=== PATIENT | female | born 1975 | race Hispanic/Latino ===

== ENCOUNTER 2017-11-04 12:57 | Emergency (ER) | payer MEDICARE, MEDICAID ==
[2017-11-04 14:40] LABS: Bilirubin Negative (Negative); Blood, Urine Negative (Negative); Glucose, Urine (Dipstick) Negative (Negative); Ketone, Urine Negative (Negative); Nitrite Negative (Negative); Protein, Urine (Dipstick) Negative (Neg-Trace)
[2017-11-04 14:51] LABS: Amphetamine Not Detected (NotDetected); Methadone Not Detected (NotDetected); Methamphetamine Not Detected (NotDetected)
== END 2017-11-04 17:41 | disposition home or self-care (01) ==
LOC: ERS 12:57
DX: G40.909 Epilepsy, unspecified, not intractable, without status epilepticus (principal); F41.9 Anxiety disorder, unspecified; Z79.899 Other long term (current) drug therapy
CPT/HCPCS: 51701; 80306; 81003; 93005; A4353

== ENCOUNTER 2017-11-27 06:55 | Emergency (ER) | payer MEDICARE, MEDICAID ==
[2017-11-27] MEDS ORDERED: Lorazepam 2 MG/ML VIAL ONE (07:13)
[2017-11-27] MEDS ORDERED: Ondansetron HCl/PF 4 MG/2 ML Vial ONE (07:17)
[2017-11-27] MEDS ORDERED: Midazolam HCl 2 mg/2 ml Vial ONE (07:51)
[2017-11-27 08:05] LABS: #Eosinphils 0.1 thou/uL (0.0-0.7); #Lymphocytes 1.1 thou/uL (1.20-3.40); #Monocytes 0.4 thou/uL (0.11-0.59); #Neutrophils 3.5 thou/uL (1.40-6.50); %Basophils 0.6 % (0.0-1.0); %Lymphocytes 21.4 % (21.0-51.0); %Monocytes 7.7 % (0.0-10.0); %Neutrophils 68.3 % (42.0-75.0); Hemoglobin 12.6 g/dL (12.0-16.0); Mean Corpuscular HGB CONC 33.7 g/dL (32.0-36.0); Mean Corpuscular Hemoglobin 33.6 pg (27.0-31.0); Mean Corpuscular Volume 99.4 fl (81.0-99.0); Mean Platelet Volume 7.5 fL (7.4-10.4); Platelet Count 248 thou/uL (130-400); RBC Distribution Width 11.3 % (11.5-14.5); Red Blood Cell (RBC) Count 3.75 mill/uL (4.20-5.40); White Blood Cell (WBC) Count 5.2 thou/uL (4.8-10.8)
[2017-11-27 08:32] LABS: ALT (SGPT) 23 U/L (8-55); AST (SGOT) 18 U/L (5-34); Albumin 3.2 g/dL (3.5-5.0); Alkaline Phosphatase 63 U/L (40-150); Anion Gap 9 mmol/L (10-20); BUN (Urea Nitrogen) 7 mg/dL (7.0-18.7); Bilirubin, Total 0.5 mg/dL (0.2-1.2); Calc. Creatinine Clearance 0 mL/min (70-130); Calcium 8.2 mg/dL (7.8-10.44); Carbon Dioxide 23 mmol/L (22-29); Chloride 112 mmol/L (98-107); Estimated GFR-MDRD 84; Globulin 2.2 g/dL (2.4-3.5); Glucose 88 mg/dL (70-105); Potassium 3.4 mmol/L (3.5-5.1); Protein, Total 5.4 g/dL (6.0-8.3); Sodium 141 mmol/L (136-145)
[2017-11-27] MEDS ORDERED: Valproic Acid 250 MG CAP PO SCH (09:00)
[2017-11-27 09:25] LABS: Bilirubin Negative (Negative); Blood, Urine Negative (Negative); Clarity CLEAR (Clear); Glucose, Urine (Dipstick) Negative (Negative); Leukocyte Negative (Negative); Nitrite Negative (Negative); Protein, Urine (Dipstick) Negative (Neg-Trace); Specific Gravity, Urine 1.012 (1.002-1.036)
== END 2017-11-27 11:35 | disposition home or self-care (01) ==
LOC: ERS 06:55
DX: G40.909 Epilepsy, unspecified, not intractable, without status epilepticus (principal); G43.909 Migraine, unspecified, not intractable, without status migrainosus; F41.9 Anxiety disorder, unspecified; Z79.899 Other long term (current) drug therapy
CPT/HCPCS: 36415; 80053; 80164; 81003; 85025; 96361; 96374; J2060; J2250; J2405

== ENCOUNTER 2018-02-15 11:14 | Emergency (ER) | payer MEDICARE, MEDICAID ==
[2018-02-15] MEDS ORDERED: Lorazepam 2 MG/ML VIAL ONE ×2 (11:21→11:45)
[2018-02-15] MEDS ORDERED: Diazepam 2.5 MG GEL ONE ×2 (11:31)
[2018-02-15 12:08] LABS: #Basophils 0.1 thou/uL (0.0-0.2); #Eosinphils 0.2 thou/uL (0.0-0.7); #Lymphocytes 1.9 thou/uL (1.20-3.40); #Monocytes 0.5 thou/uL (0.11-0.59); #Neutrophils 3.2 thou/uL (1.40-6.50); %Basophils 2.4 % (0.0-1.0); %Eosinophils 3.1 % (0.0-10.0); %Lymphocytes 31.7 % (21.0-51.0); %Monocytes 8.5 % (0.0-10.0); %Neutrophils 54.4 % (42.0-75.0); Mean Corpuscular HGB CONC 34.5 g/dL (32.0-36.0); Mean Corpuscular Hemoglobin 32.3 pg (27.0-31.0); Mean Corpuscular Volume 93.8 fl (81.0-99.0); Platelet Count 226 thou/uL (130-400); Red Blood Cell (RBC) Count 4.33 mill/uL (4.20-5.40); White Blood Cell (WBC) Count 5.9 thou/uL (4.8-10.8)
[2018-02-15 12:21] LABS: ALT (SGPT) 25 U/L (8-55); AST (SGOT) 18 U/L (5-34); Albumin 3.9 g/dL (3.5-5.0); Alkaline Phosphatase 98 U/L (40-150); Anion Gap 17 mmol/L (10-20); BUN (Urea Nitrogen) 8 mg/dL (7.0-18.7); Bilirubin, Total 0.4 mg/dL (0.2-1.2); Calc. Creatinine Clearance 0 mL/min (70-130); Calcium 8.7 mg/dL (7.8-10.44); Carbon Dioxide 16 mmol/L (22-29); Chloride 112 mmol/L (98-107); Estimated GFR-MDRD 74; Globulin 2.9 g/dL (2.4-3.5); Glucose 83 mg/dL (70-105); Potassium 3.9 mmol/L (3.5-5.1); Protein, Total 6.8 g/dL (6.0-8.3); Sodium 141 mmol/L (136-145)
[2018-02-15 13:09] LABS: Pregnancy Test - Urine (BHCG) Negative (Negative); Pregu Control Background? CLEAR/WHITE (CLR/WHITE); Pregu Control Bar Appear? YES (CONTROL BAR); Specific Gravity 1.015 (1.002-1.036)
[2018-02-15 13:12] LABS: Amphetamine Not Detected (NotDetected); Benzodiazepine Screen Detected (NotDetected); Cocaine Metabolite Screen Not Detected (NotDetected); Methamphetamine Not Detected (NotDetected); Opiate Screen Not Detected (NotDetected); Phencyclidine (PCP) Not Detected (NotDetected); THC/Cannabinoid Screen Not Detected (NotDetected)
[2018-02-15 13:13] LABS: Barbiturates Screen Not Detected (NotDetected); Medtox Control Line Valid? VALID (VALID); Methadone Not Detected (NotDetected); Oxycodone Screen Not Detected (NotDetected); Tricyclic Screen Not Detected (NotDetected)
[2018-02-15] MEDS ORDERED: Acetaminophen 325 MG TAB ONE (13:27)
[2018-02-15 13:30] LABS: Valproic Acid (Depakene) 59.9 ug/mL (50.0-100.0)
== END 2018-02-15 14:27 | disposition home or self-care (01) ==
LOC: SCSER 11:14
DX: G40.909 Epilepsy, unspecified, not intractable, without status epilepticus (principal); I72.9 Aneurysm of unspecified site; F41.9 Anxiety disorder, unspecified; Z79.891 Long term (current) use of opiate analgesic; Z79.899 Other long term (current) drug therapy; G43.909 Migraine, unspecified, not intractable, without status migrainosus
CPT/HCPCS: 36415; 80053; 80164; 80306; 81025; 85025; 96361; 96372; 96374; J2060

== ENCOUNTER 2018-02-16 11:58 | Inpatient (IN) | payer MEDICARE, MEDICAID ==
[2018-02-16] MEDS ORDERED: Diazepam 5 MG TAB ONE (12:06)
[2018-02-16] MEDS ORDERED: Lorazepam 2 MG/ML VIAL ONE ×2 (12:07→14:37)
[2018-02-16] MEDS ORDERED: Lorazepam 1 MG TAB ONE (12:07)
[2018-02-16] MEDS ORDERED: Fosphenytoin Sodium 1,500 MG in Sodium Chloride 0.9% 50 ML IVPB SCH (12:30)
[2018-02-16 12:36] LABS: Bilirubin Negative (Negative); Blood, Urine Negative (Negative); Clarity CLEAR (Clear); Glucose, Urine (Dipstick) Negative (Negative); Leukocyte Negative (Negative); Nitrite Negative (Negative); Protein, Urine (Dipstick) Negative (Neg-Trace); Specific Gravity, Urine 1.023 (1.002-1.036)
[2018-02-16 12:38] LABS: Pregnancy Test - Urine (BHCG) Negative (Negative); Pregu Control Background? CLEAR/WHITE (CLR/WHITE); Pregu Control Bar Appear? YES (CONTROL BAR); Specific Gravity 1.023 (1.002-1.036)
--- NOTE | 2018-02-16 12:50 | CT ---
CT BRAIN WITHOUT CONTRAST: INDICATIONS: History of seizures. COMPARISON: 08/11/2017 FINDINGS: No acute infarct, hemorrhage, or hydrocephalus is present. The septum pellucidum and third ventricle are midline. The skull and intracranial soft tissues are unremarkable appearing. The examination h as not appreciably changed from the comparison study. IMPRESSION: No acute intracranial abnormality. POS: ISIDRO
[2018-02-16 12:54] LABS: ALT (SGPT) 36 U/L (8-55); AST (SGOT) 33 U/L (5-34); Albumin 3.8 g/dL (3.5-5.0); Alkaline Phosphatase 125 U/L (40-150); Anion Gap 15 mmol/L (10-20); BUN (Urea Nitrogen) 9 mg/dL (7.0-18.7); Bilirubin, Total 0.6 mg/dL (0.2-1.2); Calc. Creatinine Clearance 0 mL/min (70-130); Carbon Dioxide 13 mmol/L (22-29); Chloride 116 mmol/L (98-107); Estimated GFR-MDRD 67; Globulin 3.5 g/dL (2.4-3.5); Glucose 105 mg/dL (70-105); Potassium 5.1 mmol/L (3.5-5.1); Protein, Total 7.3 g/dL (6.0-8.3); Sodium 139 mmol/L (136-145)
[2018-02-16 12:58] LABS: Amphetamine Not Detected (NotDetected); Barbiturates Screen Not Detected (NotDetected); Benzodiazepine Screen Detected (NotDetected); Cocaine Metabolite Screen Not Detected (NotDetected); Medtox Control Line Valid? VALID (VALID); Medtox Reader # READER 1; Methadone Not Detected (NotDetected); Methamphetamine Not Detected (NotDetected); Opiate Screen Detected (NotDetected); Oxycodone Screen Not Detected (NotDetected); Phencyclidine (PCP) Not Detected (NotDetected); THC/Cannabinoid Screen Not Detected (NotDetected); Tricyclic Screen Not Detected (NotDetected)
[2018-02-16 13:06] LABS: Band 2 % (5-11); Eosinophils 3 % (0-10); Hemoglobin 14.8 g/dL (12.0-16.0); Lymphocytes 37 % (21-51); MDiff Complete? YES; Mean Corpuscular Hemoglobin 33.6 pg (27.0-31.0); Mean Corpuscular Volume 98.8 fl (81.0-99.0); Mean Platelet Volume 8.4 fL (7.4-10.4); Monocytes 3 % (0-10); Myelocyte 2 % (0-0); Neutrophil 53 % (42-75); Platelet Count 121 thou/uL (130-400); RBC Distribution Width 12.1 % (11.5-14.5); RBC Morphology Normal; Red Blood Cell (RBC) Count 4.41 mill/uL (4.20-5.40); White Blood Cell (WBC) Count 8.1 thou/uL (4.8-10.8)
--- NOTE | 2018-02-16 18:13 | PDOC.EVN ---
Event Note - Event Note Event Note: Attending note. I discussed case with Dr. Chung. I agree with his H&P except as below. 42 y/o with h/o seizure disorder presented s/p "six seizures" with right humeral IO placed in the field. She is currently complaining of posterior head pain and right hip pain, both from reported falls/seizures. Otherwise she is conversing appropriately. I verified PMH/PSH/meds/all/sh/fh - please see resident note. A 12 point ROS is otherwise negative. AOx3, NAD RRR s M or edema CTAB s w/r/r or increased work of breathing BS+, NTTP, no palp organomegaly deferred MSK with palpable contusion posterior skull, bruise right hip, mild TTP Skin warm dry multiple IV start attempts visible, including on left breast Neuro: CN II-xII intact and symmetric, motor 5/5 U/L extremity, no clonus, DTRs 2+ Labs reviewed A/P: Seizure disorder -neuro consulted -add phosphenytoin -continue home meds -send NH4 in AM -carbamazepime level -hold pain medications for now DVT/GI ppx.
[2018-02-16] MEDS ORDERED: levETIRAcetam In NaCl (Iso-Os) 1,000 MG in Premix Bag 1 BAG IVPB SCH (18:30)
[2018-02-16] MEDS ORDERED: Acetaminophen 500 MG TAB ONE (18:41)
[2018-02-16] MEDS ORDERED: Fosphenytoin Sodium 100 MG in Sodium Chloride 0.9% 50 ML IVPB SCH (22:00)
[2018-02-16] MEDS ORDERED: HYDROcodone/Acetaminophen 5/325 mg Tablet PO PRN (22:58)
[2018-02-16] MEDS ORDERED: Ondansetron ODT 4 MG TAB PO PRN (22:58)
[2018-02-16] MEDS: Lorazepam 2 MG/ML VIAL SLOW IVP PRN (23:17)
[2018-02-16] MEDS ORDERED: Topiramate 100 MG TAB PO SCH (23:45)
[2018-02-16] MEDS ORDERED: ALPRAZolam 0.25 MG TAB PO SCH (23:45)
[2018-02-17] MEDS: Lorazepam 2 MG/ML VIAL SLOW IVP PRN ×3 (00:12→01:21)
[2018-02-17 00:59] VITALS: BMI 25.3
[2018-02-17] MEDS ORDERED: FOSPHENYTOIN SODIUM IVPB SCH (01:45)
[2018-02-17] MEDS ORDERED: SODIUM CHLORIDE 0.9% IVPB SCH (01:45)
[2018-02-17 02:08] LABS: #Eosinphils 0.1 thou/uL (0.0-0.7); #Lymphocytes 1.4 thou/uL (1.20-3.40); #Monocytes 0.4 thou/uL (0.11-0.59); #Neutrophils 6.5 thou/uL (1.40-6.50); %Basophils 0.2 % (0.0-1.0); %Eosinophils 0.9 % (0.0-10.0); %Lymphocytes 16.2 % (21.0-51.0); %Neutrophils 77.7 % (42.0-75.0); Hemoglobin 14.5 g/dL (12.0-16.0); Mean Corpuscular HGB CONC 33.2 g/dL (32.0-36.0); Mean Corpuscular Hemoglobin 32.8 pg (27.0-31.0); Mean Corpuscular Volume 98.6 fl (81.0-99.0); Mean Platelet Volume 8.9 fL (7.4-10.4); Platelet Count 224 thou/uL (130-400); Red Blood Cell (RBC) Count 4.42 mill/uL (4.20-5.40); White Blood Cell (WBC) Count 8.4 thou/uL (4.8-10.8)
[2018-02-17 02:11] LABS: Anion Gap 14 mmol/L (10-20); BUN (Urea Nitrogen) 8 mg/dL (7.0-18.7); Calc. Creatinine Clearance 105 mL/min (70-130); Calcium 8.8 mg/dL (7.8-10.44); Carbon Dioxide 15 mmol/L (22-29); Chloride 115 mmol/L (98-107); Estimated GFR-MDRD 79; Glucose 95 mg/dL (70-105); Phosphorus 3.1 mg/dL (2.3-4.7); Potassium 3.5 mmol/L (3.5-5.1); Sodium 140 mmol/L (136-145)
[2018-02-17] MEDS: ALPRAZolam 0.25 MG TAB PO SCH ×3 (03:43→22:04)
[2018-02-17] MEDS: Topiramate 100 MG TAB PO SCH ×3 (03:44→22:04)
--- NOTE | 2018-02-17 03:53 | PDOC.EVN ---
Event Note - Event Note Event Note: Residents called to patient's bedside around 0130 on 02/17/18 secondary to patient have multiple seizure episodes. Patient had been given 8 mg Ativan over the prior 3 hours. Patient was not actively seizing while we were in the room. VSS and patient in no acute distress. Review of medication administration showed that patient had only been loaded with 1500 mg of fosphenytoin. Status epilepticus algorithm followed and patient given an additional 5 mg/kg of fosphenytoin.
[2018-02-17 04:10] LABS: Carbamazepine-Tegretol Less than 1.9 ug/mL (4.0-12.0)
--- NOTE | 2018-02-17 08:34 | HP-2 ---
RESIDENT: Dr. Camilo Chung. ATTENDING: Dr. Nolan. CODE STATUS: FULL CODE. PRIMARY CARE PHYSICIAN: Zeina river. CHIEF COMPLAINTS: Seizures. HISTORY OF PRESENT ILLNESS: The patient is a 42-year-old female with past medical history of epilepsy, migraines and per the patient, aneurysm in her brain, who sees Dr. Wilkinson as an outpatient, who presents for evaluation of recurrent seizures. The patient was seen at [facility] yesterday for the same thing. Reportedly, the patient feeling nauseated prior to getting her typical aura of a nasty metallic type taste in her mouth with seizures occurring approximately 10 minutes after this. The patient reportedly had multiple seizures. Upon chart review of [facility] records, the patient had 2 seizures lasting 1-2 minutes with brief postictal period. The patient did regain consciousness and was back to baseline neurologically in between episodes. The patient was discharged home at this time. The patient states that the same thing happened earlier today while she was out to eat approximately 10 minutes prior to arrival to the ER. The patient began to feel nauseated, had a nasty metallic taste in her mouth, which she states is her usual aura then proceeded to have a generalized convulsive seizure, which is normal for her usual type of seizures. The patient has not had a seizure in the past 6 months prior to the onset of the seizure yesterday. The patient endorses taking her medication as prescribed and is not missing doses. The patient has not started any other new medication during this time. The patient denies any other possible changes or causes that could be causing her to have seizures. Denies any drug use as well. The patient reports that she had an accident as a child this is why she has seizures. Denies any family history of seizures. The patient states that she did have an episode of status epilepticus approximately 6 years ago, where she was intubated and sed[facility] for [facility] [place]. In the ER, the patient received 4 mg of Ativan total and was loaded with 1500 mg of fosphenytoin. The patient received 500 normal saline bolus as well. PAST MEDICAL HISTORY: 1. Migraines. 2. Possible history of brain aneurysm. PAST SURGICAL HISTORY: Hysterectomy. ALLERGIES: 1. ASPIRIN. 2. PHENOBARBITAL. MEDICATIONS: 1. Topamax 100 mg p.o. b.i.d. 2. Tegretol 200 mg p.o. b.i.d. 3. Depakote extended release 500 mg p.o. daily. 4. Xanax 0.25 mg p.o. b.i.d. 5. [place] 10/325 mg p.o. b.i.d. 6. Fioricet as needed for migraines. FAMILY HISTORY: No family history of seizure disorders. SOCIAL HISTORY: Denies any tobacco, alcohol or IV drug use. REVIEW OF SYSTEMS: GENERAL: Denies any fevers or chills. EYES: Denies any vision change or eye pain. ENT: Denies any rhinorrhea, sore throat. RESPIRATORY: Denies any cough or congestion. CARDIOVASCULAR: Denies any chest pain. GI: Endorses nausea. Denies any vomiting. See HPI. GENITOURINARY: Denies any dysuria or polyuria. MUSCULOSKELETAL: Denies any rash. Endorses some right hip pain from a fall earlier this week. NEUROLOGIC: Endorses seizure. See HPI. PSYCHIATRIC: Denies anxiety or depression. PHYSICAL EXAMINATION: VITAL SIGNS: Blood pressure 123/76, pulse 76, respiratory rate 18, T-max 98.1 degrees Fahrenheit, pulse ox 97% on room air, weight 78 kilograms. GENERAL: Alert and oriented x3. NAD. Well developed. EYES: PERRLA, EOMI. Conjunctivae within normal limits. ENT: Nasal mucosa and oropharynx within normal limits. NECK: Supple, no cervical lymphadenopathy, no thyromegaly, no bruits. CARDIOVASCULAR: Regular rate and rhythm, no murmurs, no gallops, 2+ radial and pedal pulses bilaterally. RESPIRATORY: Normal respiratory effort, no retractions. Clear to auscultation bilaterally. SKIN: Warm, dry and intact. No cyanosis or lesions. IO placed in the right shoulder and peripheral IV on the anterior surface of the left foot. ABDOMEN: Soft, mildly tender to palpation in the lower abdomen. However, bowel sounds x4. No masses, distention or rebound tenderness. EXTREMITIES: No clubbing, no cyanosis, no edema. MUSCULOSKELETAL: Structure within normal limits. Tone within normal limits. Muscle strength 4/5 throughout, possibly slightly weaker on the left as compared to the right, full range of motion. NEUROLOGICAL: No focal deficits. Sensation within normal limits. Cranial nerves II through XII intact bilaterally. GCS 10. PSYCHIATRIC: Appropriate mood and her chest. PSYCHIATRIC: Appropriate active. LABORATORY DATA: White blood cells 8.1, hemoglobin 14, hematocrit 43.6, platelets 121, Sodium 139, potassium 5.1, chloride 116, bicarbonate 13, BUN 9, creatinine 0.91, glucose 105, albumin 3.8, total protein 7.3, total bilirubin 0.6, calcium 9.0, AST 33, ALT 36, alkaline phosphatase 125. Prolactin 12.75, valproic acid 50.3, base hCG negative. UA specific gravity of 1.023, negative blood, negative protein, negative glucose, negative nitrites, trace ketones negative, glucose negative, red blood cells negative, white blood cells negative bacteria. UDS positive for opiates and benzodiazepines. IMAGING: CT brain without contrast showing no acute process. ASSESSMENT AND PLAN: A 42-year-old female with: 1. Epilepsy with recurrent unprovoked generalized seizures. -- Dr. Bo of Neurology already consulted from the ER. The patient loaded with fosphenytoin. Depakote level was low and therapeutic range of 50.3. The patient also taking Tegretol and Topamax. We will check carbamazepine level to evaluate, if this level was therapeutic. We will continue her current anti- seizure regimen. We will continue on with usual maintenance of keppra per neurology 500 mg Q12 hrs s/p 1 gram initial dose in ER written by Neuro. -- The patient regained her baseline mentation in between episodes and episodes not lasting greater than 5-10 minutes, giving low suspicion for possible status. This was confirmed by talking to the ER nurse, who took care of the patient at [facility] with similar today's seizures. -- Currently no obvious source of infection or nidus provoking seizures. -- We will also check a magnesium level. Obtained EKG and TSH to further evaluate possible cause for these. -- We will have p.r.n. Ativan on board, if the patient does have continued seizures on fosphenytoin to use. -- We will defer ordering MRI brain to Neurology status post full evaluation of her. 2. History of aneurysms. -- The last CT brain obtained in February of last year without any evidence of aneurysm on angiogram. Per reports, unsure where this history came from as there is no other mention of it in the record. We will consider obtaining a CT with and without contrast to further evaluate this, if this is felt to be a viable source of her seizures. 3. Migraines. -- The patient taking Topamax and Fioricet for her migraines at home. Currently , asymptomatic. In the setting of recurrent seizures and starting new antiepileptics. We will hold these medications and treat symptomatically, if symptoms do arise. DISPOSITION OF THE STAY: Greater than 2 midnights. Symptomatic medications will be provided. History and physical exam as well as management were discussed with Dr. Nolan. Attending addendum: Followed by Dr. Gibbs. On exam, GCS 15, no focal deficits. IO right humerus. MTDD
[2018-02-17] MEDS: carBAMazepine 200 MG TAB PO SCH ×2 (09:12→18:11)
[2018-02-17] MEDS ORDERED: Midazolam HCl 2 mg/2 ml Vial ONE (14:49)
[2018-02-17] MEDS ORDERED: Fentanyl 100 MCG/2 ML VIAL ONE (14:49)
[2018-02-17] MEDS ORDERED: Sodium Chloride 0.9% 30 ML ONE (14:50)
[2018-02-17] MEDS ORDERED: Bupivacaine/Epinephrine 0.25% 30 ML VIAL ONE ×2 (14:50→15:57)
[2018-02-17] MEDS ORDERED: Lidocaine 2% 10 ML INJ ONE (14:51)
--- NOTE | 2018-02-17 15:09 | PDOC.FM ---
- Subjective Subjective: See event note from 02/17 for overnight events in detail. Pt w/ seizures x5-6 early this AM. Found that IO clotted. Was given 500 mg of fosphenytoin w/ improvment in sxs. No seizure activity since this time. Pt w/ 20 gauge in dorsal left foot as only IV access. Pt sleepy during interview. Endorsing headache but no other complaints. VSS, afebrile. to visit this AM. - Objective MAR Reviewed: Yes Vital Signs & Weight: Vital Signs (12 hours) Temp Pulse Resp BP Pulse Ox 02/17/18 11:25 98.9 F 75 14 96/62 97 02/17/18 09:05 97.8 F 78 16 111/71 97 Result Diagrams: 02/17/18 00:21 02/17/18 00:21 <Camilo Chung - Last Filed: 02/17/18 15:07> - Objective Vital Signs & Weight: Vital Signs (12 hours) Temp Pulse Resp BP Pulse Ox 02/18/18 04:00 98.5 F 87 20 111/72 99 02/18/18 00:00 98.4 F 87 20 91/58 L 99 02/17/18 20:59 98.8 F 78 15 94/55 L 99 Weight Weight 74.933 kg I&O: 02/17/18 02/18/18 02/19/18 06:59 06:59 06:59 Intake Total 360 Balance 360 Result Diagrams: 02/18/18 04:45 02/18/18 04:45 <Elliott Hernandez - Last Filed: 02/18/18 07:55> Phys Exam - Physical Examination Constitutional: NAD HEENT: PERRLA, moist MMs Respiratory: clear to auscultation bilateral Cardiovascular: RRR, no significant murmur Gastrointestinal: soft, non-tender Musculoskeletal: no edema Neurological: moves all 4 limbs Psychiatric: normal affect, A&O x 3 Deviation from normal: tired appearing <Camilo Chung - Last Filed: 02/17/18 15:07> Dx/Plan (1) Seizure disorder Code(s): G40.909 - EPILEPSY, UNSP, NOT INTRACTABLE, WITHOUT STATUS EPILEPTICUS Status: Acute Plan: Cont. pt's home seizure meds w/ Depakote and tegretol Cont. w/ keppra per neuro recs 2/2 contaminant usage of depakote Carbamazepine level <1.9, possibly cause of pt's seizures Head CT negative and no signs of infection as nidus Will defer decision for further neuro imaging to neurology Awaiting further neuro reccomendations (2) Poor venous access Code(s): I87.8 - OTHER SPECIFIED DISORDERS OF VEINS Status: Chronic Plan: Pt w/ poor peripheral access and hx of multiple IO placements in the past when coming to the ED for her seizure d/o Consult Gen Surg for venous access port placement (3) Migraines Code(s): G43.909 - MIGRAINE, UNSP, NOT INTRACTABLE, WITHOUT STATUS MIGRAINOSUS Status: Acute Plan: Cont. w/ outpatient topamax (4) Anxiety Code(s): F41.9 - ANXIETY DISORDER, UNSPECIFIED Status: Acute Plan: Cont. w/ outpatient xanax to prevent possible withdrawal seizures (5) Hypothyroidism Code(s): E03.9 - HYPOTHYROIDISM, UNSPECIFIED Status: Acute Plan: TSH ULN Cont. w/ home dose synthroid Titration as outpatient <Camilo Chung - Last Filed: 02/17/18 15:07> Attending Addendum - Attending Addendum Date/Time: 02/18/18 0755 I personally evaluated the patient and discussed the management with Dr. Chung on 02/17/18. I agree with the History, Examination, Assessment and Plan documented above with any addition or exceptions noted below. <Elliott Hernandez - Last Filed: 02/18/18 07:55>
[2018-02-17] MEDS ORDERED: Lorazepam 2 MG/ML VIAL ONE (15:23)
[2018-02-17] MEDS ORDERED: Meperidine HCl/PF 25 MG/ML VIAL SLOW IVP PRN (16:30)
[2018-02-17] MEDS ORDERED: Promethazine HCl 25 MG/ML VIAL IM PRN (16:30)
[2018-02-17] MEDS ORDERED: Ondansetron HCl/PF 4 MG/2 ML Vial IVP PRN (16:30)
[2018-02-17] MEDS ORDERED: Promethazine HCl 25 MG/ML VIAL SLOW IVP PRN (16:30)
--- NOTE | 2018-02-17 16:54 | PDOC.GSCN ---
Surgery Consult: HPI - Consult details Date: 02/17/18 Time: 14:00 Reason for consult: other (Consult for mediport placement) Requesting physician: Camilo Chung History of present illness: 02/17/18 14:36 This is a 42 y/o female pmh epilepsy with depleted venous access. Per report by the family medicine team pt has had multiple IO placements when she has uncontrolled seizures. Unfortunately the patient had multiple episodes overnight and received 8mg of ativan. She is currently drowsy, but awakens to voice and stimulation, however she is unable to proved further history. No family is at bedside. History obtained by records review. 02/17/18 14:38 Surgery Consult: [facility] Source: other Past Medical History: Epilepsy, Migraines Past Surgical History: Hysterectomy - Past Family History Pertinent family history: Unable to obtain Surgery Consult: Exam - Vital signs Vital signs: Vital Signs - Most Recent Temp Pulse Resp BP Pulse Ox 98.9 F 75 14 96/62 97 02/17/18 11:25 02/17/18 11:25 02/17/18 11:25 02/17/18 11:25 02/17/18 11:25 - Physical Exam General: no distress, chronically ill, other (resting in bed) Respiratory: normal expansion, normal respiratory effort, other (Upper chest wall free from scars/devices) Abdomen: non tender, soft Neurologic: other (Lethargic, wakes to voice briefly. Will briefly answer questions appropriately. No focal deficit noted) Surgery Consult: Meds - Medications MAR Reviewed: Yes Medications: Current Medications Hydrocodone Bitart/Acetaminophen ([place] 5/325) 1 tab PO Q6H PRN PRN Reason: Pain 7-10 Alprazolam (Xanax) 0.25 mg PO BID [facility] Last Admin: 02/17/18 09:03 Dose: Not Given Carbamazepine (Tegretol) 200 mg PO BID-[facility] Last Admin: 02/17/18 09:12 Dose: 200 mg Divalproex Sodium (Depakote Er) 1,000 mg PO BID [facility] Last Admin: 02/17/18 09:11 Dose: 1,000 mg Levetiracetam 500 mg/ Device 100 mls @ 200 mls/hr IVPB BID [facility] Last Admin: 02/17/18 09:09 Dose: 100 mls Lorazepam (Ativan) 2 mg SLOW IVP Q15MIN PRN PRN Reason: Seizures Last Admin: 02/17/18 01:21 Dose: 2 mg Ondansetron HCl (Zofran Odt) 4 mg PO Q6H PRN PRN Reason: Nausea/Vomiting Last Admin: 02/17/18 09:24 Dose: 4 mg Sodium Chloride (Flush - Normal Saline) 10 ml IVF Q12HR [facility] Last Admin: 02/17/18 09:12 Dose: 10 ml Sodium Chloride (Flush - Normal Saline) 10 ml IVF PRN PRN PRN Reason: Saline Flush Topiramate (Topamax) 100 mg PO BID [facility] Last Admin: 02/17/18 09:11 Dose: 100 mg - Allergies Allergies/Adverse Reactions: Allergies Allergy/AdvReac Type Severity Reaction Status Date / Time aspirin Allergy Hives Verified 02/16/18 23:07 phenobarbital Allergy Verified 02/16/18 23:07 Surgery Consult: Results - Labs Result Diagrams: 02/20/18 04:46 02/20/18 04:46 Surgery Consult: A/P - Problem (1) Poor venous access Code(s): I87.8 - OTHER SPECIFIED DISORDERS OF VEINS Status: Chronic (2) Seizure disorder Code(s): G40.909 - EPILEPSY, UNSP, NOT INTRACTABLE, WITHOUT STATUS EPILEPTICUS Status: Acute - Plan Plan: Pt to OR with Dr Fajardo for mediport placement under fluoroscopy. RN to obtain consent from pts spouse. Pt has been NPO since this am. Dr Fajardo has seen and evaluated this patient and agrees with the assessment and plan
--- NOTE | 2018-02-17 18:47 | RAD ---
PORTABLE SUPINE RADIOGRAPH CHEST: 02/17/18 COMPARISON: 05/15/07. HISTORY: Evaluate Port-A-Cath tip. FINDINGS: There is a right sided CT injectable Port-A-Cath present. The tip overlies the cardiac silhouette to the left of midline inferiorly, suggesting that this is at least within the right atrium if not into the right ventricle. Supine imaging limits assessment for pneumothorax and pleural fluid. There is baptiste zy patchy opacity in the medial left lung base suggesting volume loss or less likely infiltrate. IMPRESSION: Distal tip of Port-A-Cath overlies the cardiac silhouette to the left of midline. This is at least to the level of the right atrium if not to the level of the right ventricle. Dr. Fajardo made aware at 5 p.m., 02/17/18. Code CR POS: ADWOA
--- NOTE | 2018-02-17 19:12 | CT ---
CT OF THE CHEST WITHOUT CONTRAST: 02/17/18 COMPARISON: None. HISTORY: Mediport placement with low lying Mediport. Evaluate for the tip of the Mediport. TECHNIQUE: Multiple contiguous axial images were obtained in a CT of the chest without contrast. Coronal reforma ts were performed. FINDINGS: There is a right subclavian Mediport. The tip of the Mediport extends through the right atrium and is immediately at the tricuspid valve. This does not extend deeply into the right ventricle. The heart is normal in size without focal cardiac abnormality. No hilar or mediastinal lymphadenopathy are seen . No pneumothorax is seen. No pleural effusion is present. No focal infiltrates are seen in the lungs . The visualized subdiaphragmatic structures are unremarkable. Mild degenerative changes are seen in th e spine. IMPRESSION: Recently placed Mediport has its tip immediately adjacent to the tricuspid valve. POS: ADWOA
--- NOTE | 2018-02-17 21:58 | OP ---
DATE OF OPERATION: 02/17/2018 PREOPERATIVE DIAGNOSES: 1. Recurrent epileptic seizures. 2. Difficulty with peripheral intravenous access. POSTOPERATIVE DIAGNOSES: 1. Recurrent epileptic seizures. 2. Difficulty with peripheral intravenous access OPERATION PERFORMED: Placement of right subclavian Port-A-Cath under fluoroscopy. ANESTHESIA: Monitored anesthesia care. ESTIMATED BLOOD LOSS: Less than 5 mL. INDICATIONS FOR PROCEDURE: A 42-year-old woman presented with recurrent epileptic seizures. Multipl e attempts to secure dependable peripheral IV access was unsuccessful. In prior hospitalizations int erosseous has been use as IV access. I was asked to place a Port-A-Cath for therapeutic purposes. DESCRIPTION OF PROCEDURE: Informed consent obtained from the patient's spouse. The patient was brou ght to the operating room and placed in supine position. Following conscious sedation, the left bila teral chest wall was sterilely prepped and draped in usual fashion. I anesthetized the skin below th e left clavicle with 0.25% Marcaine with epinephrine. I cannulated the left subclavian vein on 4 att empts, each time returning dark venous blood, but was unable to thread a guidewire. We then decided to proceed with placement of the catheter in the right chest wall. Skin below the right clavicle was anesthetized again with 0.25% Marcaine with epinephrine. The right subclavian vein was cannulated w ith an 18 gauge introducer needle returning dark venous blood. A guidewire was passed through the ne edle and placed in the right subclavian vein without resistance. The needle was withdrawn over the g uidewire. A stab incision was made adjacent to the guidewire using an 11 scalpel. The dilator was p assed over the guidewire dilating subcutaneous tissues. Dilator was then connected to introducer she ath, which was then introduced as a unit over the guidewire and placed in the right subclavian vein w ithout resistance. The dilator and guidewire were removed as a unit leaving the introducer sheath in place through which the Port-A-Cath catheter was inserted into the right subclavian vein without res istance. The introducer sheath was peeled away under fluoroscopy. The catheter was fashioned to [facility] under fluoroscopy and connected to it well. I then made an oblique incision adjacent to the inse rtion site. Incision was carried through subcutaneous tissues maintaining hemostasis using cautery. A subcutaneous pocket was then raised. The wall of the Port-A-Cath was then placed in the subcutane ous pocket and secured to the anterior chest wall using 3-0 Prolene. Using a Villalobos needle, dark veno us blood was aspirated from the port, which was flushed with saline and then straight heparin. Subcu taneous tissues were approximated over the port using 3-0 Vicryl suture in an interrupted fashion. S kin was closed using a running stitch of 4-0 Monocryl suture in subcuticular fashion. Dermabond was applied over the incision. The patient tolerated the operation without any apparent complication and was returned to recovery room in a satisfactory condition. She did receive 2 grams of Ancef once the port was in place as no previous IV access was obtainable.
[2018-02-18 05:13] LABS: #Eosinphils 0.1 thou/uL (0.0-0.7); #Lymphocytes 1.3 thou/uL (1.20-3.40); #Monocytes 0.8 thou/uL (0.11-0.59); %Basophils 0.4 % (0.0-1.0); %Eosinophils 0.6 % (0.0-10.0); %Lymphocytes 14.6 % (21.0-51.0); %Monocytes 8.3 % (0.0-10.0); %Neutrophils 76.1 % (42.0-75.0); Hemoglobin 14.4 g/dL (12.0-16.0); Mean Corpuscular HGB CONC 33.6 g/dL (32.0-36.0); Mean Corpuscular Volume 98.2 fl (81.0-99.0); Mean Platelet Volume 8.7 fL (7.4-10.4); Platelet Count 192 thou/uL (130-400); RBC Distribution Width 11.8 % (11.5-14.5); Red Blood Cell (RBC) Count 4.36 mill/uL (4.20-5.40); White Blood Cell (WBC) Count 9.1 thou/uL (4.8-10.8)
[2018-02-18 05:22] LABS: Anion Gap 15 mmol/L (10-20); BUN (Urea Nitrogen) 10 mg/dL (7.0-18.7); Calc. Creatinine Clearance 107 mL/min (70-130); Calcium 8.5 mg/dL (7.8-10.44); Carbon Dioxide 15 mmol/L (22-29); Chloride 110 mmol/L (98-107); Estimated GFR-MDRD 79; Glucose 79 mg/dL (70-105); Potassium 3.9 mmol/L (3.5-5.1); Sodium 136 mmol/L (136-145)
[2018-02-18] MEDS: Levothyroxine Sodium 50 MCG TAB PO SCH (05:22)
[2018-02-18] MEDS: carBAMazepine 200 MG TAB PO SCH ×2 (09:42→16:47)
[2018-02-18] MEDS: Topiramate 100 MG TAB PO SCH ×2 (09:42→20:33)
[2018-02-18] MEDS: ALPRAZolam 0.25 MG TAB PO SCH ×2 (09:50→20:54)
--- NOTE | 2018-02-18 11:13 | PDOC.FM ---
- Subjective Subjective: S/p venous access port placed yesterday. Tip noted to be in right atrium. S/p echo this AM. Pt groggy but w/ no new complaints. States she has not been seen by Dr. Gibbs yet? - Objective MAR Reviewed: Yes Vital Signs & Weight: Vital Signs (12 hours) Temp Pulse Resp BP Pulse Ox 02/18/18 09:40 98.3 F 97 18 109/64 100 02/18/18 04:00 98.5 F 87 20 111/72 99 02/18/18 00:00 98.4 F 87 20 91/58 L 99 Weight Weight 74.933 kg I&O: 02/17/18 02/18/18 02/19/18 06:59 06:59 06:59 Intake Total 360 Balance 360 Result Diagrams: 02/18/18 04:45 02/18/18 04:45 <Camilo Chung K - Last Filed: 02/18/18 11:11> - Objective Vital Signs & Weight: Vital Signs (12 hours) Temp Pulse Resp BP BP Pulse Ox 02/20/18 15:23 93/64 02/20/18 11:10 98.3 F 74 14 96/67 100 02/20/18 08:00 97.7 F 70 13 100 02/20/18 07:43 97.7 F 70 13 88/62 L 100 Weight Weight 72.711 kg I&O: 02/19/18 02/20/18 02/21/18 06:59 06:59 06:59 Intake Total 520 1150 Output Total 500 1150 Balance 20 0 Result Diagrams: 02/20/18 04:46 02/20/18 04:46 <Elliott Hernandez - Last Filed: 02/20/18 19:18> Phys Exam - Physical Examination Constitutional: NAD HEENT: PERRLA, moist MMs Neck: no nodes, no JVD Respiratory: no wheezing, clear to auscultation bilateral Cardiovascular: RRR, no significant murmur Gastrointestinal: soft, non-tender Musculoskeletal: no edema, pulses present Neurological: moves all 4 limbs Psychiatric: normal affect, A&O x 3 Skin: cap refill <2 seconds <Camilo Chung K - Last Filed: 02/18/18 11:11> Dx/Plan (1) Seizure disorder Code(s): G40.909 - EPILEPSY, UNSP, NOT INTRACTABLE, WITHOUT STATUS EPILEPTICUS Status: Acute Plan: Cont. pt's home seizure meds w/ Depakote and tegretol Cont. w/ keppra per neuro recs 2/2 contaminant usage of depakote Carbamazepine level <1.9, possibly cause of pt's seizures Head CT negative and no signs of infection as nidus Will defer decision for further neuro imaging to neurology Awaiting further neuro reccomendations Nurse to call clinic to confirm consult w/ Dr. Gibbs (2) Poor venous access Code(s): I87.8 - OTHER SPECIFIED DISORDERS OF VEINS Status: Chronic Plan: s/p portal venous port placement Will keep pt NPO this AM if needed to be taken back for revision 2/2 tip in atrium Pending surgery recs (3) Migraines Code(s): G43.909 - MIGRAINE, UNSP, NOT INTRACTABLE, WITHOUT STATUS MIGRAINOSUS Status: Acute Plan: Cont. w/ outpatient topamax (4) Anxiety Code(s): F41.9 - ANXIETY DISORDER, UNSPECIFIED Status: Acute Plan: Cont. w/ outpatient xanax to prevent possible withdrawal seizures (5) Hypothyroidism Code(s): E03.9 - HYPOTHYROIDISM, UNSPECIFIED Status: Acute Plan: TSH ULN Cont. w/ home dose synthroid Titration as outpatient <Camilo Chung - Last Filed: 02/18/18 11:11> Attending Addendum - Attending Addendum Date/Time: 02/20/18 1917 I personally evaluated the patient and discussed the management with Dr. Chung on 02/18/18. I agree with the History, Examination, Assessment and Plan documented above with any addition or exceptions noted below. <Elliott Hernandez - Last Filed: 02/20/18 19:18>
--- NOTE | 2018-02-18 12:12 | PRG ---
DATE OF SERVICE: 02/18/2018 ATTENDING PHYSICIAN: Dr. Man Fajardo. SUBJECTIVE: This is a 42-year-old female with a history of epilepsy with uncontrolled seizures. General Surgery was consulted for placement of a MediPort yesterday. The patient went to the OR with Dr. Fajardo for MediPort placement under fluoroscopy. A postoperative chest x-ray showed that the tip of the Port-A-Cath was into the right atrium and possible past the tricuspid valve. A transthoracic echocardiogram was ordered to confirm placement of the catheter. Catheter is otherwise working well. The surgical site was inspected this morning in the room and appears to be fine. The patient was somnolent but was arousable and conversational and voiced no complaints. OBJECTIVE: VITAL SIGNS: BP 111/72, pulse 87, temperature 98.5, respirations 20, O2 sat 99 % on room air. GENERAL: The patient asleep, but arousable, in no acute distress. RESPIRATORY: Breath sounds clear to auscultation bilaterally. She has a Port-A -Cath in place in her right chest. CARDIOVASCULAR: Regular rate and rhythm. ABDOMEN: Soft, nontender, nondistended. NEUROLOGIC: Somnolent but answers questions appropriately. No focal deficit noted. LABORATORY DATA: Hematology: WBC is 9.1, hemoglobin 14.4, hematocrit 42.8, platelets 192. Chemistry: Sodium 136, potassium 3.9, chloride 110, bicarb 15, BUN 10, creatinine 0.79, glucose 79, calcium 8.5. IMAGING: A chest CT without contrast. Recently placed MediPort has tip immediately adjacent to the tricuspid valve and transthoracic echocardiogram is pending. ASSESSMENT: 1. Epilepsy with uncontrolled seizures. 2. Poor venous access. 3. Status post MediPort placement. PLAN: 1. Dr. Fajardo spoke with Dr. Razo about the catheter tip placement. Catheter is okay to use. Echocardiogram to evaluate tricuspid valve function and tip placement is pending. 2. Surgery will sign off this patient at this time. Please do not hesitate to contact us for further consultation or questions. Thank you for allowing us to be involved in the care of this patient. This was seen and examined with Dr. Man Fajardo on rounds, who agrees with this assessment and plan. [facility]
[2018-02-18] MEDS: Lorazepam 2 MG/ML VIAL SLOW IVP PRN (13:04)
--- NOTE | 2018-02-18 14:51 | CON ---
DATE OF CONSULTATION: 02/16/2018 REFERRING PROVIDER: Dr. Camilo Chung. REASON FOR CONSULTATION: Recurrent seizures. HISTORY OF PRESENT ILLNESS: Ms. Guerrero is a pleasant 42-year-old female who has been consulted for evaluation of recurrent seizures. The patient reported that she has history of seizures for several years. She is seeing Dr. Quincy Gibbs as an outpatient for her seizure disorder. She states that she is currently taking Topamax 100 mg twice a day and Depakote extended release 1500 mg once a day for seizures. She also has intractable migraine, so she is receiving Botox therapy for her migraine. She had gone to see Dr. Quincy Gibbs on yesterday and was receiving Botox and at that time, she had mentioned to Dr. Gibbs that she had passed out and fell down in her bathroom. She has received bruising on her back of her thigh and on her back, which she does not remember how she got them. She states that her daughter found her on the floor and she was confused at that time. She states that she has seizures once every couple of weeks. Dr. Gibbs did ask her to go to the emergency room for which she had gone to the [facility] in [facility] where she was seen and discharged after a few hours. She came back today as she had another episode of seizure at home for which family had called EMS. On arrival to the ER, she was slowly recovering, but had another 2 more episodes of seizures. According to the nurse, both seizures were witnessed during that time she was having jerking of her arm on both sides. She was unresponsive. She became tachycardic and was hypoxic during the event. This lasted for approximately 2-3 minutes followed by postictal confusion. She is still somewhat drowsy and confused from the episode. PAST MEDICAL HISTORY: Significant for, 1. Seizure disorder. 2. Migraines. PAST SURGICAL HISTORY: Significant for hysterectomy. CURRENT MEDICATIONS: Include Topamax 100 mg twice daily, Depakote extended release 1500 mg once a day, Xanax 0.25 mg b.i.d. p.r.n., Cataumet 10/325 mg p.o. b.i.d., Ambien 1 tablet at bedtime p.r.n., Fioricet 1 capsule as needed q.4 hours. FAMILY HISTORY: Noncontributory. SOCIAL HISTORY: She denies smoking, alcohol use, or illicit drug use. ALLERGIES: Include ASPIRIN and PHENOBARBITAL. REVIEW OF SYSTEMS: As mentioned above in HPI, otherwise negative. PHYSICAL EXAMINATION: VITAL SIGNS: Blood pressure 104/67, pulse of 105, temperature of 98.1, respirations of 20, O2 sats 99% on room air. GENERAL: Well-developed, well-nourished female resting in bed, in no apparent distress. RESPIRATORY: Clear to auscultation bilaterally. CARDIOVASCULAR: Regular rate and rhythm. NEUROLOGIC: Mental status: The patient is awake, alert, and oriented x2. Speech and language: Fluent speech. Cranial nerves: Pupils are 3 mm and reactive. Visual block are intact. External muscles are intact. No nystagmus noted. Face is symmetric. Tongue and uvula are midline. Motor exam showed normal tone and bulk with a 5/5 strength in both upper and lower extremities. Sensory: Sensation is intact and symmetric. Deep tendon reflexes 2+ reflex in both upper and lower extremities. Babinski: Plantar responses flexion bilaterally. Coordination intact to [id number] tapping bilaterally. LABORATORY DATA: Reviewed, which included CBC, CMP, urinalysis, and urine drug screen, which is significant for platelet count of 121. Urine drug screen was positive for opioids and benzodiazepines. Depakote level was 50.3. IMAGING STUDIES: CT head without contrast was reviewed, which showed no acute intracranial abnormality. IMPRESSION: 1. Recurrent seizures. 2. Migraine. ASSESSMENT AND PLAN: Ms. Guerrero is a pleasant 42-year-old female who presented with recurrent episodes of seizures. At this time, I would recommend continuing her on Topamax 100 mg twice daily and Depakote extended release 1500 mg once a day. I will load her with Keppra IV 1 gram now dose followed by 500 mg b.i.d. I will recommend observing her overnight for any recurrence of seizures. If she remains stable and if remains seizure free, then she is okay to be discharged to home with outpatient followup to Dr. Gibbs in 2-3 weeks, post-discharge. HERRERA
--- NOTE | 2018-02-18 15:33 | PRG ---
DATE OF SERVICE: 02/18/2018 SUBJECTIVE: Ms. Guerrero is a pleasant 42-year-old female who presented with the recurrent seizures. She had a seizure yesterday while she was getting a port placement done. On my examination today, she had another episode of seizure for which I was actually called by the nurse to witness the episode. During that time, she had her eyes closed tight shut. Her right upper extremity was having a non-rhythmic jerking. Her left upper extremity was mobile and somewhat with increased tone. She had foaming in her mouth and she was turned on her left side and nonresponsive during that time. She did not follow any commands during this episode. This event lasted for approximately 2-1/2 to 3 minutes. She was given Ativan 2 mg after which the seizure ceased and she was very drowsy following the episode. I have reviewed her previous medical records including the Dr. Gibbs's notes from her most recent visit 2 days ago, I have also reviewed the medical records from 2014 during which time it was noted by Dr. France that she may have pseudoseizures. However, no further workup at that time was revealed that make up conclusion of pseudoseizure. Apparently, the patient is only supposed to be taking Topamax and Depakote for her seizures from the note from Dr. Gibbs's clinic visit 2 days ago. PHYSICAL EXAMINATION: VITAL SIGNS: Blood pressure of 104/67, pulse of 105, temperature of 98.1, respirations of 20, O2 sats of 99% on room air. GENERAL: Well-developed, well-nourished female. RESPIRATORY: Clear to auscultation bilaterally. CARDIOVASCULAR: Regular rate and rhythm. NEUROLOGIC: She was noted to be in seizure during my examination, please see the subjective component for description of her spell. I was not able to perform full neurological exam due to her being in seizure. LABORATORY DATA: I reviewed which included BMP and CBC which is unremarkable except a bicarbonate level of 15 and chloride of 110. IMPRESSION: Recurrent seizures. ASSESSMENT AND PLAN: Ms. Guerrero is a pleasant 42-year-old female who presented with the recurrent episodes of seizures. She was noted to have seizure episode in front of me, which I was able to witness. One of my concerns is that this may be a pseudoseizure. However, it cannot be completely ruled out. I will give her another dose of Keppra 500 mg IV now and will increase her Keppra to 1000 mg b.i.d. I would recommend continuing her on Depakote extended release 1500 mg once a day. I will recheck Depakote level in the morning. I will obtain EEG and place her on continuous EEG. We will continue to closely monitor her neurological exam. MTDD
[2018-02-18] MEDS: levETIRAcetam In NaCl (Iso-Os) 1,000 MG in Premix Bag 1 BAG IVPB SCH (20:34)
[2018-02-19 05:21] LABS: #Eosinphils 0.1 thou/uL (0.0-0.7); #Lymphocytes 1.4 thou/uL (1.20-3.40); #Monocytes 0.5 thou/uL (0.11-0.59); #Neutrophils 4.8 thou/uL (1.40-6.50); %Basophils 0.4 % (0.0-1.0); %Eosinophils 0.8 % (0.0-10.0); %Lymphocytes 20.4 % (21.0-51.0); %Monocytes 7.1 % (0.0-10.0); %Neutrophils 71.3 % (42.0-75.0); Hemoglobin 14.2 g/dL (12.0-16.0); Mean Corpuscular Volume 96.8 fl (81.0-99.0); Mean Platelet Volume 9.4 fL (7.4-10.4); Platelet Count 131 thou/uL (130-400); RBC Distribution Width 11.6 % (11.5-14.5); Red Blood Cell (RBC) Count 4.45 mill/uL (4.20-5.40); White Blood Cell (WBC) Count 6.8 thou/uL (4.8-10.8)
[2018-02-19 05:46] LABS: Anion Gap 15 mmol/L (10-20); BUN (Urea Nitrogen) 12 mg/dL (7.0-18.7); Calc. Creatinine Clearance 107 mL/min (70-130); Calcium 8.4 mg/dL (7.8-10.44); Carbon Dioxide 14 mmol/L (22-29); Chloride 109 mmol/L (98-107); Estimated GFR-MDRD 79; Glucose 109 mg/dL (70-105); Potassium 3.6 mmol/L (3.5-5.1); Sodium 134 mmol/L (136-145)
[2018-02-19] MEDS: Levothyroxine Sodium 50 MCG TAB PO SCH (05:47)
--- NOTE | 2018-02-19 07:36 | PDOC.FM ---
- Subjective Subjective: JONES overnight, VSS. On cont. EEG monitoring. Per nursing staff, will be seen playing on phone then change affect when nursing staff enter room. - Objective MAR Reviewed: Yes Vital Signs & Weight: Vital Signs (12 hours) Temp Pulse Resp BP Pulse Ox 02/19/18 04:00 97.7 F 91 16 94/62 100 02/19/18 00:00 97.9 F 86 17 102/66 100 02/18/18 20:00 96.7 F L 90 16 100 02/18/18 19:50 96.7 F L 90 16 98/54 L 100 Weight Weight 72.711 kg I&O: 02/18/18 02/19/18 02/20/18 06:59 06:59 06:59 Intake Total 360 520 Output Total 500 Balance 360 20 Result Diagrams: 02/19/18 03:54 02/19/18 03:54 <Camilo Chung K - Last Filed: 02/19/18 07:34> - Objective Vital Signs & Weight: Vital Signs (12 hours) Temp Pulse Resp BP BP Pulse Ox 02/19/18 07:42 98.5 F 81 15 81/51 L 100 02/19/18 07:39 97.7 F 91 16 02/19/18 04:00 97.7 F 91 16 94/62 100 02/19/18 00:00 97.9 F 86 17 102/66 100 Weight Weight 72.711 kg I&O: 02/18/18 02/19/18 02/20/18 06:59 06:59 06:59 Intake Total 360 520 Output Total 500 Balance 360 20 Result Diagrams: 02/19/18 03:54 02/19/18 03:54 <Renato King - Last Filed: 02/19/18 10:55> Phys Exam - Physical Examination Constitutional: NAD HEENT: PERRLA, moist MMs Neck: no nodes Respiratory: no wheezing, clear to auscultation bilateral Cardiovascular: RRR, no significant murmur Gastrointestinal: soft, non-tender, no distention, positive bowel sounds Musculoskeletal: no edema, pulses present Neurological: moves all 4 limbs Psychiatric: A&O x 3 Skin: cap refill <2 seconds <Camilo Chung K - Last Filed: 02/19/18 07:34> Dx/Plan (1) Seizure disorder Code(s): G40.909 - EPILEPSY, UNSP, NOT INTRACTABLE, WITHOUT STATUS EPILEPTICUS Status: Acute Plan: Cont. pt's home seizure meds w/ Depakote Cont. w/ keppra per neuro recs 2/2 contaminant usage of depakote and topamax Head CT negative and no signs of infection as nidus Cont. w/ cont. EEG monitoring 2/2 concern for pseudoseizure Awaiting further neuro reccomendations (2) Poor venous access Code(s): I87.8 - OTHER SPECIFIED DISORDERS OF VEINS Status: Chronic Plan: s/p portal venous port placement OK to use per surgery recs for infusions (3) Migraines Code(s): G43.909 - MIGRAINE, UNSP, NOT INTRACTABLE, WITHOUT STATUS MIGRAINOSUS Status: Acute Plan: Cont. w/ outpatient meds (4) Anxiety Code(s): F41.9 - ANXIETY DISORDER, UNSPECIFIED Status: Acute Plan: Cont. w/ outpatient xanax to prevent possible withdrawal seizures (5) Hypothyroidism Code(s): E03.9 - HYPOTHYROIDISM, UNSPECIFIED Status: Acute Plan: TSH ULN Cont. w/ home dose synthroid Titration as outpatient <Camilo Chung K - Last Filed: 02/19/18 07:34> Attending Addendum - Attending Addendum Date/Time: 02/19/18 1054 I personally evaluated the patient and discussed the management with Dr. Chung. I agree with the History, Examination, Assessment and Plan documented above with any addition or exceptions noted below. Patient denies complaints. Continues on continuous EEG monitoring for monitor of seizures versus pseduoseizures. Labs and vitals stable. Metabolic acidosis is chronic and likely related to topamax therapy. Await further neuro recs. <Renato King - Last Filed: 02/19/18 10:55>
[2018-02-19] MEDS: ALPRAZolam 0.25 MG TAB PO SCH ×2 (10:20→21:30)
[2018-02-19] MEDS: levETIRAcetam In NaCl (Iso-Os) 1,000 MG in Premix Bag 1 BAG IVPB SCH ×2 (10:21→21:30)
[2018-02-19] MEDS: Topiramate 100 MG TAB PO SCH ×2 (10:21→21:30)
[2018-02-19] MEDS: carBAMazepine 200 MG TAB PO SCH (10:36)
--- NOTE | 2018-02-19 16:14 | PRG ---
DATE OF SERVICE: 02/19/2018 SUBJECTIVE: Ms. Guerrero did not have any seizure over the past 24 hours. Her continuous EEG remains normal during this past 24 hours. According to the nurse, the patient seems to be sleeping most of the time. She seems to be more fatigued and tired, but able to appropriately wake up and answer all the questions. There has not been any seizure type activity noted over the past 24 hours. PHYSICAL EXAMINATION: VITAL SIGNS: Blood pressure of 100/59, pulse of 88, temperature 98.4, respirations of 18 and O2 sats of 100% on room air. GENERAL: A well-developed, well-nourished female in no apparent distress. RESPIRATORY: Clear to auscultation bilaterally. CARDIOVASCULAR: Regular rate and rhythm. NEUROLOGIC: Mental status: The patient is drowsy appearing. She does wake up to verbal stimuli. She is able to respond to the questions and answers appropriately. She is able to follow commands appropriately. Speech and language appears fluent. Cranial nerves: Pupils are 3 mm and reactive. Visual block are full to threat. External muscles are intact. Face is symmetric. Motor exam showed normal tone and bulk with a 5/5 strength in both upper and lower extremities. LABORATORY DATA: Reviewed, which included CBC and BMP, which is significant for a sodium of 134, otherwise unremarkable. IMAGING DATA: Continuous EEG monitoring was reviewed for approximately 20 hours that was recorded from yesterday to today. All of that showed no sign of epileptiform discharges, subtransient asymmetry. It was essentially normal awake and drowsy EEG. IMPRESSION: Seizure disorder, complex partial seizure versus questionable pseudoseizure. PLAN: Ms. Guerrero is a pleasant 42-year-old female with history of seizure disorder, who presented with recurrent seizures. She has had multiple seizure spells during this admission. She is now on continuous EEG. While she has been on continuous EEG, she has not had any seizure. I will continue continuous EEG for 1 more day and if she remains seizure free, I will discontinue the EEG tomorrow and may plan for discharge for her to go home tomorrow. We will continue Keppra, Depakote and Tegretol as current dose. I will check the Depakote level in the morning as well the Tegretol level in the morning. Continue supportive care. Thank you for the consultation. HERRERA
[2018-02-19 17:16] LABS: Carbamazepine-Tegretol 2.5 ug/mL (4.0-12.0)
[2018-02-20] MEDS: Levothyroxine Sodium 50 MCG TAB PO SCH (05:03)
[2018-02-20 05:30] LABS: #Basophils 0.1 thou/uL (0.0-0.2); #Eosinphils 0.1 thou/uL (0.0-0.7); #Lymphocytes 1.5 thou/uL (1.20-3.40); #Monocytes 0.5 thou/uL (0.11-0.59); #Neutrophils 3.8 thou/uL (1.40-6.50); %Basophils 0.9 % (0.0-1.0); %Eosinophils 0.9 % (0.0-10.0); %Lymphocytes 25.8 % (21.0-51.0); %Monocytes 7.8 % (0.0-10.0); %Neutrophils 64.6 % (42.0-75.0); Hemoglobin 14.2 g/dL (12.0-16.0); Mean Corpuscular Hemoglobin 33.5 pg (27.0-31.0); Mean Corpuscular Volume 98.4 fl (81.0-99.0); Mean Platelet Volume 8.2 fL (7.4-10.4); Platelet Count 204 thou/uL (130-400); RBC Distribution Width 11.9 % (11.5-14.5); Red Blood Cell (RBC) Count 4.24 mill/uL (4.20-5.40); White Blood Cell (WBC) Count 5.8 thou/uL (4.8-10.8)
[2018-02-20 05:50] LABS: Anion Gap 11 mmol/L (10-20); BUN (Urea Nitrogen) 8 mg/dL (7.0-18.7); Calc. Creatinine Clearance 110 mL/min (70-130); Calcium 8.7 mg/dL (7.8-10.44); Carbon Dioxide 19 mmol/L (22-29); Chloride 110 mmol/L (98-107); Estimated GFR-MDRD 84; Glucose 108 mg/dL (70-105); Potassium 3.2 mmol/L (3.5-5.1); Sodium 137 mmol/L (136-145)
--- NOTE | 2018-02-20 07:29 | PDOC.FM ---
- Subjective Subjective: Pt w/ reported episode of possible seizure overnight caught on EEG. JONES otherwise. VSS. No new complaints. Playing on phone in bed this AM. - Objective MAR Reviewed: Yes Vital Signs & Weight: Vital Signs (12 hours) Temp Pulse Resp BP Pulse Ox 02/20/18 04:11 97.5 F L 81 16 103/70 100 02/20/18 00:00 97.2 F L 82 17 107/65 100 02/19/18 20:00 98.4 F 86 16 94/58 L 99 Weight Weight 72.711 kg I&O: 02/19/18 02/20/18 02/21/18 06:59 06:59 06:59 Intake Total 520 1150 Output Total 500 1150 Balance 20 0 Result Diagrams: 02/20/18 04:46 02/20/18 04:46 <Camilo Chung - Last Filed: 02/20/18 07:27> - Objective Vital Signs & Weight: Vital Signs (12 hours) Temp Pulse Resp BP BP Pulse Ox 02/20/18 08:00 97.7 F 70 13 100 02/20/18 07:43 97.7 F 70 13 88/62 L 100 02/20/18 04:11 97.5 F L 81 16 103/70 100 02/20/18 00:00 97.2 F L 82 17 107/65 100 Weight Weight 72.711 kg I&O: 02/19/18 02/20/18 02/21/18 06:59 06:59 06:59 Intake Total 520 1150 Output Total 500 1150 Balance 20 0 Result Diagrams: 02/20/18 04:46 02/20/18 04:46 <Renato King - Last Filed: 02/20/18 10:41> Phys Exam - Physical Examination Constitutional: NAD HEENT: PERRLA, moist MMs Neck: no nodes, no JVD Respiratory: no wheezing, clear to auscultation bilateral Cardiovascular: RRR, no significant murmur Neurological: moves all 4 limbs Psychiatric: A&O x 3 <Camilo Chung - Last Filed: 02/20/18 07:27> Dx/Plan (1) Seizure disorder Code(s): G40.909 - EPILEPSY, UNSP, NOT INTRACTABLE, WITHOUT STATUS EPILEPTICUS Status: Acute Plan: Cont. pt's home seizure meds w/ Depakote Cont. w/ keppra per neuro recs 2/2 contaminant usage of depakote and topamax and tegretol Head CT negative and no signs of infection as nidus Cont. w/ cont. EEG monitoring 2/2 concern for pseudoseizure. Episode caught last night. Pending neuro review Awaiting further neuro reccomendations (2) Poor venous access Code(s): I87.8 - OTHER SPECIFIED DISORDERS OF VEINS Status: Chronic Plan: s/p portal venous port placement OK to use per surgery recs for infusions (3) Migraines Code(s): G43.909 - MIGRAINE, UNSP, NOT INTRACTABLE, WITHOUT STATUS MIGRAINOSUS Status: Acute Plan: Cont. w/ outpatient meds (4) Anxiety Code(s): F41.9 - ANXIETY DISORDER, UNSPECIFIED Status: Acute Plan: Cont. w/ outpatient xanax to prevent possible withdrawal seizures (5) Hypothyroidism Code(s): E03.9 - HYPOTHYROIDISM, UNSPECIFIED Status: Acute Plan: TSH ULN Cont. w/ home dose synthroid Titration as outpatient <Camilo Chung K - Last Filed: 02/20/18 07:27> Attending Addendum - Attending Addendum Date/Time: 02/20/18 1040 I personally evaluated the patient and discussed the management with Dr. Chung. I agree with the History, Examination, Assessment and Plan documented above with any addition or exceptions noted below. Patient stable. Had some seizure activity overnight but remembered events that occurred during it. Awaiting final EEG review by Neuro. Will make clarifications on her AED therapy and suspect discharge later today after neuro eval. <Renato King - Last Filed: 02/20/18 10:41>
[2018-02-20] MEDS: levETIRAcetam In NaCl (Iso-Os) 1,000 MG in Premix Bag 1 BAG IVPB SCH (10:08)
[2018-02-20] MEDS: carBAMazepine 200 MG TAB PO SCH ×2 (10:09→17:55)
[2018-02-20] MEDS: Topiramate 100 MG TAB PO SCH (10:09)
[2018-02-20] MEDS: ALPRAZolam 0.25 MG TAB PO SCH (10:09)
[2018-02-20 11:10] VITALS: TEMP 98.3
[2018-02-20 15:23] VITALS: BP 93/64
--- NOTE | 2018-02-20 17:09 | PRG ---
DATE OF SERVICE: 02/20/2018 SUBJECTIVE: Ms. Guerrero did not have any seizure over the past 24 hours. According to the nurse, patient has been more awake and alert today. She has been able to tolerate oral intake. She is abl e to transfer in and out of bed. Patient denies any headache, chest pain, palpitation, nausea, vomit ing, abdominal pain. She reports that she wants to go home today. PHYSICAL EXAMINATION: VITAL SIGNS: Blood pressure of 93/64, pulse of 74, temperature of 98.3, respirations of 14, O2 sats of 100% on room air. GENERAL: Well-developed, well-nourished female in no apparent distress. RESPIRATORY: Clear to auscultation bilaterally. CARDIOVASCULAR: Regular rate and rhythm. NEUROLOGIC: Unchanged except she is more alert and oriented today and able to participate in the exa mination. LABORATORY DATA: Depakote level was 87.3, carbamazepine was 2.5 and Keppra level was 17.4. IMPRESSION: 1. Complex partial seizure. 2. Questionable pseudoseizure. ASSESSMENT AND PLAN: Ms. Guerrero is a pleasant 42-year-old female with history of seizu re disorder who presented with recurrent seizures. She has been on continuous EEG over the past 48 h ours. She did not have any episode of seizure over the past 48 hours. Her EEG remains normal during this time. She has returned back to her baseline. At this time, I would recommend patient to be co ntinued on current antiepileptic medications. She will be okay to be discharged to home with follow up with Dr. Gibbs as outpatient in 2-3 weeks. I have advised her on seizure precautions including no driving, no climbing ladders, no operating heavy machinery, etc. The patient may benefit from [facility] epilepsy monitoring unit as outpatient to further evaluate for these spells. Thank you for consultation.
--- NOTE | 2018-02-21 13:51 | DIS-2 ---
DATE OF ADMISSION: 02/16/2018 DATE OF DISCHARGE: 02/20/2018 ADMITTING ATTENDING: Dr. Ewing. DISCHARGE ATTENDING: Dr. King. RESIDENT: Camilo Chung M.D. CONSULTATIONS: 1. Neurology, Dr. Bo. 2. General surgery, Dr. Fajardo. PROCEDURES: 1. Continuous video electronic EEG monitoring. 2. CT head negative for any acute intracranial processes. 3. Venous access port placement. PRIMARY DIAGNOSIS: Psychogenic nonepileptic seizures. SECONDARY DIAGNOSIS: Migraines. DISCHARGE MEDICATIONS: 1. Tegretol 200 mg p.o. b.i.d. with meals. 2. Keppra 1000 mg p.o. b.i.d. 3. Depakote 1000 mg p.o. b.i.d. 4. Synthroid 50 mcg p.o. daily. 5. [place] 5/325 one to two tabs p.o. q.6 hours as needed for pain. 6. Xanax 0.25 mg p.o. b.i.d. 7. Fioricet 1 tab p.o. t.i.d. 8. Topiramate 100 mg p.o. b.i.d. DISCONTINUE MEDICATIONS: None. HISTORY OF PRESENT ILLNESS: Patient is a 42-year-old female with self-endorse history of epilepsy on Depakote, Tegretol, and topiramate, who presented to the ER for recurrent seizures. Patient reporte dly the day prior to the admission was seen at [facility] ER for multiple episodes of seiz ures. CT scan obtained was negative, and then she was ultimately discharged home. Patient endorsed or prior to her seizures earlier that day and proceed directly to the ER, where she had 2 witnessed s eizures in the ER. She was loaded with fosphenytoin. Dr. Bo of Neurology was consulted, since she was on Depakote, this fosphenytoin was transitioned over to Keppra. She was admitted to the floor f or further monitoring. Of note, patient had IO placed in the ER, apparently she has had numerous IO' s placed in the past after presenting for her seizures due to poor peripheral venous access. Patient remained somewhat stable from a seizure standpoint after transition, however, she did have episodes of seizure over the subsequent few days. Dr. Bo of Neurology ended up increasing her Keppra doses 1000 mg p.o. b.i.d. and after witnessed episode by Neurology, she was transitioned over to [place] for co ntinuous EEG and video monitoring. On 02/19/2018, patient had witnessed seizure episode that was ___ __ EEG and video monitoring. Upon review of EEG, Dr. Bo does not note any episodes of seizure with normal EEG reading. Patient has done well, returned back to her baseline mentation with recommendat ions to continue her current antiepileptic regimen and followup with her already made appointment melyssa Gibbs her usual neurologist in [address] Bo advised her of any seizure precautions including no driving, no climbing ladders, no operating heavy machinery prior to discharge home. DISCHARGE DISPOSITION: Stable. DISCHARGE INSTRUCTIONS: 1. Location: Home. 2. Followup: Followup up with primary care provider in 7-10 days. 3. Activity: As tolerated.
--- NOTE | 2018-02-22 14:43 | EEG ---
Referring Physician: DR. ITALIA RANKIN EEG # [id number] STUDY TYPE: Video Electroencephalogram Report, 24 Hour Video EEG recording, , 17:41 - 02/20/2018, 15:23, Day 2 PATIENT NAME: Sagrario Guerrero Study is reviewed and interpreted by me. STUDY QUALITY: On Day 2 patient had abundant electrode artifact which makes it a technically difficult study for interpretation. REPORT: This is a 22 channel digital EEG recording utilizing ten-twenty international electrode placement system. AWAKE STATE: During wakefulness the background activity continues to show normal alpha rhythm of 8-9 hertz which is symmetric and reactive. There is abundant electrode artifact noted throughout the recording on Day 2. DROWSINESS AND SLEEP: Subject is able to attain periods of drowsiness and sleep with normal sleep potentials. Again, abundant electrode artifact noted during these stages. Because of the abundant electrode artifact it becomes technically difficult study for interpretation. The artifact free period did not show any convincing epileptiform activity or electrographic seizures. No ictal events were recorded on Day 2 of the recording. EK per minute. IMPRESSION: THIS IS A NORMAL AWAKE AND ASLEEP EEG, DAY 2 OF 24 HOUR VIDEO EEG RECORDING. HOWEVER, STUDY IS TECHNICALLY DIFFICULT FOR INTERPRETATION BECAUSE OF THE PRESENCE OF ABUNDANT ELECTRODE ARTIFACT. THE ARTIFACT FREE PERIOD DOES NOT SHOW ANY CONVINCING EPILEPTIFORM ACTIVITY OR ELECTROGRAPHIC SEIZURES. THE PATIENT DID NOT HAVE ANY ICTAL EVENTS ON DAY 2. Machine Puller: SHIMON Production Line: EEG.ALANA SILVERMAN
--- NOTE | 2018-02-23 10:26 | EEG ---
Referring Physician: DR. ITALIA RANKIN EEG # [id number] TEST TYPE: CONTINUOUS HUMAN RESOURCES EXECUTIVE ASSISTANT EEG PATIENT NAME: Sagrario Guerrero PROCEDURE: Video EEG report. . DAY 1 24 HOUR VIDEO EEG RECORDING DATE OF STUDY: 02/18/2018 17:41 - 02/19/2018 1741. STUDY REVIEWED AND INTERPRETED BY ME STUDY QUALITY: Study is of good quality for interpretation on Day 1 REPORT: This is a 22-channel digital EEG recording utilizing 10-20 international electrode placement system. BACKGROUND: AWAKE STATE: The patient's background activity during awake state consists predominantly of moderate amplitude dominant alpha rhythm of 8-9 Hz which is symmetric and reactive. This activity is mixed with low amplitude beta activity and also with myogenic activity representing frontalis and temporalis muscles bilaterally. There is electrode artifact noted at C4 and PZ after midnight. DROWSY STAGE: Subject is able to attain periods of drowsiness with diffuse theta activity. SLEEP: Subject is able to attain abundant non-REM sleep with normal sleep potentials. INTERICTAL EEG. The patient did not have any clear convincing epileptiform activity on day 1. No electrographic seizures noted. No focal asymmetry noted. ICTAL EVENTS: The patient did not have any ictal events on Day 1 EK per minute. IMPRESSION: Normal awake and asleep EEG on day 1 of 24-hour video EEG recording. Sales Professional: Car Washer: EEG.ALANA SILVERMAN
== END 2018-02-20 19:10 | disposition home or self-care (01) | DRG 101 ==
LOC: ERS 11:58 → ERHOLD 15:30 → 2NO 22:39 → IMCU/EMU 02-18 17:33
PROVIDERS: ADMIT Student in an Organized Health Care Education/Training Program; ATTEND Student in an Organized Health Care Education/Training Program
PROC: 0JH60WZ Insertion of Totally Implantable Vascular Access Device into Chest Subcutaneous Tissue and Fascia, Open Approach (ICD-10-PCS; principal; 2018-02-17)
PROC: 02H633Z Insertion of Infusion Device into Right Atrium, Percutaneous Approach (ICD-10-PCS; 2018-02-17)
PROC: 05JY3ZZ Inspection of Upper Vein, Percutaneous Approach (ICD-10-PCS; 2018-02-17)
DX: R56.9 Unspecified convulsions (principal); E87.2 Acidosis; E03.9 Hypothyroidism, unspecified; F41.9 Anxiety disorder, unspecified; F45.8 Other somatoform disorders; I87.8 Other specified disorders of veins; G43.909 Migraine, unspecified, not intractable, without status migrainosus; T42.6X5A Adverse effect of other antiepileptic and sedative-hypnotic drugs, initial encounter; S00.03XA Contusion of scalp, initial encounter; S70.01XA Contusion of right hip, initial encounter; W18.2XXA Fall in (into) shower or empty bathtub, initial encounter
CPT/HCPCS: 36415; 36416; 36680; 51701; 64615; 70450; 71045; 71250; 80048; 80053; 80156; 80164; 80177; 80306; 81003; 81025; 83735; 84100; 84146; 84443; 85025; 93306; 95816; 95819; 95953; 96361; 96365; 96367; 96372; 96374; 96375; A4216; A4353; C1788; J0585; J1642; J1885; J1953; J2060; J2250; J3010; J7050; Q0162; Q2009

== ENCOUNTER 2018-04-10 14:36 | Emergency (ER) | payer MEDICARE, MEDICAID ==
[2018-04-10 16:01] LABS: #Lymphocytes 1.1 thou/uL (1.20-3.40); #Monocytes 0.4 thou/uL (0.11-0.59); #Neutrophils 4.6 thou/uL (1.40-6.50); %Basophils 0.3 % (0.0-1.0); %Eosinophils 0.6 % (0.0-10.0); %Lymphocytes 18.1 % (21.0-51.0); %Monocytes 6.5 % (0.0-10.0); %Neutrophils 74.5 % (42.0-75.0); Hemoglobin 13.8 g/dL (12.0-16.0); Mean Corpuscular HGB CONC 34.7 g/dL (32.0-36.0); Mean Corpuscular Hemoglobin 33.8 pg (27.0-31.0); Mean Corpuscular Volume 97.4 fl (81.0-99.0); Mean Platelet Volume 8.3 fL (7.4-10.4); Platelet Count 191 thou/uL (130-400); RBC Distribution Width 11.9 % (11.5-14.5); Red Blood Cell (RBC) Count 4.08 mill/uL (4.20-5.40); White Blood Cell (WBC) Count 6.1 thou/uL (4.8-10.8)
[2018-04-10 16:28] LABS: ALT (SGPT) 8 U/L (8-55); AST (SGOT) 15 U/L (5-34); Albumin 3.8 g/dL (3.5-5.0); Alkaline Phosphatase 79 U/L (40-150); Anion Gap 7 mmol/L (10-20); BUN (Urea Nitrogen) 8 mg/dL (7.0-18.7); Bilirubin, Total 0.3 mg/dL (0.2-1.2); Calc. Creatinine Clearance 0 mL/min (70-130); Calcium 8.5 mg/dL (7.8-10.44); Carbon Dioxide 23 mmol/L (22-29); Chloride 111 mmol/L (98-107); Estimated GFR-MDRD 89; Globulin 2.6 g/dL (2.4-3.5); Glucose 100 mg/dL (70-105); Potassium 3.4 mmol/L (3.5-5.1); Protein, Total 6.4 g/dL (6.0-8.3); Sodium 138 mmol/L (136-145)
[2018-04-10 16:38] LABS: Carbamazepine-Tegretol Less than 1.9 ug/mL (4.0-12.0)
[2018-04-10] MEDS ORDERED: Ondansetron ODT 4 MG TAB ONE (18:33)
[2018-04-10 19:03] LABS: Bilirubin Negative (Negative); Blood, Urine Negative (Negative); Clarity CLOUDY (Clear); Glucose, Urine (Dipstick) Negative (Negative); Leukocyte Negative (Negative); Nitrite Negative (Negative); Protein, Urine (Dipstick) Negative (Neg-Trace); Specific Gravity, Urine 1.028 (1.002-1.036)
[2018-04-10 19:13] LABS: Amphetamine Not Detected (NotDetected); Barbiturates Screen Detected (NotDetected); Benzodiazepine Screen Detected (NotDetected); Cocaine Metabolite Screen Not Detected (NotDetected); Medtox Control Line Valid? VALID (VALID); Medtox Reader # READER 4; Methadone Not Detected (NotDetected); Methamphetamine Not Detected (NotDetected); Opiate Screen Not Detected (NotDetected); Oxycodone Screen Not Detected (NotDetected); Phencyclidine (PCP) Not Detected (NotDetected); THC/Cannabinoid Screen Not Detected (NotDetected); Tricyclic Screen Not Detected (NotDetected)
[2018-04-10] MEDS ORDERED: Promethazine HCl 25 MG/ML VIAL ONE (19:21)
== END 2018-04-10 20:51 | disposition home or self-care (01) ==
LOC: ERS 14:36
DX: G40.909 Epilepsy, unspecified, not intractable, without status epilepticus (principal); F41.9 Anxiety disorder, unspecified; G43.909 Migraine, unspecified, not intractable, without status migrainosus; Z79.899 Other long term (current) drug therapy; Z86.79 Personal history of other diseases of the circulatory system
CPT/HCPCS: 36415; 51701; 80053; 80156; 80164; 80306; 81003; 85025; 93005; 94760; 96361; 96374; A4353; J1642; J2550; Q0162

== ENCOUNTER 2018-05-22 05:28 | Emergency (ER) | payer MEDICARE, OTHER ==
[2018-05-22] MEDS ORDERED: Ondansetron ODT 8 MG TAB ONE (06:02)
--- NOTE | 2018-05-22 08:30 | RAD ---
2 VIEW CHEST: Date: 05/22/18 HISTORY: Cough. FINDINGS: Lungs are clear. No infiltrate. Heart and mediastinum unremarkable. MediPort catheter appears in adeq uate position. IMPRESSION: No acute abnormality. POS: [facility]
== END 2018-05-22 06:53 | disposition home or self-care (01) ==
LOC: ERS 05:28
DX: B34.9 Viral infection, unspecified (principal); R11.0 Nausea; G43.909 Migraine, unspecified, not intractable, without status migrainosus; G40.909 Epilepsy, unspecified, not intractable, without status epilepticus; F41.9 Anxiety disorder, unspecified; Z79.899 Other long term (current) drug therapy
CPT/HCPCS: 71046; 93005

== ENCOUNTER 2018-07-22 14:55 | Emergency (ER) | payer MEDICARE, MEDICAID ==
--- NOTE | 2018-07-22 15:42 | RAD ---
PORTABLE AP CHEST X-RAY: 07/22/18 HISTORY: Seizure at work. COMPARISON: 06/21/17. FINDINGS: A right subclavian Mediport catheter is noted in place with tip overlying the right atrium. The cardi ac silhouette and pulmonary vasculature are within normal limits. The lungs are clear. Osseous struct ures are intact. IMPRESSION: No acute cardiopulmonary process. POS: [facility]
== END 2018-07-22 17:07 | disposition left against medical advice (07) ==
LOC: ERS 14:55
DX: G40.909 Epilepsy, unspecified, not intractable, without status epilepticus (principal); F41.9 Anxiety disorder, unspecified
CPT/HCPCS: 71045; 93005

== ENCOUNTER 2018-10-11 18:41 | Emergency (ER) | payer MEDICARE, MEDICAID ==
[2018-10-11] MEDS ORDERED: Lorazepam 2 MG/ML VIAL ONE (18:57)
[2018-10-11 19:45] LABS: #Eosinphils 0.1 thou/uL (0.0-0.7); #Lymphocytes 1.1 thou/uL (1.20-3.40); #Monocytes 0.6 thou/uL (0.11-0.59); #Neutrophils 5.2 thou/uL (1.40-6.50); %Basophils 0.4 % (0.0-1.0); %Eosinophils 1.3 % (0.0-10.0); %Lymphocytes 15.9 % (21.0-51.0); %Monocytes 8.9 % (0.0-10.0); %Neutrophils 73.4 % (42.0-75.0); Hemoglobin 13.5 g/dL (12.0-16.0); MDiff Complete? YES; Mean Corpuscular HGB CONC 32.9 g/dL (32.0-36.0); Mean Corpuscular Hemoglobin 32.4 pg (27.0-31.0); Mean Corpuscular Volume 98.3 fL (78.0-98.0); PLT Morphology Comment PLT clumps seen-ADEQ; Platelet Clumps SLIGHT; RBC Distribution Width 12.8 % (11.5-14.5); RBC Morphology Normal; Red Blood Cell (RBC) Count 4.18 mill/uL (4.20-5.40); White Blood Cell (WBC) Count 7.1 thou/uL (4.8-10.8)
[2018-10-11 19:48] LABS: ALT (SGPT) 8 U/L (8-55); AST (SGOT) 14 U/L (5-34); Albumin 3.5 g/dL (3.5-5.0); Alkaline Phosphatase 62 U/L (40-150); Anion Gap 11 mmol/L (10-20); BUN (Urea Nitrogen) 7 mg/dL (7.0-18.7); Bilirubin, Total 0.4 mg/dL (0.2-1.2); Calc. Creatinine Clearance 0 mL/min (70-130); Calcium 8.1 mg/dL (7.8-10.44); Carbon Dioxide 21 mmol/L (22-29); Chloride 111 mmol/L (98-107); Estimated GFR-MDRD 79; Globulin 2.2 g/dL (2.4-3.5); Glucose 88 mg/dL (70-105); Potassium 3.1 mmol/L (3.5-5.1); Protein, Total 5.7 g/dL (6.0-8.3); Sodium 140 mmol/L (136-145); Valproic Acid (Depakene) Less than 12.5 ug/mL (50.0-100.0)
== END 2018-10-11 23:15 | disposition home or self-care (01) ==
LOC: ERS 18:41
DX: G40.909 Epilepsy, unspecified, not intractable, without status epilepticus (principal); E86.0 Dehydration; F41.9 Anxiety disorder, unspecified; G43.909 Migraine, unspecified, not intractable, without status migrainosus; Z79.899 Other long term (current) drug therapy
CPT/HCPCS: 36415; 80053; 80164; 80201; 85025; 96361; 96374; J2060

== ENCOUNTER 2018-10-13 13:20 | Emergency (ER) | payer MEDICARE, MEDICAID ==
[2018-10-13 15:03] LABS: Bilirubin Negative (Negative); Blood, Urine Negative (Negative); Clarity CLOUDY (Clear); Glucose, Urine (Dipstick) Negative (Negative); Leukocyte Negative (Negative); Nitrite Negative (Negative); Protein, Urine (Dipstick) Trace mg/dL (Neg-Trace); Specific Gravity, Urine 1.024 (1.002-1.036); pH, Urine 7.5 (5.0-9.0)
[2018-10-13] MEDS ORDERED: Ondansetron PF 4 MG/2 ML Vial ONE (15:47)
[2018-10-13] MEDS ORDERED: Valproate Sodium 1,000 MG in Sodium Chloride 0.9% 100 ML IVPB SCH (17:30)
== END 2018-10-13 20:18 | disposition home or self-care (01) ==
LOC: ERS 13:20
DX: G40.909 Epilepsy, unspecified, not intractable, without status epilepticus (principal); E86.0 Dehydration; J06.9 Acute upper respiratory infection, unspecified; G43.909 Migraine, unspecified, not intractable, without status migrainosus; F41.9 Anxiety disorder, unspecified; Z79.899 Other long term (current) drug therapy
CPT/HCPCS: 80164; 81003; 94760; 96365; 96375; J2405; J7050

== ENCOUNTER 2019-04-24 08:21 | Emergency (ER) | payer MEDICARE, MEDICAID ==
[2019-04-24 08:56] LABS: #Eosinphils 0.1 thou/uL (0.0-0.7); #Lymphocytes 1.2 thou/uL (1.20-3.40); #Monocytes 0.5 thou/uL (0.11-0.59); #Neutrophils 3.5 thou/uL (1.40-6.50); %Basophils 0.9 % (0.0-1.0); %Eosinophils 1.9 % (0.0-10.0); %Lymphocytes 23.2 % (21.0-51.0); %Monocytes 8.7 % (0.0-10.0); %Neutrophils 65.3 % (42.0-75.0); Hemoglobin 13.8 g/dL (12.0-16.0); Mean Corpuscular HGB CONC 34.4 g/dL (32.0-36.0); Mean Corpuscular Hemoglobin 34.5 pg (27.0-31.0); Mean Platelet Volume 8.7 fL (7.4-10.4); Platelet Count 175 thou/uL (130-400); RBC Distribution Width 11.3 % (11.5-14.5); White Blood Cell (WBC) Count 5.4 thou/uL (4.8-10.8)
--- NOTE | 2019-04-24 09:28 | CT ---
CT OF THE HEAD WITHOUT CONTRAST: DATE: 04/24/2019. COMPARISON: 02/16/2018. HISTORY: Multiple seizures. TECHNIQUE: Axial CT imaging at 5 mm intervals from vertex through the skull base without contrast. FINDINGS: The imaged paranasal sinuses/mastoid air cells are well aerated. There is no displaced calvarial fra cture. There is no intracranial hemorrhage, midline shift, mass effect, or ventricular enlargement. IMPRESSION: No acute findings - stable head CT. POS: OFF
[2019-04-24 09:30] LABS: ALT (SGPT) 9 U/L (8-55); AST (SGOT) 14 U/L (5-34); Albumin 4.2 g/dL (3.5-5.0); Alkaline Phosphatase 64 U/L (40-150); Anion Gap 8 mmol/L (10-20); BUN (Urea Nitrogen) 6 mg/dL (7.0-18.7); Bilirubin, Total 0.5 mg/dL (0.2-1.2); CK (CPK) 178 U/L (29-168); Calc. Creatinine Clearance 0 mL/min (70-130); Carbon Dioxide 26 mmol/L (22-29); Chloride 109 mmol/L (98-107); Estimated GFR-MDRD 64; Globulin 2.3 g/dL (2.4-3.5); Glucose 75 mg/dL (70-105); Potassium 3.4 mmol/L (3.5-5.1); Protein, Total 6.5 g/dL (6.0-8.3); Sodium 140 mmol/L (136-145)
[2019-04-24 09:59] LABS: Acetaminophen Less than 6.0 mcg/mL (10.0-30.0); Alcohol Less than 10 mg/dL (Less than 10); Salicylate Less than 8.0 mg/dL (15.0-30.0)
[2019-04-24 10:03] LABS: BHCG - Serum Negative (NEGATIVE); Pregs Control Background? CLEAR/WHITE (CLR/WHITE); Pregs Control Bar Appear? YES (CONTROL BAR)
[2019-04-24] MEDS ORDERED: Valproate Sodium 1,000 MG in Sodium Chloride 0.9% 100 ML IVPB SCH (10:15)
[2019-04-24 11:01] LABS: Bilirubin Negative (Negative); Blood, Urine Trace (Negative); Clarity CLEAR (Clear); Glucose, Urine (Dipstick) Negative (Negative); Leukocyte Negative (Negative); Nitrite Negative (Negative); Protein, Urine (Dipstick) Negative (Neg-Trace); Specific Gravity, Urine 1.007 (1.002-1.036); Urobilinogen 0.2 mg/dL (0.2-1.0); pH, Urine 6.5 (5.0-9.0)
[2019-04-24 11:03] LABS: Pregnancy Test - Urine (BHCG) Negative (Negative); Pregu Control Background? CLEAR/WHITE (CLR/WHITE); Pregu Control Bar Appear? YES (CONTROL BAR); Specific Gravity 1.007 (1.002-1.036)
[2019-04-24 11:10] LABS: Amphetamine Not Detected (NotDetected); Benzodiazepine Screen Detected (NotDetected); Cocaine Metabolite Screen Not Detected (NotDetected); Medtox Reader # READER 4; Methamphetamine Not Detected (NotDetected); Opiate Screen Not Detected (NotDetected); Phencyclidine (PCP) Not Detected (NotDetected); THC/Cannabinoid Screen Detected (NotDetected); Tricyclic Screen Not Detected (NotDetected)
[2019-04-24 11:11] LABS: Barbiturates Screen Not Detected (NotDetected); Medtox Control Line Valid? VALID (VALID); Methadone Not Detected (NotDetected); Oxycodone Screen Not Detected (NotDetected)
[2019-04-24 11:13] LABS: Bacteria/HPF None Seen HPF (None Seen); Hyaline Casts/LPF NONE SEEN LPF (0-3 Hyaline); RBC/HPF 0-3 HPF (0-3); Squamous Epithelial 0-3 HPF (0-3); Transitional Epithelial 0-3 HPF (0-3); WBC/HPF 0-3 HPF (0-3)
[2019-04-24] MEDS ORDERED: Acetaminophen 500 MG TAB ONE (12:33)
== END 2019-04-24 14:41 | disposition home or self-care (01) ==
LOC: ERS 08:21
DX: G40.909 Epilepsy, unspecified, not intractable, without status epilepticus (principal); G43.909 Migraine, unspecified, not intractable, without status migrainosus; F41.9 Anxiety disorder, unspecified; Z79.899 Other long term (current) drug therapy
CPT/HCPCS: 36415; 51701; 70450; 80053; 80164; 80306; 80307; 81003; 81015; 81025; 82550; 84146; 84484; 84703; 85025; 93005; 96361; 96365; 96366; A4353; J3490

== ENCOUNTER 2019-04-25 23:14 | Emergency (ER) | payer MEDICARE, MEDICAID ==
[2019-04-25 23:58] LABS: #Basophils 0.1 thou/uL (0.0-0.2); #Eosinphils 0.1 thou/uL (0.0-0.7); #Lymphocytes 1.4 thou/uL (1.20-3.40); #Monocytes 0.7 thou/uL (0.11-0.59); #Neutrophils 4.3 thou/uL (1.40-6.50); %Basophils 1.2 % (0.0-1.0); %Eosinophils 1.5 % (0.0-10.0); %Lymphocytes 21.8 % (21.0-51.0); %Neutrophils 65.5 % (42.0-75.0); Hemoglobin 12.8 g/dL (12.0-16.0); Mean Corpuscular Hemoglobin 34.1 pg (27.0-31.0); Mean Platelet Volume 8.7 fL (7.4-10.4); Platelet Count 165 thou/uL (130-400); RBC Distribution Width 11.2 % (11.5-14.5); Red Blood Cell (RBC) Count 3.75 mill/uL (4.20-5.40); White Blood Cell (WBC) Count 6.6 thou/uL (4.8-10.8)
[2019-04-26 00:24] LABS: Bilirubin Negative (Negative); Blood, Urine Negative (Negative); Clarity CLOUDY (Clear); Glucose, Urine (Dipstick) Negative (Negative); Leukocyte Negative (Negative); Nitrite Negative (Negative); Protein, Urine (Dipstick) Negative (Neg-Trace); Specific Gravity, Urine 1.011 (1.002-1.036); Urobilinogen 0.2 mg/dL (0.2-1.0); pH, Urine 7.5 (5.0-9.0)
[2019-04-26 00:25] LABS: ALT (SGPT) 9 U/L (8-55); AST (SGOT) 17 U/L (5-34); Albumin 3.7 g/dL (3.5-5.0); Alkaline Phosphatase 59 U/L (40-150); Anion Gap 12 mmol/L (10-20); BUN (Urea Nitrogen) 12 mg/dL (7.0-18.7); Bilirubin, Total 0.4 mg/dL (0.2-1.2); Calc. Creatinine Clearance 0 mL/min (70-130); Calcium 8.6 mg/dL (7.8-10.44); Carbon Dioxide 20 mmol/L (22-29); Chloride 109 mmol/L (98-107); Estimated GFR-MDRD 72; Globulin 2.1 g/dL (2.4-3.5); Glucose 95 mg/dL (70-105); Potassium 3.1 mmol/L (3.5-5.1); Protein, Total 5.8 g/dL (6.0-8.3); Sodium 138 mmol/L (136-145)
[2019-04-26] MEDS ORDERED: Valproic Acid 250 MG CAP PO SCH (01:00)
--- NOTE | 2019-04-26 07:38 | CT ---
PRELIMINARY REPORT/[facility]/EMERGENCY AFTER HOURS PROCEDURE: EXAM: CT Angiography Head Without And With Contrast EXAM DATE/TIME: 04/26/2019 12:57 AM CLINICAL HISTORY: 43 years old, female; Signs and symptoms; Patient HX: Er12; 43/f PT presents with complaint of multiple seizures since this morning. EMS reports they gave her 4mg ativan enroute, PT reports she feels better but weak and tired. 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 " she sees Dr. Gibbs. No numbness, tingling, focal or lateralizing weakness, or vision changes TECHNIQUE: Imaging protocol: Axial computed tomographic angiography images of the head without and with intravenous contrast using CT angiography protocol. Coronal and sagittal reformatted images were created and reviewed. 3D rendering: MIP reconstructed images were created and reviewed. COMPARISON: No relevant prior studies available. FINDINGS: Right internal carotid artery: Unremarkable. Intracranial segment is patent with no significant stenosis. No aneurysm. Right anterior cerebral artery: Unremarkable. No occlusion or significant stenosis. No aneurysm. Right middle cerebral artery: Unremarkable. No occlusion or significant stenosis. No aneurysm. Right posterior cerebral artery: Unremarkable. No occlusion or significant stenosis. No aneurysm. Right vertebral artery: Unremarkable. No occlusion or significant stenosis. No aneurysm. Left internal carotid artery: Unremarkable. Intracranial segment is patent with no significant stenosis. No aneurysm. Left anterior cerebral artery: Unremarkable. No occlusion or significant stenosis. No aneurysm. Left middle cerebral artery: Unremarkable. No occlusion or significant stenosis. No aneurysm. Left posterior cerebral artery: Unremarkable. No occlusion or significant stenosis. No aneurysm. Left vertebral artery: Unremarkable. No occlusion or significant stenosis. No aneurysm. Basilar artery: Unremarkable. No occlusion or significant stenosis. No aneurysm. HEAD: Brain: Unremarkable. No hemorrhage. No significant white matter disease. No edema. Ventricles: Normal. No ventriculomegaly. Bones/joints: Unremarkable. No acute fracture. Sinuses: Visualized sinuses are normal. No fluid levels. Mastoid air cells: Visualized mastoids are normal. No mastoid effusion. Soft tissues: Unremarkable. IMPRESSION: No acute findings. Thank you for allowing us to participate in the care of your patient. Dictated and Authenticated by: Tmaar Batista MD 04/26/2019 2:08 AM Central Time ([place] & [place]) FINAL REPORT Exam: Head CTA with 3-D rendering: Emergency after exam 1:01 AM 04/26/2019 IMPRESSION: No major branch occlusion. No evidence for an aneurysm. This report is in agreement with a preliminary report. Transcribed Date/Time: 04/26/2019 9:28 AM
== END 2019-04-26 03:08 | disposition home or self-care (01) ==
LOC: ERS 23:14
DX: G40.909 Epilepsy, unspecified, not intractable, without status epilepticus (principal); G43.909 Migraine, unspecified, not intractable, without status migrainosus; I72.9 Aneurysm of unspecified site; F41.9 Anxiety disorder, unspecified; Z79.899 Other long term (current) drug therapy
CPT/HCPCS: 70496; 80053; 80164; 81003; 84146; 85025; 93005; 96360

== ENCOUNTER 2019-05-01 12:11 | Inpatient (IN) | payer MEDICARE, MEDICAID ==
[2019-05-01] MEDS ORDERED: Lorazepam 2 MG/ML VIAL ONE ×2 (12:32→16:52)
--- NOTE | 2019-05-01 14:23 | CT ---
NONCONTRAST HEAD CT: Date: 05/01/19 HISTORY: Altered mental status. Seizure. COMPARISON: 04/24/19. FINDINGS: No parenchymal hemorrhage. No extra-axial hematoma. No midline shift. Basilar cisterns are patent. Br ain volume, age-appropriate. Cortical jackson-white matter differentiation preserved. No evidence of hyd rocephalus. Calvarium is intact. Adequate aeration of the sinuses and mastoid air cells. IMPRESSION: No acute intracranial process. POS: [facility]
[2019-05-01 14:43] LABS: #Basophils 0.1 thou/uL (0.0-0.2); #Eosinphils 0.1 thou/uL (0.0-0.7); #Lymphocytes 1.2 thou/uL (1.20-3.40); #Monocytes 0.4 thou/uL (0.11-0.59); #Neutrophils 3.8 thou/uL (1.40-6.50); %Basophils 0.9 % (0.0-1.0); %Lymphocytes 21.9 % (21.0-51.0); %Neutrophils 69.2 % (42.0-75.0); Hemoglobin 13.5 g/dL (12.0-16.0); Mean Corpuscular HGB CONC 34.1 g/dL (32.0-36.0); Mean Corpuscular Hemoglobin 34.7 pg (27.0-31.0); Mean Platelet Volume 9.2 fL (7.4-10.4); Platelet Count 150 thou/uL (130-400); RBC Distribution Width 11.3 % (11.5-14.5); Red Blood Cell (RBC) Count 3.88 mill/uL (4.20-5.40); White Blood Cell (WBC) Count 5.5 thou/uL (4.8-10.8)
[2019-05-01 15:01] LABS: ALT (SGPT) 9 U/L (8-55); AST (SGOT) 13 U/L (5-34); Albumin 3.9 g/dL (3.5-5.0); Alkaline Phosphatase 59 U/L (40-150); Anion Gap 12 mmol/L (10-20); BUN (Urea Nitrogen) 5 mg/dL (7.0-18.7); Bilirubin, Total 0.4 mg/dL (0.2-1.2); Calc. Creatinine Clearance 0 mL/min (70-130); Calcium 8.5 mg/dL (7.8-10.44); Carbon Dioxide 20 mmol/L (22-29); Chloride 112 mmol/L (98-107); Estimated GFR-MDRD 76; Globulin 2.3 g/dL (2.4-3.5); Glucose 91 mg/dL (70-105); Potassium 3.7 mmol/L (3.5-5.1); Protein, Total 6.2 g/dL (6.0-8.3); Sodium 140 mmol/L (136-145)
--- NOTE | 2019-05-01 20:36 | PDOC.EVN ---
Event Note - Event Note Event Note: Called into the room for hte patient actively having a seizure - she was lowered to the ground by nursing staff, full body jerking that was persistent for a few minutes. Her head was supported by nursing staff and me - no head trauma. Pt intermittently would grab hand and squeeze, coughing and what appeared to be aspirating. Code green was called - FSG was 85, VS normal, sinus rhythm on monitor. Pt was raised up to the bed by the nursing team. Pt then became arousable within a few minutes, could answer questions, able to move arms/legs. Spoke with RN from ER who reports current event c/w witnessed events in ER - per Dr. Holder pt is not to receive IV benzos for these events dx as pseudoseizures. JEVON Soto will f/u with Dr. Gibbs to see what is available to help support the patient overnight when these events occur. FOOD SERVICE estimates pt has had about 9 of these episodes today. Exam - VS normal, Lungs CTAB with good air movement, Heart - nl s1/s2 without audible murmurs, abd soft - mild ttp along the mid-left abdomen without rebound/ guarding and present bowel sounds. Ext - no focal deficits/c/c/e. Impression - c/w Pseudoseizures Plan - consult Neuro for recommendations
--- NOTE | 2019-05-01 23:20 | HP ---
CHIEF COMPLAINT: Seizure. HISTORY OF PRESENT ILLNESS: This patient is a 43-year-old female with a history of apparent seizure disorder, although it appears that she also was here one year ago at which time she had monitoring in the epilepsy monitoring unit for 3 days, at which time she reportedly had seizure activity recorded, but had no epileptiform activity on her EEG. At that time, she was discharged with a diagnosis of pseudoseizures. The patient has been following with Dr. Gibbs. The patient presented to the emergency department on 04/24/2019 with seizures. At that time , she was evaluated. ER physician spoke with Dr. Gibbs, who recommended discharge. The patient subsequently presented again on the again with seizures and again was discharged. At that time, the patient told the ER physician that she had aneurysm in her brain that swelled and would cause her seizures. Today, the patient returned again via ambulance with seizures. It was reported from the emergency room physician that the patient had a glucose in the 40s. When EMS initially assessed the patient, however, her blood sugars had remained normal. In the emergency department, the patient was apparently foaming from her mouth. She was given 4 mg of Ativan and 2 mg of Versed. She was given D10. In the emergency department, the patient had further seizure-like activity. At the time of my exam, the patient was a bit sleepy, but was able to answer questions appropriately when she would wake up and have fairly normal cognitive functioning and then speak to the patient's . He indicated that the patient had been having a significant amount of stress at work and had been arguing with her coworkers. He stated that every time she gets stressed out, either arguing with coworkers or arguing with him that she would typically start having seizure type activity like this. PAST MEDICAL HISTORY: The above-mentioned seizure type activity with presumptive pseudoseizure activity and migraine. PAST SURGICAL HISTORY: Hysterectomy. SOCIAL HISTORY: Based on the records, she no history of alcohol, drugs, or smoking. She is . ALLERGIES: ASPIRIN, PHENOBARBITAL. CURRENT MEDICATIONS: 1. Topiramate 100 mg one p.o. b.i.d. 2. Divalproex 500 mg three tabs daily at bedtime. 3. Zonisamide 100 mg one p.o. nightly. PHYSICAL EXAMINATION: VITAL SIGNS: Pulse 69, BP 127/88, respirations 18. GENERAL APPEARANCE: She is a bit somnolent, but she is arousable. She has an IO in the right shoulder anteriorly. She will awaken and converse and follow commands. She appears to be relatively cognitively intact, but she is very sleepy. HEENT: PERRL. No OP lesions. Poor dentition. NECK: Supple and symmetric. No lymphadenopathy, JVD, or carotid bruits. HEART: Regular rate and rhythm without murmurs, gallops, or rubs. LUNGS: Clear to auscultation bilaterally with good chest wall expansion and air exchange. ABDOMEN: Soft, nontender, and nondistended. Positive bowel sounds. No masses. No organomegaly. EXTREMITIES: No cyanosis, clubbing, or edema. NEUROLOGIC: The patient is moving all extremities spontaneously. She has normal strength throughout. She has normal sensation throughout and her cognition is as above. LABORATORY DATA: White count 5.5, hemoglobin 13.5, MCV is 102, platelets 150. Sodium 140, potassium 3.7, chloride 112, CO2 20, anion gap 12, BUN 5, creatinine 0.81, glucose 91. LFTs normal. Depakote level is 44, prolactin level is 9.6. Brain CT is unremarkable. IMPRESSION AND PLAN: 1. Tonoclonic activity in a patient with history of seizures, but the most recent diagnosis made in this facility was that of pseudoseizures. I again spoke to the patient's . He says that the patient has 3 types of seizures. One he has been told is the pseudoseizures. The other he referred to "gilmar mal" seizures, presumably meaning petit mal seizures and also grand mal seizures. He reports the patient has been to numerous facilities including [place] and [place] and has been in epilepsy monitoring units a number of times. In spite of all that and the medications, she continued to have these type of episodes when she gets stressed. The patient will be monitored in observation in the neurology unit. The patient 's neurologist, Dr. Gibbs, will be consulted primarily because the patient has had 3 visits to the ER in the past week. Her valproic acid level was subtherapeutic and it is reported from Dr. Gibbs to the ER physician as documented in the ER visit on the 3rd that the patient has noncompliance with her medications. Her prolactin level was not elevated and this would appear to be more consistent with pseudoseizures based on the description for activity in the emergency department and was noted before this document could be dictated that the patient had some more activities on the floor when she got to her room. Dr. Ornelas responded and noted that the patient was having voluntary volitional activity in the midst of what appeared to be otherwise a seizure, which was felt to be consistent with pseudoseizures as well. Given the fact that these seem to get worse when she has times of significant stress, certainly lends itself to the idea that these are more likely pseudoseizures. The patient has received significant amount of benzodiazepine and thus far has not had significant improvement with that. JEVON Mccoy tried to reach Dr. Gibbs by phone, thus far he has not heard back. Interestingly, the patient's said that he had just talked to his on the phone and she told him that Dr. Gibbs had talked to her and planned an MRI in the morning. He had no confirmation on that, there are no orders in the computer at this time from Dr. Gibbs. 2. Hyperglycemia. We will continue to monitor the patient's blood sugars q.4 hours. Thus far, readings have been normal since arrival to the hospital. Job ID: [id number] MTDD
[2019-05-02 05:31] LABS: Anion Gap 12 mmol/L (10-20); BUN (Urea Nitrogen) 6 mg/dL (7.0-18.7); Calc. Creatinine Clearance 78 mL/min (70-130); Calcium 8.7 mg/dL (7.8-10.44); Carbon Dioxide 18 mmol/L (22-29); Chloride 112 mmol/L (98-107); Estimated GFR-MDRD 75; Glucose 94 mg/dL (70-105); Potassium 3.4 mmol/L (3.5-5.1); Sodium 139 mmol/L (136-145)
[2019-05-02 05:48] LABS: #Eosinphils 0.1 thou/uL (0.0-0.7); #Lymphocytes 1.7 thou/uL (1.20-3.40); #Monocytes 0.6 thou/uL (0.11-0.59); %Basophils 0.6 % (0.0-1.0); %Eosinophils 1.9 % (0.0-10.0); %Monocytes 8.6 % (0.0-10.0); %Neutrophils 62.8 % (42.0-75.0); Hemoglobin 14.1 g/dL (12.0-16.0); Mean Corpuscular HGB CONC 34.1 g/dL (32.0-36.0); Mean Corpuscular Hemoglobin 33.7 pg (27.0-31.0); Mean Platelet Volume 9.6 fL (7.4-10.4); Platelet Count 136 thou/uL (130-400); Platelet Morphology Comment Appears Adequate; RBC Distribution Width 11.3 % (11.5-14.5); RBC Morphology Normal; Red Blood Cell (RBC) Count 4.18 mill/uL (4.20-5.40); White Blood Cell (WBC) Count 6.3 thou/uL (4.8-10.8)
[2019-05-02] MEDS: Topiramate 100 MG TAB PO SCH ×2 (09:27→22:21)
[2019-05-02] MEDS: Ondansetron PF 4 MG/2 ML Vial IVP PRN ×2 (13:22→22:12)
[2019-05-02] MEDS ORDERED: Valproate Sodium 1,500 MG in Sodium Chloride 0.9% 100 ML IVPB SCH (17:15)
[2019-05-02] MEDS: Acetaminophen 325 MG TAB PO PRN ×2 (17:22→22:21)
--- NOTE | 2019-05-02 21:25 | CON ---
DATE OF CONSULTATION: 05/02/2019 CONSULTING PHYSICIAN: Hospitalist Service. IMPRESSION: 1. Recurrent seizures. 2. Subtherapeutic valproic acid level. 3. Migraine headaches. PLAN: 1. Valproic acid 1500 mg IV. 2. Discharged on 2000 mg per night. 3. Continue Zonegran 100 mg per day. 4. Continue Topamax 100 mg twice a day. HISTORY OF PRESENT ILLNESS: Ms. Guerrero is a longstanding patient of [facility] for management of seizures and migraines. She was at home and witnessed to have three generalized seizures in close proximity. She had a loss of bowel and bladder control. She was brought in via ambulance. Valproic acid level is 44. Her pCO2 was 18. She has returned to her baseline. She reportedly had two brief tonic seizures while sleeping earlier this morning. She otherwise has no new complaints. PHYSICAL EXAMINATION: She is alert, appropriate. She carries on an appropriate conversation. Her speech is fluent and clear. Her exam is nonfocal. SUMMARY: Proceed with the above changes in her treatment planning and I will continue to follow her as an outpatient. Job ID: [id number]
[2019-05-02] MEDS: Zonisamide 100 MG CAP PO SCH (22:21)
--- NOTE | 2019-05-02 22:25 | PDOC.PN ---
- Subjective Encounter Start Date: 05/02/19 Encounter Start Time: 11:30 No new complaints. Wants to eat. Sleepy. - Objective Resuscitation Status - Order Detail: 05/01/19 17:43 Resuscitation Status Routine Resuscitation Status: FULL: Full Resuscitation Vital Signs & Weight: Vital Signs (12 hours) Temp Pulse Resp BP BP Pulse Ox 05/02/19 20:00 98.2 F 76 16 90/59 L 96 05/02/19 15:45 98.4 F 73 16 105/67 99 05/02/19 11:36 98.3 F 83 16 105/70 100 Weight Weight 125 lb 6.4 oz I&O: 05/01/19 05/02/19 05/03/19 06:59 06:59 06:59 Intake Total 860 Balance 860 Result Diagrams: 05/02/19 04:56 05/02/19 04:56 Additional Labs: Accuchecks 05/02/19 05/02/19 05/02/19 11:28 07:43 04:24 POC Glucose 87 101 95 05/01/19 23:59 POC Glucose 123 H Phys Exam - Physical Examination Constitutional: NAD Sleepy, will awaken and talk. Respiratory: no wheezing, no rales, no rhonchi, clear to auscultation bilateral Cardiovascular: RRR, no significant murmur, no rub Gastrointestinal: soft, non-tender, no distention, positive bowel sounds Musculoskeletal: no edema Neurological: non-focal, moves all 4 limbs Psychiatric: normal affect Skin: no rash, normal turgor Dx/Plan (1) Pseudoseizures Code(s): F44.5 - CONVERSION DISORDER WITH SEIZURES OR CONVULSIONS Status: Acute (2) Migraines Code(s): G43.909 - MIGRAINE, UNSP, NOT INTRACTABLE, WITHOUT STATUS MIGRAINOSUS Status: Acute (3) Seizure disorder Code(s): G40.909 - EPILEPSY, UNSP, NOT INTRACTABLE, WITHOUT STATUS EPILEPTICUS Status: Acute - Plan * Awaited neuro consult. * Discussed with neuro. He believes she has had some epileptic seizures. He indicated that she has had the pseudoseizures and occasional epileptic seizures. * Discussed his planned changes in meds.
[2019-05-03] MEDS ORDERED: Sodium Chloride 0.9% 500 ML IV SCH (08:30)
[2019-05-03] MEDS: Topiramate 100 MG TAB PO SCH ×2 (08:44→20:28)
[2019-05-03] MEDS: Acetaminophen 325 MG TAB PO PRN ×3 (08:51→21:09)
[2019-05-03] MEDS: Ondansetron PF 4 MG/2 ML Vial IVP PRN ×2 (08:51→16:29)
--- NOTE | 2019-05-03 10:01 | PRG ---
DATE OF SERVICE: 05/03/2019 SUBJECTIVE: The patient initially was asleep. She was awaken in, but was not significantly interactive. I asked her to wake up, so that she could talk to me and she told me she did not want to talk to anybody. Told her I would be happy to get her ready for discharge in the case, then she decided to talk to me and told me that she did not feel like she could go home because she had not eaten anything and she had been vomiting. OBJECTIVE: VITAL SIGNS: Temperature is 97.7, pulse 66, respirations 16, O2 saturation 97% on room air, BP is 97/61. GENERAL APPEARANCE: Age-appropriate female. She is in no distress. She is awake, alert, oriented, but appears to be drowsy, but it appears to be more that she just simply does not want to talk. HEART: Regular rate and rhythm without murmurs, gallops, or rubs. LUNGS: Clear bilaterally although not taking full breaths. ABDOMEN: Flat, soft, slightly tender in the left lower quadrant area with no guarding or rebound. EXTREMITIES: No cyanosis, clubbing, or edema. IMPRESSION AND PLAN: 1. Seizures. This patient appears to possibly have some mix of pseudoseizures and epileptic seizures. Dr. Gibbs saw the patient yesterday, loaded her with IV valproic acid, and recommended increase her nighttime dose to 2000 mg. Continue the Zonegran 100 mg daily, Topamax b.i.d. He felt the patient was prepared for discharge after the IV load. However, the patient had indicated to him that she would prefer to stay. Therefore, saw the patient this morning in anticipation of discharge, but she has developed some nausea, vomiting. 2. Nausea and vomiting, unclear etiology. We will give the patient a bolus of normal saline 500 mL. Check a CBC and BMP. We will get the patient out of bed and moving around a little bit, which she does not appear like. 3. History of migraines. Continue with her medications per Dr. Gibbs. Job ID: [id number]
[2019-05-03 10:15] LABS: #Eosinphils 0.1 thou/uL (0.0-0.7); #Lymphocytes 1.2 thou/uL (1.20-3.40); #Monocytes 0.4 thou/uL (0.11-0.59); %Basophils 0.8 % (0.0-1.0); %Eosinophils 1.2 % (0.0-10.0); %Lymphocytes 21.5 % (21.0-51.0); %Monocytes 6.7 % (0.0-10.0); %Neutrophils 69.9 % (42.0-75.0); Hemoglobin 13.7 g/dL (12.0-16.0); Mean Corpuscular Hemoglobin 34.5 pg (27.0-31.0); Mean Corpuscular Volume 98.5 fL (78.0-98.0); Mean Platelet Volume 8.7 fL (7.4-10.4); Platelet Count 162 thou/uL (130-400); RBC Distribution Width 11.2 % (11.5-14.5); Red Blood Cell (RBC) Count 3.99 mill/uL (4.20-5.40); White Blood Cell (WBC) Count 5.7 thou/uL (4.8-10.8)
[2019-05-03 10:51] LABS: Anion Gap 11 mmol/L (10-20); BUN (Urea Nitrogen) 7 mg/dL (7.0-18.7); Calc. Creatinine Clearance 77 mL/min (70-130); Calcium 8.5 mg/dL (7.8-10.44); Carbon Dioxide 19 mmol/L (22-29); Chloride 111 mmol/L (98-107); Estimated GFR-MDRD 74; Glucose 85 mg/dL (70-105); Potassium 3.7 mmol/L (3.5-5.1); Sodium 137 mmol/L (136-145)
[2019-05-03] MEDS ORDERED: Lorazepam 2 MG/ML VIAL ONE ×2 (12:32→16:37)
[2019-05-03 18:01] LABS: Anion Gap 14 mmol/L (10-20); BUN (Urea Nitrogen) 6 mg/dL (7.0-18.7); Calc. Creatinine Clearance 70 mL/min (70-130); Calcium 8.6 mg/dL (7.8-10.44); Carbon Dioxide 17 mmol/L (22-29); Chloride 110 mmol/L (98-107); Estimated GFR-MDRD 67; Glucose 86 mg/dL (70-105); Potassium 3.5 mmol/L (3.5-5.1); Sodium 137 mmol/L (136-145); Valproic Acid (Depakene) 34.9 ug/mL (50.0-100.0)
[2019-05-03] MEDS: Zonisamide 100 MG CAP PO SCH (20:28)
[2019-05-03] MEDS: Lorazepam 2 MG/ML VIAL SLOW IVP PRN (21:20)
[2019-05-04] MEDS: Topiramate 100 MG TAB PO SCH ×2 (08:59→21:49)
[2019-05-04] MEDS: Ondansetron PF 4 MG/2 ML Vial IVP PRN ×2 (12:33→21:49)
[2019-05-04] MEDS: Lorazepam 2 MG/ML VIAL SLOW IVP PRN ×2 (12:53→23:35)
--- NOTE | 2019-05-04 15:29 | PDOC.PN ---
- Subjective Encounter Start Date: 05/04/19 Encounter Start Time: 12:45 Subjective: pt up in bed feels nauseated - Objective Resuscitation Status - Order Detail: 05/01/19 17:43 Resuscitation Status Routine Resuscitation Status: FULL: Full Resuscitation Vital Signs & Weight: Vital Signs (12 hours) Temp Pulse Resp BP BP Pulse Ox 05/04/19 07:36 98.2 F 69 16 100/57 L 96 05/04/19 03:54 98 F 66 16 100/59 L 95 Weight Weight 125 lb 6.4 oz I&O: 05/03/19 05/04/19 05/05/19 06:59 06:59 06:59 Intake Total 1210 1070 100 Balance 1210 1070 100 Result Diagrams: 05/03/19 10:06 05/03/19 17:32 Phys Exam - Physical Examination Neck: no nodes, no JVD, supple, full ROM Respiratory: no wheezing, no rales, no rhonchi, wheezing present, clear to auscultation bilateral Cardiovascular: RRR, no significant murmur, no rub, gallop, irregular Gastrointestinal: soft, non-tender, no distention, positive bowel sounds Dx/Plan (1) Pseudoseizures Code(s): F44.5 - CONVERSION DISORDER WITH SEIZURES OR CONVULSIONS Status: Acute (2) Anxiety Code(s): F41.9 - ANXIETY DISORDER, UNSPECIFIED Status: Acute (3) Hypothyroidism Code(s): E03.9 - HYPOTHYROIDISM, UNSPECIFIED Status: Acute - Plan pt on depakote/zonisamide/topamax -: she is still having "seizure". pt's postitcal was brief today. -: recommend 24 EEG to rule out pseudoseizure. * . Review of Systems - Review of Systems Cardiovascular: negative: chest pain, palpitations, orthopnea, paroxysmal nocturnal dyspnea, edema, light headedness, other Gastrointestinal: Nausea Genitourinary: negative: Dysuria, Frequency, Incontinence, Hematuria, Retention , Other - Medications/Allergies Allergies/Adverse Reactions: Allergies Allergy/AdvReac Type Severity Reaction Status Date / Time aspirin Allergy Hives Verified 05/01/19 23:21 phenobarbital Allergy Verified 05/01/19 23:21 Medications: Current Medications Acetaminophen (Tylenol) 650 mg PO Q4H PRN PRN Reason: Headache/Fever/Mild Pain (1-3) Last Admin: 05/03/19 21:09 Dose: 650 mg Divalproex Sodium (Depakote Er) 2,000 mg PO HS [facility] Last Admin: 05/03/19 20:28 Dose: 2,000 mg Lorazepam (Ativan) 1 mg SLOW IVP Q6H PRN PRN Reason: Seizures Last Admin: 05/04/19 12:53 Dose: 1 mg Ondansetron HCl (Zofran) 4 mg IVP Q6H PRN PRN Reason: Nausea/Vomiting Last Admin: 05/04/19 12:33 Dose: 4 mg Sodium Chloride (Flush - Normal Saline) 10 ml IVF Q12HR [facility] Last Admin: 05/04/19 09:10 Dose: Not Given Sodium Chloride (Flush - Normal Saline) 10 ml IVF PRN PRN PRN Reason: Saline Flush Last Admin: 05/03/19 21:25 Dose: 10 ml Topiramate (Topamax) 100 mg PO BID [facility] Last Admin: 05/04/19 08:59 Dose: 100 mg Zonisamide (Zonisamide) 100 mg PO HS [facility] Last Admin: 05/03/19 20:28 Dose: 100 mg
[2019-05-04] MEDS: Acetaminophen 325 MG TAB PO PRN (21:49)
[2019-05-04] MEDS: Zonisamide 100 MG CAP PO SCH (21:49)
--- NOTE | 2019-05-05 08:42 | PRG ---
DATE OF SERVICE: 05/04/2019 Subjectively, she reports she has had 3 more seizures today. On exam, she appears a bit lethargic, but is alert and appropriate. No abnormal movements were seen. Her Depakote level was 34 today. My plan is to give her a loading dose of 2000 mg IV. Her lab work from yesterday seizure showed the persistent drop in bicarb, but the prolactin level did not rise. It is uncertain as to whether we are having true seizures or pseudoseizures. At this point, I will consider putting her on prolonged EEG monitoring tomorrow, if she is not better. Job ID: [id number]
[2019-05-05] MEDS: Enoxaparin Sodium 40 MG/0.4 ML SYRINGE SC SCH (08:55)
[2019-05-05] MEDS: Topiramate 100 MG TAB PO SCH ×2 (08:55→20:53)
[2019-05-05 13:23] LABS: Potassium, Urine 46.7 mmol/L
--- NOTE | 2019-05-05 15:43 | PDOC.PN ---
- Subjective Encounter Start Date: 05/05/19 Encounter Start Time: 10:30 Subjective: pt up in bed on her phone, not answering my question - Objective Resuscitation Status - Order Detail: 05/01/19 17:43 Resuscitation Status Routine Resuscitation Status: FULL: Full Resuscitation Vital Signs & Weight: Vital Signs (12 hours) Temp Pulse Resp BP BP BP BP 05/05/19 15:40 100/64 05/05/19 12:00 97.3 F L 94 24 H 87/62 L 05/05/19 08:50 05/05/19 08:00 97.5 F L 62 14 90/61 05/05/19 04:00 98.4 F 64 16 92/63 Pulse Ox 05/05/19 15:40 05/05/19 12:00 99 05/05/19 08:50 94 L 05/05/19 08:00 94 L 05/05/19 04:00 98 Weight Weight 125 lb 6.4 oz I&O: 05/04/19 05/05/19 05/06/19 06:59 06:59 06:59 Intake Total 1070 820 Balance 1070 820 Result Diagrams: 05/03/19 10:06 05/03/19 17:32 Phys Exam - Physical Examination Neck: no nodes, no JVD, supple, full ROM Respiratory: no wheezing, no rales, no rhonchi, wheezing present, clear to auscultation bilateral Cardiovascular: RRR, no significant murmur, no rub, gallop, irregular Gastrointestinal: soft, non-tender, no distention, positive bowel sounds Dx/Plan (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 pt was on continuos monitoring eeg. she had a seizure and pt was given saline. She stopped seizing no activity on EEG. will notify neurology. Review of Systems - Review of Systems Other: pt did not answer any of my questions - Medications/Allergies Allergies/Adverse Reactions: Allergies Allergy/AdvReac Type Severity Reaction Status Date / Time aspirin Allergy Hives Verified 05/01/19 23:21 phenobarbital Allergy Verified 05/01/19 23:21 Medications: Current Medications Acetaminophen (Tylenol) 650 mg PO Q4H PRN PRN Reason: Headache/Fever/Mild Pain (1-3) Last Admin: 05/04/19 21:49 Dose: 650 mg Divalproex Sodium (Depakote Er) 1,000 mg PO BID [facility] Last Admin: 05/05/19 08:55 Dose: 1,000 mg Enoxaparin Sodium (Lovenox) 40 mg SC 0900 [facility] Last Admin: 05/05/19 08:55 Dose: 40 mg Lorazepam (Ativan) 1 mg SLOW IVP Q6H PRN PRN Reason: Seizures Last Admin: 05/04/19 23:35 Dose: 1 mg Ondansetron HCl (Zofran) 4 mg IVP Q6H PRN PRN Reason: Nausea/Vomiting Last Admin: 05/04/19 21:49 Dose: 4 mg Sodium Chloride (Flush - Normal Saline) 10 ml IVF Q12HR [facility] Last Admin: 05/05/19 08:56 Dose: 10 ml Sodium Chloride (Flush - Normal Saline) 10 ml IVF PRN PRN PRN Reason: Saline Flush Last Admin: 05/03/19 21:25 Dose: 10 ml Topiramate (Topamax) 100 mg PO BID [facility] Last Admin: 05/05/19 08:55 Dose: 100 mg Zonisamide (Zonisamide) 100 mg PO HS [facility] Last Admin: 05/04/19 21:49 Dose: 100 mg
[2019-05-05] MEDS: Ondansetron PF 4 MG/2 ML Vial IVP PRN (20:53)
[2019-05-05] MEDS: Zonisamide 100 MG CAP PO SCH (20:53)
[2019-05-06 08:51] VITALS: BP 103/72; TEMP 97.4
[2019-05-06] MEDS: Topiramate 100 MG TAB PO SCH (09:39)
[2019-05-06] MEDS: Enoxaparin Sodium 40 MG/0.4 ML SYRINGE SC SCH (09:39)
--- NOTE | 2019-05-06 10:20 | PRG ---
DATE OF SERVICE: 05/06/2019 She continued to have episodes yesterday on EEG monitoring. There was no evidence of epileptiform activity. Her episodes would stop with the administration of placebo saline injections. I confronted her this morning with the situation. She is uncertain as to what stressors have brought this on as it is a prior problem that we dealt within the past. I have advised her that she needs to call her and be discharged home today. She is in agreement with this plan. I will follow up with her in the office. Job ID: [id number]
--- NOTE | 2019-05-08 11:02 | DIS ---
DATE OF ADMISSION: 05/04/2019 DATE OF DISCHARGE: 05/06/2019 DISCHARGE DIAGNOSES: As of the followin. Pseudoseizures. 2. Anxiety. 3. Hypothyroidism. 4. Possible renal tubular acidosis, non anion gap metabolic acidosis. HOSPITAL COURSE: The patient is a 43-year-old female with history of seizure disorder, who was evaluated about a year ago with epilepsy monitor for about 3 days. At that time, it was reported she reportedly had a seizure activity recorded, but no epileptic activity on the EEG. At this time, she is diagnosed with pseudoseizures. She has been following Neurology as an outpatient. She came into the hospital with onset of seizures. The patient at this time was admitted to the hospital and underwent a workup. The patient stated that when she is stressed out or arguing with the coworkers or , she typically starts having seizures. The patient's medications were topiramate, divalproex, and zonisamide, which according to her she has been taking. Also at this time, she was seen by Neurology and she was loaded with because of her subtherapeutic levels. She continued to have seizures throughout the hospital stay. At this time, instead of the Ativan we did give her some saline solution, and at this time, her seizures stopped. This happened a couple of times, one of the times she was on a 24-hour EEG monitoring. The EEG monitor was evaluated by Neurology and there were no seizure activities, and at this time, Neurology recommended stopping the 24-hour monitoring and the patient was discharged home. level continued to be low at 9.26. Her vitals have been stable. Also, she was noted to have a non-anion gap metabolic acidosis, which I believe is possibly secondary to RTA. I have asked her to follow up with her primary care doctor for further evaluation. This is chronic, this has been going on since she has been admitted to the hospital here. MEDICATIONS: Her home medications will be as of the followin. Depakote 1000 mg b.i.d. 2. Topiramate 100 mg b.i.d. 3. Zonisamide one cap p.o. at bedtime. PHYSICAL EXAMINATION: VITAL SIGNS: Temperature 98.6, heart rate 76, respiratory rate 12, oxygen saturation 97% on room air, and blood pressure 103/72. GENERAL: She is awake, alert, and oriented x3. Does not appear in distress. CV: S1 and S2 present. No murmurs, rubs, or gallops. ABDOMEN: Soft and nontender. Bowel sounds are present x2. DISCHARGE INSTRUCTIONS: Again, the patient will be discharged. She will follow up with her primary and neurology as needed. I did recommend following up with mental health since I believe the patient does have some underlying psychiatric illness that needs to be addressed. Job ID: [id number]
== END 2019-05-06 12:11 | disposition home or self-care (01) | DRG 880 ==
LOC: ERS 12:11 → ERHOLD 15:59 → 2SE 20:16 → OBSVTOIN 05-04 13:22
PROVIDERS: ADMIT Internal Medicine; ATTEND Internal Medicine
DX: F44.5 Conversion disorder with seizures or convulsions (principal); G43.909 Migraine, unspecified, not intractable, without status migrainosus; R73.9 Hyperglycemia, unspecified; F41.9 Anxiety disorder, unspecified; E03.9 Hypothyroidism, unspecified; Z90.710 Acquired absence of both cervix and uterus; Z79.899 Other long term (current) drug therapy; Z88.8 Allergy status to other drugs, medicaments and biological substances; Z91.14 Patient's other noncompliance with medication regimen
CPT/HCPCS: 36415; 36416; 70450; 80048; 80053; 80164; 81002; 82436; 84133; 84146; 84300; 85025; 95816; 95819; 95953; 96374; 96376; J1650; J2060; J2405; J3490

== ENCOUNTER 2019-08-02 19:04 | Emergency (ER) | payer MEDICARE ==
[2019-08-02 19:46] LABS: #Basophils 0.1 thou/uL (0.0-0.2); #Eosinphils 0.1 thou/uL (0.0-0.7); #Lymphocytes 1.6 thou/uL (1.20-3.40); #Monocytes 0.3 thou/uL (0.11-0.59); %Basophils 1.1 % (0.0-1.0); %Lymphocytes 30.8 % (21.0-51.0); %Monocytes 6.7 % (0.0-10.0); %Neutrophils 59.4 % (42.0-75.0); Hemoglobin 13.1 g/dL (12.0-16.0); Mean Corpuscular HGB CONC 33.8 g/dL (32.0-36.0); Mean Corpuscular Hemoglobin 34.5 pg (27.0-31.0); Mean Platelet Volume 9.1 fL (7.4-10.4); Platelet Count 163 thou/uL (130-400); Red Blood Cell (RBC) Count 3.81 mill/uL (4.20-5.40); White Blood Cell (WBC) Count 5.1 thou/uL (4.8-10.8)
[2019-08-02 19:57] LABS: BHCG - Serum Negative (NEGATIVE); Pregs Control Background? CLEAR/WHITE (CLR/WHITE); Pregs Control Bar Appear? YES (CONTROL BAR)
[2019-08-02 20:08] LABS: ALT (SGPT) Less than 7 U/L (8-55); AST (SGOT) 11 U/L (5-34); Albumin 3.9 g/dL (3.5-5.0); Alkaline Phosphatase 55 U/L (40-150); Anion Gap 10 mmol/L (10-20); BUN (Urea Nitrogen) 5 mg/dL (7.0-18.7); Bilirubin, Total 0.4 mg/dL (0.2-1.2); Calc. Creatinine Clearance 0 mL/min (70-130); Calcium 8.6 mg/dL (7.8-10.44); Carbon Dioxide 22 mmol/L (22-29); Chloride 111 mmol/L (98-107); Estimated GFR-MDRD 63; Globulin 2.3 g/dL (2.4-3.5); Glucose 83 mg/dL (70-105); Potassium 3.2 mmol/L (3.5-5.1); Protein, Total 6.2 g/dL (6.0-8.3); Sodium 140 mmol/L (136-145)
== END 2019-08-03 01:07 | disposition home or self-care (01) ==
LOC: ERS 19:04
DX: G40.909 Epilepsy, unspecified, not intractable, without status epilepticus (principal); G43.909 Migraine, unspecified, not intractable, without status migrainosus; Z79.899 Other long term (current) drug therapy
CPT/HCPCS: 36415; 80053; 84146; 84703; 85025; 99284

== ENCOUNTER 2019-10-13 14:26 | Emergency (ER) | payer MEDICARE ==
[2019-10-13 15:04] LABS: #Basophils 0.1 thou/uL (0.0-0.2); #Eosinphils 0.1 thou/uL (0.0-0.7); #Lymphocytes 1.7 thou/uL (1.20-3.40); #Monocytes 0.5 thou/uL (0.11-0.59); #Neutrophils 3.8 thou/uL (1.40-6.50); %Basophils 1.3 % (0.0-1.0); %Eosinophils 1.7 % (0.0-10.0); %Lymphocytes 27.1 % (21.0-51.0); %Monocytes 8.1 % (0.0-10.0); %Neutrophils 61.9 % (42.0-75.0); Hemoglobin 14.6 g/dL (12.0-16.0); Mean Corpuscular HGB CONC 33.9 g/dL (32.0-36.0); Mean Corpuscular Hemoglobin 35.4 pg (27.0-31.0); Mean Platelet Volume 8.7 fL (7.4-10.4); Platelet Count 161 thou/uL (130-400); RBC Distribution Width 12.5 % (11.5-14.5); Red Blood Cell (RBC) Count 4.11 mill/uL (4.20-5.40); White Blood Cell (WBC) Count 6.2 thou/uL (4.8-10.8)
[2019-10-13 15:29] LABS: ALT (SGPT) 12 U/L (8-55); AST (SGOT) 16 U/L (5-34); Albumin 3.9 g/dL (3.5-5.0); Alkaline Phosphatase 57 U/L (40-110); Anion Gap 13 mmol/L (10-20); BUN (Urea Nitrogen) 10 mg/dL (7.0-18.7); Bilirubin, Total 0.3 mg/dL (0.2-1.2); Calc. Creatinine Clearance 0 mL/min (70-130); Calcium 8.6 mg/dL (7.8-10.44); Carbon Dioxide 18 mmol/L (22-29); Chloride 111 mmol/L (98-107); Estimated GFR-MDRD 67; Globulin 2.6 g/dL (2.4-3.5); Glucose 86 mg/dL (70-105); Potassium 4.1 mmol/L (3.5-5.1); Protein, Total 6.5 g/dL (6.0-8.3); Sodium 138 mmol/L (136-145); Valproic Acid (Depakene) 105.6 ug/mL (50.0-100.0)
== END 2019-10-13 17:53 | disposition home or self-care (01) ==
LOC: ERS 14:26
DX: G40.409 Other generalized epilepsy and epileptic syndromes, not intractable, without status epilepticus (principal); G43.909 Migraine, unspecified, not intractable, without status migrainosus; Z79.899 Other long term (current) drug therapy
CPT/HCPCS: 36415; 80053; 80164; 85025; 94760

== ENCOUNTER 2019-12-09 10:44 | Emergency (ER) | payer MEDICARE ==
[2019-12-09 12:10] LABS: #Basophils 0.1 thou/uL (0.0-0.2); #Eosinphils 0.1 thou/uL (0.0-0.7); #Lymphocytes 1.5 thou/uL (1.20-3.40); #Monocytes 0.5 thou/uL (0.11-0.59); #Neutrophils 5.1 thou/uL (1.40-6.50); %Basophils 1.4 % (0.0-1.0); %Eosinophils 0.9 % (0.0-10.0); %Lymphocytes 20.4 % (21.0-51.0); %Monocytes 7.1 % (0.0-10.0); %Neutrophils 70.2 % (42.0-75.0); Hemoglobin 14.1 g/dL (12.0-16.0); Mean Corpuscular Hemoglobin 34.6 pg (27.0-31.0); Mean Platelet Volume 8.9 fL (7.4-10.4); Platelet Count 204 thou/uL (130-400); RBC Distribution Width 11.6 % (11.5-14.5); Red Blood Cell (RBC) Count 4.06 mill/uL (4.20-5.40); White Blood Cell (WBC) Count 7.3 thou/uL (4.8-10.8)
[2019-12-09 12:25] LABS: ALT (SGPT) 7 U/L (8-55); AST (SGOT) 15 U/L (5-34); Alkaline Phosphatase 60 U/L (40-110); Anion Gap 14 mmol/L (10-20); BUN (Urea Nitrogen) 9 mg/dL (7.0-18.7); Bilirubin, Total 0.6 mg/dL (0.2-1.2); Calc. Creatinine Clearance 0 mL/min (70-130); Calcium 8.7 mg/dL (7.8-10.44); Carbon Dioxide 17 mmol/L (22-29); Chloride 112 mmol/L (98-107); Estimated GFR-MDRD 65; Globulin 2.7 g/dL (2.4-3.5); Glucose 88 mg/dL (70-105); Potassium 3.6 mmol/L (3.5-5.1); Protein, Total 6.7 g/dL (6.0-8.3); Sodium 139 mmol/L (136-145)
[2019-12-09 12:36] LABS: MDiff Complete? YES; Macrocytosis SLIGHT = 6-15 cells (100X) (0-5/hpf); Platelet Morphology Comment Appears Adequate; Polychromasia SLIGHT = 2-3 cells (100X) (0-2/hpf)
== END 2019-12-09 15:02 | disposition home or self-care (01) ==
LOC: ERS 10:44
DX: G40.909 Epilepsy, unspecified, not intractable, without status epilepticus (principal); G43.909 Migraine, unspecified, not intractable, without status migrainosus; Z79.899 Other long term (current) drug therapy
CPT/HCPCS: 36416; 80053; 80164; 85025; 99284

== ENCOUNTER 2019-12-11 17:48 | Emergency (ER) | payer MEDICARE ==
[2019-12-11 19:43] LABS: ALT (SGPT) Less than 7 U/L (8-55); AST (SGOT) 18 U/L (5-34); Albumin 3.9 g/dL (3.5-5.0); Alkaline Phosphatase 56 U/L (40-110); Anion Gap 13 mmol/L (10-20); BUN (Urea Nitrogen) 9 mg/dL (7.0-18.7); Bilirubin, Total 0.4 mg/dL (0.2-1.2); Calc. Creatinine Clearance 0 mL/min (70-130); Calcium 8.6 mg/dL (7.8-10.44); Carbon Dioxide 21 mmol/L (22-29); Chloride 112 mmol/L (98-107); Estimated GFR-MDRD 58; Globulin 2.4 g/dL (2.4-3.5); Glucose 85 mg/dL (70-105); Potassium 3.6 mmol/L (3.5-5.1); Protein, Total 6.3 g/dL (6.0-8.3); Sodium 142 mmol/L (136-145)
--- NOTE | 2019-12-11 20:19 | CT ---
Exam: Head CT without contrast HISTORY: Headache. Multiple seizures today. COMPARISON: 05/01/2019 FINDINGS: Hemorrhage: No intraparenchymal hemorrhage or extra-axial hematoma. Brain parenchyma: Cortical jackson-white matter differentiation is preserved. No mass effect or midline shift. Basilar cisterns are patent. Ventricular system: Ventricles and sulci are patent and symmetric. Calvarium: Intact. Sinuses and mastoid air cells: Adequate aeration. IMPRESSION: No acute intracranial process.
[2019-12-11 20:34] LABS: #Basophils 0.1 thou/uL (0.0-0.2); #Eosinphils 0.1 thou/uL (0.0-0.7); #Lymphocytes 2.2 thou/uL (1.20-3.40); #Monocytes 0.5 thou/uL (0.11-0.59); #Neutrophils 3.7 thou/uL (1.40-6.50); %Basophils 0.8 % (0.0-1.0); %Eosinophils 1.4 % (0.0-10.0); %Lymphocytes 34.2 % (21.0-51.0); %Monocytes 7.6 % (0.0-10.0); Mean Corpuscular HGB CONC 33.9 g/dL (32.0-36.0); Mean Corpuscular Hemoglobin 34.9 pg (27.0-31.0); Mean Platelet Volume 8.4 fL (7.4-10.4); Platelet Count 184 thou/uL (130-400); RBC Distribution Width 11.3 % (11.5-14.5); Red Blood Cell (RBC) Count 3.73 mill/uL (4.20-5.40); White Blood Cell (WBC) Count 6.5 thou/uL (4.8-10.8)
== END 2019-12-11 21:57 | disposition home or self-care (01) ==
LOC: ERS 17:48
DX: G40.409 Other generalized epilepsy and epileptic syndromes, not intractable, without status epilepticus (principal); G43.909 Migraine, unspecified, not intractable, without status migrainosus; Z79.899 Other long term (current) drug therapy
CPT/HCPCS: 36415; 70450; 80053; 80164; 85025

== ENCOUNTER 2019-12-14 07:33 | Emergency (ER) | payer MEDICARE ==
[2019-12-14 08:09] LABS: Bilirubin Negative (Negative); Blood, Urine Negative (Negative); Clarity Turbid (Clear); Glucose, Urine (Dipstick) Normal (Negative); Leukocyte 25 Leu/uL (Negative); Nitrite Negative (Negative); Protein, Urine (Dipstick) Negative (Neg-Trace); RBC/HPF 0-3 HPF (0-3); Urobilinogen Normal mg/dL (Less than 2)
[2019-12-14 08:18] LABS: Cocaine Metabolite Screen Not Detected (NotDetected); Medtox Reader # READER 1; Phencyclidine (PCP) Not Detected (NotDetected); THC/Cannabinoid Screen Detected (NotDetected)
[2019-12-14 08:19] LABS: Amphetamine Not Detected (NotDetected); Benzodiazepine Screen Detected (NotDetected); Methamphetamine Not Detected (NotDetected); Opiate Screen Not Detected (NotDetected)
[2019-12-14 08:20] LABS: Barbiturates Screen Detected (NotDetected); Medtox Control Line Valid? VALID (VALID); Methadone Not Detected (NotDetected); Oxycodone Screen Not Detected (NotDetected); Tricyclic Screen Not Detected (NotDetected)
[2019-12-14 08:23] LABS: Bacteria/HPF 3+ HPF (None Seen)
[2019-12-14 08:29] LABS: #Eosinphils 0.1 thou/uL (0.0-0.7); #Lymphocytes 1.4 thou/uL (1.20-3.40); #Monocytes 0.5 thou/uL (0.11-0.59); #Neutrophils 3.7 thou/uL (1.40-6.50); %Basophils 0.7 % (0.0-1.0); %Eosinophils 1.9 % (0.0-10.0); %Lymphocytes 25.2 % (21.0-51.0); %Monocytes 8.4 % (0.0-10.0); %Neutrophils 63.9 % (42.0-75.0); Mean Corpuscular HGB CONC 34.6 g/dL (32.0-36.0); Mean Corpuscular Hemoglobin 35.8 pg (27.0-31.0); Mean Platelet Volume 8.7 fL (7.4-10.4); Platelet Count 168 thou/uL (130-400); RBC Distribution Width 11.3 % (11.5-14.5); Red Blood Cell (RBC) Count 3.64 mill/uL (4.20-5.40); White Blood Cell (WBC) Count 5.7 thou/uL (4.8-10.8)
[2019-12-14 08:50] LABS: ALT (SGPT) 9 U/L (8-55); AST (SGOT) 16 U/L (5-34); Albumin 3.9 g/dL (3.5-5.0); Alkaline Phosphatase 56 U/L (40-110); Anion Gap 11 mmol/L (10-20); BUN (Urea Nitrogen) 5 mg/dL (7.0-18.7); Bilirubin, Total 0.5 mg/dL (0.2-1.2); Calc. Creatinine Clearance 0 mL/min (70-130); Calcium 8.6 mg/dL (7.8-10.44); Carbon Dioxide 20 mmol/L (22-29); Chloride 112 mmol/L (98-107); Estimated GFR-MDRD 68; Globulin 2.3 g/dL (2.4-3.5); Glucose 99 mg/dL (70-105); Potassium 3.2 mmol/L (3.5-5.1); Protein, Total 6.2 g/dL (6.0-8.3); Sodium 140 mmol/L (136-145)
[2019-12-14] MEDS ORDERED: levETIRAcetam 1000 MG/100 ML PREMIX BAG ONE (09:55)
== END 2019-12-14 12:45 | disposition home or self-care (01) ==
LOC: ERS 07:33
DX: G40.909 Epilepsy, unspecified, not intractable, without status epilepticus (principal); G43.909 Migraine, unspecified, not intractable, without status migrainosus; Z79.899 Other long term (current) drug therapy
CPT/HCPCS: 80053; 80164; 80177; 80306; 81003; 81015; 83605; 84146; 84484; 85025; 93005; 96361; 96365; J1953

== ENCOUNTER 2020-01-21 11:22 | Emergency (ER) | payer MEDICARE ==
[2020-01-21 13:58] LABS: ALT (SGPT) 8 U/L (8-55); AST (SGOT) 15 U/L (5-34); Albumin 3.8 g/dL (3.5-5.0); Alkaline Phosphatase 67 U/L (40-110); Anion Gap 11 mmol/L (10-20); BUN (Urea Nitrogen) 11 mg/dL (7.0-18.7); Bilirubin, Total 0.2 mg/dL (0.2-1.2); Calc. Creatinine Clearance 0 mL/min (70-130); Calcium 8.4 mg/dL (7.8-10.44); Carbon Dioxide 21 mmol/L (22-29); Chloride 111 mmol/L (98-107); Estimated GFR-MDRD 75; Globulin 2.5 g/dL (2.4-3.5); Glucose 82 mg/dL (70-105); Potassium 3.8 mmol/L (3.5-5.1); Protein, Total 6.3 g/dL (6.0-8.3); Sodium 139 mmol/L (136-145)
[2020-01-21 14:00] LABS: BHCG - Serum Negative (NEGATIVE); Pregs Control Background? CLEAR/WHITE (CLR/WHITE); Pregs Control Bar Appear? YES (CONTROL BAR)
[2020-01-21] MEDS ORDERED: Lorazepam 2 MG/ML VIAL ONE (14:11)
[2020-01-21 14:25] LABS: #Basophils 0.1 thou/uL (0.0-0.2); #Eosinphils 0.2 thou/uL (0.0-0.7); #Lymphocytes 2.1 thou/uL (1.20-3.40); #Monocytes 0.5 thou/uL (0.11-0.59); #Neutrophils 3.6 thou/uL (1.40-6.50); %Basophils 1.2 % (0.0-1.0); %Eosinophils 2.8 % (0.0-10.0); %Lymphocytes 32.1 % (21.0-51.0); %Monocytes 7.2 % (0.0-10.0); %Neutrophils 56.7 % (42.0-75.0); Mean Corpuscular HGB CONC 34.4 g/dL (32.0-36.0); Mean Corpuscular Hemoglobin 35.8 pg (27.0-31.0); Mean Platelet Volume 8.1 fL (7.4-10.4); Platelet Count 240 thou/uL (130-400); RBC Distribution Width 11.3 % (11.5-14.5); Red Blood Cell (RBC) Count 3.63 mill/uL (4.20-5.40); White Blood Cell (WBC) Count 6.4 thou/uL (4.8-10.8)
[2020-01-23 11:14] LABS: Topiramate (Topamax) Test 1.6 ug/mL (2.0-25.0)
== END 2020-01-21 16:37 | disposition home or self-care (01) ==
LOC: ERS 11:22
DX: G40.909 Epilepsy, unspecified, not intractable, without status epilepticus (principal); G43.909 Migraine, unspecified, not intractable, without status migrainosus; Z79.899 Other long term (current) drug therapy; I72.9 Aneurysm of unspecified site
CPT/HCPCS: 36415; 80053; 80177; 80201; 84146; 84703; 85025; 96360; 96361; J2060

== ENCOUNTER 2020-01-29 14:30 | Emergency (ER) | payer MEDICARE ==
[2020-01-29] MEDS ORDERED: levETIRAcetam 500 MG/100 ML PREMIX BAG ONE (15:01)
--- NOTE | 2020-01-29 16:01 | RAD ---
PORTABLE CHEST 1 VIEW: Date: 01/29/2020 Time: 1513 hours HISTORY: Seizure, altered mental status. FINDINGS: Comparison made with exam of 07/22/2018. Right-sided Port-A-Cath remains in place. The heart size is normal. The lungs are expanded without fo emile areas of consolidation, pneumothoraces, or pleural effusions. IMPRESSION: No acute process. POS: [facility]
[2020-01-29 16:09] LABS: #Basophils 0.1 thou/uL (0.0-0.2); #Eosinphils 0.2 thou/uL (0.0-0.7); #Neutrophils 7.9 thou/uL (1.40-6.50); %Basophils 0.5 % (0.0-1.0); %Lymphocytes 9.7 % (21.0-51.0); %Monocytes 9.9 % (0.0-10.0); %Neutrophils 77.8 % (42.0-75.0); Hemoglobin 12.8 g/dL (12.0-16.0); Mean Corpuscular HGB CONC 34.1 g/dL (32.0-36.0); Mean Corpuscular Hemoglobin 34.9 pg (27.0-31.0); Mean Platelet Volume 8.3 fL (7.4-10.4); Platelet Count 207 thou/uL (130-400); RBC Distribution Width 11.1 % (11.5-14.5); Red Blood Cell (RBC) Count 3.68 mill/uL (4.20-5.40); White Blood Cell (WBC) Count 10.2 thou/uL (4.8-10.8)
[2020-01-29 16:33] LABS: ALT (SGPT) 14 U/L (8-55); AST (SGOT) 17 U/L (5-34); Albumin 3.7 g/dL (3.5-5.0); Alkaline Phosphatase 69 U/L (40-110); Anion Gap 9 mmol/L (10-20); BUN (Urea Nitrogen) 8 mg/dL (7.0-18.7); Bilirubin, Total 0.3 mg/dL (0.2-1.2); Calc. Creatinine Clearance 0 mL/min (70-130); Calcium 8.7 mg/dL (7.8-10.44); Carbon Dioxide 26 mmol/L (22-29); Chloride 107 mmol/L (98-107); Estimated GFR-MDRD 77; Globulin 2.8 g/dL (2.4-3.5); Glucose 100 mg/dL (70-105); Potassium 3.4 mmol/L (3.5-5.1); Protein, Total 6.5 g/dL (6.0-8.3); Sodium 139 mmol/L (136-145)
== END 2020-01-29 17:45 | disposition home or self-care (01) ==
LOC: ERS 14:30
DX: G40.909 Epilepsy, unspecified, not intractable, without status epilepticus (principal); J02.9 Acute pharyngitis, unspecified; G43.909 Migraine, unspecified, not intractable, without status migrainosus; Z79.899 Other long term (current) drug therapy
CPT/HCPCS: 36415; 71045; 80053; 84146; 84484; 85025; 93005; 96365; 96366; J1953

== ENCOUNTER 2020-03-01 01:45 | Emergency (ER) | payer MEDICARE | END 2020-03-01 03:40 | disposition home or self-care (01) | LOC: ERS 01:45 | DX: G40.909 Epilepsy, unspecified, not intractable, without status epilepticus (principal); G43.909 Migraine, unspecified, not intractable, without status migrainosus; Z79.899 Other long term (current) drug therapy | CPT/HCPCS: 36415; 80164; 80177; 99284 ==

== ENCOUNTER 2020-03-27 16:40 | Emergency (ER) | payer MEDICARE | END 2020-03-27 18:13 | disposition home or self-care (01) | LOC: ERS 16:40 | DX: G40.909 Epilepsy, unspecified, not intractable, without status epilepticus (principal); Z79.899 Other long term (current) drug therapy | CPT/HCPCS: 93005; 99284 ==

== ENCOUNTER 2020-03-29 10:46 | Emergency (ER) | payer MEDICARE ==
[2020-03-29] MEDS ORDERED: Lorazepam 2 MG/ML VIAL ONE (11:33)
[2020-03-29 11:50] LABS: #Eosinphils 0.1 thou/uL (0.0-0.7); #Lymphocytes 1.3 thou/uL (1.20-3.40); #Monocytes 0.3 thou/uL (0.11-0.59); #Neutrophils 4.7 thou/uL (1.40-6.50); %Basophils 0.3 % (0.0-1.0); %Eosinophils 1.4 % (0.0-10.0); %Lymphocytes 20.3 % (21.0-51.0); %Monocytes 4.7 % (0.0-10.0); %Neutrophils 73.3 % (42.0-75.0); Mean Corpuscular Hemoglobin 33.7 pg (27.0-31.0); Mean Platelet Volume 8.6 fL (7.4-10.4); Platelet Count 197 thou/uL (130-400); RBC Distribution Width 11.3 % (11.5-14.5); Red Blood Cell (RBC) Count 4.16 mill/uL (4.20-5.40); White Blood Cell (WBC) Count 6.4 thou/uL (4.8-10.8)
[2020-03-29 12:11] LABS: ALT (SGPT) 44 U/L (8-55); AST (SGOT) 33 U/L (5-34); Alkaline Phosphatase 76 U/L (40-110); Anion Gap 14 mmol/L (10-20); BUN (Urea Nitrogen) 10 mg/dL (7.0-18.7); Bilirubin, Total 0.6 mg/dL (0.2-1.2); Calc. Creatinine Clearance 0 mL/min (70-130); Carbon Dioxide 21 mmol/L (22-29); Chloride 108 mmol/L (98-107); Estimated GFR-MDRD 67; Globulin 2.7 g/dL (2.4-3.5); Glucose 89 mg/dL (70-105); Potassium 3.8 mmol/L (3.5-5.1); Protein, Total 6.7 g/dL (6.0-8.3); Sodium 139 mmol/L (136-145)
[2020-03-29 12:14] LABS: Carbamazepine-Tegretol Less than 1.9 ug/mL (4.0-12.0)
[2020-03-29] MEDS ORDERED: Divalproex Sodium 250 MG (DR) TAB ONE ×2 (13:02)
[2020-03-29] MEDS ORDERED: Topiramate 100 MG TAB PO SCH (13:15)
[2020-03-29] MEDS ORDERED: levETIRAcetam 500 MG TAB PO SCH (13:15)
== END 2020-03-29 15:10 | disposition home or self-care (01) ==
LOC: ERS 10:46
DX: G40.909 Epilepsy, unspecified, not intractable, without status epilepticus (principal); G43.909 Migraine, unspecified, not intractable, without status migrainosus
CPT/HCPCS: 36415; 80053; 80156; 80164; 80185; 85025; 99284; J2060

== ENCOUNTER 2020-05-07 15:12 | Emergency (ER) | payer MEDICARE ==
[2020-05-07] MEDS ORDERED: levETIRAcetam 500 MG/100 ML PREMIX BAG ONE (15:22)
[2020-05-07 15:42] LABS: Hemoglobin 13.3 g/dL (12.0-16.0); Mean Corpuscular HGB CONC 33.9 g/dL (32.0-36.0); Mean Corpuscular Hemoglobin 33.5 pg (27.0-31.0); Mean Corpuscular Volume 98.8 fL (78.0-98.0); Mean Platelet Volume 8.4 fL (7.4-10.4); Platelet Count 178 thou/uL (130-400); RBC Distribution Width 11.3 % (11.5-14.5); Red Blood Cell (RBC) Count 3.97 mill/uL (4.20-5.40)
[2020-05-07] MEDS ORDERED: Ondansetron PF 4 MG/2 ML Vial ONE (15:50)
[2020-05-07 16:04] LABS: ALT (SGPT) 10 U/L (8-55); AST (SGOT) 14 U/L (5-34); Albumin 3.6 g/dL (3.5-5.0); Alkaline Phosphatase 72 U/L (40-110); Anion Gap 12 mmol/L (10-20); BUN (Urea Nitrogen) 9 mg/dL (7.0-18.7); Bilirubin, Total 0.2 mg/dL (0.2-1.2); Calc. Creatinine Clearance 0 mL/min (70-130); Calcium 8.3 mg/dL (7.8-10.44); Carbon Dioxide 22 mmol/L (22-29); Chloride 110 mmol/L (98-107); Estimated GFR-MDRD 73; Globulin 2.6 g/dL (2.4-3.5); Glucose 86 mg/dL (70-105); Potassium 3.9 mmol/L (3.5-5.1); Protein, Total 6.2 g/dL (6.0-8.3); Sodium 140 mmol/L (136-145)
[2020-05-07 16:07] LABS: Band 1 % (5-11); Lymphocytes 42 % (21-51); MDiff Complete? YES; Monocytes 2 % (0-10); Neutrophil 54 % (42-75); Platelet Morphology Comment Appears Adequate; RBC Morphology Normal
[2020-05-07 16:24] LABS: Bacteria/HPF None Seen HPF (None Seen); Bilirubin Negative (Negative); Blood, Urine Trace (Negative); Clarity Clear (Clear); Glucose, Urine (Dipstick) Normal (Negative); Leukocyte Negative Leu/uL (Negative); Nitrite Negative (Negative); Protein, Urine (Dipstick) Negative (Neg-Trace); RBC/HPF 0-3 HPF (0-3); Squamous Epithelial 0-3 HPF (0-3); Urobilinogen Normal mg/dL (Less than 2); WBC/HPF 0-3 HPF (0-3)
--- NOTE | 2020-05-07 16:33 | CT ---
CT Brain WO Con: 05/07/2020 3:27 PM CLINICAL HISTORY: Altered mental status with history of seizures. IMAGING TECHNIQUE: Multiple CT images were obtained of the brain without IV contrast. COMPARISON: December 11, 2019 FINDINGS: BRAIN: Evidence of infarct: None. Evidence of cranial hemorrhage: None. Evidence of midline shift: Third ventricle and septum pellucidum are midline. Ventricles: Normal. No hydrocephalus. SKULL: Intact. VISUALIZED PARANASAL SINUSES: Clear. MASTOID AIR CELLS: Clear. EXTRACRANIAL SOFT TISSUES: Normal. IMPRESSION: No acute intracranial abnormality.
[2020-05-07 16:37] LABS: Amphetamine Not Detected (NotDetected); Barbiturates Screen Detected (NotDetected); Benzodiazepine Screen Detected (NotDetected); Cocaine Metabolite Screen Not Detected (NotDetected); Medtox Control Line Valid? VALID (VALID); Medtox Reader # READER 1; Methadone Not Detected (NotDetected); Methamphetamine Not Detected (NotDetected); Opiate Screen Not Detected (NotDetected); Oxycodone Screen Not Detected (NotDetected); Phencyclidine (PCP) Not Detected (NotDetected); THC/Cannabinoid Screen Not Detected (NotDetected); Tricyclic Screen Not Detected (NotDetected)
== END 2020-05-07 18:15 | disposition home or self-care (01) ==
LOC: ERS 15:12
DX: G40.909 Epilepsy, unspecified, not intractable, without status epilepticus (principal); K21.9 Gastro-esophageal reflux disease without esophagitis
CPT/HCPCS: 70450; 80053; 80177; 80306; 81003; 81015; 84146; 85025; 93005; 96361; 96365; 96375; J1953; J2405

== ENCOUNTER 2020-05-08 19:52 | Observation (INO) | payer MEDICARE ==
[2020-05-08] MEDS ORDERED: levETIRAcetam 1000 MG/100 ML PREMIX BAG ONE (20:25)
[2020-05-08 20:48] LABS: #Basophils 0.1 thou/uL (0.0-0.2); #Eosinphils 0.2 thou/uL (0.0-0.7); #Lymphocytes 1.4 thou/uL (1.20-3.40); #Monocytes 0.5 thou/uL (0.11-0.59); #Neutrophils 5.1 thou/uL (1.40-6.50); %Basophils 0.8 % (0.0-1.0); %Eosinophils 2.3 % (0.0-10.0); %Lymphocytes 20.1 % (21.0-51.0); %Monocytes 6.3 % (0.0-10.0); %Neutrophils 70.6 % (42.0-75.0); Hemoglobin 12.6 g/dL (12.0-16.0); Mean Corpuscular HGB CONC 34.5 g/dL (32.0-36.0); Mean Corpuscular Hemoglobin 34.1 pg (27.0-31.0); Mean Corpuscular Volume 98.9 fL (78.0-98.0); Mean Platelet Volume 8.2 fL (7.4-10.4); Platelet Count 169 thou/uL (130-400); RBC Distribution Width 11.2 % (11.5-14.5); Red Blood Cell (RBC) Count 3.68 mill/uL (4.20-5.40); White Blood Cell (WBC) Count 7.2 thou/uL (4.8-10.8)
[2020-05-08 21:16] LABS: ALT (SGPT) 11 U/L (8-55); AST (SGOT) 25 U/L (5-34); Albumin 3.6 g/dL (3.5-5.0); Alkaline Phosphatase 72 U/L (40-110); Anion Gap 11 mmol/L (10-20); BUN (Urea Nitrogen) 9 mg/dL (7.0-18.7); Bilirubin, Total Less than 0.2 mg/dL (0.2-1.2); Calc. Creatinine Clearance 0 mL/min (70-130); Calcium 8.1 mg/dL (7.8-10.44); Carbon Dioxide 23 mmol/L (22-29); Chloride 110 mmol/L (98-107); Estimated GFR-MDRD 75; Globulin 2.9 g/dL (2.4-3.5); Glucose 101 mg/dL (70-105); Potassium 3.9 mmol/L (3.5-5.1); Protein, Total 6.5 g/dL (6.0-8.3); Sodium 140 mmol/L (136-145)
[2020-05-08 21:34] LABS: BHCG - Serum Negative (NEGATIVE); Pregs Control Background? CLEAR/WHITE (CLR/WHITE); Pregs Control Bar Appear? YES (CONTROL BAR)
[2020-05-08 21:45] LABS: Magnesium 2.1 mg/dL (1.6-2.6); Valproic Acid (Depakene) Less than 12.5 ug/mL (50.0-100.0)
[2020-05-08] MEDS ORDERED: Ketorolac Tromethamine 30 MG/ML VIAL ONE (21:46)
[2020-05-08] MEDS ORDERED: Valproate Sodium 1,000 MG in Sodium Chloride 0.9% 100 ML IVPB SCH (22:00)
[2020-05-08] MEDS ORDERED: Ondansetron PF 4 MG/2 ML Vial ONE (23:16)
[2020-05-09] MEDS ORDERED: Promethazine HCl 25 MG/ML VIAL ONE (00:40)
--- NOTE | 2020-05-09 01:59 | PDOC.HHP ---
Hospitalist HPI - History of Present Illness Seizures, nausea, vomiting History of Present Illness: Patient with PMH of seizures presents to ED for evaluation of multiple seizures today after not being able to take her seizure medications due to several days of nausea & vomiting. During my assessment patient is somewhat somnolent but able to provide basic history. Refers several days of nausea and vomiting but no diarrhea, abdominal pain or fever. Tells me that several times tried taking her medication only to vomit soon after. Currently her only complaint is feeling tired. Denies recent illness or sick contacts. Denies any history of recreational drug use. Reports good compliance with medications. Prior to arrival to ED its documented that she had 9 seizures. Received 2mg of Ativan, 4mg Versed, IV Zofran and IVF en route to the hospital. Per my discussion with ED provider no further nausea, vomiting or seizures since arrival to ED. Initial ED evaluation reveals stable blood work. Valproic acid is noted to be subtherapeutic. VS are currently stable. Hospitalist ROS - Review of Systems Constitutional: reports: weakness. denies: fever, chills, sweats Eyes: denies: pain, vision change, conjunctivae inflammation ENT: denies: ear pain, ear discharge, nose discharge Respiratory: denies: cough, dry, shortness of breath, SOB with excertion, pleuritic pain Cardiovascular: denies: chest pain, palpitations, orthopnea, paroxysmal noc. dyspnea Gastrointestinal: reports: nausea, vomiting. denies: abdominal pain, diarrhea, constipation Genitourinary: denies: dysuria, frequency, incontinence Musculoskeletal: denies: neck pain, shoulder pain, arm pain, back pain, hand pain, leg pain, foot pain, other Skin: denies: rash, lesions Neurological: reports: weakness. denies: numbness, incoordination - Exam General Appearance: NAD, awake alert Eye: PERRL, anicteric sclera ENT: normocephalic atraumatic Neck: supple, no JVD Heart: RRR, no murmur, no gallops Respiratory: CTAB, no wheezes, no rales, no ronchi Gastrointestinal: soft, non-tender, non-distended, normal bowel sounds Extremities: no cyanosis, no clubbing, no edema Skin: normal turgor Neurological: cranial nerve grossly intact, normal sensation to touch, no focal deficits Musculoskeletal: normal tone, normal strength Psychiatric: normal affect, normal behavior, A&O x 3, oriented to person Hospitalist Results - Labs Result Diagrams: 05/08/20 20:25 05/08/20 20:25 Lab results: WBC 7.2 thou/uL (4.8-10.8) 05/08/20 20:25 Hgb 12.6 g/dL (12.0-16.0) 05/08/20 20:25 Hct 36.4 % (36.0-47.0) 05/08/20 20:25 MCV 98.9 fL (78.0-98.0) H 05/08/20 20:25 Plt Count 169 thou/uL (130-400) 05/08/20 20:25 Neutrophils % 70.6 % (42.0-75.0) 05/08/20 20:25 Sodium 140 mmol/L (136-145) 05/08/20 20:25 Potassium 3.9 mmol/L (3.5-5.1) 05/08/20 20:25 Chloride 110 mmol/L (98-107) H 05/08/20 20:25 Carbon Dioxide 23 mmol/L (22-29) 05/08/20 20:25 BUN 9 mg/dL (7.0-18.7) 05/08/20 20:25 Creatinine 0.82 mg/dL (0.6-1.1) 05/08/20 20:25 Glucose 101 mg/dL (70-105) 05/08/20 20:25 Calcium 8.1 mg/dL (7.8-10.44) 05/08/20 20:25 Total Bilirubin Less than 0.2 mg/dL (0.2-1.2) L 05/08/20 20:25 AST 25 U/L (5-34) 05/08/20 20:25 ALT 11 U/L (8-55) 05/08/20 20:25 Alkaline Phosphatase 72 U/L (40-110) 05/08/20 20:25 Ammonia 29 umol/L (18-72) 05/08/20 22:05 Serum Total Protein 6.5 g/dL (6.0-8.3) 05/08/20 20:25 Albumin 3.6 g/dL (3.5-5.0) 05/08/20 20:25 Lipase 29 U/L (8-78) 05/08/20 22:06 Hospitalist H&P A/P - Plan Plan: Problem List 1. Seizure disorder 2. Nausea and vomiting 3. History of anxiety Assessment and Plan 1. Seizure disorder - admit for observation - no further seizures since arrival to the hospital - likely precipitated by inability to take meds due to N/V - continue with seizure precautions - IV Zofran PRN to control nausea - continue with IV kepra for now - restart PO depakote, recheck levels in 1-2 days - awaiting med reconciliation - consider neurology consultation pending progression 2. Nausea and vomiting - benign exam with no further symptoms - denies any recreational drug use - no recent sick contacts - possible viral enteritis - continue with IV Zofran PRN - advance diet as tolerated 3. History of anxiety - resume home medications - awaiting med reconciliation DVT PPX: Lovenox FULL CODE
[2020-05-09] MEDS ORDERED: Acetaminophen 325 MG TAB PO PRN (02:26)
[2020-05-09] MEDS ORDERED: Lorazepam 2 MG/ML VIAL SLOW IVP PRN (02:26)
[2020-05-09] MEDS ORDERED: Ondansetron PF 4 MG/2 ML Vial IVP PRN (02:26)
[2020-05-09] MEDS ORDERED: Sodium Chloride 0.9% 1,000 ML IV SCH (03:00)
[2020-05-09 07:53] LABS: Hemoglobin 12.1 g/dL (12.0-16.0); Mean Corpuscular HGB CONC 33.3 g/dL (32.0-36.0); Mean Corpuscular Hemoglobin 33.5 pg (27.0-31.0); Mean Platelet Volume 8.3 fL (7.4-10.4); Platelet Count 195 thou/uL (130-400); RBC Distribution Width 11.3 % (11.5-14.5); Red Blood Cell (RBC) Count 3.61 mill/uL (4.20-5.40); White Blood Cell (WBC) Count 5.4 thou/uL (4.8-10.8)
[2020-05-09 08:05] LABS: Anion Gap 10 mmol/L (10-20); BUN (Urea Nitrogen) 6 mg/dL (7.0-18.7); Calc. Creatinine Clearance 0 mL/min (70-130); Calcium 7.6 mg/dL (7.8-10.44); Carbon Dioxide 21 mmol/L (22-29); Chloride 112 mmol/L (98-107); Estimated GFR-MDRD 86; Glucose 84 mg/dL (70-105); Potassium 3.7 mmol/L (3.5-5.1); Sodium 139 mmol/L (136-145)
[2020-05-09 08:39] LABS: Eosinophils 3 % (0-10); Lymphocytes 27 % (21-51); MDiff Complete? YES; Monocytes 6 % (0-10); Neutrophil 64 % (42-75); RBC Morphology Normal
[2020-05-09] MEDS ORDERED: Topiramate 100 MG TAB PO SCH ×2 (09:00→11:04)
[2020-05-09] MEDS ORDERED: Enoxaparin Sodium 40 MG/0.4 ML SYRINGE SC SCH (09:00)
[2020-05-09] MEDS ORDERED: levETIRAcetam In NaCl (Iso-Os) 1,500 MG in Premix Bag 1 BAG IVPB SCH (09:00)
--- NOTE | 2020-05-09 12:30 | CON ---
DATE OF CONSULTATION: 05/09/2020 REASON FOR CONSULTATION: Breakthrough seizures. HISTORY OF PRESENT ILLNESS: Ms. Guerrero is a 44-year-old female with a history significant for seizure disorder, presented to the emergency room with 9 breakthrough seizures. The patient follows Dr. Cuevas as outpatient for seizure disorder and apparently she was unable to keep her medicines down for several days because of nausea and vomiting. She denies diarrhea, abdominal pain, or fever. According to the patient, she has been vomiting as soon as she takes her medications. The patient denies any recent illness, and otherwise she has good compliance with the medications. In the emergency room, she came after the breakthrough seizures and was extreme somnolence. She received 2 mg of Ativan, 4 mg of Versed, Zofran and IV fluids, and admitted. She was given a load of Keppra IV and then given a home dose of Depakote 2000 mg IV and since then she has no seizures in the emergency room. Valproic acid level was found to be subtherapeutic because she was unable to take the medicines. - Review of Systems Constitutional: reports: weakness. denies: fever, chills, sweats Eyes: denies: pain, vision change, conjunctivae inflammation ENT: denies: ear pain, ear discharge, nose discharge Respiratory: denies: cough, dry, shortness of breath, SOB with excertion, pleuritic pain Cardiovascular: denies: chest pain, palpitations, orthopnea, paroxysmal noc. dyspnea Gastrointestinal: reports: nausea, vomiting. denies: abdominal pain, diarrhea, constipation Genitourinary: denies: dysuria, frequency, incontinence Musculoskeletal: denies: neck pain, shoulder pain, arm pain, back pain, hand pain, leg pain, foot pain, other Skin: denies: rash, lesions Neurological: reports: weakness. denies: numbness, incoordination PAST MEDICAL HISTORY: Seizure disorder. PAST SURGICAL HISTORY: None. FAMILY HISTORY: No significant family history. SOCIAL HISTORY: The patient lives at home. Denies smoking, alcohol, illegal drug use. ALLERGIES: Aspirin, phenobarbital. Physical Exam General Appearance: NAD, awake alert Eye: PERRL, anicteric sclera ENT: normocephalic atraumatic Neck: supple, no JVD Heart: RRR, no murmur, no gallops Respiratory: CTAB, no wheezes, no rales, no ronchi Gastrointestinal: soft, non-tender, non-distended, normal bowel sounds Extremities: no cyanosis, no clubbing, no edema Skin: normal turgor Neurological: Mental status, the patient is alert and oriented to person, place , and time. Speech is clear. Recent and remote memory intact. Fund of knowledge is appropriate. Cranial nerves II through XII intact. Sensory intact. Cerebellar, finger-nose testing intact. Motor, muscle tone and bulk are normal. Strength 5/5 bilaterally. Gait deferred due to patient's safety reasons. Reflexes symmetric bilaterally. 05/08/20 20:25 Lab results: WBC 7.2 thou/uL (4.8-10.8) 05/08/20 20:25 Hgb 12.6 g/dL (12.0-16.0) 05/08/20 20:25 Hct 36.4 % (36.0-47.0) 05/08/20 20:25 MCV 98.9 fL (78.0-98.0) H 05/08/20 20:25 Plt Count 169 thou/uL (130-400) 05/08/20 20:25 Neutrophils % 70.6 % (42.0-75.0) 05/08/20 20:25 Sodium 140 mmol/L (136-145) 05/08/20 20:25 Potassium 3.9 mmol/L (3.5-5.1) 05/08/20 20:25 Chloride 110 mmol/L (98-107) H 05/08/20 20:25 Carbon Dioxide 23 mmol/L (22-29) 05/08/20 20:25 BUN 9 mg/dL (7.0-18.7) 05/08/20 20:25 Creatinine 0.82 mg/dL (0.6-1.1) 05/08/20 20:25 Glucose 101 mg/dL (70-105) 05/08/20 20:25 Calcium 8.1 mg/dL (7.8-10.44) 05/08/20 20:25 Total Bilirubin Less than 0.2 mg/dL (0.2-1.2) L 05/08/20 20:25 AST 25 U/L (5-34) 05/08/20 20:25 ALT 11 U/L (8-55) 05/08/20 20:25 Alkaline Phosphatase 72 U/L (40-110) 05/08/20 20:25 Ammonia 29 umol/L (18-72) 05/08/20 22:05 Serum Total Protein 6.5 g/dL (6.0-8.3) 05/08/20 20:25 Albumin 3.6 g/dL (3.5-5.0) 05/08/20 20:25 Lipase 29 U/L (8-78) 05/08/20 22:06 DATA REVIEWED: I reviewed the labs which were essentially unremarkable. ASSESSMENT AND PLAN: Ms. Guerrero is consulted for breakthrough seizures. She was unable to keep her medications down because of persistent nausea and vomiting for the last several days. The patient was already loaded with Keppra and Depakote home doses. Continue Keppra 1000 mg IV b.i.d. Continue Depakote 2000 mg IV b.i.d. Monitor for nausea and vomiting. We will switch medications to p.o. once the patient is able to take the medicines. . Observe seizure precautions. Neuro checks every 4 hours. We will continue to follow. Check Depakote and Keppra levels in a.m. Continue home medications and medical management per primary team. Plan discussed with primary attending Dr. Evans. Thank you for the consult. Job ID: [id number] MTDD
[2020-05-09] MEDS ORDERED: Divalproex Sodium 250 MG (DR) TAB ONE (13:17)
--- NOTE | 2020-05-11 03:42 | DIS ---
DATE OF ADMISSION: 05/09/2020 DATE OF DISCHARGE: 05/09/2020 DISCHARGE DIAGNOSES: 1. Seizure. 2. Nausea and vomiting. 3. History of anxiety. HISTORY: The patient is a pleasant 44-year-old female, who initially presented to the hospital with nausea, vomiting after eating at [facility]. Patient states that she was unable to take her medications. She had been presented to the hospital and had a seizure. The patient at this time was seen by Neurology. She was restarted on all her medications. Her nausea improved. She was able to tolerate oral meal. She was seen by Neurology, who recommended to continue her home medications. The patient will follow up with Neurology as an outpatient. The patient was loaded with Keppra and Depakote. She is now currently able to tolerate meals and she will be discharged home. Her home medications will be unchanged, Depakote a 1000 mg twice a day, topiramate 100 mg twice a day, zonisamide one cap p.o. at bedtime. PHYSICAL EXAMINATION: VITAL SIGNS: On discharge; temperature 98.8, heart rate of 80, blood pressure 160/70. GENERAL: She is awake, alert, oriented x3, does not appear in distress. CARDIOVASCULAR: S1 and S2 present. No murmurs, rubs, or gallops. ABDOMEN: Soft and nontender. Bowel sounds are present x2. DISPOSITION: Again, she will be discharged home. FOLLOWUP: She will follow up with her primary. Job ID: [id number]
--- NOTE | 2020-05-11 14:32 | EKG ---
Test Reason : Blood Pressure : / mmHG Vent. Rate : 059 BPM Atrial Rate : 059 BPM P-R Int : 144 ms QRS Dur : 076 ms QT Int : 450 ms P-R-T Axes : 069 068 069 degrees QTc Int : 445 ms Sinus bradycardia Possible Left atrial enlargement Borderline ECG Confirmed by GABY GARCIA ([id number]), multimedia editor DAVID ACUNA ([id number] on 05/11/2020 2:31:53 PM Referred By: Confirmed By:GABY Calvo
== END 2020-05-09 14:41 | disposition home or self-care (01) ==
LOC: ERS 19:52 → ERHOLD 05-09 02:03
PROVIDERS: ADMIT Internal Medicine; ATTEND Internal Medicine
DX: G40.909 Epilepsy, unspecified, not intractable, without status epilepticus (principal); R11.2 Nausea with vomiting, unspecified; F41.9 Anxiety disorder, unspecified; G43.909 Migraine, unspecified, not intractable, without status migrainosus; F12.10 Cannabis abuse, uncomplicated; Z79.899 Other long term (current) drug therapy; Z88.6 Allergy status to analgesic agent; Z88.8 Allergy status to other drugs, medicaments and biological substances
CPT/HCPCS: 36415; 80048; 80053; 80164; 80177; 82140; 83690; 83735; 84703; 85007; 85025; 85027; 93005; 96361; 96365; 96375; G0378; J1885; J1953; J2405; J2550; J3490

== ENCOUNTER 2020-05-30 14:11 | Emergency (ER) | payer MEDICARE ==
[2020-05-30 14:57] LABS: #Basophils 0.1 thou/uL (0.0-0.2); #Eosinphils 0.1 thou/uL (0.0-0.7); #Lymphocytes 1.4 thou/uL (1.20-3.40); #Monocytes 0.4 thou/uL (0.11-0.59); #Neutrophils 3.2 thou/uL (1.40-6.50); %Basophils 1.2 % (0.0-1.0); %Eosinophils 1.5 % (0.0-10.0); %Lymphocytes 27.3 % (21.0-51.0); %Monocytes 6.9 % (0.0-10.0); %Neutrophils 63.1 % (42.0-75.0); Hemoglobin 14.7 g/dL (12.0-16.0); Mean Corpuscular HGB CONC 32.1 g/dL (32.0-36.0); Mean Corpuscular Hemoglobin 32.5 pg (27.0-31.0); Mean Platelet Volume 9.1 fL (7.4-10.4); Platelet Count 224 thou/uL (130-400); RBC Distribution Width 11.7 % (11.5-14.5); Red Blood Cell (RBC) Count 4.52 mill/uL (4.20-5.40); White Blood Cell (WBC) Count 5.1 thou/uL (4.8-10.8)
[2020-05-30 15:27] LABS: AST (SGOT) 16 U/L (5-34); Albumin 3.7 g/dL (3.5-5.0); Alkaline Phosphatase 75 U/L (40-110); Anion Gap 12 mmol/L (10-20); BUN (Urea Nitrogen) 8 mg/dL (7.0-18.7); Bilirubin, Total 0.3 mg/dL (0.2-1.2); Calc. Creatinine Clearance 0 mL/min (70-130); Calcium 8.6 mg/dL (7.8-10.44); Carbon Dioxide 18 mmol/L (22-29); Chloride 110 mmol/L (98-107); Estimated GFR-MDRD 76; Globulin 3.1 g/dL (2.4-3.5); Glucose 71 mg/dL (70-105); Potassium 3.9 mmol/L (3.5-5.1); Protein, Total 6.8 g/dL (6.0-8.3); Sodium 136 mmol/L (136-145)
[2020-05-30 15:30] LABS: ALT (SGPT) 14 U/L (8-55)
[2020-05-30 15:46] LABS: Bilirubin Negative (Negative); Blood, Urine Negative (Negative); Clarity Turbid (Clear); Glucose, Urine (Dipstick) Normal (Negative); Ketone, Urine Negative (Negative); Leukocyte Negative Leu/uL (Negative); Nitrite Negative (Negative); Protein, Urine (Dipstick) Negative (Neg-Trace); Specific Gravity, Urine 1.021 (1.002-1.036); Urobilinogen Normal mg/dL (Less than 2)
== END 2020-05-30 16:26 | disposition home or self-care (01) ==
LOC: ERS 14:11
DX: F44.5 Conversion disorder with seizures or convulsions (principal); G43.909 Migraine, unspecified, not intractable, without status migrainosus; Z79.899 Other long term (current) drug therapy
CPT/HCPCS: 36415; 80053; 81003; 84146; 85025; 87086; 99284

== ENCOUNTER 2020-06-03 15:00 | Emergency (ER) | payer MEDICARE | END 2020-06-03 16:36 | disposition home or self-care (01) | LOC: ERS 15:00 | DX: G40.909 Epilepsy, unspecified, not intractable, without status epilepticus (principal); G43.909 Migraine, unspecified, not intractable, without status migrainosus; Z79.899 Other long term (current) drug therapy | CPT/HCPCS: 99284 ==

== ENCOUNTER 2020-09-01 14:11 | Emergency (ER) | payer MEDICARE ==
[2020-09-01 14:58] LABS: #Basophils 0.1 thou/uL (0.0-0.2); #Eosinphils 0.1 thou/uL (0.0-0.7); #Lymphocytes 1.6 thou/uL (1.20-3.40); #Monocytes 0.4 thou/uL (0.11-0.59); #Neutrophils 2.4 thou/uL (1.40-6.50); %Basophils 1.4 % (0.0-1.0); %Eosinophils 2.7 % (0.0-10.0); %Lymphocytes 35.2 % (21.0-51.0); %Monocytes 9.3 % (0.0-10.0); %Neutrophils 51.3 % (42.0-75.0); Hemoglobin 13.7 g/dL (12.0-16.0); Mean Corpuscular HGB CONC 34.7 g/dL (32.0-36.0); Mean Corpuscular Hemoglobin 35.1 pg (27.0-31.0); Mean Platelet Volume 8.4 fL (7.4-10.4); Platelet Count 171 thou/uL (130-400); RBC Distribution Width 11.6 % (11.5-14.5); Red Blood Cell (RBC) Count 3.91 mill/uL (4.20-5.40); White Blood Cell (WBC) Count 4.7 thou/uL (4.8-10.8)
[2020-09-01 15:18] LABS: ALT (SGPT) Less than 7 U/L (8-55); AST (SGOT) 14 U/L (5-34); Albumin 3.7 g/dL (3.5-5.0); Alkaline Phosphatase 68 U/L (40-110); Anion Gap 12 mmol/L (10-20); BUN (Urea Nitrogen) 7 mg/dL (7.0-18.7); Bilirubin, Total 0.3 mg/dL (0.2-1.2); Calc. Creatinine Clearance 0 mL/min (70-130); Calcium 8.3 mg/dL (7.8-10.44); Carbon Dioxide 21 mmol/L (22-29); Chloride 109 mmol/L (98-107); Estimated GFR-MDRD 66; Globulin 2.4 g/dL (2.4-3.5); Glucose 101 mg/dL (70-105); Potassium 3.9 mmol/L (3.5-5.1); Protein, Total 6.1 g/dL (6.0-8.3); Sodium 138 mmol/L (136-145)
== END 2020-09-01 17:15 | disposition home or self-care (01) ==
LOC: ERS 14:11
DX: G40.909 Epilepsy, unspecified, not intractable, without status epilepticus (principal); G43.909 Migraine, unspecified, not intractable, without status migrainosus; Z79.899 Other long term (current) drug therapy
CPT/HCPCS: 36415; 80053; 84146; 85025; 94760

== ENCOUNTER 2020-09-25 04:39 | Emergency (ER) | payer MEDICARE | END 2020-09-25 07:01 | disposition home or self-care (01) | LOC: ERS 04:39 | DX: G40.909 Epilepsy, unspecified, not intractable, without status epilepticus (principal); G43.909 Migraine, unspecified, not intractable, without status migrainosus; Z79.899 Other long term (current) drug therapy | CPT/HCPCS: 99281 ==

== ENCOUNTER 2020-09-30 10:48 | Emergency (ER) | payer MEDICARE ==
[2020-09-30] MEDS ORDERED: Lorazepam 2 MG/ML VIAL ONE (11:00)
[2020-09-30 11:47] LABS: #Eosinphils 0.1 thou/uL (0.0-0.7); #Lymphocytes 1.2 thou/uL (1.20-3.40); #Monocytes 0.4 thou/uL (0.11-0.59); #Neutrophils 4.9 thou/uL (1.40-6.50); %Basophils 0.4 % (0.0-1.0); %Eosinophils 0.8 % (0.0-10.0); %Lymphocytes 18.6 % (21.0-51.0); %Monocytes 5.9 % (0.0-10.0); %Neutrophils 74.3 % (42.0-75.0); Hemoglobin 14.1 g/dL (12.0-16.0); Mean Corpuscular HGB CONC 34.6 g/dL (32.0-36.0); Mean Corpuscular Hemoglobin 34.7 pg (27.0-31.0); Mean Platelet Volume 8.7 fL (7.4-10.4); Platelet Count 174 thou/uL (130-400); RBC Distribution Width 11.3 % (11.5-14.5); Red Blood Cell (RBC) Count 4.06 mill/uL (4.20-5.40); White Blood Cell (WBC) Count 6.6 thou/uL (4.8-10.8)
[2020-09-30 12:07] LABS: ALT (SGPT) 11 U/L (8-55); AST (SGOT) 16 U/L (5-34); Albumin 3.9 g/dL (3.5-5.0); Alkaline Phosphatase 68 U/L (40-110); Anion Gap 16 mmol/L (10-20); BUN (Urea Nitrogen) 8 mg/dL (7.0-18.7); Bilirubin, Total 0.4 mg/dL (0.2-1.2); Calc. Creatinine Clearance 0 mL/min (70-130); Calcium 8.9 mg/dL (7.8-10.44); Carbon Dioxide 20 mmol/L (22-29); Chloride 108 mmol/L (98-107); Estimated GFR-MDRD 65; Glucose 95 mg/dL (70-105); Potassium 3.9 mmol/L (3.5-5.1); Protein, Total 6.9 g/dL (6.0-8.3); Sodium 140 mmol/L (136-145)
[2020-09-30 12:14] LABS: BHCG - Serum Negative (NEGATIVE); Pregs Control Background? CLEAR/WHITE (CLR/WHITE); Pregs Control Bar Appear? YES (CONTROL BAR)
[2020-09-30] MEDS ORDERED: Ketorolac Tromethamine 30 MG/ML VIAL ONE (13:00)
== END 2020-09-30 16:00 | disposition home or self-care (01) ==
LOC: ERS 10:48
DX: G40.909 Epilepsy, unspecified, not intractable, without status epilepticus (principal); Z79.899 Other long term (current) drug therapy; G43.909 Migraine, unspecified, not intractable, without status migrainosus
CPT/HCPCS: 36415; 80053; 83605; 84146; 84703; 85025; 93005; 94760; 96374; 96375; J1642; J1885; J1953; J2060

== ENCOUNTER 2020-10-16 12:48 | Observation (INO) | payer MEDICARE ==
--- NOTE | 2020-10-16 13:24 | CT ---
CT BRAIN WITHOUT CONTRAST: HISTORY: Seizure COMPARISON: 05/07/2020 FINDINGS: No evidence of acute infarct, hemorrhage, midline shift or abnormal extra-axial fluid collections is seen. The ventricular size is appropriate and the basilar cisterns are patent. The bony calvarium is intact. The visualized paranasal sinuses and mastoid air cells are well aerated. IMPRESSION: No CT evidence of acute intracranial process.
[2020-10-16] MEDS ORDERED: Lorazepam 2 MG/ML VIAL ONE ×2 (13:49→19:18)
[2020-10-16 14:05] LABS: #Eosinphils 0.1 thou/uL (0.0-0.7); #Lymphocytes 1.8 thou/uL (1.20-3.40); #Monocytes 0.4 thou/uL (0.11-0.59); #Neutrophils 4.7 thou/uL (1.40-6.50); %Basophils 0.4 % (0.0-1.0); %Eosinophils 1.7 % (0.0-10.0); %Lymphocytes 24.9 % (21.0-51.0); %Monocytes 6.2 % (0.0-10.0); %Neutrophils 66.8 % (42.0-75.0); Hemoglobin 14.5 g/dL (12.0-16.0); Mean Corpuscular HGB CONC 33.4 g/dL (32.0-36.0); Mean Platelet Volume 8.7 fL (7.4-10.4); Platelet Count 126 thou/uL (130-400); RBC Distribution Width 11.1 % (11.5-14.5); Red Blood Cell (RBC) Count 4.38 mill/uL (4.20-5.40)
[2020-10-16 14:23] LABS: ALT (SGPT) 36 U/L (8-55); AST (SGOT) 21 U/L (5-34); Albumin 3.7 g/dL (3.5-5.0); Alkaline Phosphatase 91 U/L (40-110); Anion Gap 14 mmol/L (10-20); BUN (Urea Nitrogen) 8 mg/dL (7.0-18.7); Bilirubin, Total 0.4 mg/dL (0.2-1.2); Calc. Creatinine Clearance 0 mL/min (70-130); Calcium 8.4 mg/dL (7.8-10.44); Carbon Dioxide 17 mmol/L (22-29); Chloride 112 mmol/L (98-107); Estimated GFR-MDRD 69; Globulin 2.8 g/dL (2.4-3.5); Glucose 91 mg/dL (70-105); Potassium 4.2 mmol/L (3.5-5.1); Protein, Total 6.5 g/dL (6.0-8.3); Sodium 139 mmol/L (136-145)
[2020-10-16 14:42] LABS: Pregnancy Test - Urine (BHCG) Negative (Negative); Pregu Control Background? CLEAR/WHITE (CLR/WHITE); Pregu Control Bar Appear? YES (CONTROL BAR); Specific Gravity 1.015 (1.002-1.036)
[2020-10-16 14:56] LABS: Amphetamine Not Detected (NotDetected); Barbiturates Screen Not Detected (NotDetected); Benzodiazepine Screen Detected (NotDetected); Cocaine Metabolite Screen Not Detected (NotDetected); Medtox Control Line Valid? VALID (VALID); Medtox Reader # READER 4; Methadone Not Detected (NotDetected); Methamphetamine Not Detected (NotDetected); Opiate Screen Not Detected (NotDetected); Oxycodone Screen Not Detected (NotDetected); Phencyclidine (PCP) Not Detected (NotDetected); THC/Cannabinoid Screen Not Detected (NotDetected); Tricyclic Screen Not Detected (NotDetected)
--- NOTE | 2020-10-16 17:04 | PDOC.HHP ---
Hospitalist HPI - History of Present Illness Seizures History of Present Illness: Ms. Guerrero is a 45-year-old female the past renal history of epilepsy, pseudoseizures, anxiety, migraine headaches who presents to the emergency room for breakthrough seizures. Patient has very been reported multiple times and has a history of medication noncompliance. She also has a long established history of pseudoseizures which occurs when patient is stressed. Patient reports that she had a few seizures at home unclear if head strike. EMS reported 2 seizures in route and did give her Ativan Versed and Keppra. Patient is on multiple medications at home and states follows with Dr. Quarles her neurologist. She denies visual changes, neck pain, fever. She denies chest pain, shortness of breath or abdominal pain. Does report she feels groggy and slightly confused, however is A&O x4. In emergency room initial vital signs 114/96, 60, 18, 100% on room air. CT brain negative for any acute abnormalities. BUNs/CR 14/8, H/H 14.5/43.3. WBC 7.0. Glucose 91. Patient received lorazepam as she had subsequent seizures. Hospitalist ROS - Review of Systems Constitutional: denies: fever, chills, sweats, weakness, malaise, other Eyes: denies: pain, vision change, conjunctivae inflammation, eyelid inflammation, redness, other ENT: denies: ear pain, ear discharge, nose pain, nose discharge, nose congestion, mouth pain, mouth swelling, throat pain, throat swelling, other Respiratory: denies: cough, dry, shortness of breath, hemoptysis, SOB with excertion, pleuritic pain, sputum, wheezing, other Cardiovascular: denies: chest pain, palpitations, orthopnea, paroxysmal noc. dyspnea, edema, light headedness, other Gastrointestinal: denies: nausea, vomiting, abdominal pain, diarrhea, constipation, melena, hematochezia, other Genitourinary: denies: dysuria, frequency, incontinence, hematuria, retention, other Musculoskeletal: denies: neck pain, shoulder pain, arm pain, back pain, hand pain, leg pain, foot pain, other Skin: denies: rash, lesions, terri, bruising, other Neurological: reports: confusion, seizures. denies: weakness, numbness, incoordination, change in speech, other - Medication Medications: Medications take none from Dr. Gutierrez last note on 10/10/2020 Remeron Seroquel Zolpidem Keppra Carbamazepine Celexa Alprazolam Promethazine Esegic Allergies to aspirin and phenobarbital Hospitalist History - Past Medical History Other Medical History: Past medical history of Seizures Pseudoseizures Anxiety Hypothyroidism - Past Surgical History Other Surgical History: Past surgical history includes Hysterectomy Port placement - Family History Other Family History: No pertinent family history. - Social History Smoking Status: Never smoker Alcohol: reports: None Drugs: reports: marijuana Living Situation: With Family Activity level: independent ambulation - Exam General Appearance: NAD, awake alert Eye: PERRL, anicteric sclera ENT: normocephalic atraumatic, no oropharyngeal lesions, moist mucosa Neck: supple, symmetric, no JVD, no thyromegaly, no lymphadenopathy, no carotid bruit Heart: RRR, no murmur, no gallops, no rubs, normal peripheral pulses Respiratory: CTAB, no wheezes, no rales, no ronchi, normal chest expansion, no tachypnea, normal percussion Gastrointestinal: soft, non-tender, non-distended, normal bowel sounds, no palpable masses, no hepatomegaly, no splenomegaly, no bruit Extremities: no cyanosis, no clubbing, no edema Skin: normal turgor, no lesions, no rashes Neurological: cranial nerve grossly intact, normal sensation to touch, no weakness, no focal deficits, no new deficit Musculoskeletal: normal tone, normal strength, no muscle wasting Psychiatric: normal affect, normal behavior, A&O x 3 Hospitalist Results - Labs Result Diagrams: 10/17/20 07:15 10/17/20 07:14 Lab results: WBC 7.0 thou/uL (4.8-10.8) 10/16/20 13:50 Hgb 14.5 g/dL (12.0-16.0) 10/16/20 13:50 Hct 43.3 % (36.0-47.0) 10/16/20 13:50 MCV 99.0 fL (78.0-98.0) H 10/16/20 13:50 Plt Count 126 thou/uL (130-400) L 10/16/20 13:50 Neutrophils % 66.8 % (42.0-75.0) 10/16/20 13:50 Sodium 139 mmol/L (136-145) 10/16/20 13:50 Potassium 4.2 mmol/L (3.5-5.1) 10/16/20 13:50 Chloride 112 mmol/L (98-107) H 10/16/20 13:50 Carbon Dioxide 17 mmol/L (22-29) L 10/16/20 13:50 BUN 8 mg/dL (7.0-18.7) 10/16/20 13:50 Creatinine 0.88 mg/dL (0.6-1.1) 10/16/20 13:50 Glucose 91 mg/dL (70-105) 10/16/20 13:50 Calcium 8.4 mg/dL (7.8-10.44) 10/16/20 13:50 Total Bilirubin 0.4 mg/dL (0.2-1.2) 10/16/20 13:50 AST 21 U/L (5-34) 10/16/20 13:50 ALT 36 U/L (8-55) 10/16/20 13:50 Alkaline Phosphatase 91 U/L (40-110) 10/16/20 13:50 Serum Total Protein 6.5 g/dL (6.0-8.3) 10/16/20 13:50 Albumin 3.7 g/dL (3.5-5.0) 10/16/20 13:50 Hospitalist H&P A/P - Plan Plan: 45-year-old female with past medical history of seizures/pseudoseizures on multiple antiepileptic and psychiatric medications, and history of medication no ncompliance presents with multiple seizures. Strong suspicion for pseudoseizures. Seizures Patient presented with multiple seizures at home as well as in route and again on presentation to the emergency room. Patient also had additional seizure after being told she is being discharged. Patient received Keppra loading dose by EMS as well as alprazolam. CT brain was done which showed no acute abnormalities. Patient follows with Dr. Quarles for her seizure/pseudoseizures as well as chronic migraines. Patient now resting comfortably in bed with no complaints. ER team spoke with Dr. Bhatia who recommended loading dose of Keppra. We will continue patient's medications per Dr. Barrera's last note. We will also check prolactin level. Plan Keppra loading dose Continue home Keppra, carbamazepine Prolactin level Seizure precautions Neurology consult Anxiety/depression History of anxiety and depression likely related with pseudoseizures. reports that when patient gets stressed she has seizure-like activity often. Patient on Remeron, Seroquel, zolpidem, Celexa and alprazolam. Patient does report that she feels that when she takes Seroquel she sometimes get dizzy at night and request not to take that medication this evening. She denies SI/HI. Plan Continue home medications Hold Seroquel for tonight DVT prophylaxisSCDs Full code Case discussed with attending physician, Dr. Funes who is in agreement with as narciso and plan.
[2020-10-16 17:08] LABS: Troponin I 0.021 ng/mL (< 0.028)
[2020-10-16] MEDS ORDERED: Acetaminophen 325 MG TAB PO PRN (17:18)
[2020-10-16] MEDS ORDERED: Ondansetron PF 4 MG/2 ML Vial IVP PRN (17:18)
[2020-10-16] MEDS ORDERED: Ondansetron ODT 4 MG TAB PO PRN (17:18)
[2020-10-16] MEDS ORDERED: Ibuprofen 600 MG TAB PO PRN (17:22)
[2020-10-16] MEDS ORDERED: Lorazepam 2 MG/ML VIAL SLOW IVP PRN (19:37)
[2020-10-16 20:10] VITALS: BMI 21.9
[2020-10-16] MEDS: Folic Acid 1 MG TAB PO SCH (20:41)
[2020-10-16] MEDS: levETIRAcetam in NS 1,000 MG in Premix Bag 1 BAG IVPB SCH (20:50)
[2020-10-16] MEDS ORDERED: Mirtazapine 15 MG TAB PO SCH (21:00)
[2020-10-16] MEDS ORDERED: levETIRAcetam 500 MG TAB PO SCH (21:00)
[2020-10-17 03:49] LABS: SARS-CoV-2 MS2 Positive; SARS-CoV-2 N Gene Negative; SARS-CoV-2 S Gene Negative; SARS-CoV-2 by NAA Not Detected (NotDetected); SARS-CoV-2 orf1ab Negative
[2020-10-17 07:41] LABS: #Basophils 0.1 thou/uL (0.0-0.2); #Eosinphils 0.2 thou/uL (0.0-0.7); #Lymphocytes 2.3 thou/uL (1.20-3.40); #Monocytes 0.7 thou/uL (0.11-0.59); #Neutrophils 3.9 thou/uL (1.40-6.50); %Basophils 0.9 % (0.0-1.0); %Eosinophils 2.2 % (0.0-10.0); %Lymphocytes 32.6 % (21.0-51.0); %Monocytes 9.5 % (0.0-10.0); %Neutrophils 54.8 % (42.0-75.0); Hemoglobin 14.5 g/dL (12.0-16.0); Mean Corpuscular HGB CONC 33.9 g/dL (32.0-36.0); Mean Corpuscular Hemoglobin 33.9 pg (27.0-31.0); Mean Corpuscular Volume 99.9 fL (78.0-98.0); Platelet Count 178 thou/uL (130-400); Red Blood Cell (RBC) Count 4.29 mill/uL (4.20-5.40); White Blood Cell (WBC) Count 7.1 thou/uL (4.8-10.8)
[2020-10-17] MEDS ORDERED: carBAMazepine 200 MG TAB PO SCH (08:00)
[2020-10-17 08:10] LABS: Anion Gap 15 mmol/L (10-20); Calc. Creatinine Clearance 78 mL/min (70-130); Calcium 8.6 mg/dL (7.8-10.44); Carbon Dioxide 16 mmol/L (22-29); Chloride 114 mmol/L (98-107); Estimated GFR-MDRD 75; Glucose 85 mg/dL (70-105); Potassium 3.9 mmol/L (3.5-5.1); Sodium 141 mmol/L (136-145)
[2020-10-17 08:15] LABS: BUN (Urea Nitrogen) 9 mg/dL (7.0-18.7)
[2020-10-17] MEDS ORDERED: Citalopram 20 MG TAB PO SCH (09:00)
[2020-10-17] MEDS: levETIRAcetam in NS 1,000 MG in Premix Bag 1 BAG IVPB SCH (10:18)
[2020-10-17] MEDS: Folic Acid 1 MG TAB PO SCH (10:19)
--- NOTE | 2020-10-17 13:47 | CON ---
NEUROLOGY CONSULTATION DATE OF CONSULTATION: 10/17/2020 REASON FOR CONSULTATION: Breakthrough seizure. HISTORY OF PRESENT ILLNESS: Ms. Guerrero is a 45-year-old female with history significant for epilepsy/pseudoseizures/anxiety and migraine headache, presented to the emergency room with breakthrough seizures yesterday. Per the patient, she had several seizures and has history of medical noncompliance. She also has a long established history of pseudoseizures, which usually occur when she is stressed. Per the patient, she had 2 seizures at home and she decided to come to the emergency room for further evaluation. EMS reported 2 seizures en route and did give her Ativan, Versed, and Keppra. The patient is on carbamazepine and Keppra at home and follows Dr. Gibbs as her neurologist. The patient does admit that she has been compliant with the medication and denies fever, nausea, vomiting, or chest pain, but does complain of abdominal pain. She denies any recent illness or recent exposure to COVID. In the emergency room, head CT was done, which was negative for acute intracranial pathology. She also received Ativan and Keppra to control her seizures. REVIEW OF SYSTEMS: All systems reviewed, which were negative except the pertinent positives and negatives mentioned in the HPI. HOME MEDICATIONS: 1. Remeron. 2. Seroquel. 3. Zolpidem. 4. Celexa. 5. Alprazolam. 6. Promethazine. 7 Keppra 1000 mg p.o. b.i.d. and 8. carbamazepine 200 mg p.o. b.i.d. ALLERGIES: ASPIRIN AND PHENOBARBITAL. PAST MEDICAL HISTORY: 1. Epilepsy. 2. Pseudoseizures. 3. Anxiety. 4. Hypothyroidism. PAST SURGICAL HISTORY: 1. Hysterectomy. 2. Status post port placement. FAMILY HISTORY: No significant family history of epilepsy or stroke. SOCIAL HISTORY: The patient denies smoking. Does report smoking marijuana. She lives with family. PHYSICAL EXAMINATION: 101/66 67 18 General Appearance: NAD, awake alert Eye: PERRL, anicteric sclera ENT: normocephalic atraumatic, no oropharyngeal lesions, moist mucosa Neck: supple, symmetric, no JVD, no thyromegaly, no lymphadenopathy, no carotid bruit Heart: RRR, no murmur, no gallops, no rubs, normal peripheral pulses Respiratory: CTAB, no wheezes, no rales, no ronchi, normal chest expansion, no tachypnea, normal percussion Gastrointestinal: soft, non-tender, non-distended, normal bowel sounds, no palpable masses, no hepatomegaly, no splenomegaly, no bruit Extremities: no cyanosis, no clubbing, no edema Skin: normal turgor, no lesions, no rashes Neurological: Mental status; the patient is alert and oriented to person, place, and time. Recent and remote memory, clear. Fund of knowledge is appropriate. Speech is clear. Motor; muscle tone and bulk are normal. Moving all 4 extremities equally and symmetrically. Sensory intact. Cerebellar; finger-nose testing intact. Gait deferred due to the patient's safety reason. DATA REVIEWED: I reviewed the labs, which were significant for thrombocytopenia of 126. Rest of the labs were unremarkable. WBC 7.0 thou/uL (4.8-10.8) 10/16/20 13:50 Hgb 14.5 g/dL (12.0-16.0) 10/16/20 13:50 Hct 43.3 % (36.0-47.0) 10/16/20 13:50 MCV 99.0 fL (78.0-98.0) H 10/16/20 13:50 Plt Count 126 thou/uL (130-400) L 10/16/20 13:50 Neutrophils % 66.8 % (42.0-75.0) 10/16/20 13:50 Sodium 139 mmol/L (136-145) 10/16/20 13:50 Potassium 4.2 mmol/L (3.5-5.1) 10/16/20 13:50 Chloride 112 mmol/L (98-107) H 10/16/20 13:50 Carbon Dioxide 17 mmol/L (22-29) L 10/16/20 13:50 BUN 8 mg/dL (7.0-18.7) 10/16/20 13:50 Creatinine 0.88 mg/dL (0.6-1.1) 10/16/20 13:50 Glucose 91 mg/dL (70-105) 10/16/20 13:50 Calcium 8.4 mg/dL (7.8-10.44) 10/16/20 13:50 Total Bilirubin 0.4 mg/dL (0.2-1.2) 10/16/20 13:50 AST 21 U/L (5-34) 10/16/20 13:50 ALT 36 U/L (8-55) 10/16/20 13:50 Alkaline Phosphatase 91 U/L (40-110) 10/16/20 13:50 Serum Total Protein 6.5 g/dL (6.0-8.3) 10/16/20 13:50 Albumin 3.7 g/dL (3.5-5.0) 10/16/20 13:50 ASSESSMENT AND PLAN: Ms. Guerrero is a 45-year-old female with history significant for epilepsy and also pseudoseizures and anxiety disorder, chronic migraines, presented with multiple seizure-like episodes yesterday. The differential diagnosis includes seizures versus pseudoseizures. The seizures are under control. The patient is back to her baseline and is alert and oriented x3. Head CT did not reveal any acute intracranial pathology. Consider increasing the dose of Keppra to 1500 mg twice daily and continue carbamazepine 200 mg p.o. b.i.d. Neuro checks every 4 hours. Observe seizure precautions. Ativan 2 mg IV for seizure greater than 2 minutes. PT/OT/Speech. She should follow up with Dr. Gibbs as outpatient for further seizure management. Plan discussed in detail with the patient and also the nursing staff. Thank you for the consult. Job ID: [id number] MTDD
[2020-10-17 15:22] VITALS: BP 102/67; TEMP 97.9
[2020-10-17] MEDS ORDERED: levETIRAcetam in NS 1,500 MG in Premix Bag 1 BAG IVPB SCH (21:00)
--- NOTE | 2020-10-20 16:03 | DIS ---
DATE OF ADMISSION: 10/16/2020 DATE OF DISCHARGE: 10/17/2020 DISCHARGE DIAGNOSES: As of the followin. Acute seizure. 2. Anxiety and depression. HOSPITAL COURSE: The patient is a 45-year-old female, who has a history of seizures, who comes into the hospital with seizures. The patient states that she has been compliant with her medication. However, she does have a history of noncompliance. She states that she has been recently a little bit stressful at home. She was seen by Neurology. There was no EEG monitoring over the holidays. At this time, her Keppra dose was adjusted to 1500 mg twice a day. The patient was monitored overnight. No acute symptoms and at this time, she will be discharged home. The patient will follow up with primary and Neurology as outpatient. HOME MEDICATIONS: Will be: 1. Carbamazepine 200 mg twice a day. 2. Nadolol 20 mg at bedtime. 3. Celexa 20 mg daily. 4. Keppra 1500 mg b.i.d. 5. Topiramate 100 mg b.i.d. PHYSICAL EXAMINATION: VITAL SIGNS: On discharge, temperature 97.8, heart rate 67, respirations 18, O2 saturations 100% on room air, blood pressure 101/66. GENERAL: She is awake, alert, and oriented x3. Does not appear in distress. CV: S1 and S2 present. No murmurs, rubs, or gallops. Again, she will be discharged home. She will follow up with her primary and Neurology. Job ID: [id number]
== END 2020-10-17 16:22 | disposition home or self-care (01) ==
LOC: ERS 12:48 → 2SE 16:24
PROVIDERS: ADMIT Internal Medicine; ATTEND Internal Medicine
DX: G40.909 Epilepsy, unspecified, not intractable, without status epilepticus (principal); F41.9 Anxiety disorder, unspecified; F32.9 Major depressive disorder, single episode, unspecified; G43.909 Migraine, unspecified, not intractable, without status migrainosus; E03.9 Hypothyroidism, unspecified; F12.11 Cannabis abuse, in remission; Z79.899 Other long term (current) drug therapy; Z88.6 Allergy status to analgesic agent; Z88.8 Allergy status to other drugs, medicaments and biological substances; Z20.828 Contact with and (suspected) exposure to other viral communicable diseases
CPT/HCPCS: 51701; 70450; 80048; 80053; 80164; 80306; 81025; 82607; 82746; 84146; 84484; 85025 ×2; 93005; 96365; 96375 ×2; 99285; G0378 ×3; U0003; 36415; 87635; 96374; J1953; J2060; J2405

== ENCOUNTER 2020-11-05 11:50 | Emergency (ER) | payer MEDICARE ==
[2020-11-05 13:01] LABS: #Eosinphils 0.1 thou/uL (0.0-0.7); #Lymphocytes 1.4 thou/uL (1.20-3.40); #Monocytes 0.3 thou/uL (0.11-0.59); #Neutrophils 2.8 thou/uL (1.40-6.50); %Eosinophils 1.1 % (0.0-10.0); %Monocytes 7.3 % (0.0-10.0); %Neutrophils 60.7 % (42.0-75.0); Hemoglobin 12.7 g/dL (12.0-16.0); Mean Corpuscular HGB CONC 34.5 g/dL (32.0-36.0); Mean Corpuscular Hemoglobin 34.6 pg (27.0-31.0); Mean Platelet Volume 7.7 fL (7.4-10.4); Platelet Count 229 thou/uL (130-400); RBC Distribution Width 11.2 % (11.5-14.5); Red Blood Cell (RBC) Count 3.66 mill/uL (4.20-5.40); White Blood Cell (WBC) Count 4.6 thou/uL (4.8-10.8)
[2020-11-05 13:23] LABS: Anion Gap 10 mmol/L (10-20); BUN (Urea Nitrogen) 7 mg/dL (7.0-18.7); Calc. Creatinine Clearance 0 mL/min (70-130); Calcium 8.2 mg/dL (7.8-10.44); Carbon Dioxide 23 mmol/L (22-29); Chloride 110 mmol/L (98-107); Glucose 113 mg/dL (70-105); Potassium 3.4 mmol/L (3.5-5.1); Sodium 140 mmol/L (136-145)
[2020-11-05 13:24] LABS: Carbamazepine-Tegretol 3.1 ug/mL (4.0-12.0)
--- NOTE | 2020-11-05 13:29 | CT ---
EXAM: CT brain without contrast HISTORY: Seizure with possible head injury COMPARISON: 10/16/2020 TECHNIQUE: Multiple contiguous axial images were obtained and a CT of the brain without contrast. FINDINGS: The brain is normal in morphology and attenuation without focal lesions or confluent areas of infarction. There is no evidence of hydrocephalus, intracranial hemorrhage, or extra-axial fluid collection. The calvarium and overlying soft tissues are unremarkable. The visualized paranasal sinuses and masto id air cells are well aerated. IMPRESSION: No evidence of acute intracranial abnormality
[2020-11-05] MEDS ORDERED: levETIRAcetam in NS 100 ML ONE (14:20)
--- NOTE | 2020-11-09 15:21 | EKG ---
Test Reason : Blood Pressure : / mmHG Vent. Rate : 075 BPM Atrial Rate : 075 BPM P-R Int : 142 ms QRS Dur : 078 ms QT Int : 410 ms P-R-T Axes : 070 063 066 degrees QTc Int : 457 ms Normal sinus rhythm Normal ECG Confirmed by ELLA VARGAS DO ([id number]), fashion editor DAVID ACUNA ([id number]) on 11/09/2020 3:21:15 PM Referred By: Confirmed By:ELLA VARGAS DO
== END 2020-11-05 14:56 | disposition home or self-care (01) ==
LOC: ERS 11:50
DX: G40.909 Epilepsy, unspecified, not intractable, without status epilepticus (principal); Z79.899 Other long term (current) drug therapy
CPT/HCPCS: 70450; 80048; 80156; 80177; 85025; 93005; 96365; J1953

== ENCOUNTER 2020-11-11 12:22 | Inpatient (IN) | payer MEDICARE ==
[2020-11-11] MEDS ORDERED: Lorazepam 2 MG/ML VIAL ONE (12:46)
[2020-11-11 13:22] LABS: Bilirubin Negative (Negative); Blood, Urine Negative (Negative); Clarity Clear (Clear); Glucose, Urine (Dipstick) Normal (Negative); Ketone, Urine Negative (Negative); Leukocyte Negative Leu/uL (Negative); Nitrite Negative (Negative); Protein, Urine (Dipstick) Negative (Neg-Trace); Specific Gravity, Urine 1.018 (1.002-1.036); Urobilinogen Normal mg/dL (Less than 2)
[2020-11-11 13:33] LABS: Amphetamine Not Detected (NotDetected); Barbiturates Screen Not Detected (NotDetected); Benzodiazepine Screen Detected (NotDetected); Cocaine Metabolite Screen Not Detected (NotDetected); Medtox Control Line Valid? VALID (VALID); Medtox Reader # READER 4; Methadone Not Detected (NotDetected); Methamphetamine Not Detected (NotDetected); Opiate Screen Not Detected (NotDetected); Oxycodone Screen Detected (NotDetected); Phencyclidine (PCP) Not Detected (NotDetected); THC/Cannabinoid Screen Not Detected (NotDetected); Tricyclic Screen Not Detected (NotDetected)
[2020-11-11 13:50] LABS: #Basophils 0.1 thou/uL (0.0-0.2); #Eosinphils 0.1 thou/uL (0.0-0.7); #Lymphocytes 1.3 thou/uL (1.20-3.40); #Monocytes 0.4 thou/uL (0.11-0.59); #Neutrophils 3.3 thou/uL (1.40-6.50); %Eosinophils 1.7 % (0.0-10.0); %Lymphocytes 25.2 % (21.0-51.0); %Monocytes 7.3 % (0.0-10.0); %Neutrophils 64.8 % (42.0-75.0); Mean Corpuscular HGB CONC 33.4 g/dL (32.0-36.0); Mean Corpuscular Hemoglobin 33.8 pg (27.0-31.0); Platelet Count 206 thou/uL (130-400); RBC Distribution Width 11.2 % (11.5-14.5); Red Blood Cell (RBC) Count 3.85 mill/uL (4.20-5.40); White Blood Cell (WBC) Count 5.1 thou/uL (4.8-10.8)
[2020-11-11 13:59] LABS: ALT (SGPT) 51 U/L (8-55); AST (SGOT) 27 U/L (5-34); Acetaminophen Less than 6.0 mcg/mL (10.0-30.0); Albumin 3.5 g/dL (3.5-5.0); Alcohol Less than 10 mg/dL (Less than 10); Alkaline Phosphatase 86 U/L (40-110); Anion Gap 13 mmol/L (10-20); BUN (Urea Nitrogen) 7 mg/dL (7.0-18.7); Bilirubin, Total 0.3 mg/dL (0.2-1.2); Calc. Creatinine Clearance 0 mL/min (70-130); Calcium 8.2 mg/dL (7.8-10.44); Carbon Dioxide 20 mmol/L (22-29); Chloride 111 mmol/L (98-107); Globulin 2.9 g/dL (2.4-3.5); Glucose 97 mg/dL (70-105); Potassium 3.6 mmol/L (3.5-5.1); Protein, Total 6.4 g/dL (6.0-8.3); Salicylate Less than 8.0 mg/dL (15.0-30.0); Sodium 140 mmol/L (136-145)
[2020-11-11 16:25] LABS: Carbamazepine-Tegretol Less than 1.9 ug/mL (4.0-12.0)
[2020-11-11] MEDS ORDERED: Senokot S 8.6-50 MG TAB PO PRN (16:33)
[2020-11-11 17:23] VITALS: BMI 19.7
--- NOTE | 2020-11-11 18:12 | HP ---
The patient says her PCP is Dr. Gibbs, who is also her neurologist. She does not have any other doctors. CHIEF COMPLAINT: Breakthrough seizures. HISTORY OF PRESENT ILLNESS: This is a 45-year-old female who was brought in by EMS today and was evaluated in the emergency room for multiple seizures per patient. She has a long history of seizure activity and has been seen at this hospital multiple times in the past for seizures. She denies any recent fevers, falls, any ill contacts, any injuries. She was seen here, admitted to the hospital in September of this year for similar complaints, was evaluated at that time by the neurologist, Dr. Bhatia, who stated that she had a history significant for epilepsy, pseudoseizures, anxiety, and migraine headaches. She was evaluated on that visit. They increased her medications, increased her Keppra dose to 1500 mg twice a day and was asked to follow up with her neurologist. It is quite unclear of whether she is able to do that in the three weeks or so since she has been discharged from here. She was given several benzodiazepine by EMS prior to arrival. 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 Her other lab values were largely unremarkable. She will be admitted for neurology consult and an EEG. REVIEW OF SYSTEMS: The patient reports three seizures at home. She denies any fever, chills, cough, abdominal pain, nausea, vomiting. All other systems are reviewed and are negative unless mentioned above or in HPI. PAST MEDICAL HISTORY: Seizures, pseudoseizures, anxiety, hypothyroidism. PAST SURGICAL HISTORY: Hysterectomy, port placement. SOCIAL HISTORY: She lives at home with her family and denies cigarette smoking. Does report marijuana and denies any alcohol. ALLERGIES: ASPIRIN, PHENOBARBITAL. CURRENT MEDICATIONS: From the last discharge: 1. Tegretol 200 mg p.o. b.i.d. 2. Celexa 20 mg p.o. daily. 3. Nadolol 20 mg p.o. at bedtime. 4. Keppra 1500 mg p.o. b.i.d. 5. Topiramate 100 mg p.o. b.i.d. PHYSICAL EXAMINATION: VITAL SIGNS: Blood pressure 109/79, pulse of 69, respiratory rate is 14, pO2 sats are 100% on room air. CONSTITUTIONAL: The patient appears nontoxic. She is drowsy, but does answer questions appropriately and she is easily arousable. HEENT: Head is atraumatic and normocephalic. Eyes, eyelids are normal to inspection. Pupils are equally round and reactive to light. ENT; mouth exam is normal. Mucous membranes are moist. NECK: Trachea is midline. No JVD is noted. RESPIRATORY: Breath sounds are clear. CHEST: Expansion is equal. CARDIOVASCULAR: Regular heart rate and rhythm. Heart sounds are normal. ABDOMEN: No tenderness. Bowel sounds are heard. EXTREMITIES: Upper extremity normal inspection. Radial pulses are normal. Lower extremity, pedal pulses are normal. Normal range of motion. NEURO: The patient is somnolent but easily arousable, does answer questions. SKIN: Warm, dry, normal in color. PLAN/ASSESSMENT: 1. Breakthrough seizures, a history of seizures/pseudoseizure. We have asked for Neurology to consult, Dr. Gibbs is on-call, who is her regular neurologist. We have ordered an EEG today. Evidently, they ordered this on the last admission, but were unable to obtain over the holidays. We will continue her home medications. Seizure precautions. Ativan p.r.n. as needed for any breakthrough seizures. 2. History of anxiety and depression. We will restart her home medications. 3. Deep vein thrombosis prophylaxis with SCDs and Lovenox. 4. Peptic ulcer disease prevention with Pepcid. 5. The patient has not had any seizures while she has been in the emergency room. Job ID: [id number]
[2020-11-11] MEDS: Lorazepam 2 MG/ML VIAL SLOW IVP PRN (18:37)
[2020-11-11] MEDS: levETIRAcetam 500 MG TAB PO SCH ×2 (20:31→22:36)
[2020-11-11] MEDS ORDERED: Nadolol 40 MG TAB PO SCH (21:00)
[2020-11-11] MEDS: levETIRAcetam in NS 1,500 MG in Premix Bag 1 BAG IVPB SCH (21:19)
--- NOTE | 2020-11-11 22:26 | CT ---
EXAM: CT brain without contrast HISTORY: Recurring seizures COMPARISON: 11/05/2020 TECHNIQUE: Multiple contiguous axial images were obtained and a CT of the brain without contrast. FINDINGS: The brain is normal in morphology and attenuation without focal lesions or confluent areas of infarction. There is no evidence of hydrocephalus, intracranial hemorrhage, or extra-axial fluid collection. The calvarium and overlying soft tissues are unremarkable. The visualized paranasal sinuses and masto id air cells are well aerated. IMPRESSION: No evidence of acute intracranial abnormality
[2020-11-11] MEDS: carBAMazepine 200 MG TAB PO SCH (22:36)
[2020-11-11] MEDS: Famotidine 20 MG TAB PO SCH (22:36)
[2020-11-11] MEDS: Acetaminophen 325 MG TAB PO PRN (22:37)
[2020-11-11] MEDS: Topiramate 100 MG TAB PO SCH (22:37)
[2020-11-12 01:20] LABS: SARS-CoV-2 MS2 Positive; SARS-CoV-2 N Gene Negative; SARS-CoV-2 S Gene Negative; SARS-CoV-2 by NAA Not Detected (NotDetected); SARS-CoV-2 orf1ab Negative
[2020-11-12 05:14] LABS: #Eosinphils 0.1 thou/uL (0.0-0.7); #Monocytes 0.4 thou/uL (0.11-0.59); #Neutrophils 3.9 thou/uL (1.40-6.50); %Basophils 0.8 % (0.0-1.0); %Eosinophils 1.8 % (0.0-10.0); %Lymphocytes 30.6 % (21.0-51.0); %Monocytes 6.4 % (0.0-10.0); %Neutrophils 60.5 % (42.0-75.0); Hemoglobin 12.9 g/dL (12.0-16.0); Mean Corpuscular HGB CONC 33.3 g/dL (32.0-36.0); Mean Corpuscular Hemoglobin 33.4 pg (27.0-31.0); Mean Platelet Volume 8.2 fL (7.4-10.4); Platelet Count 204 thou/uL (130-400); RBC Distribution Width 11.2 % (11.5-14.5); Red Blood Cell (RBC) Count 3.88 mill/uL (4.20-5.40); White Blood Cell (WBC) Count 6.4 thou/uL (4.8-10.8)
[2020-11-12 05:37] LABS: ALT (SGPT) 45 U/L (8-55); AST (SGOT) 25 U/L (5-34); Albumin 3.5 g/dL (3.5-5.0); Alkaline Phosphatase 84 U/L (40-110); Anion Gap 14 mmol/L (10-20); BUN (Urea Nitrogen) 8 mg/dL (7.0-18.7); Bilirubin, Total 0.2 mg/dL (0.2-1.2); Calc. Creatinine Clearance 76 mL/min (70-130); Calcium 8.2 mg/dL (7.8-10.44); Carbon Dioxide 18 mmol/L (22-29); Chloride 110 mmol/L (98-107); Globulin 2.9 g/dL (2.4-3.5); Glucose 106 mg/dL (70-105); Potassium 3.6 mmol/L (3.5-5.1); Protein, Total 6.4 g/dL (6.0-8.3); Sodium 138 mmol/L (136-145)
[2020-11-12] MEDS: Citalopram 20 MG TAB PO SCH (08:23)
[2020-11-12] MEDS: levETIRAcetam 500 MG TAB PO SCH ×2 (08:23→21:26)
[2020-11-12] MEDS: Famotidine 20 MG TAB PO SCH ×2 (08:23→21:26)
[2020-11-12] MEDS: carBAMazepine 200 MG TAB PO SCH ×2 (08:23→21:26)
[2020-11-12] MEDS: Topiramate 100 MG TAB PO SCH ×2 (08:24→21:26)
[2020-11-12] MEDS: levETIRAcetam in NS 1,500 MG in Premix Bag 1 BAG IVPB SCH (08:24)
[2020-11-12] MEDS: Enoxaparin Sodium 40 MG/0.4 ML SYRINGE SC SCH (08:25)
[2020-11-12] MEDS: Acetaminophen 325 MG TAB PO PRN (08:39)
[2020-11-12] MEDS: HYDROcodone/Acetaminophen 5/325 mg Tablet PO PRN ×3 (10:19→21:26)
--- NOTE | 2020-11-12 11:01 | EEG ---
DATE OF SERVICE: DESCRIPTION OF THE RECORD: Waking background is a medium amplitude 8 to 9 hertz alpha frequency. The patient remained awake throughout the study. Photic stimulation and hyperventilation were both unremarkable. No epileptiform features were seen. IMPRESSION: This is a normal awake EEG. Job ID: [id number]
--- NOTE | 2020-11-12 17:05 | PRG ---
DATE OF SERVICE: 11/12/2020 IMPRESSION: Possible hypotension-induced blackout with secondary seizure. PLAN: 1. Check standing blood pressures. 2. Consider adding Florinef 0.1 mg daily if necessary. 3. Continue Keppra 2000 mg b.i.d. SUBJECTIVE: Ms. Guerrero is a 45-year-old female, followed for many years for epilepsy and migraines. She apparently got lightheaded at home and passed out. She hit her head against the floor. She reportedly had a secondary seizure. She came into the hospital. She had EEG done that was unremarkable. Her lab work showed some mild acidosis with a bicarbonate of 18. She reportedly has been relatively hypotensive with systolics in the 80s. She is otherwise back to her baseline. I have suggested we make sure that her blood pressure is adequate before we discharge her home. I would be happy to continue her followup in the office. Job ID: [id number]
--- NOTE | 2020-11-12 20:14 | PDOC.HOSPP ---
- Subjective Encounter Date: 11/12/20 Encounter Time: 15:00 Subjective: Patient seen and examined for breakthrough seizures. No new episodes of seizure reported. Denies any double vision, blurring of vision, facial asymmetry, chest pain or palpitations. - Objective Vital Signs & Weight: Vital Signs (12 hours) Temp Pulse Resp BP BP BP BP 11/12/20 20:00 97.8 F 68 18 93/59 L 11/12/20 16:26 98/88 107/61 89/60 L 11/12/20 15:18 98.2 F 70 16 87/57 L 11/12/20 13:12 101/72 11/12/20 11:26 98.7 F 57 L 16 87/54 L 11/12/20 08:30 112/73 11/12/20 08:19 97.9 F 72 16 76/53 L Pulse Ox 11/12/20 20:00 97 11/12/20 16:26 11/12/20 15:18 97 11/12/20 13:12 11/12/20 11:26 99 11/12/20 08:30 11/12/20 08:19 95 Weight Admit Weight 122 lb Weight 122 lb I&O: 11/11/20 11/12/20 11/13/20 06:59 06:59 06:59 Intake Total 240 480 Balance 240 480 Result Diagrams: 11/12/20 04:17 11/12/20 04:17 Additional Labs: Abnormal Lab Results - Last 48 hrs 11/11/20 13:02: Ur Oxycodone Screen Detected H, U Benzodiazepines Scrn Detected H 11/11/20 13:33: RBC 3.85 L, MCV 101.0 H, MCH 33.8 H, RDW 11.2 L 11/11/20 13:33: Chloride 111 H, Carbon Dioxide 20 L, Salicylates Less than 8.0 L, Acetaminophen Less than 6.0 L 11/11/20 15:32: Carbamazepine Less than 1.9 L 11/12/20 04:17: Chloride 110 H, Carbon Dioxide 18 L 11/12/20 04:17: RBC 3.88 L, MCV 100.0 H, MCH 33.4 H, RDW 11.2 L EKG Reviewed by me: Yes (Sinus rhythm on telemetry) Hospitalist ROS - Review of Systems Respiratory: denies: cough, dry, shortness of breath, hemoptysis, SOB with excertion, pleuritic pain, sputum, wheezing, other Cardiovascular: denies: chest pain, palpitations, orthopnea, paroxysmal noc. dyspnea, edema, light headedness, other - Medication Medications: Active Medications Generic Name Dose Route Start Last Admin Trade Name Freq PRN Reason Stop Dose Admin Acetaminophen 650 mg 11/11/20 16:33 11/12/20 08:39 Acetaminophen 325 Mg Tab PO 650 mg Q4H PRN Administration Headache/Fever/Mild Pain (1-3) Hydrocodone Bitart/Acetaminophen 1 tab 11/12/20 09:03 11/12/20 15:07 Hydrocodone/Acetaminophen 5/325 Mg Tablet PO 1 tab Q4H PRN Administration Moderate Pain (4-6) Carbamazepine 200 mg 11/11/20 21:00 11/12/20 08:23 Carbamazepine 200 Mg Tab PO 200 mg BID KAYKAY Administration Citalopram Hydrobromide 20 mg 11/12/20 09:00 11/12/20 08:23 Citalopram 20 Mg Tab PO 20 mg DAILY KAYKAY Administration Enoxaparin Sodium 40 mg 11/12/20 09:00 11/12/20 08:25 Enoxaparin Sodium 40 Mg/0.4 Ml Syringe SC 40 mg 0900 KAYKAY Administration Famotidine 20 mg 11/11/20 21:00 11/12/20 08:23 Famotidine 20 Mg Tab PO 20 mg BID KAYKAY Administration Levetiracetam 1,500 mg/ Device 100 mls @ 200 mls/hr 11/11/20 21:00 11/12/20 08:24 IVPB 100 mls BID KAYKAY Administration Levetiracetam 1,500 mg 11/11/20 21:00 11/12/20 08:23 Levetiracetam 500 Mg Tab PO 1,500 mg BID KAYKAY Administration Lorazepam 1 mg 11/11/20 16:34 11/11/20 18:37 Lorazepam 2 Mg/Ml Vial SLOW IVP 1 mg Q4H PRN Administration Anxiety/Agitation Nadolol 20 mg 11/11/20 21:00 11/11/20 22:36 Nadolol 40 Mg Tab PO Not Given HS KAYKAY Topiramate 100 mg 11/11/20 21:00 11/12/20 08:24 Topiramate 100 Mg Tab PO 100 mg BID KAYKAY Administration - Exam General Appearance: NAD Heart: RRR, no gallops Respiratory: no wheezes, no ronchi Gastrointestinal: non-tender, non-distended Extremities: no cyanosis, no clubbing Neurological: no new deficit Psychiatric: A&O x 3 Hosp A/P - Plan DVT proph w/SCDs Breakthrough seizures probably caused by hypotension History of seizure disorder Anxiety Hypothyroidism macrocytosis CKD stage II History of folic acid deficiency History of migraines Plan: Hold nadolol due to hypotension. Continue carbamazepine continue Keppra 2000 mg twice daily per neurology. Continue Celexa with carbamazepine. Seizure precautions. EEG negative. Recheck orthostatic vitals in a.m. Neurology input appreciated. Replace folic acid. Fall precautions
[2020-11-13] MEDS: HYDROcodone/Acetaminophen 5/325 mg Tablet PO PRN ×4 (01:45→21:04)
[2020-11-13] MEDS: Multivit, Therapeutic 1 TAB PO SCH (09:46)
[2020-11-13] MEDS: Famotidine 20 MG TAB PO SCH ×2 (09:46→21:03)
[2020-11-13] MEDS: Enoxaparin Sodium 40 MG/0.4 ML SYRINGE SC SCH (09:46)
[2020-11-13] MEDS: carBAMazepine 200 MG TAB PO SCH ×2 (09:47→21:04)
[2020-11-13] MEDS: Folic Acid 1 MG TAB PO SCH (09:47)
[2020-11-13] MEDS: Topiramate 100 MG TAB PO SCH ×2 (09:47→21:04)
[2020-11-13] MEDS: levETIRAcetam 500 MG TAB PO SCH ×2 (09:47→21:03)
[2020-11-13] MEDS: Citalopram 20 MG TAB PO SCH (09:47)
[2020-11-13] MEDS: Cyanocobalamin (Vitamin B-12) 1,000 MCG TAB PO SCH (09:47)
[2020-11-13] MEDS: Lorazepam 2 MG/ML VIAL SLOW IVP PRN (16:15)
--- NOTE | 2020-11-13 18:34 | PRG ---
DATE OF SERVICE: 11/13/2020 Ms. Guerrero continues to complain of feeling dizzy when she is up on her feet. We did orthostatic blood pressure measurements earlier today and showed that she had a normal blood pressure of 110/70s while standing. She has had some witnessed episodes that the nurse reports appeared to be pseudoseizures. She fails to recognize the possibility at this point. I advised her that we would check a basic metabolic panel and a prolactin level if she has another spell. We would not make any changes in her regimen at this point. Job ID: [id number]
--- NOTE | 2020-11-13 21:54 | PDOC.HOSPP ---
- Subjective Encounter Date: 11/13/20 Encounter Time: 17:00 Subjective: Patient seen and examined for seizure. Had another episode earlier today. Received Ativan. No seizures overnight prior to this. No other focal deficit reported per RN. - Objective Vital Signs & Weight: Vital Signs (12 hours) Temp Pulse Resp BP BP BP Pulse Ox 11/13/20 19:42 98.0 F 88 20 106/69 98 11/13/20 18:33 90/67 11/13/20 15:32 98.4 F 71 16 95/66 98 11/13/20 11:40 97.3 F L 74 16 101/70 100 11/13/20 09:58 103/56 L Weight Admit Weight 122 lb Weight 122 lb I&O: 11/12/20 11/13/20 11/14/20 06:59 06:59 06:59 Intake Total 240 930 Balance 240 930 Result Diagrams: 11/12/20 04:17 11/12/20 04:17 Additional Labs: Accuchecks 11/13/20 16:18 POC Glucose 98 EKG Reviewed by me: Yes (Sinus rhythm on telemetry) Hospitalist ROS - Review of Systems ROS unobtainable: due to mental status - Medication Medications: Active Medications Generic Name Dose Route Start Last Admin Trade Name Freq PRN Reason Stop Dose Admin Acetaminophen 650 mg 11/11/20 16:33 11/12/20 08:39 Acetaminophen 325 Mg Tab PO 650 mg Q4H PRN Administration Headache/Fever/Mild Pain (1-3) Hydrocodone Bitart/Acetaminophen 1 tab 11/12/20 09:03 11/13/20 21:04 Hydrocodone/Acetaminophen 5/325 Mg Tablet PO 1 tab Q4H PRN Administration Moderate Pain (4-6) Carbamazepine 200 mg 11/11/20 21:00 11/13/20 21:04 Carbamazepine 200 Mg Tab PO 200 mg BID KAYKAY Administration Citalopram Hydrobromide 20 mg 11/12/20 09:00 11/13/20 09:47 Citalopram 20 Mg Tab PO 20 mg DAILY KAYKAY Administration Cyanocobalamin 1,000 mcg 11/13/20 09:00 11/13/20 09:47 Cyanocobalamin (Vitamin B-12) 1,000 Mcg Tab PO 1,000 mcg DAILY KAYKAY Administration Enoxaparin Sodium 40 mg 11/12/20 09:00 11/13/20 09:46 Enoxaparin Sodium 40 Mg/0.4 Ml Syringe SC 40 mg 0900 KAYKAY Administration Famotidine 20 mg 11/11/20 21:00 11/13/20 21:03 Famotidine 20 Mg Tab PO 20 mg BID KAYKAY Administration Folic Acid 1 mg 11/13/20 09:00 11/13/20 09:47 Folic Acid 1 Mg Tab PO 1 mg DAILY KAYKAY Administration Levetiracetam 2,000 mg 11/12/20 21:00 11/13/20 21:03 Levetiracetam 500 Mg Tab PO 2,000 mg BID KAYKAY Administration Lorazepam 1 mg 11/11/20 16:34 11/13/20 16:15 Lorazepam 2 Mg/Ml Vial SLOW IVP 1 mg Q4H PRN Administration Anxiety/Agitation Multivitamins 1 tab 11/13/20 09:00 11/13/20 09:46 Multivit, Therapeutic 1 Tab PO 1 tab DAILY KAYKAY Administration Nadolol 20 mg 11/11/20 21:00 11/11/20 22:36 Nadolol 40 Mg Tab PO Not Given HS KAYKAY Sodium Chloride 10 ml 11/11/20 16:33 11/13/20 21:05 Flush - Normal Saline 10 Ml Syringe IVF 10 ml PRN PRN Administration Saline Flush Topiramate 100 mg 11/11/20 21:00 11/13/20 21:04 Topiramate 100 Mg Tab PO 100 mg BID KAYKAY Administration - Exam General Appearance: NAD Neck: supple, no JVD Heart: RRR, no gallops Respiratory: no wheezes, no ronchi Gastrointestinal: soft, non-tender, normal bowel sounds Extremities: no cyanosis, no edema Neurological - other findings: Exam limited due to current mentation Psychiatric: somnolent Hosp A/P - Plan DVT proph w/SCDs Breakthrough seizures probably caused by hypotension History of hypertension Nadolol on hold due to hypotension History of seizure disorder Anxiety Hypothyroidism Macrocytosis CKD stage II History of folic acid deficiency History of migraines Plan: Continue seizure precaution. Continue current dose of carbamazepine, Keppra and Topamax. Continue Celexa. Fall precautions. Seizure precautions. Check orthostatic vitals in a.m. Gentle hydration a.m. labs
[2020-11-13] MEDS: D5 1/2 NS w/20 mEq KCL 1,000 ML IV SCH (22:59)
[2020-11-14] MEDS: HYDROcodone/Acetaminophen 5/325 mg Tablet PO PRN ×3 (03:53→21:20)
[2020-11-14 05:30] LABS: #Basophils 0.1 thou/uL (0.0-0.2); #Eosinphils 0.1 thou/uL (0.0-0.7); #Lymphocytes 2.1 thou/uL (1.20-3.40); #Monocytes 0.5 thou/uL (0.11-0.59); #Neutrophils 2.5 thou/uL (1.40-6.50); %Basophils 1.9 % (0.0-1.0); %Eosinophils 2.7 % (0.0-10.0); %Lymphocytes 39.6 % (21.0-51.0); %Monocytes 8.7 % (0.0-10.0); %Neutrophils 47.1 % (42.0-75.0); Mean Corpuscular HGB CONC 34.1 g/dL (32.0-36.0); Mean Corpuscular Volume 99.8 fL (78.0-98.0); Mean Platelet Volume 8.2 fL (7.4-10.4); Platelet Count 203 thou/uL (130-400); RBC Distribution Width 11.3 % (11.5-14.5); Red Blood Cell (RBC) Count 3.81 mill/uL (4.20-5.40); White Blood Cell (WBC) Count 5.3 thou/uL (4.8-10.8)
[2020-11-14 05:53] LABS: Anion Gap 12 mmol/L (10-20); BUN (Urea Nitrogen) 7 mg/dL (7.0-18.7); Calc. Creatinine Clearance 71 mL/min (70-130); Carbon Dioxide 19 mmol/L (22-29); Chloride 111 mmol/L (98-107); Sodium 138 mmol/L (136-145)
[2020-11-14 05:54] LABS: Calcium 8.3 mg/dL (7.8-10.44); Glucose 99 mg/dL (70-105); Magnesium 2.1 mg/dL (1.6-2.6); Phosphorus 4.5 mg/dL (2.3-4.7)
[2020-11-14] MEDS: carBAMazepine 200 MG TAB PO SCH ×2 (08:02→21:17)
[2020-11-14] MEDS: Famotidine 20 MG TAB PO SCH ×2 (08:02→21:17)
[2020-11-14] MEDS: Cyanocobalamin (Vitamin B-12) 1,000 MCG TAB PO SCH (08:02)
[2020-11-14] MEDS: Multivit, Therapeutic 1 TAB PO SCH (08:02)
[2020-11-14] MEDS: Folic Acid 1 MG TAB PO SCH (08:02)
[2020-11-14] MEDS: Citalopram 20 MG TAB PO SCH (08:03)
[2020-11-14] MEDS: Topiramate 100 MG TAB PO SCH ×2 (08:03→21:17)
[2020-11-14] MEDS: Enoxaparin Sodium 40 MG/0.4 ML SYRINGE SC SCH (08:03)
[2020-11-14] MEDS: levETIRAcetam 500 MG TAB PO SCH ×2 (08:06→21:17)
[2020-11-14] MEDS: D5 1/2 NS w/20 mEq KCL 1,000 ML IV SCH (12:19)
--- NOTE | 2020-11-14 19:47 | PDOC.HOSPP ---
- Subjective Encounter Date: 11/14/20 Encounter Time: 15:00 Subjective: Patient seen and examined for seizure. No new episode of seizure. Symptomatically feeling better. Blood pressure improving. Denies any chest pain or shortness of breath. - Objective Vital Signs & Weight: Vital Signs (12 hours) Temp Pulse Resp BP BP BP Pulse Ox 11/14/20 15:17 98.3 F 69 16 118/80 100 11/14/20 12:20 102/71 94/69 93/60 11/14/20 11:26 98.4 F 79 15 103/56 L 99 Weight Admit Weight 122 lb Weight 122 lb I&O: 11/13/20 11/14/20 11/15/20 06:59 06:59 06:59 Intake Total 930 1620 Balance 930 1620 Result Diagrams: 11/14/20 04:51 11/14/20 04:51 Additional Labs: Abnormal Lab Results - Last 48 hrs 11/14/20 04:51: Chloride 111 H, Carbon Dioxide 19 L 11/14/20 04:51: RBC 3.81 L, MCV 99.8 H, MCH 34.0 H, RDW 11.3 L, Basophils % 1.9 H EKG Reviewed by me: Yes (Sinus rhythm on telemetry) Hospitalist ROS - Review of Systems Cardiovascular: denies: chest pain, palpitations, orthopnea, paroxysmal noc. dyspnea, edema, light headedness, other Gastrointestinal: denies: nausea, vomiting, abdominal pain, diarrhea, constipation, melena, hematochezia, other - Medication Medications: Active Medications Generic Name Dose Route Start Last Admin Trade Name Freq PRN Reason Stop Dose Admin Acetaminophen 650 mg 11/11/20 16:33 11/12/20 08:39 Acetaminophen 325 Mg Tab PO 650 mg Q4H PRN Administration Headache/Fever/Mild Pain (1-3) Hydrocodone Bitart/Acetaminophen 1 tab 11/12/20 09:03 11/14/20 15:26 Hydrocodone/Acetaminophen 5/325 Mg Tablet PO 1 tab Q4H PRN Administration Moderate Pain (4-6) Carbamazepine 200 mg 11/11/20 21:00 11/14/20 08:02 Carbamazepine 200 Mg Tab PO 200 mg BID KAYKAY Administration Citalopram Hydrobromide 20 mg 11/12/20 09:00 11/14/20 08:03 Citalopram 20 Mg Tab PO 20 mg DAILY KAYKAY Administration Cyanocobalamin 1,000 mcg 11/13/20 09:00 11/14/20 08:02 Cyanocobalamin (Vitamin B-12) 1,000 Mcg Tab PO 1,000 mcg DAILY KAYKAY Administration Enoxaparin Sodium 40 mg 11/12/20 09:00 11/14/20 08:03 Enoxaparin Sodium 40 Mg/0.4 Ml Syringe SC 40 mg 0900 KAYKAY Administration Famotidine 20 mg 11/11/20 21:00 11/14/20 08:02 Famotidine 20 Mg Tab PO 20 mg BID KAYKAY Administration Folic Acid 1 mg 11/13/20 09:00 11/14/20 08:02 Folic Acid 1 Mg Tab PO 1 mg DAILY KAYKAY Administration Potassium Chloride/Dextrose/Sod Cl 1,000 mls @ 75 mls/hr 11/13/20 22:00 11/14/20 12:19 D5 1/2 Ns W/20 Meq Kcl IV 1,000 mls .[id number] KAYKAY Administration Levetiracetam 2,000 mg 11/12/20 21:00 11/14/20 08:06 Levetiracetam 500 Mg Tab PO 2,000 mg BID KAYKAY Administration Lorazepam 1 mg 11/11/20 16:34 11/13/20 16:15 Lorazepam 2 Mg/Ml Vial SLOW IVP 1 mg Q4H PRN Administration Anxiety/Agitation Multivitamins 1 tab 11/13/20 09:00 11/14/20 08:02 Multivit, Therapeutic 1 Tab PO 1 tab DAILY KAYKAY Administration Nadolol 20 mg 11/11/20 21:00 11/11/20 22:36 Nadolol 40 Mg Tab PO Not Given HS KAYKAY Sodium Chloride 10 ml 11/11/20 16:33 11/13/20 21:05 Flush - Normal Saline 10 Ml Syringe IVF 10 ml PRN PRN Administration Saline Flush Topiramate 100 mg 11/11/20 21:00 11/14/20 08:03 Topiramate 100 Mg Tab PO 100 mg BID KAYKAY Administration - Exam General Appearance: NAD Neck: supple, no JVD Heart: RRR, no gallops Respiratory: no wheezes, no ronchi Gastrointestinal: soft, non-distended, normal bowel sounds Extremities: no cyanosis, no clubbing Neurological: no new deficit Psychiatric: normal affect, A&O x 3 Hosp A/P - Plan DVT proph w/SCDs Breakthrough seizures probably caused by hypotension History of hypertension Nadolol on hold due to hypotension History of seizure disorder Anxiety Hypothyroidism Macrocytosis CKD stage II History of folic acid deficiency History of migraines Plan: Will discontinue IV fluid after this bag. Continue carbamazepine, Keppra, Topamax and Celexa. Continue seizure precautions. DC in a.m. if stable. Continue other medications as above. Case discussed with neurology.
[2020-11-15] MEDS: HYDROcodone/Acetaminophen 5/325 mg Tablet PO PRN (01:12)
[2020-11-15 04:56] LABS: #Eosinphils 0.1 thou/uL (0.0-0.7); #Lymphocytes 1.1 thou/uL (1.20-3.40); #Monocytes 0.2 thou/uL (0.11-0.59); #Neutrophils 1.1 thou/uL (1.40-6.50); %Basophils 1.8 % (0.0-1.0); %Lymphocytes 42.8 % (21.0-51.0); %Monocytes 6.7 % (0.0-10.0); %Neutrophils 43.7 % (42.0-75.0); Hemoglobin 14.3 g/dL (12.0-16.0); Mean Corpuscular HGB CONC 35.1 g/dL (32.0-36.0); Mean Corpuscular Hemoglobin 35.4 pg (27.0-31.0); Mean Platelet Volume 7.7 fL (7.4-10.4); Platelet Count 215 thou/uL (130-400); RBC Distribution Width 11.2 % (11.5-14.5); Red Blood Cell (RBC) Count 4.04 mill/uL (4.20-5.40); White Blood Cell (WBC) Count 2.5 thou/uL (4.8-10.8)
[2020-11-15] MEDS: Lorazepam 2 MG/ML VIAL SLOW IVP PRN (05:05)
[2020-11-15 05:18] LABS: Anion Gap 13 mmol/L (10-20); BUN (Urea Nitrogen) 6 mg/dL (7.0-18.7); Calc. Creatinine Clearance 72 mL/min (70-130); Calcium 8.5 mg/dL (7.8-10.44); Carbon Dioxide 17 mmol/L (22-29); Chloride 111 mmol/L (98-107); Glucose 93 mg/dL (70-105); Magnesium 2.1 mg/dL (1.6-2.6); Phosphorus 4.4 mg/dL (2.3-4.7); Sodium 137 mmol/L (136-145)
[2020-11-15 07:19] VITALS: TEMP 98.2
[2020-11-15 09:31] VITALS: BP 94/57
[2020-11-15] MEDS: Topiramate 100 MG TAB PO SCH (09:33)
[2020-11-15] MEDS: levETIRAcetam 500 MG TAB PO SCH (09:33)
[2020-11-15] MEDS: Citalopram 20 MG TAB PO SCH (09:33)
[2020-11-15] MEDS: carBAMazepine 200 MG TAB PO SCH (09:33)
[2020-11-15] MEDS: Famotidine 20 MG TAB PO SCH (09:33)
[2020-11-15] MEDS: Multivit, Therapeutic 1 TAB PO SCH (09:33)
[2020-11-15] MEDS: Folic Acid 1 MG TAB PO SCH (09:33)
[2020-11-15] MEDS: Cyanocobalamin (Vitamin B-12) 1,000 MCG TAB PO SCH (09:33)
[2020-11-15] MEDS: Enoxaparin Sodium 40 MG/0.4 ML SYRINGE SC SCH (09:33)
--- NOTE | 2020-11-15 12:14 | PDOC.DS.DS ---
Provider - Provider Date of Admission: 11/13/20 09:36 Date of Discharge: 11/15/20 Admitting Provider: Nikolay Hoyos MD Consultations: Neurology Primary Care Physician: Unknown Course - Hospital Course Hospital Course: Patient is a 45-year-old female with seizure disorder presented to the emergency room with multiple episodes of seizure at home. There was no significant injuries reported. Please refer to the history and physical for further details. The patient was admitted to the hospital with a diagnosis of breakthrough seizures. She was started on IV Keppra along with carbamazepine and Topamax. Her Keppra level was less than 2 and a carbamazepine level was less than 1.9. Patient denies any noncompliance with medications. She was evaluated by neurology Dr. Wilkinson. EEG was negative for epileptiform activity. CT scan of the brain was negative. Per neurology the seizures were probably due to hypotension. Patient was advised to discontinue nadolol. Patient has been cleared by neurology for discharge. Final diagnosis: Breakthrough seizures probably caused by hypotension History of hypertension History of seizure disorder Anxiety Hypothyroidism Macrocytosis CKD stage II History of folic acid deficiency History of migraines - Labs Lab Results: 11/15/20 04:48 11/15/20 04:26 Abnormal Lab Results - Last 48 hrs 11/14/20 04:51: Chloride 111 H, Carbon Dioxide 19 L 11/14/20 04:51: RBC 3.81 L, MCV 99.8 H, MCH 34.0 H, RDW 11.3 L, Basophils % 1.9 H 11/15/20 04:26: Chloride 111 H, Carbon Dioxide 17 L, BUN 6 L 11/15/20 04:48: WBC 2.5 L, RBC 4.04 L, MCV 101.0 H, MCH 35.4 H, RDW 11.2 L, Baso phils % 1.8 H, Neutrophils # 1.1 L, Lymphocytes # 1.1 L - Physical Exam Vitals: Vital Signs (12 hours) Temp Pulse Resp BP BP Pulse Ox 11/15/20 09:30 94/57 L 11/15/20 07:14 98.2 F 65 16 77/51 L 98 11/15/20 03:49 97.8 F 75 18 102/70 99 Weight Admit Weight 122 lb Weight 122 lb Physical Exam: The patient was seen and examined on the day of discharge. Plan - Discharge Medications Home Medications: Medication Instructions Recorded Confirmed Type Topiramate 100 mg PO BID #60 tablet 02/20/18 11/11/20 Rx Citalopram [CeleXA] 20 mg PO DAILY 10/16/20 11/11/20 History carBAMazepine [Carbamazepine] 200 mg PO BID 10/16/20 11/11/20 History levETIRAcetam [Keppra] 2,000 mg PO BID 11/11/20 11/11/20 History Cyanocobalamin (Vitamin B-12) 1,000 mcg PO DAILY tab 11/15/20 Rx [Vitamin B-12] Folic Acid [Folvite] 1 mg PO DAILY tab 11/15/20 Rx Allergies: aspirin Allergy (Verified 05/09/20 03:33) Hives phenobarbital Allergy (Verified 05/09/20 03:33) - Discharge Instructions Discharge Instructions:: CBC after 1-2 weeks - PCP to arrange/follow - Follow up Plan Referrals: Quincy Gibbs MD [Active] - 10 Days Disposition: HOME Quality - Care Measures CORE MEASURES:: N/A
--- NOTE | 2020-11-18 08:57 | PQF ---
CLINICAL DOCUMENTATION CLARIFICATION FORM: Dear : Ron Funes Date / Time: 11/18/2020 Please exercise your independent, professional judgment in responding to the clarification form. Clinical indicators are provided on the bottom of this form for your review Please check appropriate box(s): [ ] Hypovolemic Shock [ ] [id number] Shock (please specify etiology) [ ] Shock Unspecified [ ] Other diagnosis, please specify [ x ] Unable to determine Physician Signature: Date/Time: For continuity of documentation, please document condition throughout progress notes and discharge summary. Thank You. To be completed by CDI/Coding staff for physician review: Present Clinical Indicators - Signs / Symptoms / Labs Results and Location in Medical Record [x] Breakthrough seizure probably caused by hypotension DS 11/15 [x] Complain of feeling dizzy PN 11/13 [x] Exam limited due to current mentation PN 11/13 [x] possible hypotension induced blackout with secondary seizure PN 11/12 [x] mild acidosis PN 11/12 [x] BP: 11/12=76/53 11/13=87/61 11/15=77/51 Vital Signs flowsheets 11/12 Present Risk Factors Results and Location in Medical Record [x] HTN DS 11/15 [x] Seizure disorder DS 11/15 [x] CKD stage 2 DS 11/15 Present Treatments Results and Location in Medical Record [x] Hold Nadolol DS 11/15 [x] Neurology Consult Consult 11/11 [x] IVF MAR 11/13 CDS/Chicken Dresser Signature:Minnie Cardenas Phone #: ext [phone] Date/Time:11/18/2020 This is a permanent part of the Medical Record [facility]
== END 2020-11-15 11:00 | disposition home or self-care (01) | DRG 101 ==
LOC: ERS 12:22 → 2SE 15:30 → OBSVTOIN 11-13 09:36
PROVIDERS: ADMIT Emergency Medicine; ATTEND Internal Medicine
DX: G40.909 Epilepsy, unspecified, not intractable, without status epilepticus (principal); E87.2 Acidosis; Z20.828 Contact with and (suspected) exposure to other viral communicable diseases; I95.9 Hypotension, unspecified; F32.9 Major depressive disorder, single episode, unspecified; E03.9 Hypothyroidism, unspecified; F41.9 Anxiety disorder, unspecified; D75.89 Other specified diseases of blood and blood-forming organs; N18.2 Chronic kidney disease, stage 2 (mild); G43.909 Migraine, unspecified, not intractable, without status migrainosus; E53.8 Deficiency of other specified B group vitamins; I12.9 Hypertensive chronic kidney disease with stage 1 through stage 4 chronic kidney disease, or unspecified chronic kidney disease; Z90.710 Acquired absence of both cervix and uterus; Z88.8 Allergy status to other drugs, medicaments and biological substances
CPT/HCPCS: 36415; 36416; 70450; 80048; 80053; 80156; 80177; 80306; 80307; 81003; 83735; 84100; 84146; 85025; 87635; 95816; 95819; 99285; J1650; J1953; J2060; J3480; U0003

== ENCOUNTER 2020-11-26 15:22 | Emergency (ER) | payer MEDICARE ==
[2020-11-26 16:42] LABS: Bilirubin Negative (Negative); Blood, Urine Negative (Negative); Clarity Clear (Clear); Glucose, Urine (Dipstick) Normal (Negative); Ketone, Urine Negative (Negative); Leukocyte Negative Leu/uL (Negative); Nitrite Negative (Negative); Protein, Urine (Dipstick) Negative (Neg-Trace); Specific Gravity, Urine 1.019 (1.002-1.036); Urobilinogen Normal mg/dL (Less than 2)
[2020-11-26 17:02] LABS: Carbamazepine-Tegretol 5.1 ug/mL (4.0-12.0)
[2020-11-26 17:04] LABS: BHCG - Serum Negative (NEGATIVE); Pregs Control Background? CLEAR/WHITE (CLR/WHITE); Pregs Control Bar Appear? YES (CONTROL BAR)
[2020-11-26 17:08] LABS: ALT (SGPT) 10 U/L (8-55); AST (SGOT) 20 U/L (5-34); Albumin 3.3 g/dL (3.5-5.0); Alkaline Phosphatase 98 U/L (40-110); Anion Gap 13 mmol/L (10-20); BUN (Urea Nitrogen) 5 mg/dL (7.0-18.7); Bilirubin, Total 0.3 mg/dL (0.2-1.2); Calc. Creatinine Clearance 0 mL/min (70-130); Calcium 7.2 mg/dL (7.8-10.44); Carbon Dioxide 17 mmol/L (22-29); Chloride 115 mmol/L (98-107); Globulin 2.8 g/dL (2.4-3.5); Glucose 82 mg/dL (70-105); Potassium 3.9 mmol/L (3.5-5.1); Protein, Total 6.1 g/dL (6.0-8.3); Sodium 141 mmol/L (136-145)
[2020-11-26 18:13] LABS: #Eosinphils 0.1 thou/uL (0.0-0.7); #Lymphocytes 1.7 thou/uL (1.20-3.40); #Monocytes 0.3 thou/uL (0.11-0.59); #Neutrophils 4.1 thou/uL (1.40-6.50); %Basophils 0.3 % (0.0-1.0); %Eosinophils 1.2 % (0.0-10.0); %Lymphocytes 27.1 % (21.0-51.0); %Monocytes 5.3 % (0.0-10.0); %Neutrophils 66.1 % (42.0-75.0); Hemoglobin 12.4 g/dL (12.0-16.0); Mean Corpuscular Hemoglobin 33.9 pg (27.0-31.0); Mean Corpuscular Volume 99.8 fL (78.0-98.0); Mean Platelet Volume 7.3 fL (7.4-10.4); Platelet Count 280 thou/uL (130-400); RBC Distribution Width 11.1 % (11.5-14.5); Red Blood Cell (RBC) Count 3.64 mill/uL (4.20-5.40); White Blood Cell (WBC) Count 6.1 thou/uL (4.8-10.8)
== END 2020-11-26 20:40 | disposition home or self-care (01) ==
LOC: ERS 15:22
DX: G40.909 Epilepsy, unspecified, not intractable, without status epilepticus (principal); G43.909 Migraine, unspecified, not intractable, without status migrainosus; Z79.899 Other long term (current) drug therapy
CPT/HCPCS: 80053; 80156; 81003; 83605; 84146; 84703; 85025; 99284

== ENCOUNTER 2020-12-15 19:23 | Emergency (ER) | payer MEDICARE ==
[2020-12-15] MEDS ORDERED: levETIRAcetam 500 MG/100 ML PREMIX BAG ONE (19:43)
[2020-12-15] MEDS ORDERED: levETIRAcetam in NS 100 ML ONE (19:44)
[2020-12-15 20:12] LABS: #Basophils 0.1 thou/uL (0.0-0.2); #Eosinphils 0.1 thou/uL (0.0-0.7); #Lymphocytes 1.6 thou/uL (1.20-3.40); #Monocytes 0.5 thou/uL (0.11-0.59); #Neutrophils 5.6 thou/uL (1.40-6.50); %Basophils 0.9 % (0.0-1.0); %Eosinophils 1.4 % (0.0-10.0); %Lymphocytes 20.1 % (21.0-51.0); %Monocytes 5.9 % (0.0-10.0); %Neutrophils 71.7 % (42.0-75.0); Hemoglobin 12.7 g/dL (12.0-16.0); Mean Corpuscular HGB CONC 33.5 g/dL (32.0-36.0); Mean Corpuscular Hemoglobin 32.8 pg (27.0-31.0); Mean Platelet Volume 7.6 fL (7.4-10.4); Platelet Count 247 thou/uL (130-400); RBC Distribution Width 10.9 % (11.5-14.5); Red Blood Cell (RBC) Count 3.88 mill/uL (4.20-5.40); White Blood Cell (WBC) Count 7.9 thou/uL (4.8-10.8)
[2020-12-15 20:31] LABS: ALT (SGPT) 17 U/L (8-55); AST (SGOT) 16 U/L (5-34); Albumin 3.8 g/dL (3.5-5.0); Alkaline Phosphatase 93 U/L (40-110); Anion Gap 12 mmol/L (10-20); BUN (Urea Nitrogen) 6 mg/dL (7.0-18.7); Bilirubin, Total 0.2 mg/dL (0.2-1.2); Calc. Creatinine Clearance 0 mL/min (70-130); Carbon Dioxide 22 mmol/L (22-29); Chloride 108 mmol/L (98-107); Globulin 2.6 g/dL (2.4-3.5); Glucose 99 mg/dL (70-105); Potassium 3.5 mmol/L (3.5-5.1); Protein, Total 6.4 g/dL (6.0-8.3); Sodium 138 mmol/L (136-145)
== END 2020-12-15 22:25 | disposition home or self-care (01) ==
LOC: ERS 19:23
DX: G40.909 Epilepsy, unspecified, not intractable, without status epilepticus (principal); Z79.899 Other long term (current) drug therapy
CPT/HCPCS: 36415; 80053; 84146; 85025; 96365; J1953

== ENCOUNTER 2020-12-23 10:35 | Inpatient (IN) | payer MEDICARE ==
[2020-12-23 11:42] LABS: #Eosinphils 0.1 thou/uL (0.0-0.7); #Lymphocytes 1.3 thou/uL (1.20-3.40); #Monocytes 0.3 thou/uL (0.11-0.59); #Neutrophils 3.3 thou/uL (1.40-6.50); %Basophils 0.1 % (0.0-1.0); %Eosinophils 1.4 % (0.0-10.0); %Lymphocytes 26.1 % (21.0-51.0); %Monocytes 6.7 % (0.0-10.0); %Neutrophils 65.6 % (42.0-75.0); Hemoglobin 13.2 g/dL (12.0-16.0); Mean Corpuscular HGB CONC 33.4 g/dL (32.0-36.0); Mean Corpuscular Volume 98.9 fL (78.0-98.0); Mean Platelet Volume 7.5 fL (7.4-10.4); Platelet Count 260 thou/uL (130-400)
--- NOTE | 2020-12-23 11:53 | CT ---
Head CT without contrast 12/23/2020: COMPARISON: 11/02/2020 HISTORY: Headache, seizures TECHNIQUE: Axial CT imaging at 5 mm intervals from vertex through skull base without contrast FINDINGS: This study is degraded by motion artifact. Paranasal sinuses and mastoid air cells grossly unremarkable. No displaced calvarial fracture. No intracranial hemorrhage, midline shift, mass effect, or ventricular enlargement. IMPRESSION: No acute findings.
[2020-12-23 12:06] LABS: ALT (SGPT) 9 U/L (8-55); AST (SGOT) 12 U/L (5-34); Albumin 3.8 g/dL (3.5-5.0); Alkaline Phosphatase 88 U/L (40-110); Anion Gap 13 mmol/L (10-20); BUN (Urea Nitrogen) 5 mg/dL (7.0-18.7); Bilirubin, Total 0.3 mg/dL (0.2-1.2); Calc. Creatinine Clearance 0 mL/min (70-130); Calcium 8.3 mg/dL (7.8-10.44); Carbon Dioxide 21 mmol/L (22-29); Chloride 110 mmol/L (98-107); Globulin 2.6 g/dL (2.4-3.5); Glucose 86 mg/dL (70-105); Potassium 3.5 mmol/L (3.5-5.1); Protein, Total 6.4 g/dL (6.0-8.3); Sodium 140 mmol/L (136-145)
[2020-12-23 13:03] LABS: CKMB 1.2 ng/mL (0-6.6)
[2020-12-23 13:24] LABS: Bilirubin Negative (Negative); Blood, Urine Negative (Negative); Clarity Clear (Clear); Glucose, Urine (Dipstick) Normal (Negative); Ketone, Urine Negative (Negative); Leukocyte Negative Leu/uL (Negative); Nitrite Negative (Negative); Protein, Urine (Dipstick) Negative (Neg-Trace); Specific Gravity, Urine 1.014 (1.002-1.036); Urobilinogen Normal mg/dL (Less than 2); pH, Urine 5.5 (5.0-9.0)
[2020-12-23] MEDS ORDERED: Promethazine HCl 25 MG/ML VIAL ONE (13:31)
[2020-12-23] MEDS ORDERED: Midazolam HCl 2 mg/2 ml Vial ONE (15:08)
[2020-12-23] MEDS ORDERED: levETIRAcetam in NS 200 ML ONE (15:13)
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
[2020-12-23 16:21] LABS: SARS-CoV-2 PCR by NAA Not Detected (NotDetected)
[2020-12-23] MEDS ORDERED: Lorazepam 2 MG/ML VIAL SLOW IVP PRN (17:56)
[2020-12-23 18:46] LABS: Carbamazepine-Tegretol Less than 1.9 ug/mL (4.0-12.0)
--- NOTE | 2020-12-23 19:27 | PDOC.EEG ---
Neurology EEG Report - Report Report: This EEG was performed using 24 channel [employer] video EEG machine with 24 disc sergio ctrodes. This was an extended 2 hours 9 minutes of inpatient video EEG recording. Digital analysis of the EEG was done for spike and seizure detection which revealed no abnormalities. Background: The posterior background rhythm is not observed. Excessive beta activity seen intermixed with the recording. Hyperventilation: Not performed. Photic Stimulation: No significant response. Sleep: No stage change is observed. EEG Diagnosis: Generalized irregular theta delta activity seen during the recording. Absence of posterior background rhythm. Clinical Interpretation: This EEG is consistent with moderate generalized nonspecific cerebral dysfunction. No electrographic seizures captured during the recording
[2020-12-24] MEDS: levETIRAcetam 500 MG TAB PO SCH ×3 (00:29→19:53)
[2020-12-24] MEDS: Topiramate 100 MG TAB PO SCH ×3 (00:30→19:54)
[2020-12-24] MEDS: carBAMazepine 200 MG TAB PO SCH ×3 (00:30→19:53)
[2020-12-24 01:24] VITALS: BMI 18.3
[2020-12-24 06:05] LABS: Amphetamine Not Detected (NotDetected); Barbiturates Screen Detected (NotDetected); Benzodiazepine Screen Detected (NotDetected); Cocaine Metabolite Screen Not Detected (NotDetected); Medtox Control Line Valid? VALID (VALID); Medtox Reader # READER 4; Methadone Not Detected (NotDetected); Methamphetamine Not Detected (NotDetected); Opiate Screen Not Detected (NotDetected); Oxycodone Screen Not Detected (NotDetected); Phencyclidine (PCP) Not Detected (NotDetected); THC/Cannabinoid Screen Not Detected (NotDetected); Tricyclic Screen Not Detected (NotDetected)
[2020-12-24] MEDS: Cyanocobalamin (Vitamin B-12) 1,000 MCG TAB PO SCH (09:54)
[2020-12-24] MEDS: Citalopram 20 MG TAB PO SCH (09:55)
[2020-12-24] MEDS: Folic Acid 1 MG TAB PO SCH (09:55)
[2020-12-24] MEDS ORDERED: Scopolamine 1.5 mg/72 hour Patch TOP SCH (12:45)
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
--- NOTE | 2020-12-24 13:50 | PDOC.HOSPP ---
- Subjective Encounter Date: 12/24/20 Subjective: No further seizure episodes. The patient is complaining of nausea, vomiting, and diarrhea. - Objective Vital Signs & Weight: Vital Signs (12 hours) Temp Pulse Resp BP Pulse Ox 12/24/20 11:55 98.7 F 58 L 18 99/63 99 12/24/20 08:15 97.9 F 62 16 94/50 L 98 12/24/20 04:00 97.6 F 58 L 14 98/59 L 96 Weight Weight 117 lb I&O: 12/23/20 12/24/20 12/25/20 06:59 06:59 06:59 Intake Total 335 Output Total 300 Balance 35 Result Diagrams: 12/23/20 11:31 12/23/20 11:31 Hospitalist ROS - Medication Medications: Active Medications Generic Name Dose Route Start Last Admin Trade Name Freq PRN Reason Stop Dose Admin Carbamazepine 200 mg 12/23/20 21:00 12/24/20 09:55 Carbamazepine 200 Mg Tab PO 200 mg BID KAYKAY Administration Citalopram Hydrobromide 20 mg 12/24/20 09:00 12/24/20 09:55 Citalopram 20 Mg Tab PO 20 mg DAILY KAYKAY Administration Cyanocobalamin 1,000 mcg 12/24/20 09:00 12/24/20 09:54 Cyanocobalamin (Vitamin B-12) 1,000 Mcg Tab PO 1,000 mcg DAILY KAYKAY Administration Folic Acid 1 mg 12/24/20 09:00 12/24/20 09:55 Folic Acid 1 Mg Tab PO 1 mg DAILY KAYKAY Administration Levetiracetam 2,000 mg 12/23/20 21:00 12/24/20 09:55 Levetiracetam 500 Mg Tab PO 2,000 mg BID KAYKAY Administration Scopolamine 1.5 mg 12/24/20 12:45 12/24/20 12:46 Scopolamine 1.5 Mg/72 Hour Patch TOP 12/24/20 16:00 1.5 mg NOW KAYKAY Administration Topiramate 100 mg 12/23/20 21:00 12/24/20 09:55 Topiramate 100 Mg Tab PO 100 mg BID KAYKAY Administration Hospitalist Exam Vitals: Vital Signs (12 hours) Temp Pulse Resp BP Pulse Ox 12/24/20 11:55 98.7 F 58 L 18 99/63 99 12/24/20 08:15 97.9 F 62 16 94/50 L 98 12/24/20 04:00 97.6 F 58 L 14 98/59 L 96 Weight Weight 117 lb General Appearance: awake alert Neck: supple Heart: RRR Respiratory: normal chest expansion, no tachypnea Extremities: no cyanosis, no clubbing Neurological: cranial nerve grossly intact Hosp A/P (1) Seizure disorder Code(s): G40.909 - EPILEPSY, UNSP, NOT INTRACTABLE, WITHOUT STATUS EPILEPTICUS Status: Acute (2) Dehydration Code(s): E86.0 - DEHYDRATION Status: Acute (3) Gastroenteritis Code(s): K52.9 - NONINFECTIVE GASTROENTERITIS AND COLITIS, UNSPECIFIED Status: Acute (4) Migraines Code(s): G43.909 - MIGRAINE, UNSP, NOT INTRACTABLE, WITHOUT STATUS MIGRAINOSUS Status: Acute - Plan No further seizure episodes were noted. It is unclear if the patient seizures are real versus psychogenic. She told me she has been having nausea, vomiting, and diarrhea over the past few days. She was not able to tolerate her seizure medications. This could have been the trigger of the current event. Resume her antiepileptic medications. The patient is feeling dizzy and her blood pressure is soft. I will start a bolus of NS and continue at 100 cc/h. Scopolamine patch for nausea.
[2020-12-24] MEDS ORDERED: Sodium Chloride 0.9% 500 ML IV SCH (14:00)
[2020-12-24] MEDS: Sodium Chloride 0.9% 1,000 ML IV SCH (16:00)
[2020-12-25] MEDS: Sodium Chloride 0.9% 1,000 ML IV SCH ×2 (07:10→13:17)
[2020-12-25] MEDS: levETIRAcetam 500 MG TAB PO SCH ×2 (09:56→21:29)
[2020-12-25] MEDS: carBAMazepine 200 MG TAB PO SCH ×2 (09:57→21:29)
[2020-12-25] MEDS: Cyanocobalamin (Vitamin B-12) 1,000 MCG TAB PO SCH (09:57)
[2020-12-25] MEDS: Topiramate 100 MG TAB PO SCH ×2 (09:57→21:29)
[2020-12-25] MEDS: Citalopram 20 MG TAB PO SCH (09:57)
[2020-12-25] MEDS: Folic Acid 1 MG TAB PO SCH (09:57)
[2020-12-25] MEDS ORDERED: ACETAMINOPHEN PO PRN (12:03)
[2020-12-25] MEDS ORDERED: OXYCODONE HCL PO PRN (12:03)
[2020-12-25] MEDS ORDERED: [UNRECOGNIZED DRUG - OTHER] PO PRN (12:03)
--- NOTE | 2020-12-25 12:08 | PDOC.HOSPP ---
- Subjective Subjective: continues not to feel good, having migraines. - Objective Vital Signs & Weight: Vital Signs (12 hours) Temp Pulse Resp BP Pulse Ox 12/25/20 08:00 98 12/25/20 07:50 97.6 F 63 18 108/61 98 12/25/20 04:00 97.9 F 64 16 99/59 L 97 Weight Admit Weight 117 lb Weight 117 lb I&O: 12/24/20 12/25/20 12/26/20 06:59 06:59 06:59 Intake Total 335 1155 Output Total 300 Balance 35 1155 Result Diagrams: 12/23/20 11:31 12/23/20 11:31 Hospitalist ROS - Medication Medications: Active Medications Generic Name Dose Route Start Last Admin Trade Name Freq PRN Reason Stop Dose Admin Carbamazepine 200 mg 12/23/20 21:00 12/25/20 09:57 Carbamazepine 200 Mg Tab PO 200 mg BID KAYKAY Administration Citalopram Hydrobromide 20 mg 12/24/20 09:00 12/25/20 09:57 Citalopram 20 Mg Tab PO 20 mg DAILY KAYKAY Administration Cyanocobalamin 1,000 mcg 12/24/20 09:00 12/25/20 09:57 Cyanocobalamin (Vitamin B-12) 1,000 Mcg Tab PO 1,000 mcg DAILY KAYKAY Administration Folic Acid 1 mg 12/24/20 09:00 12/25/20 09:57 Folic Acid 1 Mg Tab PO 1 mg DAILY KAYKAY Administration Sodium Chloride 1,000 mls @ 100 mls/hr 12/24/20 14:00 12/25/20 07:10 Normal Saline 0.9% IV 1,000 mls .Q10H KAYKAY Administration Levetiracetam 2,000 mg 12/23/20 21:00 12/25/20 09:56 Levetiracetam 500 Mg Tab PO 2,000 mg BID KAYKAY Administration Topiramate 100 mg 12/23/20 21:00 12/25/20 09:57 Topiramate 100 Mg Tab PO 100 mg BID KAYKAY Administration Hospitalist Exam Vitals: Vital Signs (12 hours) Temp Pulse Resp BP Pulse Ox 12/25/20 08:00 98 12/25/20 07:50 97.6 F 63 18 108/61 98 12/25/20 04:00 97.9 F 64 16 99/59 L 97 Weight Admit Weight 117 lb Weight 117 lb General Appearance: NAD, awake alert Eye: PERRL, anicteric sclera ENT: normocephalic atraumatic, no oropharyngeal lesions Neck: supple, symmetric, no JVD Heart: no murmur, no gallops, no rubs Respiratory: CTAB, no wheezes, no rales, no ronchi Gastrointestinal: soft, non-tender, non-distended, normal bowel sounds Extremities: no cyanosis, no clubbing, no edema Skin: normal turgor, no lesions Neurological: cranial nerve grossly intact, normal sensation to touch, no focal deficits Hosp A/P (1) Anxiety Code(s): F41.9 - ANXIETY DISORDER, UNSPECIFIED Status: Acute (2) Migraines Code(s): G43.909 - MIGRAINE, UNSP, NOT INTRACTABLE, WITHOUT STATUS MIGRAINOSUS Status: Acute (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 Status: Acute (4) Seizure disorder Code(s): G40.909 - EPILEPSY, UNSP, NOT INTRACTABLE, WITHOUT STATUS EPILEPTICUS Status: Acute - Plan she is on IVF for her low normal BP, I did review her previous records and she does have low normal BP usually. I will check for orthostatics. I will resume her home migraine regimen an possibly discharging her in am.
[2020-12-25] MEDS ORDERED: oxyCODONE/Acetaminophen 5 mg/325 mg Tablet PO PRN (12:36)
[2020-12-25] MEDS: Fioricet 325/50/40 mg Tablet PO SCH ×2 (13:18→21:30)
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
[2020-12-26] MEDS: Sodium Chloride 0.9% 1,000 ML IV SCH ×2 (02:00→13:17)
[2020-12-26 05:35] LABS: Anion Gap 13 mmol/L (10-20); BUN (Urea Nitrogen) 4 mg/dL (7.0-18.7); Calc. Creatinine Clearance 74 mL/min (70-130); Calcium 8.3 mg/dL (7.8-10.44); Carbon Dioxide 16 mmol/L (22-29); Chloride 114 mmol/L (98-107); Glucose 96 mg/dL (70-105); Potassium 4.1 mmol/L (3.5-5.1); Sodium 139 mmol/L (136-145)
[2020-12-26] MEDS: Fioricet 325/50/40 mg Tablet PO SCH ×2 (06:31→14:50)
--- NOTE | 2020-12-26 09:00 | PDOC.DS.DS ---
Provider Date of Admission: 12/24/20 14:07 Date of Discharge: 12/26/20 Admitting Provider: Kaylene Lewis MD Consultations: Neurology Primary Care Physician: Unknown Course Hospital Course: Patient is known to have seizures and psychogenic seizures, presented with uncontrolled seizures, in the ER she receive IV Ativan and was started on IV Keppra, she was admitted to the Neuro floor. Since her admission she was maintained on her home regimen and she did not have any more episodes of seizures, she was seen by Neurology and an EEG was done that showed no evidence of seizure activity. Her BP was soft, I did review her previous admission and it seems that it can be on the low side, we checked her orthostatic reading and she was not orthostatic, meanwhile she was being hydrated with IVF. She will be discharged to follow-up with Dr Gibbs in couple of weeks, she never drives due to her chronic condition, she does have a mediport in her right shoulder that is used by Dr Gibbs. Lab Results: 12/23/20 11:31 12/26/20 04:53 Abnormal Lab Results - Last 48 hrs 12/26/20 04:53: Chloride 114 H, Carbon Dioxide 16 L, BUN 4 L Vitals: Vital Signs (12 hours) Temp Pulse Resp BP BP Pulse Ox 12/26/20 08:00 98.2 F 54 L 15 101/52 L 97 12/26/20 03:26 98.2 F 50 L 18 96/52 L 97 12/25/20 23:45 98.4 F 56 L 16 105/57 L 98 12/25/20 21:30 99 Weight Admit Weight 117 lb Weight 117 lb Physical Exam: The patient was seen and examined on the day of discharge. General Appearance: NAD Eye: PERRL, anicteric sclera ENT: normocephalic atraumatic, no oropharyngeal lesions Neck: supple, symmetric, no JVD, no thyromegaly Respiratory: CTAB, no wheezes, no rales, no ronchi, normal chest expansion Cardiovascular: RRR, no murmur, no gallops, no rubs Gastrointestinal: soft, non-tender, non-distended, normal bowel sounds, no palpable masses Extremities: no cyanosis, no clubbing, no edema Skin: normal turgor, no lesions, no rashes Neurological: cranial nerve grossly intact, normal sensation to touch, no weakness Musculoskeletal: normal tone, normal strength, no muscle wasting PSYCH: normal affect, normal behavior, A&O x 3 Problem (1) Anxiety Code(s): F41.9 - ANXIETY DISORDER, UNSPECIFIED Status: Acute (2) Migraines Code(s): G43.909 - MIGRAINE, UNSP, NOT INTRACTABLE, WITHOUT STATUS MIGRAINOSUS Status: Acute (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 Status: Acute (4) Seizure disorder Code(s): G40.909 - EPILEPSY, UNSP, NOT INTRACTABLE, WITHOUT STATUS EPILEPTICUS Status: Acute Plan Home Medications: Medication Instructions Recorded Confirmed Type Topiramate 100 mg PO BID #60 tablet 02/20/18 12/24/20 Rx Citalopram [CeleXA] 20 mg PO DAILY 10/16/20 12/24/20 History carBAMazepine [Carbamazepine] 200 mg PO BID 10/16/20 12/24/20 History levETIRAcetam [Keppra] 1,000 mg PO BID 11/11/20 12/24/20 History Cyanocobalamin (Vitamin B-12) 1,000 mcg PO DAILY tab 11/15/20 12/24/20 Rx [Vitamin B-12] Folic Acid [Folvite] 1 mg PO DAILY tab 11/15/20 12/24/20 Rx ALPRAZolam [Xanax] 1 mg PO BID 12/24/20 12/24/20 History Butalb/Acetaminophen/Caffeine 1 tablet PO Q8HR 12/25/20 12/25/20 History [Butalb/Acetaminophen/Caffeine 50/325/40] Zolpidem Tartrate 10 mg PO QPM 12/25/20 12/25/20 History oxyCODONE HCl/Acetaminophen 1 each PO DAILY PRN 12/25/20 12/25/20 History [Oxycodon-Acetaminophen 7.5-325] Allergies: aspirin Allergy (Verified 05/09/20 03:33) Hives phenobarbital Allergy (Verified 05/09/20 03:33) Discharge Instructions:: follow up with Dr Brandon in 2 weeks. Activity:: Activity as Tolerated Referrals: Unknown,Unknown [Primary Care Provider] - Disposition: HOME Quality CORE MEASURES:: N/A Treatment - Orders Orders: Orders 12/23/20 EPILEPTIC SPIKE ANALYSIS Routine 12/23/20 11:17 CT Brain WO Con Stat 12/23/20 11:31 CBC with Differential Stat Comprehensive Metabolic Panel Stat Magnesium Stat Troponin - I w/ Reflex to [facility] Stat 12/23/20 11:38 Coronavirus (COVID-19) by JUAN Stat 12/23/20 13:10 Urinalysis w/ Rflx Microscopic Stat 12/23/20 13:13 Service: Stroke ROUTINE Status: Observation ROUTINE 12/23/20 13:14 Consult: Neurology Routine 12/23/20 13:31 Promethazine HCl [Phenergan] 25 mg .ROUTE .STK-MED ONE 12/23/20 13:33 EKG 12 Lead in Emergency Room Stat 12/23/20 15:08 Ammonia Inhalant 1 each .ROUTE .STK-MED ONE Midazolam HCl [Versed] 2 mg .ROUTE .STK-MED ONE 12/23/20 15:13 Ammonia Inhalant 1 each .ROUTE .STK-MED ONE levETIRAcetam in NS [Keppra] 200 ml .ROUTE .STK-MED 12/23/20 15:16 EEG Routine Stat 12/23/20 Dinner Diet: Regular Diet 12/23/20 17:56 Lorazepam [Ativan] 2 mg SLOW IVP Q15MIN PRN Continuous Cardiac Monitoring CONTINUOUS Notify Provider: specify SEEPHYS Safety Precaution: Seizure Routine 12/23/20 17:57 Neuro Checks Q4Hr Q4HR 12/23/20 18:08 Carbamazepine-Tegratol Routine Keppra [Levetiracetam/Keppra] Routine Topiramate (Topamax) Routine Troponin - I w/ Reflex to [facility] Routine 12/23/20 21:00 Topiramate [Topiramate] Topiramate [Topamax] carBAMazepine [Tegretol] 200 mg PO BID levETIRAcetam [Keppra] levETIRAcetam [Keppra] 12/24/20 04:25 Thyroid Stimulating Hormone AM RUN 12/24/20 05:40 Drug Screen, Urine Stat 12/24/20 09:00 Citalopram [CeleXA] 20 mg PO DAILY Cyanocobalamin (Vitamin B-12) [Vitamin B-12] 1,000 mcg PO DAILY Folic Acid [Folvite] 1 mg PO DAILY 12/24/20 11:51 Consult: Neurology Routine 12/24/20 12:45 Scopolamine [Transderm Scop] 1.5 mg TOP NOW 12/24/20 14:00 Sodium Chloride 0.9% [Normal Saline 0.9%] 1,000 ml IV 100 mls/hr Sodium Chloride 0.9% [Normal Saline 0.9%] 500 ml IV 999 mls/hr 12/24/20 14:07 Status: InpatientAcute ROUTINE 12/25/20 12:36 oxyCODONE /Acetaminophen [Percocet 5/325] 1 tab PO DAILYPRN PRN 12/25/20 12:45 Sodium Chloride 0.9% [Flush - Normal Saline] 10 ml IVF PRN PRN 12/25/20 14:00 Butalbital/Acetaminophen/Caffe [Fioricet] 1 tab PO Q8HR 12/25/20 21:00 Sodium Chloride 0.9% [Flush - Normal Saline] 10 ml IVF Q12HR 12/26/20 04:53 BMP [Basic Metabolic Panel] AM RUN 12/26/20 08:54 Discharge Patient SEEPHYS - Labs Labs: Laboratory 12/26/20 12/24/20 12/24/20 04:53 05:40 04:25 WBC RBC Hgb Hct MCV MCH MCHC RDW Plt Count MPV Neutrophils % Lymphocytes % Monocytes % Eosinophils % Basophils % Neutrophils # Lymphocytes # Monocytes # Eosinophils # Basophils # Sodium 139 mmol/L mmol/L (136-145) Potassium 4.1 mmol/L mmol/L (3.5-5.1) Chloride 114 mmol/L H mmol/L (98-107) Carbon Dioxide 16 mmol/L L mmol/L (22-29) Anion Gap 13 mmol/L mmol/L (10-20) BUN 4 mg/dL L mg/dL (7.0-18.7) Creatinine 0.79 mg/dL mg/dL (0.6-1.1) Estimated GFR (MDRD) 78 Glucose 96 mg/dL mg/dL (70-105) Calcium 8.3 mg/dL mg/dL (7.8-10.44) Magnesium Total Bilirubin AST ALT Alkaline Phosphatase CK-MB (CK-2) Troponin I Serum Total Protein Albumin Globulin Albumin/Globulin Ratio TSH 3rd Generation 3.2407 uIU/mL uIU/mL (0.35-4.94) Urine Color Urine Clarity Urine pH Ur Specific Earle Urine Protein Urine Glucose (UA) Urine Ketones Urine Blood Urine Nitrite Urine Bilirubin Urine Urobilinogen Ur Leukocyte Esterase Urine Opiates Screen Not Detected (NotDetected) Ur Oxycodone Screen Not Detected (NotDetected) Urine Methadone Screen Not Detected (NotDetected) Ur Propoxyphene Screen Not Detected (NotDetected) Ur Barbiturates Screen Detected H (NotDetected) Carbamazepine Ur Tricyclics Screen Not Detected (NotDetected) Levetiracetam Ur Phencyclidine Scrn Not Detected (NotDetected) Ur Amphetamines Screen Not Detected (NotDetected) U Methamphetamines Scrn Not Detected (NotDetected) U Benzodiazepines Scrn Detected H (NotDetected) U Cocaine Metab Screen Not Detected (NotDetected) U Cannabinoids Screen Not Detected (NotDetected) Drug Screen Comment () SARS CoV-2 Rapid Source SARS-CoV-2 RNA (JUAN) 12/23/20 12/23/20 12/23/20 18:08 18:08 18:08 WBC RBC Hgb Hct MCV MCH MCHC RDW Plt Count MPV Neutrophils % Lymphocytes % Monocytes % Eosinophils % Basophils % Neutrophils # Lymphocytes # Monocytes # Eosinophils # Basophils # Sodium Potassium Chloride Carbon Dioxide Anion Gap BUN Creatinine Estimated GFR (MDRD) Glucose Calcium Magnesium Total Bilirubin AST ALT Alkaline Phosphatase CK-MB (CK-2) Troponin I 0.026 ng/mL ng/mL (< 0.028) Serum Total Protein Albumin Globulin Albumin/Globulin Ratio TSH 3rd Generation Urine Color Urine Clarity Urine pH Ur Specific Earle Urine Protein Urine Glucose (UA) Urine Ketones Urine Blood Urine Nitrite Urine Bilirubin Urine Urobilinogen Ur Leukocyte Esterase Urine Opiates Screen Ur Oxycodone Screen Urine Methadone Screen Ur Propoxyphene Screen Ur Barbiturates Screen Carbamazepine Less than 1.9 ug/mL L ug/mL (4.0-12.0) Ur Tricyclics Screen Levetiracetam 46.4 ug/mL ug/mL (2.0-100.0) Ur Phencyclidine Scrn Ur Amphetamines Screen U Methamphetamines Scrn U Benzodiazepines Scrn U Cocaine Metab Screen U Cannabinoids Screen Drug Screen Comment SARS CoV-2 Rapid Source SARS-CoV-2 RNA (JUAN) 12/23/20 12/23/20 12/23/20 13:10 11:38 11:31 WBC RBC Hgb Hct MCV MCH MCHC RDW Plt Count MPV Neutrophils % Lymphocytes % Monocytes % Eosinophils % Basophils % Neutrophils # Lymphocytes # Monocytes # Eosinophils # Basophils # Sodium Potassium Chloride Carbon Dioxide Anion Gap BUN Creatinine Estimated GFR (MDRD) Glucose Calcium Magnesium Total Bilirubin AST ALT Alkaline Phosphatase CK-MB (CK-2) 1.2 ng/mL ng/mL (0-6.6) Troponin I 0.046 ng/mL H ng/mL (< 0.028) Serum Total Protein Albumin Globulin Albumin/Globulin Ratio TSH 3rd Generation Urine Color Light-Yellow (Yellow) Urine Clarity Clear (Clear) Urine pH 5.5 (5.0-9.0) Ur Specific Earle 1.014 (1.002-1.036) Urine Protein Negative mg/dL mg/dL (Neg-Trace) Urine Glucose (UA) Normal mg/dL mg/dL (Negative) Urine Ketones Negative mg/dL mg/dL (Negative) Urine Blood Negative (Negative) Urine Nitrite Negative (Negative) Urine Bilirubin Negative (Negative) Urine Urobilinogen Normal mg/dL mg/dL (Less than 2) Ur Leukocyte Esterase Negative Brock/uL Brock/uL (Negative) Urine Opiates Screen Ur Oxycodone Screen Urine Methadone Screen Ur Propoxyphene Screen Ur Barbiturates Screen Carbamazepine Ur Tricyclics Screen Levetiracetam Ur Phencyclidine Scrn Ur Amphetamines Screen U Methamphetamines Scrn U Benzodiazepines Scrn U Cocaine Metab Screen U Cannabinoids Screen Drug Screen Comment SARS CoV-2 Rapid Source Nasopharyngeal Swab SARS-CoV-2 RNA (JUAN) Not Detected (NotDetected) 12/23/20 12/23/20 11:31 11:31 WBC 5.0 thou/uL thou/uL (4.8-10.8) RBC 4.00 mill/uL L mill/uL (4.20-5.40) Hgb 13.2 g/dL g/dL (12.0-16.0) Hct 39.6 % % (36.0-47.0) MCV 98.9 fL H fL (78.0-98.0) MCH 33.0 pg H pg (27.0-31.0) MCHC 33.4 g/dL g/dL (32.0-36.0) RDW 11.0 % L % (11.5-14.5) Plt Count 260 thou/uL thou/uL (130-400) MPV 7.5 fL fL (7.4-10.4) Neutrophils % 65.6 % % (42.0-75.0) Lymphocytes % 26.1 % % (21.0-51.0) Monocytes % 6.7 % % (0.0-10.0) Eosinophils % 1.4 % % (0.0-10.0) Basophils % 0.1 % % (0.0-1.0) Neutrophils # 3.3 thou/uL thou/uL (1.40-6.50) Lymphocytes # 1.3 thou/uL thou/uL (1.20-3.40) Monocytes # 0.3 thou/uL thou/uL (0.11-0.59) Eosinophils # 0.1 thou/uL thou/uL (0.0-0.7) Basophils # 0.0 thou/uL thou/uL (0.0-0.2) Sodium 140 mmol/L mmol/L (136-145) Potassium 3.5 mmol/L mmol/L (3.5-5.1) Chloride 110 mmol/L H mmol/L (98-107) Carbon Dioxide 21 mmol/L L mmol/L (22-29) Anion Gap 13 mmol/L mmol/L (10-20) BUN 5 mg/dL L mg/dL (7.0-18.7) Creatinine 0.83 mg/dL mg/dL (0.6-1.1) Estimated GFR (MDRD) 74 Glucose 86 mg/dL mg/dL (70-105) Calcium 8.3 mg/dL mg/dL (7.8-10.44) Magnesium 2.0 mg/dL mg/dL (1.6-2.6) Total Bilirubin 0.3 mg/dL mg/dL (0.2-1.2) AST 12 U/L U/L (5-34) ALT 9 U/L U/L (8-55) Alkaline Phosphatase 88 U/L U/L (40-110) CK-MB (CK-2) Troponin I Serum Total Protein 6.4 g/dL g/dL (6.0-8.3) Albumin 3.8 g/dL g/dL (3.5-5.0) Globulin 2.6 g/dL g/dL (2.4-3.5) Albumin/Globulin Ratio 1.5 g/dL g/dL (1.2-2.2) TSH 3rd Generation Urine Color Urine Clarity Urine pH Ur Specific Earle Urine Protein Urine Glucose (UA) Urine Ketones Urine Blood Urine Nitrite Urine Bilirubin Urine Urobilinogen Ur Leukocyte Esterase Urine Opiates Screen Ur Oxycodone Screen Urine Methadone Screen Ur Propoxyphene Screen Ur Barbiturates Screen Carbamazepine Ur Tricyclics Screen Levetiracetam Ur Phencyclidine Scrn Ur Amphetamines Screen U Methamphetamines Scrn U Benzodiazepines Scrn U Cocaine Metab Screen U Cannabinoids Screen Drug Screen Comment SARS CoV-2 Rapid Source SARS-CoV-2 RNA (JUAN) Lab Diagram 12/23/20 11:31 12/26/20 04:53 Result Diagrams: 12/23/20 11:31 12/26/20 04:53 - Medications Medications: Current Medications Generic Name Dose Route Start Last Admin Trade Name Freq PRN Reason Stop Dose Admin Acetaminophen/Butalbital/Caffeine 1 tab 12/25/20 14:00 12/26/20 06:31 Fioricet 325/50/40 Mg Tablet PO 12/30/20 14:01 1 tab Q8HR KAYKAY Administration Carbamazepine 200 mg 12/23/20 21:00 12/25/20 21:29 Carbamazepine 200 Mg Tab PO 200 mg BID KAYKAY Administration Citalopram Hydrobromide 20 mg 12/24/20 09:00 12/25/20 09:57 Citalopram 20 Mg Tab PO 20 mg DAILY KAYKAY Administration Cyanocobalamin 1,000 mcg 12/24/20 09:00 12/25/20 09:57 Cyanocobalamin (Vitamin B-12) 1,000 Mcg Tab PO 1,000 mcg DAILY KAYKAY Administration Folic Acid 1 mg 12/24/20 09:00 12/25/20 09:57 Folic Acid 1 Mg Tab PO 1 mg DAILY KAYKAY Administration Sodium Chloride 1,000 mls @ 100 mls/hr 12/24/20 14:00 12/26/20 02:00 Normal Saline 0.9% IV 1,000 mls .Q10H KAYKAY Administration Levetiracetam 2,000 mg 12/23/20 21:00 12/25/20 21:29 Levetiracetam 500 Mg Tab PO 2,000 mg BID KAYKAY Administration Lorazepam 2 mg 12/23/20 17:56 Lorazepam 2 Mg/Ml Vial SLOW IVP Q15MIN PRN Seizures Oxycodone/Acetaminophen 1 tab 12/25/20 12:36 Oxycodone/Acetaminophen 5 Mg/325 Mg Tablet PO DAILYPRN PRN Pain Sodium Chloride 10 ml 12/25/20 21:00 12/25/20 21:29 Flush - Normal Saline 10 Ml Syringe IVF 10 ml Q12HR KAYKAY Administration Sodium Chloride 10 ml 12/25/20 12:45 Flush - Normal Saline 10 Ml Syringe IVF PRN PRN Saline Flush Topiramate 100 mg 12/23/20 21:00 12/25/20 21:29 Topiramate 100 Mg Tab PO 100 mg BID KAYKAY Administration Discontinued Medications Generic Name Dose Route Start Last Admin Trade Name Freq PRN Reason Stop Dose Admin Ammonia (Aromatic Spirit) Confirm 12/23/20 15:08 Ammonia Inhalant 1 Each Administered 12/23/20 15:09 Dose 1 each .ROUTE .STK-MED ONE Ammonia (Aromatic Spirit) Confirm 12/23/20 15:13 Ammonia Inhalant 1 Each Administered 12/23/20 15:14 Dose 1 each .ROUTE .STK-MED ONE Levetiracetam Confirm 12/23/20 15:13 Keppra Administered 12/23/20 15:14 Dose 200 mls @ as directed .ROUTE .STK-MED ONE Sodium Chloride 500 mls @ 999 mls/hr 12/24/20 14:00 12/24/20 14:39 Normal Saline 0.9% IV 12/24/20 14:30 500 mls .Q31M KAYKAY Administration Midazolam HCl Confirm 12/23/20 15:08 Midazolam Hcl 2 Mg/2 Ml Vial Administered 12/23/20 15:09 Dose 2 mg .ROUTE .STK-MED ONE Promethazine HCl Confirm 12/23/20 13:31 Promethazine Hcl 25 Mg/Ml Vial Administered 12/23/20 13:32 Dose 25 mg .ROUTE .STK-MED ONE Scopolamine 1.5 mg 12/24/20 12:45 12/24/20 12:46 Scopolamine 1.5 Mg/72 Hour Patch TOP 12/24/20 16:00 1.5 mg NOW KAYKAY Administration
[2020-12-26] MEDS: Folic Acid 1 MG TAB PO SCH (09:52)
[2020-12-26] MEDS: levETIRAcetam 500 MG TAB PO SCH (09:52)
[2020-12-26] MEDS: Cyanocobalamin (Vitamin B-12) 1,000 MCG TAB PO SCH (09:52)
[2020-12-26] MEDS: Citalopram 20 MG TAB PO SCH (09:52)
[2020-12-26] MEDS: carBAMazepine 200 MG TAB PO SCH (09:52)
[2020-12-26] MEDS: Topiramate 100 MG TAB PO SCH (09:53)
[2020-12-26 11:21] VITALS: BP 88/55; TEMP 98.1
[2020-12-27 09:41] LABS: Topiramate (Topamax) Test <1.0 ug/mL (2.0-25.0)
--- NOTE | 2020-12-28 20:23 | EKG ---
Test Reason : SEIZURE Blood Pressure : / mmHG Vent. Rate : 063 BPM Atrial Rate : 063 BPM P-R Int : 144 ms QRS Dur : 074 ms QT Int : 462 ms P-R-T Axes : 064 060 066 degrees QTc Int : 472 ms Normal sinus rhythm with sinus arrhythmia Normal ECG Confirmed by AV HUDSON M.D. ([id number]), photo editor DAVID ACUNA ([id number]) on 12/28/2020 8:22:51 PM Referred By: Confirmed By:AV HUDSON M.D.
== END 2020-12-26 15:10 | disposition home or self-care (01) | DRG 880 ==
LOC: ERS 10:35 → ERHOLD 13:13 → 2SE 22:24 → OBSVTOIN 12-24 14:07
PROVIDERS: ADMIT Internal Medicine; ATTEND Internal Medicine
DX: F44.5 Conversion disorder with seizures or convulsions (principal); Z20.822 Contact with and (suspected) exposure to COVID-19; G40.909 Epilepsy, unspecified, not intractable, without status epilepticus; F41.9 Anxiety disorder, unspecified; G43.909 Migraine, unspecified, not intractable, without status migrainosus; G93.89 Other specified disorders of brain; K52.9 Noninfective gastroenteritis and colitis, unspecified; Z88.8 Allergy status to other drugs, medicaments and biological substances; Z88.6 Allergy status to analgesic agent; Z90.710 Acquired absence of both cervix and uterus; Z79.899 Other long term (current) drug therapy
CPT/HCPCS: 36415; 70450; 80048; 80053; 80156; 80177; 80201; 80306; 81003; 82553; 83735; 84443; 84484; 85025; 87635; 93005; 95712; 95816; 95819; 95957; 96365; 96374; G0378; J1953; J2250; J2550; U0003; U0005

== ENCOUNTER 2021-01-19 11:49 | Emergency (ER) | payer MEDICARE ==
[2021-01-19 12:28] LABS: Bilirubin Negative (Negative); Blood, Urine Negative (Negative); Clarity Clear (Clear); Glucose, Urine (Dipstick) Normal (Negative); Ketone, Urine Negative (Negative); Leukocyte Negative Leu/uL (Negative); Nitrite Negative (Negative); Protein, Urine (Dipstick) Negative (Neg-Trace); Specific Gravity, Urine 1.013 (1.002-1.036); Urobilinogen Normal mg/dL (Less than 2); pH, Urine 6.5 (5.0-9.0)
[2021-01-19 12:30] LABS: Pregnancy Test - Urine (BHCG) Negative (Negative); Pregu Control Background? CLEAR/WHITE (CLR/WHITE); Pregu Control Bar Appear? YES (CONTROL BAR); Specific Gravity 1.013 (1.002-1.036)
[2021-01-19] MEDS ORDERED: diphenhydrAMINE 50 MG/ML VIAL ONE (12:30)
[2021-01-19] MEDS ORDERED: Ketorolac Tromethamine 30 MG/ML VIAL ONE (12:30)
[2021-01-19] MEDS ORDERED: Metoclopramide HCl 10 MG/2 ML VIAL ONE ×2 (12:30→12:31)
--- NOTE | 2021-01-19 12:41 | RAD ---
EXAM: XR Chest 1 View Portable PROVIDED CLINICAL HISTORY: Headache and seizure COMPARISON: 01/29/2020 FINDINGS: Cardiac and mediastinal silhouette is within normal limits. Right subclavian implanted port is redemo nstrated in similar position. No focal consolidation, pleural fluid or pneumothorax apparent. IMPRESSION: No evidence for an acute cardiopulmonary process.
[2021-01-19] MEDS ORDERED: Lorazepam 2 MG/ML VIAL ONE (12:55)
[2021-01-19 13:04] LABS: Hemoglobin 13.1 g/dL (12.0-16.0); Mean Corpuscular Hemoglobin 33.4 pg (27.0-31.0); Mean Corpuscular Volume 98.3 fL (78.0-98.0); Mean Platelet Volume 7.6 fL (7.4-10.4); Platelet Count 268 thou/uL (130-400); RBC Distribution Width 10.9 % (11.5-14.5); Red Blood Cell (RBC) Count 3.92 mill/uL (4.20-5.40); White Blood Cell (WBC) Count 4.9 thou/uL (4.8-10.8)
[2021-01-19 13:11] LABS: ALT (SGPT) 61 U/L (8-55); AST (SGOT) 26 U/L (5-34); Albumin 3.8 g/dL (3.5-5.0); Alkaline Phosphatase 123 U/L (40-110); Anion Gap 14 mmol/L (10-20); BUN (Urea Nitrogen) 6 mg/dL (7.0-18.7); Bilirubin, Total 0.3 mg/dL (0.2-1.2); Calc. Creatinine Clearance 0 mL/min (70-130); Calcium 8.8 mg/dL (7.8-10.44); Carbon Dioxide 21 mmol/L (22-29); Chloride 107 mmol/L (98-107); Globulin 2.7 g/dL (2.4-3.5); Glucose 100 mg/dL (70-105); Potassium 3.7 mmol/L (3.5-5.1); Protein, Total 6.5 g/dL (6.0-8.3); Sodium 138 mmol/L (136-145)
[2021-01-19 13:27] LABS: Band 5 % (5-11); Eosinophils 1 % (0-10); Lymphocytes 24 % (21-51); MDiff Complete? YES; Macrocytosis SLIGHT = 6-15 cells (100X) (0-5/hpf); Monocytes 6 % (0-10); Neutrophil 52 % (42-75); Platelet Morphology Comment Appears Adequate; Reactive Lymphocytes 12 % (0-10)
[2021-01-19] MEDS ORDERED: levETIRAcetam in NS 100 ML ONE (13:55)
== END 2021-01-19 15:22 | disposition home or self-care (01) ==
LOC: ERS 11:49
DX: G40.909 Epilepsy, unspecified, not intractable, without status epilepticus (principal); K03.81 Cracked tooth; G43.909 Migraine, unspecified, not intractable, without status migrainosus; Z79.899 Other long term (current) drug therapy
CPT/HCPCS: 71045; 80053; 80177; 81003; 81025; 85025; 96365; 96375; J1200; J1885; J1953; J2060; J2765

== ENCOUNTER 2021-01-24 10:59 | Emergency (ER) | payer MEDICARE ==
[2021-01-24 14:09] LABS: #Lymphocytes 1.4 thou/uL (1.20-3.40); #Monocytes 0.3 thou/uL (0.11-0.59); #Neutrophils 4.4 thou/uL (1.40-6.50); %Basophils 0.2 % (0.0-1.0); %Eosinophils 0.3 % (0.0-10.0); %Lymphocytes 22.9 % (21.0-51.0); %Monocytes 5.1 % (0.0-10.0); %Neutrophils 71.4 % (42.0-75.0); Mean Corpuscular HGB CONC 34.4 g/dL (32.0-36.0); Mean Corpuscular Hemoglobin 33.8 pg (27.0-31.0); Mean Corpuscular Volume 98.3 fL (78.0-98.0); Mean Platelet Volume 7.6 fL (7.4-10.4); Platelet Count 249 thou/uL (130-400); RBC Distribution Width 10.9 % (11.5-14.5); Red Blood Cell (RBC) Count 3.55 mill/uL (4.20-5.40); White Blood Cell (WBC) Count 6.2 thou/uL (4.8-10.8)
[2021-01-24 14:30] LABS: ALT (SGPT) 18 U/L (8-55); AST (SGOT) 14 U/L (5-34); Albumin 3.4 g/dL (3.5-5.0); Alkaline Phosphatase 97 U/L (40-110); Anion Gap 12 mmol/L (10-20); BUN (Urea Nitrogen) 7 mg/dL (7.0-18.7); Bilirubin, Total 0.2 mg/dL (0.2-1.2); Calc. Creatinine Clearance 0 mL/min (70-130); Calcium 7.6 mg/dL (7.8-10.44); Carbon Dioxide 18 mmol/L (22-29); Chloride 114 mmol/L (98-107); Globulin 2.4 g/dL (2.4-3.5); Glucose 92 mg/dL (70-105); Potassium 3.1 mmol/L (3.5-5.1); Protein, Total 5.8 g/dL (6.0-8.3); Sodium 141 mmol/L (136-145)
[2021-01-24] MEDS ORDERED: Potassium Chloride 20 MEQ TAB ONE (15:12)
== END 2021-01-24 16:48 | disposition home or self-care (01) ==
LOC: ERS 10:59
DX: G40.909 Epilepsy, unspecified, not intractable, without status epilepticus (principal); Z79.899 Other long term (current) drug therapy
CPT/HCPCS: 80053; 84146; 85025; 93005

== ENCOUNTER 2021-02-08 13:02 | Emergency (ER) | payer MEDICARE ==
[2021-02-08] MEDS ORDERED: levETIRAcetam in NS 100 ML ONE (13:25)
[2021-02-08] MEDS ORDERED: Midazolam HCl 2 mg/2 ml Vial ONE (13:25)
[2021-02-08 13:46] LABS: #Basophils 0.1 thou/uL (0.0-0.2); #Eosinphils 0.1 thou/uL (0.0-0.7); #Lymphocytes 1.6 thou/uL (1.20-3.40); #Monocytes 0.4 thou/uL (0.11-0.59); #Neutrophils 2.9 thou/uL (1.40-6.50); %Basophils 1.7 % (0.0-1.0); %Eosinophils 1.9 % (0.0-10.0); %Lymphocytes 32.1 % (21.0-51.0); %Monocytes 7.5 % (0.0-10.0); %Neutrophils 56.9 % (42.0-75.0); Hemoglobin 12.9 g/dL (12.0-16.0); Mean Corpuscular HGB CONC 33.5 g/dL (32.0-36.0); Mean Corpuscular Volume 98.5 fL (78.0-98.0); Mean Platelet Volume 8.1 fL (7.4-10.4); Platelet Count 211 thou/uL (130-400); RBC Distribution Width 10.8 % (11.5-14.5)
[2021-02-08 14:08] LABS: ALT (SGPT) 7 U/L (8-55); AST (SGOT) 13 U/L (5-34); Albumin 3.7 g/dL (3.5-5.0); Alkaline Phosphatase 106 U/L (40-110); Anion Gap 11 mmol/L (10-20); BUN (Urea Nitrogen) 10 mg/dL (7.0-18.7); Bilirubin, Total 0.2 mg/dL (0.2-1.2); Calc. Creatinine Clearance 0 mL/min (70-130); Calcium 8.2 mg/dL (7.8-10.44); Carbon Dioxide 22 mmol/L (22-29); Chloride 109 mmol/L (98-107); Globulin 2.8 g/dL (2.4-3.5); Glucose 92 mg/dL (70-105); Potassium 3.9 mmol/L (3.5-5.1); Protein, Total 6.5 g/dL (6.0-8.3); Sodium 138 mmol/L (136-145)
[2021-02-08 14:19] LABS: Bilirubin Negative (Negative); Blood, Urine Negative (Negative); Clarity Clear (Clear); Glucose, Urine (Dipstick) Normal (Negative); Ketone, Urine Negative (Negative); Leukocyte Negative Leu/uL (Negative); Nitrite Negative (Negative); Protein, Urine (Dipstick) Negative (Neg-Trace); Specific Gravity, Urine 1.018 (1.002-1.036); Urobilinogen Normal mg/dL (Less than 2); pH, Urine 5.5 (5.0-9.0)
[2021-02-08 14:21] LABS: Pregnancy Test - Urine (BHCG) Negative (Negative); Pregu Control Background? CLEAR/WHITE (CLR/WHITE); Pregu Control Bar Appear? YES (CONTROL BAR); Specific Gravity 1.018 (1.002-1.036)
== END 2021-02-08 15:48 | disposition home or self-care (01) ==
LOC: ERS 13:02
DX: G40.909 Epilepsy, unspecified, not intractable, without status epilepticus (principal); Z79.899 Other long term (current) drug therapy
CPT/HCPCS: 36415; 80053; 80177; 81003; 81025; 85025; 96374; 96375; J1953; J2250

== ENCOUNTER 2021-02-17 05:36 | Emergency (ER) | payer MEDICARE ==
[2021-02-17 06:12] LABS: #Eosinphils 0.2 thou/uL (0.0-0.7); #Lymphocytes 1.6 thou/uL (1.20-3.40); #Monocytes 0.4 thou/uL (0.11-0.59); #Neutrophils 2.6 thou/uL (1.40-6.50); %Basophils 0.8 % (0.0-1.0); %Eosinophils 3.3 % (0.0-10.0); %Lymphocytes 33.1 % (21.0-51.0); %Monocytes 8.7 % (0.0-10.0); %Neutrophils 54.1 % (42.0-75.0); Hemoglobin 11.7 g/dL (12.0-16.0); Mean Corpuscular HGB CONC 34.1 g/dL (32.0-36.0); Mean Corpuscular Hemoglobin 33.5 pg (27.0-31.0); Mean Corpuscular Volume 98.1 fL (78.0-98.0); Mean Platelet Volume 7.5 fL (7.4-10.4); Platelet Count 204 thou/uL (130-400); RBC Distribution Width 11.1 % (11.5-14.5); Red Blood Cell (RBC) Count 3.51 mill/uL (4.20-5.40); White Blood Cell (WBC) Count 4.9 thou/uL (4.8-10.8)
[2021-02-17 06:17] LABS: BHCG - Serum Negative (NEGATIVE); Pregs Control Background? CLEAR/WHITE (CLR/WHITE); Pregs Control Bar Appear? YES (CONTROL BAR)
[2021-02-17 06:32] LABS: ALT (SGPT) 7 U/L (8-55); AST (SGOT) 11 U/L (5-34); Albumin 3.5 g/dL (3.5-5.0); Alkaline Phosphatase 100 U/L (40-110); Anion Gap 10 mmol/L (10-20); BUN (Urea Nitrogen) 9 mg/dL (7.0-18.7); Bilirubin, Total Less than 0.2 mg/dL (0.2-1.2); Calc. Creatinine Clearance 0 mL/min (70-130); Carbon Dioxide 24 mmol/L (22-29); Chloride 112 mmol/L (98-107); Globulin 2.4 g/dL (2.4-3.5); Glucose 108 mg/dL (70-105); Potassium 3.5 mmol/L (3.5-5.1); Protein, Total 5.9 g/dL (6.0-8.3); Sodium 142 mmol/L (136-145)
[2021-02-17] MEDS ORDERED: levETIRAcetam 500 MG TAB PO SCH (08:00)
== END 2021-02-17 09:05 | disposition home or self-care (01) ==
LOC: ERS 05:36
DX: G40.909 Epilepsy, unspecified, not intractable, without status epilepticus (principal)
CPT/HCPCS: 80053; 80177; 84703; 85025; 99285

== ENCOUNTER 2021-02-22 16:20 | Emergency (ER) | payer MEDICARE ==
[2021-02-22 17:30] LABS: #Basophils 0.1 thou/uL (0.0-0.2); #Eosinphils 0.1 thou/uL (0.0-0.7); #Lymphocytes 1.4 thou/uL (1.20-3.40); #Monocytes 0.4 thou/uL (0.11-0.59); #Neutrophils 4.1 thou/uL (1.40-6.50); %Basophils 0.8 % (0.0-1.0); %Eosinophils 1.6 % (0.0-10.0); %Lymphocytes 22.7 % (21.0-51.0); %Monocytes 6.9 % (0.0-10.0); %Neutrophils 67.9 % (42.0-75.0); Hemoglobin 12.1 g/dL (12.0-16.0); Mean Corpuscular HGB CONC 33.6 g/dL (32.0-36.0); Mean Corpuscular Hemoglobin 33.1 pg (27.0-31.0); Mean Corpuscular Volume 98.3 fL (78.0-98.0); Mean Platelet Volume 7.5 fL (7.4-10.4); Platelet Count 253 thou/uL (130-400); Red Blood Cell (RBC) Count 3.64 mill/uL (4.20-5.40); White Blood Cell (WBC) Count 6.1 thou/uL (4.8-10.8)
[2021-02-22 17:50] LABS: ALT (SGPT) 13 U/L (8-55); AST (SGOT) 14 U/L (5-34); Albumin 3.5 g/dL (3.5-5.0); Alkaline Phosphatase 88 U/L (40-110); Anion Gap 11 mmol/L (10-20); BUN (Urea Nitrogen) 7 mg/dL (7.0-18.7); Bilirubin, Total 0.2 mg/dL (0.2-1.2); Calc. Creatinine Clearance 0 mL/min (70-130); Calcium 7.9 mg/dL (7.8-10.44); Carbon Dioxide 19 mmol/L (22-29); Chloride 112 mmol/L (98-107); Globulin 2.6 g/dL (2.4-3.5); Glucose 89 mg/dL (70-105); Potassium 3.5 mmol/L (3.5-5.1); Protein, Total 6.1 g/dL (6.0-8.3); Sodium 138 mmol/L (136-145)
[2021-02-22 19:37] LABS: Bacteria/HPF None Seen HPF (None Seen); Bilirubin Negative (Negative); Blood, Urine 2+ (Negative); Clarity Clear (Clear); Glucose, Urine (Dipstick) Normal (Negative); Ketone, Urine Negative (Negative); Leukocyte 75 Leu/uL (Negative); Nitrite Negative (Negative); Protein, Urine (Dipstick) Negative (Neg-Trace); RBC/HPF Greater than 50 HPF (0-3); Renal Epithelial 0-3 HPF (None Seen); Specific Gravity, Urine 1.011 (1.002-1.036); Squamous Epithelial None Seen HPF (0-3); Urobilinogen Normal mg/dL (Less than 2); WBC/HPF 0-3 HPF (0-3); pH, Urine 5.5 (5.0-9.0)
== END 2021-02-22 22:15 | disposition home or self-care (01) ==
LOC: ERS 16:20
DX: G40.909 Epilepsy, unspecified, not intractable, without status epilepticus (principal); Z79.899 Other long term (current) drug therapy
CPT/HCPCS: 36415; 51701; 80053; 80177; 81003; 81015; 84146; 85025

== ENCOUNTER 2021-03-07 20:09 | Emergency (ER) | payer MEDICARE ==
[2021-03-07 20:34] LABS: #Basophils 0.1 thou/uL (0.0-0.2); #Eosinphils 0.1 thou/uL (0.0-0.7); #Lymphocytes 1.8 thou/uL (1.20-3.40); #Monocytes 0.5 thou/uL (0.11-0.59); %Basophils 1.1 % (0.0-1.0); %Eosinophils 1.4 % (0.0-10.0); %Lymphocytes 23.6 % (21.0-51.0); %Monocytes 6.4 % (0.0-10.0); %Neutrophils 67.5 % (42.0-75.0); Hemoglobin 12.9 g/dL (12.0-16.0); Mean Corpuscular HGB CONC 32.6 g/dL (32.0-36.0); Mean Corpuscular Hemoglobin 31.8 pg (27.0-31.0); Mean Corpuscular Volume 97.8 fL (78.0-98.0); Mean Platelet Volume 7.5 fL (7.4-10.4); Platelet Count 255 thou/uL (130-400); RBC Distribution Width 11.2 % (11.5-14.5); Red Blood Cell (RBC) Count 4.05 mill/uL (4.20-5.40); White Blood Cell (WBC) Count 7.4 thou/uL (4.8-10.8)
[2021-03-07 20:55] LABS: ALT (SGPT) Less than 7 U/L (8-55); AST (SGOT) 11 U/L (5-34); Albumin 3.9 g/dL (3.5-5.0); Alkaline Phosphatase 111 U/L (40-110); Anion Gap 15 mmol/L (10-20); BUN (Urea Nitrogen) 9 mg/dL (7.0-18.7); Bilirubin, Total Less than 0.2 mg/dL (0.2-1.2); CK (CPK) 55 U/L (29-168); Calc. Creatinine Clearance 0 mL/min (70-130); Calcium 8.4 mg/dL (7.8-10.44); Carbon Dioxide 20 mmol/L (22-29); Chloride 106 mmol/L (98-107); Globulin 2.8 g/dL (2.4-3.5); Glucose 103 mg/dL (70-105); Potassium 3.4 mmol/L (3.5-5.1); Protein, Total 6.7 g/dL (6.0-8.3); Sodium 138 mmol/L (136-145)
== END 2021-03-07 22:40 | disposition home or self-care (01) ==
LOC: ERS 20:09
DX: F44.5 Conversion disorder with seizures or convulsions (principal); G43.909 Migraine, unspecified, not intractable, without status migrainosus; I72.9 Aneurysm of unspecified site; Z79.899 Other long term (current) drug therapy
CPT/HCPCS: 80053; 82550; 85025; 93005; 94760; 96374; J1642

== ENCOUNTER 2021-03-09 23:24 | Emergency (ER) | payer MEDICARE ==
[2021-03-10] MEDS ORDERED: Lorazepam 2 MG/ML VIAL ONE ×2 (00:42→00:45)
[2021-03-10 00:49] LABS: #Basophils 0.1 thou/uL (0.0-0.2); #Eosinphils 0.1 thou/uL (0.0-0.7); #Lymphocytes 1.5 thou/uL (1.20-3.40); #Monocytes 0.4 thou/uL (0.11-0.59); #Neutrophils 5.8 thou/uL (1.40-6.50); %Basophils 0.8 % (0.0-1.0); %Eosinophils 0.7 % (0.0-10.0); %Lymphocytes 18.8 % (21.0-51.0); %Monocytes 5.7 % (0.0-10.0); %Neutrophils 74.1 % (42.0-75.0); Hemoglobin 12.4 g/dL (12.0-16.0); Mean Corpuscular HGB CONC 33.2 g/dL (32.0-36.0); Mean Corpuscular Hemoglobin 32.4 pg (27.0-31.0); Mean Corpuscular Volume 97.8 fL (78.0-98.0); Mean Platelet Volume 7.3 fL (7.4-10.4); Platelet Count 228 thou/uL (130-400); Red Blood Cell (RBC) Count 3.83 mill/uL (4.20-5.40); White Blood Cell (WBC) Count 7.8 thou/uL (4.8-10.8)
[2021-03-10 01:11] LABS: ALT (SGPT) 7 U/L (8-55); AST (SGOT) 12 U/L (5-34); Albumin 3.6 g/dL (3.5-5.0); Alkaline Phosphatase 100 U/L (40-110); Anion Gap 11 mmol/L (10-20); BUN (Urea Nitrogen) 7 mg/dL (7.0-18.7); Bilirubin, Total 0.4 mg/dL (0.2-1.2); Calc. Creatinine Clearance 0 mL/min (70-130); Calcium 8.6 mg/dL (7.8-10.44); Carbon Dioxide 21 mmol/L (22-29); Chloride 111 mmol/L (98-107); Globulin 2.6 g/dL (2.4-3.5); Glucose 101 mg/dL (70-105); Lipase 21 U/L (8-78); Potassium 3.6 mmol/L (3.5-5.1); Protein, Total 6.2 g/dL (6.0-8.3); Sodium 139 mmol/L (136-145)
[2021-03-10 01:32] LABS: CKMB 1.1 ng/mL (0-6.6)
[2021-03-10 03:27] LABS: Bilirubin Negative (Negative); Blood, Urine Negative (Negative); Clarity Clear (Clear); Glucose, Urine (Dipstick) Normal (Negative); Ketone, Urine Negative (Negative); Leukocyte Negative Leu/uL (Negative); Nitrite Negative (Negative); Protein, Urine (Dipstick) Negative (Neg-Trace); Specific Gravity, Urine 1.014 (1.002-1.036); Urobilinogen Normal mg/dL (Less than 2); pH, Urine 6.5 (5.0-9.0)
== END 2021-03-10 04:52 | disposition home or self-care (01) ==
LOC: ERS 23:24
DX: G40.909 Epilepsy, unspecified, not intractable, without status epilepticus (principal); R50.9 Fever, unspecified; R19.7 Diarrhea, unspecified; R11.2 Nausea with vomiting, unspecified; I72.9 Aneurysm of unspecified site; G43.909 Migraine, unspecified, not intractable, without status migrainosus; Z79.899 Other long term (current) drug therapy
CPT/HCPCS: 70450; 71045; 80053; 81003; 82553; 83690; 84484; 85025; 93005; 96374; J2060

== ENCOUNTER 2021-03-22 21:12 | Emergency (ER) | payer MEDICARE | END 2021-03-23 02:16 | disposition home or self-care (01) | LOC: ERS 21:12 | DX: G40.909 Epilepsy, unspecified, not intractable, without status epilepticus (principal); Z79.899 Other long term (current) drug therapy | CPT/HCPCS: 36416; 70450 ==

== ENCOUNTER 2021-04-06 16:12 | Emergency (ER) | payer MEDICARE ==
[2021-04-06 16:54] LABS: #Basophils 0.1 thou/uL (0.0-0.2); #Eosinphils 0.1 thou/uL (0.0-0.7); #Lymphocytes 1.6 thou/uL (1.20-3.40); #Monocytes 0.4 thou/uL (0.11-0.59); #Neutrophils 3.9 thou/uL (1.40-6.50); %Eosinophils 1.6 % (0.0-10.0); %Lymphocytes 26.1 % (21.0-51.0); %Neutrophils 65.3 % (42.0-75.0); Hemoglobin 12.4 g/dL (12.0-16.0); Mean Corpuscular Hemoglobin 33.3 pg (27.0-31.0); Mean Platelet Volume 7.7 fL (7.4-10.4); Platelet Count 238 thou/uL (130-400); RBC Distribution Width 11.4 % (11.5-14.5); Red Blood Cell (RBC) Count 3.73 mill/uL (4.20-5.40); White Blood Cell (WBC) Count 5.9 thou/uL (4.8-10.8)
[2021-04-06 17:15] LABS: ALT (SGPT) Less than 7 U/L (8-55); AST (SGOT) 12 U/L (5-34); Albumin 3.6 g/dL (3.5-5.0); Alkaline Phosphatase 109 U/L (40-110); Anion Gap 10 mmol/L (10-20); BUN (Urea Nitrogen) 6 mg/dL (7.0-18.7); Bilirubin, Total 0.2 mg/dL (0.2-1.2); CK (CPK) 145 U/L (29-168); Calc. Creatinine Clearance 0 mL/min (70-130); Calcium 8.4 mg/dL (7.8-10.44); Carbon Dioxide 21 mmol/L (22-29); Chloride 111 mmol/L (98-107); Globulin 2.5 g/dL (2.4-3.5); Glucose 93 mg/dL (70-105); Potassium 3.7 mmol/L (3.5-5.1); Protein, Total 6.1 g/dL (6.0-8.3); Sodium 138 mmol/L (136-145)
== END 2021-04-06 19:05 | disposition home or self-care (01) ==
LOC: ERS 16:12
DX: G40.909 Epilepsy, unspecified, not intractable, without status epilepticus (principal)
CPT/HCPCS: 80053; 82550; 83605; 84146; 85025; 93005

== ENCOUNTER 2021-04-08 14:57 | Emergency (ER) | payer MEDICARE ==
[2021-04-08 16:19] LABS: #Eosinphils 0.1 thou/uL (0.0-0.7); #Lymphocytes 1.3 thou/uL (1.20-3.40); #Monocytes 0.3 thou/uL (0.11-0.59); #Neutrophils 4.2 thou/uL (1.40-6.50); %Basophils 0.5 % (0.0-1.0); %Eosinophils 1.2 % (0.0-10.0); %Lymphocytes 21.6 % (21.0-51.0); %Monocytes 4.7 % (0.0-10.0); Hemoglobin 12.7 g/dL (12.0-16.0); Mean Corpuscular HGB CONC 33.4 g/dL (32.0-36.0); Mean Corpuscular Hemoglobin 32.6 pg (27.0-31.0); Mean Corpuscular Volume 97.5 fL (78.0-98.0); Mean Platelet Volume 7.7 fL (7.4-10.4); Platelet Count 229 thou/uL (130-400); RBC Distribution Width 11.3 % (11.5-14.5); Red Blood Cell (RBC) Count 3.91 mill/uL (4.20-5.40); White Blood Cell (WBC) Count 5.8 thou/uL (4.8-10.8)
[2021-04-08 16:51] LABS: ALT (SGPT) 7 U/L (8-55); AST (SGOT) 17 U/L (5-34); Albumin 3.9 g/dL (3.5-5.0); Alkaline Phosphatase 114 U/L (40-110); Anion Gap 14 mmol/L (10-20); BUN (Urea Nitrogen) 6 mg/dL (7.0-18.7); Bilirubin, Total 0.3 mg/dL (0.2-1.2); Calc. Creatinine Clearance 0 mL/min (70-130); Calcium 8.6 mg/dL (7.8-10.44); Carbon Dioxide 20 mmol/L (22-29); Chloride 109 mmol/L (98-107); Globulin 2.8 g/dL (2.4-3.5); Glucose 94 mg/dL (70-105); Protein, Total 6.7 g/dL (6.0-8.3); Sodium 139 mmol/L (136-145)
[2021-04-08] MEDS ORDERED: Metoclopramide HCl 10 MG/2 ML VIAL ONE (17:19)
[2021-04-08] MEDS ORDERED: Acetaminophen 500 MG TAB ONE (17:19)
[2021-04-08] MEDS ORDERED: diphenhydrAMINE 50 MG/ML VIAL ONE (17:19)
== END 2021-04-08 19:50 | disposition home or self-care (01) ==
LOC: ERS 14:57
DX: G40.909 Epilepsy, unspecified, not intractable, without status epilepticus (principal); R07.9 Chest pain, unspecified; Z79.899 Other long term (current) drug therapy
CPT/HCPCS: 71045; 80053; 80177; 84484; 85025; 93005; 96365; 96375; J1200; J1642; J2765

== ENCOUNTER 2021-04-09 14:13 | Emergency (ER) | payer MEDICARE ==
[2021-04-09] MEDS ORDERED: Metoclopramide HCl 10 MG/2 ML VIAL ONE (14:38)
[2021-04-09] MEDS ORDERED: levETIRAcetam in NS 100 ML ONE (14:38)
[2021-04-09] MEDS ORDERED: diphenhydrAMINE 50 MG/ML VIAL ONE (14:38)
[2021-04-09 14:49] LABS: #Eosinphils 0.1 thou/uL (0.0-0.7); #Lymphocytes 1.1 thou/uL (1.20-3.40); #Monocytes 0.3 thou/uL (0.11-0.59); #Neutrophils 3.6 thou/uL (1.40-6.50); %Basophils 0.8 % (0.0-1.0); %Eosinophils 1.2 % (0.0-10.0); %Lymphocytes 21.1 % (21.0-51.0); %Monocytes 6.7 % (0.0-10.0); %Neutrophils 70.2 % (42.0-75.0); Hemoglobin 12.1 g/dL (12.0-16.0); Mean Corpuscular HGB CONC 35.2 g/dL (32.0-36.0); Mean Corpuscular Hemoglobin 34.3 pg (27.0-31.0); Mean Corpuscular Volume 97.2 fL (78.0-98.0); Mean Platelet Volume 7.7 fL (7.4-10.4); Platelet Count 222 thou/uL (130-400); RBC Distribution Width 11.3 % (11.5-14.5); Red Blood Cell (RBC) Count 3.54 mill/uL (4.20-5.40); White Blood Cell (WBC) Count 5.1 thou/uL (4.8-10.8)
[2021-04-09 15:17] LABS: ALT (SGPT) 9 U/L (8-55); AST (SGOT) 20 U/L (5-34); Albumin 3.7 g/dL (3.5-5.0); Alkaline Phosphatase 110 U/L (40-110); Anion Gap 12 mmol/L (10-20); BUN (Urea Nitrogen) 6 mg/dL (7.0-18.7); Bilirubin, Total 0.3 mg/dL (0.2-1.2); Calc. Creatinine Clearance 0 mL/min (70-130); Calcium 8.4 mg/dL (7.8-10.44); Carbon Dioxide 23 mmol/L (22-29); Chloride 108 mmol/L (98-107); Globulin 2.7 g/dL (2.4-3.5); Glucose 93 mg/dL (70-105); Potassium 3.5 mmol/L (3.5-5.1); Protein, Total 6.4 g/dL (6.0-8.3); Sodium 139 mmol/L (136-145)
[2021-04-09 15:44] LABS: Bilirubin Negative (Negative); Blood, Urine Negative (Negative); Clarity Clear (Clear); Glucose, Urine (Dipstick) Normal (Negative); Ketone, Urine Negative (Negative); Leukocyte Negative Leu/uL (Negative); Nitrite Negative (Negative); Protein, Urine (Dipstick) Negative (Neg-Trace); Specific Gravity, Urine 1.019 (1.002-1.036); Urobilinogen Normal mg/dL (Less than 2)
== END 2021-04-09 16:54 | disposition home or self-care (01) ==
LOC: ERS 14:13
DX: G40.909 Epilepsy, unspecified, not intractable, without status epilepticus (principal); Z79.899 Other long term (current) drug therapy
CPT/HCPCS: 80053; 81003; 84146; 85025; 93005; 96365; 96375; J1200; J1953; J2765

== ENCOUNTER 2021-04-15 18:33 | Emergency (ER) | payer MEDICARE | END 2021-04-15 20:50 | disposition home or self-care (01) | LOC: ERS 18:33 | DX: G40.909 Epilepsy, unspecified, not intractable, without status epilepticus (principal); Z79.899 Other long term (current) drug therapy | CPT/HCPCS: 99284 ==

== ENCOUNTER 2021-09-08 11:18 | Emergency (ER) | payer MEDICARE ==
[2021-09-08 13:16] LABS: #Basophils 0.1 thou/uL (0.0-0.2); #Eosinphils 0.1 thou/uL (0.0-0.7); #Lymphocytes 1.3 thou/uL (1.20-3.40); #Monocytes 0.5 thou/uL (0.11-0.59); #Neutrophils 5.5 thou/uL (1.40-6.50); %Basophils 0.9 % (0.0-1.0); %Eosinophils 1.1 % (0.0-10.0); %Lymphocytes 17.4 % (21.0-51.0); %Monocytes 6.5 % (0.0-10.0); Mean Corpuscular HGB CONC 34.4 g/dL (32.0-36.0); Mean Corpuscular Hemoglobin 34.5 pg (27.0-31.0); Mean Platelet Volume 7.7 fL (7.4-10.4); Platelet Count 231 thou/uL (130-400); RBC Distribution Width 11.8 % (11.5-14.5); Red Blood Cell (RBC) Count 3.78 mill/uL (4.20-5.40); White Blood Cell (WBC) Count 7.4 thou/uL (4.8-10.8)
[2021-09-08 13:40] LABS: ALT (SGPT) 8 U/L (8-55); AST (SGOT) 11 U/L (5-34); Albumin 3.6 g/dL (3.5-5.0); Alkaline Phosphatase 112 U/L (40-110); Anion Gap 13 mmol/L (10-20); BUN (Urea Nitrogen) 7 mg/dL (7.0-18.7); Bilirubin, Total 0.3 mg/dL (0.2-1.2); Calc. Creatinine Clearance 0 mL/min (70-130); Calcium 8.2 mg/dL (7.8-10.44); Carbon Dioxide 18 mmol/L (22-29); Chloride 114 mmol/L (98-107); Globulin 2.3 g/dL (2.4-3.5); Glucose 88 mg/dL (70-105); Potassium 3.8 mmol/L (3.5-5.1); Protein, Total 5.9 g/dL (6.0-8.3); Sodium 141 mmol/L (136-145)
== END 2021-09-08 16:12 | disposition home or self-care (01) ==
LOC: ERS 11:18
DX: G40.909 Epilepsy, unspecified, not intractable, without status epilepticus (principal); G43.909 Migraine, unspecified, not intractable, without status migrainosus; Z79.899 Other long term (current) drug therapy
CPT/HCPCS: 80053; 80177; 85025; 94760; J1642

== ENCOUNTER 2021-09-19 09:32 | Emergency (ER) | payer MEDICARE ==
[2021-09-19] MEDS ORDERED: Iopamidol 370 76% 100 ML VIAL ONE (09:44)
[2021-09-19] MEDS ORDERED: Ondansetron PF 4 MG/2 ML Vial ONE (10:54)
[2021-09-19] MEDS ORDERED: levETIRAcetam in NS 100 ML ONE (10:54)
[2021-09-19] MEDS ORDERED: Morphine 4 MG/ML VIAL ONE (10:54)
[2021-09-19] MEDS ORDERED: levETIRAcetam in NS 200 ML ONE (11:12)
[2021-09-19] MEDS ORDERED: Lorazepam 2 MG/ML VIAL ONE ×2 (11:13→13:25)
[2021-09-19 11:31] LABS: #Eosinphils 0.1 thou/uL (0.0-0.7); #Lymphocytes 1.2 thou/uL (1.20-3.40); #Monocytes 0.6 thou/uL (0.11-0.59); #Neutrophils 5.3 thou/uL (1.40-6.50); %Basophils 0.5 % (0.0-1.0); %Eosinophils 0.8 % (0.0-10.0); %Lymphocytes 16.9 % (21.0-51.0); %Monocytes 7.6 % (0.0-10.0); %Neutrophils 74.2 % (42.0-75.0); Hemoglobin 14.3 g/dL (12.0-16.0); Mean Corpuscular HGB CONC 35.6 g/dL (32.0-36.0); Mean Corpuscular Volume 98.3 fL (78.0-98.0); Mean Platelet Volume 7.5 fL (7.4-10.4); Platelet Count 283 thou/uL (130-400); RBC Distribution Width 11.6 % (11.5-14.5); Red Blood Cell (RBC) Count 4.08 mill/uL (4.20-5.40); White Blood Cell (WBC) Count 7.2 thou/uL (4.8-10.8)
[2021-09-19 11:54] LABS: ALT (SGPT) 8 U/L (8-55); AST (SGOT) 13 U/L (5-34); Albumin 3.8 g/dL (3.5-5.0); Alkaline Phosphatase 114 U/L (40-110); Anion Gap 11 mmol/L (10-20); BUN (Urea Nitrogen) 12 mg/dL (7.0-18.7); Bilirubin, Total 0.4 mg/dL (0.2-1.2); Calc. Creatinine Clearance 0 mL/min (70-130); Calcium 8.6 mg/dL (7.8-10.44); Carbon Dioxide 23 mmol/L (22-29); Chloride 108 mmol/L (98-107); Globulin 3.1 g/dL (2.4-3.5); Glucose 93 mg/dL (70-105); Lipase 20 U/L (8-78); Magnesium 1.9 mg/dL (1.6-2.6); Potassium 3.7 mmol/L (3.5-5.1); Protein, Total 6.9 g/dL (6.0-8.3); Sodium 138 mmol/L (136-145)
[2021-09-19 14:56] LABS: Bilirubin Negative (Negative); Blood, Urine Negative (Negative); Clarity Clear (Clear); Glucose, Urine (Dipstick) Normal (Negative); Ketone, Urine 10 mg/dL (Negative); Leukocyte Negative Leu/uL (Negative); Nitrite Negative (Negative); Protein, Urine (Dipstick) 20 mg/dL (Neg-Trace); Urobilinogen Normal mg/dL (Less than 2)
[2021-09-19 14:57] LABS: Specific Gravity, Urine Greater than 1.060 (1.002-1.036)
[2021-09-19 14:58] LABS: Pregnancy Test - Urine (BHCG) Negative (Negative); Pregu Control Background? CLEAR/WHITE (CLR/WHITE); Pregu Control Bar Appear? YES (CONTROL BAR); Specific Gravity Greater than 1.060 (1.002-1.036)
== END 2021-09-19 16:40 | disposition home or self-care (01) ==
LOC: ERS 09:32
DX: G40.909 Epilepsy, unspecified, not intractable, without status epilepticus (principal); R11.2 Nausea with vomiting, unspecified; R10.84 Generalized abdominal pain; I72.9 Aneurysm of unspecified site; Z79.899 Other long term (current) drug therapy
CPT/HCPCS: 74177; 80053; 81003; 81025; 83690; 83735; 85025; 87086; 96365; 96375; 96376; J1953; J2060; J2270; J2405; Q9967

== ENCOUNTER 2021-09-20 16:25 | Emergency (ER) | payer MEDICARE ==
[2021-09-20] MEDS ORDERED: diphenhydrAMINE 50 MG/ML VIAL ONE (17:13)
[2021-09-20] MEDS ORDERED: Metoclopramide HCl 10 MG/2 ML VIAL ONE (17:13)
[2021-09-20 17:44] LABS: #Lymphocytes 1.1 thou/uL (1.20-3.40); #Monocytes 0.5 thou/uL (0.11-0.59); #Neutrophils 4.8 thou/uL (1.40-6.50); %Basophils 0.8 % (0.0-1.0); %Eosinophils 0.6 % (0.0-10.0); %Lymphocytes 16.6 % (21.0-51.0); %Monocytes 7.1 % (0.0-10.0); Hemoglobin 13.7 g/dL (12.0-16.0); Mean Corpuscular HGB CONC 34.6 g/dL (32.0-36.0); Mean Corpuscular Hemoglobin 34.3 pg (27.0-31.0); Mean Corpuscular Volume 99.1 fL (78.0-98.0); Mean Platelet Volume 7.6 fL (7.4-10.4); Platelet Count 260 thou/uL (130-400); RBC Distribution Width 11.4 % (11.5-14.5); Red Blood Cell (RBC) Count 3.99 mill/uL (4.20-5.40); White Blood Cell (WBC) Count 6.4 thou/uL (4.8-10.8)
[2021-09-20 18:08] LABS: ALT (SGPT) 8 U/L (8-55); AST (SGOT) 16 U/L (5-34); Alkaline Phosphatase 113 U/L (40-110); Anion Gap 13 mmol/L (10-20); BUN (Urea Nitrogen) 9 mg/dL (7.0-18.7); Bilirubin, Total 0.4 mg/dL (0.2-1.2); Calc. Creatinine Clearance 0 mL/min (70-130); Calcium 9.2 mg/dL (7.8-10.44); Carbon Dioxide 24 mmol/L (22-29); Chloride 106 mmol/L (98-107); Globulin 2.7 g/dL (2.4-3.5); Glucose 94 mg/dL (70-105); Potassium 3.6 mmol/L (3.5-5.1); Protein, Total 6.7 g/dL (6.0-8.3); Sodium 139 mmol/L (136-145)
== END 2021-09-20 19:05 | disposition home or self-care (01) ==
LOC: ERS 16:25
DX: R11.2 Nausea with vomiting, unspecified (principal); G40.909 Epilepsy, unspecified, not intractable, without status epilepticus; G43.909 Migraine, unspecified, not intractable, without status migrainosus; Z79.899 Other long term (current) drug therapy
CPT/HCPCS: 36415; 80053; 85025; 93005; 96365; 96375; J1200; J2765

== ENCOUNTER 2021-09-21 15:41 | Emergency (ER) | payer MEDICARE ==
[2021-09-21] MEDS ORDERED: Ondansetron PF 4 MG/2 ML Vial ONE (17:39)
[2021-09-21 17:51] LABS: #Basophils 0.1 thou/uL (0.0-0.2); #Lymphocytes 1.3 thou/uL (1.20-3.40); #Monocytes 0.6 thou/uL (0.11-0.59); #Neutrophils 5.5 thou/uL (1.40-6.50); %Basophils 1.1 % (0.0-1.0); %Eosinophils 0.5 % (0.0-10.0); %Lymphocytes 17.4 % (21.0-51.0); %Monocytes 7.6 % (0.0-10.0); %Neutrophils 73.4 % (42.0-75.0); Hemoglobin 13.2 g/dL (12.0-16.0); Mean Corpuscular HGB CONC 36.5 g/dL (32.0-36.0); Mean Corpuscular Hemoglobin 35.8 pg (27.0-31.0); Mean Corpuscular Volume 98.1 fL (78.0-98.0); Mean Platelet Volume 7.6 fL (7.4-10.4); Platelet Count 262 thou/uL (130-400); RBC Distribution Width 11.5 % (11.5-14.5); White Blood Cell (WBC) Count 7.5 thou/uL (4.8-10.8)
[2021-09-21 18:12] LABS: ALT (SGPT) 8 U/L (8-55); AST (SGOT) 18 U/L (5-34); Albumin 3.8 g/dL (3.5-5.0); Alkaline Phosphatase 101 U/L (40-110); BUN (Urea Nitrogen) 6 mg/dL (7.0-18.7); Bilirubin, Total 0.4 mg/dL (0.2-1.2); Calc. Creatinine Clearance 0 mL/min (70-130); Calcium 8.6 mg/dL (7.8-10.44); Carbon Dioxide 23 mmol/L (22-29); Chloride 108 mmol/L (98-107); Globulin 2.4 g/dL (2.4-3.5); Glucose 98 mg/dL (70-105); Lipase 21 U/L (8-78); Potassium 3.5 mmol/L (3.5-5.1); Protein, Total 6.2 g/dL (6.0-8.3); Sodium 138 mmol/L (136-145)
[2021-09-21 18:19] LABS: Anion Gap 13 mmol/L (10-20)
== END 2021-09-21 19:31 | disposition home or self-care (01) ==
LOC: ERS 15:41
DX: G40.909 Epilepsy, unspecified, not intractable, without status epilepticus (principal); R11.2 Nausea with vomiting, unspecified; G43.909 Migraine, unspecified, not intractable, without status migrainosus; Z79.899 Other long term (current) drug therapy
CPT/HCPCS: 36415; 80053; 83690; 85025; 96374; 96375; J1642; J2405

== ENCOUNTER 2021-10-25 16:59 | Emergency (ER) | payer MEDICARE ==
[2021-10-25 17:49] LABS: #Eosinphils 0.1 thou/uL (0.0-0.7); #Lymphocytes 1.4 thou/uL (1.20-3.40); #Monocytes 0.4 thou/uL (0.11-0.59); #Neutrophils 3.5 thou/uL (1.40-6.50); %Basophils 0.7 % (0.0-1.0); %Eosinophils 1.7 % (0.0-10.0); %Lymphocytes 26.1 % (21.0-51.0); %Monocytes 7.4 % (0.0-10.0); %Neutrophils 64.1 % (42.0-75.0); Hemoglobin 13.2 g/dL (12.0-16.0); Mean Corpuscular HGB CONC 34.5 g/dL (32.0-36.0); Mean Corpuscular Hemoglobin 35.1 pg (27.0-31.0); Mean Platelet Volume 7.5 fL (7.4-10.4); Platelet Count 226 thou/uL (130-400); RBC Distribution Width 11.3 % (11.5-14.5); Red Blood Cell (RBC) Count 3.77 mill/uL (4.20-5.40); White Blood Cell (WBC) Count 5.4 thou/uL (4.8-10.8)
[2021-10-25 18:11] LABS: Albumin 3.8 g/dL (3.5-5.0); Anion Gap 12 mmol/L (10-20); BUN (Urea Nitrogen) 7 mg/dL (7.0-18.7); Bilirubin, Total 0.3 mg/dL (0.2-1.2); Calc. Creatinine Clearance 0 mL/min (70-130); Calcium 8.8 mg/dL (7.8-10.44); Carbon Dioxide 21 mmol/L (22-29); Chloride 110 mmol/L (98-107); Glucose 99 mg/dL (70-105); Potassium 3.8 mmol/L (3.5-5.1); Protein, Total 6.4 g/dL (6.0-8.3); Sodium 139 mmol/L (136-145)
[2021-10-25 18:12] LABS: ALT (SGPT) Less than 7 U/L (8-55); AST (SGOT) 11 U/L (5-34); Alkaline Phosphatase 108 U/L (40-110); Globulin 2.6 g/dL (2.4-3.5); Lipase 19 U/L (8-78)
[2021-10-28 13:15] LABS: Topiramate (Topamax) Test 2.6 ug/mL (2.0-25.0)
== END 2021-10-25 19:24 | disposition home or self-care (01) ==
LOC: ERS 16:59
DX: G40.909 Epilepsy, unspecified, not intractable, without status epilepticus (principal); W19.XXXA Unspecified fall, initial encounter; Z79.899 Other long term (current) drug therapy
CPT/HCPCS: 70450; 71045; 80053; 80177; 80201; 83690; 84484; 85025; 93005

== ENCOUNTER 2021-10-27 10:38 | Emergency (ER) | payer MEDICARE ==
[2021-10-27 13:08] LABS: #Basophils 0.1 thou/uL (0.0-0.2); #Eosinphils 0.1 thou/uL (0.0-0.7); #Lymphocytes 1.6 thou/uL (1.20-3.40); #Monocytes 0.4 thou/uL (0.11-0.59); #Neutrophils 3.7 thou/uL (1.40-6.50); %Basophils 1.3 % (0.0-1.0); %Eosinophils 1.3 % (0.0-10.0); %Lymphocytes 27.4 % (21.0-51.0); %Monocytes 7.2 % (0.0-10.0); %Neutrophils 62.8 % (42.0-75.0); Hemoglobin 14.4 g/dL (12.0-16.0); Mean Corpuscular HGB CONC 34.4 g/dL (32.0-36.0); Mean Corpuscular Hemoglobin 34.7 pg (27.0-31.0); Mean Platelet Volume 7.4 fL (7.4-10.4); Platelet Count 228 thou/uL (130-400); RBC Distribution Width 11.3 % (11.5-14.5); Red Blood Cell (RBC) Count 4.15 mill/uL (4.20-5.40); White Blood Cell (WBC) Count 5.9 thou/uL (4.8-10.8)
[2021-10-27 13:35] LABS: ALT (SGPT) 8 U/L (8-55); AST (SGOT) 17 U/L (5-34); Albumin 3.9 g/dL (3.5-5.0); Alkaline Phosphatase 117 U/L (40-110); Anion Gap 15 mmol/L (10-20); BUN (Urea Nitrogen) 9 mg/dL (7.0-18.7); Bilirubin, Total 0.3 mg/dL (0.2-1.2); Calc. Creatinine Clearance 0 mL/min (70-130); Calcium 8.7 mg/dL (7.8-10.44); Carbon Dioxide 15 mmol/L (22-29); Chloride 109 mmol/L (98-107); Glucose 92 mg/dL (70-105); Potassium 3.6 mmol/L (3.5-5.1); Protein, Total 6.9 g/dL (6.0-8.3); Sodium 135 mmol/L (136-145)
== END 2021-10-27 15:42 | disposition home or self-care (01) ==
LOC: ERS 10:38
DX: R56.9 Unspecified convulsions (principal)
CPT/HCPCS: 36415; 80053; 85025; 93005; J1642

== ENCOUNTER 2021-10-30 12:26 | Emergency (ER) | payer MEDICARE ==
[2021-10-30 13:24] LABS: Bilirubin Negative (Negative); Blood, Urine Negative (Negative); Clarity Clear (Clear); Glucose, Urine (Dipstick) Normal (Negative); Ketone, Urine Negative (Negative); Leukocyte Negative Leu/uL (Negative); Nitrite Negative (Negative); Protein, Urine (Dipstick) Negative (Neg-Trace); Specific Gravity, Urine 1.022 (1.002-1.036); Urobilinogen Normal mg/dL (Less than 2)
[2021-10-30] MEDS ORDERED: levETIRAcetam in NS 0 ML ONE ×2 (13:33→14:09)
[2021-10-30] MEDS ORDERED: Ondansetron PF 4 MG/2 ML Vial ONE (13:58)
[2021-10-30 14:28] LABS: ALT (SGPT) 7 U/L (8-55); AST (SGOT) 18 U/L (5-34); Albumin 3.3 g/dL (3.5-5.0); Alkaline Phosphatase 98 U/L (40-110); Anion Gap 14 mmol/L (10-20); BUN (Urea Nitrogen) 7 mg/dL (7.0-18.7); Bilirubin, Total 0.2 mg/dL (0.2-1.2); Calc. Creatinine Clearance 0 mL/min (70-130); Carbon Dioxide 12 mmol/L (22-29); Chloride 114 mmol/L (98-107); Glucose 95 mg/dL (70-105); Potassium 4.2 mmol/L (3.5-5.1); Protein, Total 6.3 g/dL (6.0-8.3); Sodium 136 mmol/L (136-145)
[2021-10-30 14:31] LABS: #Eosinphils 0.1 thou/uL (0.0-0.7); #Lymphocytes 1.6 thou/uL (1.20-3.40); #Monocytes 0.4 thou/uL (0.11-0.59); #Neutrophils 4.8 thou/uL (1.40-6.50); %Basophils 0.6 % (0.0-1.0); %Eosinophils 1.9 % (0.0-10.0); %Lymphocytes 22.5 % (21.0-51.0); %Monocytes 5.8 % (0.0-10.0); %Neutrophils 69.2 % (42.0-75.0); Hemoglobin 12.7 g/dL (12.0-16.0); Mean Corpuscular HGB CONC 33.9 g/dL (32.0-36.0); Mean Corpuscular Hemoglobin 35.2 pg (27.0-31.0); Mean Platelet Volume 7.5 fL (7.4-10.4); Platelet Count 223 thou/uL (130-400); RBC Distribution Width 11.3 % (11.5-14.5); Red Blood Cell (RBC) Count 3.61 mill/uL (4.20-5.40); White Blood Cell (WBC) Count 6.9 thou/uL (4.8-10.8)
== END 2021-10-30 16:20 | disposition home or self-care (01) ==
LOC: ERS 12:26
DX: G40.909 Epilepsy, unspecified, not intractable, without status epilepticus (principal); R11.2 Nausea with vomiting, unspecified; G43.909 Migraine, unspecified, not intractable, without status migrainosus
CPT/HCPCS: 36415; 71045; 80053; 80177; 81003; 85025; 96374; J1953; J2405

== ENCOUNTER 2021-11-07 14:07 | Emergency (ER) | payer MEDICARE ==
[2021-11-07 15:03] LABS: #Eosinphils 0.1 thou/uL (0.0-0.7); #Lymphocytes 1.1 thou/uL (1.20-3.40); #Monocytes 0.3 thou/uL (0.11-0.59); #Neutrophils 4.3 thou/uL (1.40-6.50); %Basophils 0.3 % (0.0-1.0); %Eosinophils 2.1 % (0.0-10.0); %Lymphocytes 18.2 % (21.0-51.0); %Monocytes 5.3 % (0.0-10.0); %Neutrophils 74.1 % (42.0-75.0); Mean Corpuscular HGB CONC 34.1 g/dL (32.0-36.0); Mean Corpuscular Hemoglobin 34.6 pg (27.0-31.0); Mean Platelet Volume 7.3 fL (7.4-10.4); Platelet Count 262 thou/uL (130-400); RBC Distribution Width 11.3 % (11.5-14.5); Red Blood Cell (RBC) Count 3.77 mill/uL (4.20-5.40); White Blood Cell (WBC) Count 5.9 thou/uL (4.8-10.8)
[2021-11-07 15:27] LABS: ALT (SGPT) 8 U/L (8-55); AST (SGOT) 13 U/L (5-34); Albumin 3.8 g/dL (3.5-5.0); Alkaline Phosphatase 105 U/L (40-110); Anion Gap 11 mmol/L (10-20); BUN (Urea Nitrogen) 7 mg/dL (7.0-18.7); Bilirubin, Total 0.3 mg/dL (0.2-1.2); Calc. Creatinine Clearance 0 mL/min (70-130); Calcium 8.8 mg/dL (7.8-10.44); Carbon Dioxide 23 mmol/L (22-29); Chloride 108 mmol/L (98-107); Globulin 2.7 g/dL (2.4-3.5); Glucose 101 mg/dL (70-105); Potassium 3.5 mmol/L (3.5-5.1); Protein, Total 6.5 g/dL (6.0-8.3); Sodium 138 mmol/L (136-145)
== END 2021-11-07 18:55 | disposition home or self-care (01) ==
LOC: ERS 14:07
DX: G40.909 Epilepsy, unspecified, not intractable, without status epilepticus (principal); F43.9 Reaction to severe stress, unspecified; G43.909 Migraine, unspecified, not intractable, without status migrainosus; Z79.899 Other long term (current) drug therapy
CPT/HCPCS: 36415; 80053; 85025; 93005

== ENCOUNTER 2021-11-26 13:49 | Inpatient (IN) | payer MEDICARE ==
[2021-11-26] MEDS ORDERED: Ondansetron PF 4 MG/2 ML Vial ONE (15:25)
[2021-11-26 15:49] LABS: #Basophils 0.1 thou/uL (0.0-0.2); #Eosinphils 0.2 thou/uL (0.0-0.7); #Lymphocytes 1.8 thou/uL (1.20-3.40); #Monocytes 0.4 thou/uL (0.11-0.59); %Basophils 0.7 % (0.0-1.0); %Eosinophils 2.3 % (0.0-10.0); %Lymphocytes 23.9 % (21.0-51.0); %Monocytes 5.8 % (0.0-10.0); %Neutrophils 67.3 % (42.0-75.0); Hemoglobin 13.5 g/dL (12.0-16.0); Mean Corpuscular HGB CONC 34.1 g/dL (32.0-36.0); Mean Corpuscular Hemoglobin 34.6 pg (27.0-31.0); Mean Platelet Volume 7.2 fL (7.4-10.4); Platelet Count 225 thou/uL (130-400); RBC Distribution Width 11.3 % (11.5-14.5); White Blood Cell (WBC) Count 7.4 thou/uL (4.8-10.8)
[2021-11-26 16:02] LABS: ALT (SGPT) 9 U/L (8-55); AST (SGOT) 13 U/L (5-34); Albumin 3.7 g/dL (3.5-5.0); Alkaline Phosphatase 101 U/L (40-110); Anion Gap 7 mmol/L (10-20); BUN (Urea Nitrogen) 10 mg/dL (7.0-18.7); Bilirubin, Total 0.2 mg/dL (0.2-1.2); Calc. Creatinine Clearance 0 mL/min (70-130); Calcium 8.9 mg/dL (7.8-10.44); Carbon Dioxide 23 mmol/L (22-29); Chloride 111 mmol/L (98-107); Globulin 2.8 g/dL (2.4-3.5); Glucose 104 mg/dL (70-105); Potassium 4.1 mmol/L (3.5-5.1); Protein, Total 6.5 g/dL (6.0-8.3); Sodium 137 mmol/L (136-145)
[2021-11-26 18:31] LABS: SARS-CoV-2 NAA Rapid Test Not Detected (NotDetected)
[2021-11-26 18:40] LABS: Carbamazepine-Tegretol 8.7 ug/mL (4.0-12.0)
[2021-11-26 18:48] LABS: Troponin I 0.032 ng/mL (< 0.028)
[2021-11-26] MEDS ORDERED: Bisacodyl 5 MG TAB PO PRN (18:50)
[2021-11-26] MEDS ORDERED: Ondansetron PF 4 MG/2 ML Vial IVP PRN (18:50)
[2021-11-26] MEDS ORDERED: Senokot S 8.6-50 MG TAB PO PRN (18:50)
[2021-11-26] MEDS ORDERED: Melatonin 3 MG TAB PO PRN (18:53)
[2021-11-26] MEDS: Sodium Chloride 0.9% 1,000 ML IV SCH (21:02)
[2021-11-26] MEDS: carBAMazepine 200 MG TAB PO SCH (21:02)
[2021-11-26] MEDS: Topiramate 100 MG TAB PO SCH (21:03)
[2021-11-26] MEDS: levETIRAcetam 500 MG TAB PO SCH (21:03)
[2021-11-26 22:04] LABS: Troponin I 0.032 ng/mL (< 0.028)
[2021-11-26] MEDS: Zolpidem Tartrate 5 MG TAB PO SCH (22:20)
[2021-11-26] MEDS: ALPRAZolam 1 MG TAB PO SCH (22:21)
[2021-11-26] MEDS: Famotidine/PF 20 mg/2ml Vial SLOW IVP SCH (22:22)
[2021-11-26] MEDS: Heparin 5,000 UNITS/ML VIAL SC SCH (22:27)
[2021-11-26 23:38] VITALS: BMI 18.4
[2021-11-27 06:58] LABS: #Basophils 0.1 thou/uL (0.0-0.2); #Eosinphils 0.2 thou/uL (0.0-0.7); #Monocytes 0.4 thou/uL (0.11-0.59); #Neutrophils 2.5 thou/uL (1.40-6.50); %Eosinophils 3.7 % (0.0-10.0); %Lymphocytes 38.8 % (21.0-51.0); %Monocytes 7.8 % (0.0-10.0); %Neutrophils 48.7 % (42.0-75.0); Hemoglobin 12.5 g/dL (12.0-16.0); Mean Corpuscular HGB CONC 34.4 g/dL (32.0-36.0); Mean Corpuscular Hemoglobin 35.1 pg (27.0-31.0); Mean Platelet Volume 7.4 fL (7.4-10.4); Platelet Count 206 thou/uL (130-400); RBC Distribution Width 11.1 % (11.5-14.5); Red Blood Cell (RBC) Count 3.54 mill/uL (4.20-5.40); White Blood Cell (WBC) Count 5.2 thou/uL (4.8-10.8)
[2021-11-27 07:19] LABS: ALT (SGPT) 7 U/L (8-55); AST (SGOT) 16 U/L (5-34); Alkaline Phosphatase 88 U/L (40-110); Anion Gap 9 mmol/L (10-20); BUN (Urea Nitrogen) 7 mg/dL (7.0-18.7); Bilirubin, Total 0.3 mg/dL (0.2-1.2); Calc. Creatinine Clearance 74 mL/min (70-130); Calcium 8.1 mg/dL (7.8-10.44); Carbon Dioxide 16 mmol/L (22-29); Chloride 115 mmol/L (98-107); Globulin 2.3 g/dL (2.4-3.5); Glucose 90 mg/dL (70-105); Potassium 3.8 mmol/L (3.5-5.1); Protein, Total 5.3 g/dL (6.0-8.3); Sodium 136 mmol/L (136-145)
[2021-11-27 07:21] LABS: Troponin I 0.025 ng/mL (< 0.028)
[2021-11-27] MEDS: Heparin 5,000 UNITS/ML VIAL SC SCH ×3 (10:49→21:40)
[2021-11-27] MEDS: ALPRAZolam 1 MG TAB PO SCH ×2 (10:50→21:39)
[2021-11-27] MEDS: levETIRAcetam 500 MG TAB PO SCH ×2 (10:50→21:39)
[2021-11-27] MEDS: Cyanocobalamin (Vitamin B-12) 1,000 MCG TAB PO SCH (10:50)
[2021-11-27] MEDS: Citalopram 20 MG TAB PO SCH (10:50)
[2021-11-27] MEDS: Folic Acid 1 MG TAB PO SCH (10:50)
[2021-11-27] MEDS: Topiramate 100 MG TAB PO SCH ×2 (10:51→21:40)
[2021-11-27] MEDS: Famotidine/PF 20 mg/2ml Vial SLOW IVP SCH ×2 (10:51→21:39)
[2021-11-27] MEDS: carBAMazepine 200 MG TAB PO SCH ×2 (10:51→21:39)
[2021-11-27] MEDS: Acetaminophen 325 MG TAB PO PRN (10:52)
[2021-11-27] MEDS: Sodium Chloride 0.9% 1,000 ML IV SCH (11:02)
[2021-11-27] MEDS ORDERED: Lorazepam 0.5 MG TAB PO PRN (16:27)
[2021-11-27] MEDS: Zolpidem Tartrate 5 MG TAB PO SCH (21:40)
[2021-11-28] MEDS: Sodium Chloride 0.9% 1,000 ML IV SCH ×2 (01:32→18:17)
[2021-11-28] MEDS: Lorazepam 2 MG/ML VIAL SLOW IVP PRN ×2 (05:36→20:59)
[2021-11-28 06:07] LABS: Anion Gap 12 mmol/L (10-20); BUN (Urea Nitrogen) 7 mg/dL (7.0-18.7); Calc. Creatinine Clearance 67 mL/min (70-130); Calcium 8.2 mg/dL (7.8-10.44); Carbon Dioxide 15 mmol/L (22-29); Cardiac Risk 4.6 (Less than 4.5); Chloride 114 mmol/L (98-107); Cholesterol 171 mg/dl (< 200 Desired); Glucose 87 mg/dL (70-105); HDL Cholesterol 37 mg/dL (>60 Neg Risk); LDL Cholesterol, Calculated 118 mg/dL; Potassium 4.2 mmol/L (3.5-5.1); Sodium 137 mmol/L (136-145); Triglycerides 80 mg/dL (Less than 150)
[2021-11-28] MEDS: Heparin 5,000 UNITS/ML VIAL SC SCH ×3 (08:09→22:00)
[2021-11-28] MEDS: Famotidine/PF 20 mg/2ml Vial SLOW IVP SCH ×2 (08:09→22:00)
[2021-11-28] MEDS: levETIRAcetam 500 MG TAB PO SCH ×2 (08:10→21:59)
[2021-11-28] MEDS: Topiramate 100 MG TAB PO SCH ×2 (08:10→21:59)
[2021-11-28] MEDS: Citalopram 20 MG TAB PO SCH (08:10)
[2021-11-28] MEDS: Folic Acid 1 MG TAB PO SCH (08:10)
[2021-11-28] MEDS: carBAMazepine 200 MG TAB PO SCH ×2 (08:10→21:59)
[2021-11-28] MEDS: ALPRAZolam 1 MG TAB PO SCH ×2 (08:11→23:25)
[2021-11-28] MEDS: Cyanocobalamin (Vitamin B-12) 1,000 MCG TAB PO SCH (08:11)
[2021-11-28] MEDS ORDERED: Regadenoson 0.4 MG/5 ML SYRINGE ONE (09:34)
[2021-11-28] MEDS: Acetaminophen 325 MG TAB PO PRN (14:22)
[2021-11-28 14:41] LABS: Actual Bicarbonate (HCO3a) 17.7 mEq/L (22-28); Base Excess (BEa) -5.7 mEq/L (-2.0 to +3.0); CO2 Tension 28.8 mmHg (35.0-45.0); Calcium, Ionized (arterial) 1.13 mmol/L (1.12-1.30); Carboxyhemoglobin (COHb) 0.6 gm% (0.0-3.0); Hemoglobin (Hb) 13.1 g/dL (12.0-16.0); O2 Tension (PaO2), arterial 107.3 mmHg (80.0-100.0); Potassium - ABG Lab 3.48 mmol/L (3.70-5.30); pH, Arterial 7.41 (7.35-7.45)
[2021-11-28 14:43] LABS: Puncture Site RRA
[2021-11-28 17:41] LABS: Bacteria/HPF None Seen HPF (None Seen); RBC/HPF 0-3 HPF (0-3); Squamous Epithelial 0-3 HPF (0-3); WBC/HPF 0-3 HPF (0-3)
[2021-11-28] MEDS: Zolpidem Tartrate 5 MG TAB PO SCH (21:59)
[2021-11-29] MEDS: Lorazepam 2 MG/ML VIAL SLOW IVP PRN ×2 (02:27→09:15)
[2021-11-29] MEDS: Sodium Chloride 0.9% 1,000 ML IV SCH ×2 (06:07→20:18)
[2021-11-29] MEDS: Levothyroxine Sodium 25 MCG TAB PO SCH (06:08)
[2021-11-29] MEDS: ALPRAZolam 1 MG TAB PO SCH ×2 (09:06→20:16)
[2021-11-29] MEDS: Folic Acid 1 MG TAB PO SCH (09:06)
[2021-11-29] MEDS: Cyanocobalamin (Vitamin B-12) 1,000 MCG TAB PO SCH (09:06)
[2021-11-29] MEDS: carBAMazepine 200 MG TAB PO SCH ×2 (09:06→20:17)
[2021-11-29] MEDS: levETIRAcetam 500 MG TAB PO SCH ×2 (09:06→20:17)
[2021-11-29] MEDS: Citalopram 20 MG TAB PO SCH (09:06)
[2021-11-29] MEDS: Famotidine/PF 20 mg/2ml Vial SLOW IVP SCH ×2 (09:06→20:16)
[2021-11-29] MEDS: Topiramate 100 MG TAB PO SCH ×2 (09:06→20:16)
[2021-11-29] MEDS: Heparin 5,000 UNITS/ML VIAL SC SCH ×3 (09:08→20:17)
[2021-11-29 11:28] LABS: Amphetamine Not Detected (NotDetected); Barbiturates Screen Not Detected (NotDetected); Benzodiazepine Screen Detected (NotDetected); Cocaine Metabolite Screen Not Detected (NotDetected); Methadone Not Detected (NotDetected); Methamphetamine Not Detected (NotDetected); Opiate Screen Not Detected (NotDetected); Oxycodone Screen Not Detected (NotDetected); Phencyclidine (PCP) Not Detected (NotDetected); THC/Cannabinoid Screen Detected (NotDetected); Tricyclic Screen Not Detected (NotDetected)
[2021-11-29 13:14] LABS: Anion Gap 11 mmol/L (10-20); BUN (Urea Nitrogen) 6 mg/dL (7.0-18.7); Calc. Creatinine Clearance 74 mL/min (70-130); Calcium 8.5 mg/dL (7.8-10.44); Carbon Dioxide 18 mmol/L (22-29); Chloride 112 mmol/L (98-107); Glucose 92 mg/dL (70-105); Potassium 3.5 mmol/L (3.5-5.1); Sodium 137 mmol/L (136-145)
[2021-11-29] MEDS: Zolpidem Tartrate 5 MG TAB PO SCH (20:16)
[2021-11-29] MEDS: Acetaminophen 325 MG TAB PO PRN (23:39)
[2021-11-30] MEDS: Lorazepam 2 MG/ML VIAL SLOW IVP PRN (02:01)
[2021-11-30] MEDS: Levothyroxine Sodium 25 MCG TAB PO SCH (06:36)
[2021-11-30] MEDS: Heparin 5,000 UNITS/ML VIAL SC SCH (08:25)
[2021-11-30] MEDS: Famotidine/PF 20 mg/2ml Vial SLOW IVP SCH (08:26)
[2021-11-30] MEDS: Citalopram 20 MG TAB PO SCH (08:28)
[2021-11-30] MEDS: Cyanocobalamin (Vitamin B-12) 1,000 MCG TAB PO SCH (08:28)
[2021-11-30] MEDS: Folic Acid 1 MG TAB PO SCH (08:28)
[2021-11-30] MEDS: carBAMazepine 200 MG TAB PO SCH (08:28)
[2021-11-30] MEDS: Topiramate 100 MG TAB PO SCH (08:28)
[2021-11-30] MEDS: levETIRAcetam 500 MG TAB PO SCH (08:28)
[2021-11-30] MEDS: ALPRAZolam 1 MG TAB PO SCH (08:28)
[2021-11-30 11:46] VITALS: BP 107/73; TEMP 98.2
== END 2021-11-30 13:49 | disposition home or self-care (01) | DRG 880 ==
LOC: ERS 13:49 → ERHOLD 17:28 → NEURO 21:38 → OBSVTOIN 11-27 18:13
PROVIDERS: ADMIT Internal Medicine; ATTEND Family Medicine
DX: F44.5 Conversion disorder with seizures or convulsions (principal); E87.2 Acidosis; F43.0 Acute stress reaction; Z20.822 Contact with and (suspected) exposure to COVID-19; J30.9 Allergic rhinitis, unspecified; G43.909 Migraine, unspecified, not intractable, without status migrainosus; G93.89 Other specified disorders of brain; G40.909 Epilepsy, unspecified, not intractable, without status epilepticus; F32.89 Other specified depressive episodes; E03.9 Hypothyroidism, unspecified; F41.1 Generalized anxiety disorder; Z79.899 Other long term (current) drug therapy; Z74.01 Bed confinement status; Z90.710 Acquired absence of both cervix and uterus; Z98.890 Other specified postprocedural states
CPT/HCPCS: 36415; 36600; 78452; 80048; 80053; 80061; 80156; 80177; 80306; 80307; 81015; 82553; 82805; 84439; 84443; 84484; 85025; 93005; 93010; 93017; 93306; 94760; 95712; 95819; 95957; 96374; A9500; J1642; J1644; J2060; J2405; J2785; J7050; S0028; U0002

== ENCOUNTER 2021-11-30 16:05 | Emergency (ER) | payer MEDICARE | END 2021-11-30 18:45 | disposition home or self-care (01) | LOC: ERS 16:05 | DX: S20.212A Contusion of left front wall of thorax, initial encounter (principal); R56.9 Unspecified convulsions; J69.0 Pneumonitis due to inhalation of food and vomit; G43.909 Migraine, unspecified, not intractable, without status migrainosus; W19.XXXA Unspecified fall, initial encounter | CPT/HCPCS: 71045; 93005; J1642 ==

== ENCOUNTER 2021-12-03 12:45 | Emergency (ER) | payer MEDICARE ==
[2021-12-03] MEDS ORDERED: Lorazepam 2 MG/ML VIAL ONE (13:33)
[2021-12-03 13:47] LABS: #Eosinphils 0.2 thou/uL (0.0-0.7); #Monocytes 0.5 thou/uL (0.11-0.59); %Basophils 0.6 % (0.0-1.0); %Eosinophils 4.3 % (0.0-10.0); %Lymphocytes 21.6 % (21.0-51.0); %Neutrophils 62.6 % (42.0-75.0); Hemoglobin 13.1 g/dL (12.0-16.0); Mean Corpuscular HGB CONC 34.4 g/dL (32.0-36.0); Mean Platelet Volume 7.4 fL (7.4-10.4); Platelet Count 200 thou/uL (130-400); RBC Distribution Width 11.4 % (11.5-14.5); Red Blood Cell (RBC) Count 3.74 mill/uL (4.20-5.40); White Blood Cell (WBC) Count 4.8 thou/uL (4.8-10.8)
[2021-12-03 14:19] LABS: ALT (SGPT) 14 U/L (8-55); AST (SGOT) 17 U/L (5-34); Albumin 3.7 g/dL (3.5-5.0); Alkaline Phosphatase 94 U/L (40-110); Anion Gap 13 mmol/L (10-20); BUN (Urea Nitrogen) 6 mg/dL (7.0-18.7); Bilirubin, Total 0.3 mg/dL (0.2-1.2); CK (CPK) 188 U/L (29-168); Calc. Creatinine Clearance 0 mL/min (70-130); Calcium 8.9 mg/dL (7.8-10.44); Carbon Dioxide 20 mmol/L (22-29); Chloride 110 mmol/L (98-107); Globulin 2.5 g/dL (2.4-3.5); Glucose 96 mg/dL (70-105); Potassium 3.3 mmol/L (3.5-5.1); Protein, Total 6.2 g/dL (6.0-8.3); Sodium 140 mmol/L (136-145)
[2021-12-03] MEDS ORDERED: Acetaminophen 500 MG TAB ONE (15:39)
[2021-12-04 09:51] LABS: SARS-CoV-2 PCR by NAA Not Detected (NotDetected)
== END 2021-12-03 15:55 | disposition home or self-care (01) ==
LOC: ERS 12:45
DX: R56.9 Unspecified convulsions (principal); Z20.822 Contact with and (suspected) exposure to COVID-19; G43.909 Migraine, unspecified, not intractable, without status migrainosus
CPT/HCPCS: 71045; 80053; 82550; 85025; 93005; 99284; U0003; U0005; 36415; J2060

== ENCOUNTER 2021-12-07 13:15 | Emergency (ER) | payer MEDICARE ==
[2021-12-07 14:25] LABS: ALT (SGPT) 14 U/L (8-55); AST (SGOT) 15 U/L (5-34); Albumin 3.7 g/dL (3.5-5.0); Alkaline Phosphatase 101 U/L (40-110); Anion Gap 9 mmol/L (10-20); BUN (Urea Nitrogen) 9 mg/dL (7.0-18.7); Bilirubin, Total 0.2 mg/dL (0.2-1.2); Calc. Creatinine Clearance 0 mL/min (70-130); Calcium 8.7 mg/dL (7.8-10.44); Carbon Dioxide 20 mmol/L (22-29); Chloride 112 mmol/L (98-107); Globulin 2.6 g/dL (2.4-3.5); Glucose 93 mg/dL (70-105); Lipase 28 U/L (8-78); Potassium 3.4 mmol/L (3.5-5.1); Protein, Total 6.3 g/dL (6.0-8.3); Sodium 138 mmol/L (136-145)
[2021-12-07] MEDS ORDERED: levETIRAcetam in NS 100 ML ONE (14:56)
[2021-12-07] MEDS ORDERED: Promethazine HCl 25 MG/ML VIAL ONE (14:56)
[2021-12-07 15:23] LABS: #Basophils 0.1 thou/uL (0.0-0.2); #Eosinphils 0.2 thou/uL (0.0-0.7); #Lymphocytes 1.2 thou/uL (1.20-3.40); #Monocytes 0.4 thou/uL (0.11-0.59); #Neutrophils 4.2 thou/uL (1.40-6.50); %Basophils 0.9 % (0.0-1.0); %Eosinophils 3.1 % (0.0-10.0); %Lymphocytes 20.2 % (21.0-51.0); %Monocytes 6.3 % (0.0-10.0); %Neutrophils 69.5 % (42.0-75.0); Hemoglobin 12.2 g/dL (12.0-16.0); Mean Corpuscular HGB CONC 33.7 g/dL (32.0-36.0); Mean Corpuscular Hemoglobin 33.9 pg (27.0-31.0); Mean Platelet Volume 7.5 fL (7.4-10.4); Platelet Count 226 thou/uL (130-400); RBC Distribution Width 11.4 % (11.5-14.5)
[2021-12-07 18:17] LABS: HBSAg Index 0.34 S/CO (0-0.99); HIV (1/2) Antibody/Antigen Non-Reactive (NonReactive); HIV 1/2 INDEX 0.08 S/CO (<1.00); Hep B Surf Ag Non-Reactive S/CO (NonReactive); Hep C IgG Ab Non-Reactive (NonReactive)
== END 2021-12-07 18:00 | disposition home or self-care (01) ==
LOC: ERS 13:15
DX: R56.9 Unspecified convulsions (principal); E03.9 Hypothyroidism, unspecified; Z79.899 Other long term (current) drug therapy
CPT/HCPCS: 36415; 70450; 71045; 80053; 83690; 84439; 84443; 84484; 85025; 86803; 87340; 87389; 93005; 96365; 96375; J1953; J2550

== ENCOUNTER 2021-12-08 12:34 | Emergency (ER) | payer MEDICARE ==
[2021-12-08 17:39] LABS: ALT (SGPT) 13 U/L (8-55); AST (SGOT) 26 U/L (5-34); Albumin 3.8 g/dL (3.5-5.0); Alkaline Phosphatase 100 U/L (40-110); Anion Gap 16 mmol/L (10-20); BUN (Urea Nitrogen) 6 mg/dL (7.0-18.7); Bilirubin, Total 0.4 mg/dL (0.2-1.2); Calc. Creatinine Clearance 0 mL/min (70-130); Calcium 8.6 mg/dL (7.8-10.44); Carbon Dioxide 13 mmol/L (22-29); Chloride 113 mmol/L (98-107); Globulin 2.9 g/dL (2.4-3.5); Glucose 79 mg/dL (70-105); Potassium 3.9 mmol/L (3.5-5.1); Protein, Total 6.7 g/dL (6.0-8.3); Sodium 138 mmol/L (136-145)
[2021-12-08 21:41] LABS: SARS-CoV-2 PCR by NAA Not Detected (NotDetected)
== END 2021-12-08 17:53 | disposition home or self-care (01) ==
LOC: ERS 12:34
DX: S09.90XA Unspecified injury of head, initial encounter (principal); R56.9 Unspecified convulsions; R07.9 Chest pain, unspecified; Z20.822 Contact with and (suspected) exposure to COVID-19; Z79.899 Other long term (current) drug therapy
CPT/HCPCS: 70450; 72125; 73030; 80053; 84484; 93005; U0003; U0005; 36415

== ENCOUNTER 2022-01-15 10:32 | Emergency (ER) | payer MEDICARE ==
[2022-01-15 11:27] LABS: #Basophils 0.1 thou/uL (0.0-0.2); #Eosinphils 0.2 thou/uL (0.0-0.7); #Lymphocytes 1.2 thou/uL (1.20-3.40); #Monocytes 0.4 thou/uL (0.11-0.59); #Neutrophils 4.5 thou/uL (1.40-6.50); %Basophils 0.9 % (0.0-1.0); %Eosinophils 2.8 % (0.0-10.0); %Lymphocytes 19.4 % (21.0-51.0); %Monocytes 6.4 % (0.0-10.0); %Neutrophils 70.6 % (42.0-75.0); Hemoglobin 13.9 g/dL (12.0-16.0); Mean Corpuscular HGB CONC 34.2 g/dL (32.0-36.0); Mean Platelet Volume 7.2 fL (7.4-10.4); Platelet Count 261 thou/uL (130-400); RBC Distribution Width 11.6 % (11.5-14.5); Red Blood Cell (RBC) Count 3.97 mill/uL (4.20-5.40); White Blood Cell (WBC) Count 6.4 thou/uL (4.8-10.8)
[2022-01-15 11:41] LABS: Carbamazepine-Tegretol 7.4 ug/mL (4.0-12.0)
[2022-01-15 11:42] LABS: ALT (SGPT) 8 U/L (8-55); AST (SGOT) 14 U/L (5-34); Albumin 3.8 g/dL (3.5-5.0); Alkaline Phosphatase 117 U/L (40-110); Anion Gap 10 mmol/L (10-20); BUN (Urea Nitrogen) 7 mg/dL (7.0-18.7); Bilirubin, Total 0.3 mg/dL (0.2-1.2); Calc. Creatinine Clearance 0 mL/min (70-130); Calcium 8.7 mg/dL (7.8-10.44); Carbon Dioxide 23 mmol/L (22-29); Chloride 109 mmol/L (98-107); Globulin 2.7 g/dL (2.4-3.5); Glucose 98 mg/dL (70-105); Potassium 3.4 mmol/L (3.5-5.1); Protein, Total 6.5 g/dL (6.0-8.3); Sodium 139 mmol/L (136-145)
== END 2022-01-15 12:58 | disposition home or self-care (01) ==
LOC: ERS 10:32
DX: R56.9 Unspecified convulsions (principal); G43.909 Migraine, unspecified, not intractable, without status migrainosus
CPT/HCPCS: 36415; 80053; 80156; 80177; 84146; 85025; 99284

== ENCOUNTER 2022-03-05 15:01 | Emergency (ER) | payer MEDICARE ==
[2022-03-05 16:43] LABS: Hemoglobin 15.2 g/dL (12.0-16.0); Mean Corpuscular HGB CONC 33.9 g/dL (32.0-36.0); Mean Corpuscular Hemoglobin 35.3 pg (27.0-31.0); Mean Platelet Volume 7.6 fL (7.4-10.4); Platelet Count 147 thou/uL (130-400); RBC Distribution Width 12.2 % (11.5-14.5); Red Blood Cell (RBC) Count 4.31 mill/uL (4.20-5.40); White Blood Cell (WBC) Count 7.4 thou/uL (4.8-10.8)
[2022-03-05 17:02] LABS: Band 3 % (5-11); Lymphocytes 12 % (21-51); MDiff Complete? YES; Macrocytosis SLIGHT = 6-15 cells (100X) (0-5/hpf); Monocytes 7 % (0-10); Neutrophil 67 % (42-75); Platelet Morphology Comment Appears Adequate; Polychromasia SLIGHT = 2-3 cells (100X) (0-2/hpf); Reactive Lymphocytes 11 % (0-10)
[2022-03-05 17:03] LABS: ALT (SGPT) 19 U/L (8-55); AST (SGOT) 28 U/L (5-34); Albumin 4.2 g/dL (3.5-5.0); Alkaline Phosphatase 139 U/L (40-110); Anion Gap 14 mmol/L (10-20); BUN (Urea Nitrogen) 9 mg/dL (7.0-18.7); Bilirubin, Total 0.4 mg/dL (0.2-1.2); Calc. Creatinine Clearance 0 mL/min (70-130); Calcium 9.2 mg/dL (7.8-10.44); Carbon Dioxide 18 mmol/L (22-29); Chloride 108 mmol/L (98-107); Globulin 3.2 g/dL (2.4-3.5); Glucose 90 mg/dL (70-105); Potassium 3.8 mmol/L (3.5-5.1); Protein, Total 7.4 g/dL (6.0-8.3); Sodium 136 mmol/L (136-145)
== END 2022-03-05 18:16 | disposition home or self-care (01) ==
LOC: ERS 15:01
DX: G40.909 Epilepsy, unspecified, not intractable, without status epilepticus (principal); M25.551 Pain in right hip; Z79.899 Other long term (current) drug therapy; W19.XXXA Unspecified fall, initial encounter
CPT/HCPCS: 36415; 70450; 80053; 80177; 85025; 94760

== ENCOUNTER 2022-04-05 14:06 | Emergency (ER) | payer MEDICARE ==
[2022-04-05] MEDS ORDERED: levETIRAcetam 500 MG/5 ML VIAL ONE ×2 (14:34→14:52)
[2022-04-05] MEDS ORDERED: Ondansetron PF 4 MG/2 ML Vial ONE ×2 (14:34→17:03)
[2022-04-05 14:58] LABS: #Eosinphils 0.1 thou/uL (0.0-0.7); #Lymphocytes 0.9 thou/uL (1.20-3.40); #Monocytes 0.7 thou/uL (0.11-0.59); #Neutrophils 3.5 thou/uL (1.40-6.50); %Basophils 0.9 % (0.0-1.0); %Eosinophils 1.1 % (0.0-10.0); %Monocytes 13.2 % (0.0-10.0); %Neutrophils 67.8 % (42.0-75.0); Hemoglobin 13.5 g/dL (12.0-16.0); Mean Corpuscular HGB CONC 34.6 g/dL (32.0-36.0); Mean Corpuscular Hemoglobin 35.9 pg (27.0-31.0); Mean Platelet Volume 7.5 fL (7.4-10.4); Platelet Count 245 thou/uL (130-400); RBC Distribution Width 11.5 % (11.5-14.5); Red Blood Cell (RBC) Count 3.77 mill/uL (4.20-5.40); White Blood Cell (WBC) Count 5.2 thou/uL (4.8-10.8)
[2022-04-05 15:21] LABS: ALT (SGPT) 15 U/L (8-55); AST (SGOT) 22 U/L (5-34); Albumin 3.8 g/dL (3.5-5.0); Alkaline Phosphatase 126 U/L (40-110); Anion Gap 11 mmol/L (10-20); BUN (Urea Nitrogen) 10 mg/dL (7.0-18.7); Bilirubin, Total 0.3 mg/dL (0.2-1.2); Calc. Creatinine Clearance 0 mL/min (70-130); Calcium 8.7 mg/dL (7.8-10.44); Carbon Dioxide 21 mmol/L (22-29); Chloride 108 mmol/L (98-107); Glucose 103 mg/dL (70-105); Potassium 3.2 mmol/L (3.5-5.1); Protein, Total 6.8 g/dL (6.0-8.3); Sodium 137 mmol/L (136-145)
[2022-04-05 15:39] LABS: Carbamazepine-Tegretol 9.3 ug/mL (4.0-12.0)
[2022-04-05] MEDS ORDERED: Potassium Chloride 20 MEQ TAB ONE (15:45)
[2022-04-05 17:26] LABS: Bilirubin Negative (Negative); Blood, Urine Negative (Negative); Clarity Clear (Clear); Glucose, Urine (Dipstick) Normal (Negative); Ketone, Urine Negative (Negative); Leukocyte Negative Leu/uL (Negative); Nitrite Negative (Negative); Protein, Urine (Dipstick) 10 mg/dL (Neg-Trace); Specific Gravity, Urine 1.028 (1.002-1.036); Urobilinogen Normal mg/dL (Less than 2); pH, Urine 5.5 (5.0-9.0)
== END 2022-04-05 18:45 | disposition home or self-care (01) ==
LOC: ERS 14:06
DX: G40.909 Epilepsy, unspecified, not intractable, without status epilepticus (principal); R11.2 Nausea with vomiting, unspecified; E87.6 Hypokalemia; Z79.899 Other long term (current) drug therapy
CPT/HCPCS: 80053; 80156; 80177; 81003; 85025; J1953; 36415; 96365; 96375; 96376; J2405

== ENCOUNTER 2022-05-15 17:44 | Emergency (ER) | payer MEDICARE | END 2022-05-15 19:30 | disposition home or self-care (01) | LOC: ERS 17:44 | DX: G40.409 Other generalized epilepsy and epileptic syndromes, not intractable, without status epilepticus (principal); I72.9 Aneurysm of unspecified site | CPT/HCPCS: 99283 ==

== ENCOUNTER 2022-06-02 16:29 | Emergency (ER) | payer MEDICARE ==
[2022-06-02] MEDS ORDERED: levETIRAcetam 500 MG/5 ML VIAL ONE (20:20)
== END 2022-06-02 21:31 | disposition home or self-care (01) ==
LOC: ERS 16:29
DX: G40.409 Other generalized epilepsy and epileptic syndromes, not intractable, without status epilepticus (principal); Z79.899 Other long term (current) drug therapy
CPT/HCPCS: 93005; J1953; 96374

== ENCOUNTER 2022-06-06 13:18 | Emergency (ER) | payer MEDICARE ==
[2022-06-06] MEDS ORDERED: levETIRAcetam 500 MG TAB PO SCH (14:15)
[2022-06-06] MEDS ORDERED: HYDROcodone/Acetaminophen 10/325 mg Tablet ONE (14:23)
== END 2022-06-06 14:40 | disposition home or self-care (01) ==
LOC: ERS 13:31
DX: G40.909 Epilepsy, unspecified, not intractable, without status epilepticus (principal); R51.9 Headache, unspecified
CPT/HCPCS: 99284

== ENCOUNTER 2022-06-24 18:28 | Emergency (ER) | payer MEDICARE ==
[2022-06-24] MEDS ORDERED: Metoclopramide HCl 10 MG/2 ML VIAL ONE (19:25)
== END 2022-06-24 20:38 | disposition home or self-care (01) ==
LOC: ERS 18:28
DX: G40.909 Epilepsy, unspecified, not intractable, without status epilepticus (principal); Z79.899 Other long term (current) drug therapy
CPT/HCPCS: 96365; J2765

== ENCOUNTER 2022-06-26 13:38 | Emergency (ER) | payer MEDICARE ==
[2022-06-26] MEDS ORDERED: Ondansetron PF 4 MG/2 ML Vial ONE (14:04)
[2022-06-26] MEDS ORDERED: Midazolam HCl 2 mg/2 ml Vial ONE (14:16)
[2022-06-26] MEDS ORDERED: Lorazepam (BATCHED) 2 MG/ML SYR ONE (14:17)
[2022-06-26] MEDS ORDERED: levETIRAcetam 500 MG/5 ML VIAL ONE (14:31)
[2022-06-26 15:34] LABS: Bilirubin Negative (Negative); Blood, Urine Negative (Negative); Clarity Clear (Clear); Glucose, Urine (Dipstick) Normal (Negative); Ketone, Urine Negative (Negative); Leukocyte Negative Leu/uL (Negative); Nitrite Negative (Negative); Protein, Urine (Dipstick) Negative (Neg-Trace); Specific Gravity, Urine 1.009 (1.002-1.036); Urobilinogen Normal mg/dL (Less than 2); pH, Urine 7.5 (5.0-9.0)
== END 2022-06-26 16:30 | disposition home or self-care (01) ==
LOC: ERS 13:38
DX: G40.909 Epilepsy, unspecified, not intractable, without status epilepticus (principal)
CPT/HCPCS: 81003; 93005; 96361; 96365; 96375; 99284; J1953; J2060; J2250; J2405

== ENCOUNTER 2022-06-29 17:49 | Inpatient (IN) | payer MEDICARE ==
[2022-06-29] MEDS ORDERED: levETIRAcetam 500 MG/5 ML VIAL ONE (18:18)
[2022-06-29] MEDS ORDERED: Ondansetron PF 4 MG/2 ML Vial ONE ×2 (18:18→20:10)
[2022-06-29] MEDS ORDERED: Clopidogrel Bisulfate 75 MG TAB ONE (18:18)
[2022-06-29] MEDS ORDERED: Midazolam HCl 5 mg/ml Vial ONE ×3 (18:45→20:15)
[2022-06-29 18:48] LABS: #Eosinphils 0.1 thou/uL (0.0-0.7); #Lymphocytes 1.1 thou/uL (1.20-3.40); #Monocytes 0.3 thou/uL (0.11-0.59); #Neutrophils 1.2 thou/uL (1.40-6.50); %Basophils 1.1 % (0.0-1.0); %Eosinophils 2.6 % (0.0-10.0); %Lymphocytes 41.5 % (21.0-51.0); %Monocytes 10.1 % (0.0-10.0); %Neutrophils 44.7 % (42.0-75.0); Hemoglobin 12.2 g/dL (12.0-16.0); Mean Corpuscular HGB CONC 34.3 g/dL (32.0-36.0); Mean Corpuscular Hemoglobin 35.4 pg (27.0-31.0); Mean Platelet Volume 8.2 fL (7.4-10.4); Platelet Count 175 thou/uL (130-400); Red Blood Cell (RBC) Count 3.46 mill/uL (4.20-5.40); White Blood Cell (WBC) Count 2.7 thou/uL (4.8-10.8)
[2022-06-29 18:53] LABS: BHCG - Serum Negative (NEGATIVE); Pregs Control Background? CLEAR/WHITE (CLR/WHITE); Pregs Control Bar Appear? YES (CONTROL BAR)
[2022-06-29 19:17] LABS: ALT (SGPT) 24 U/L (8-55); AST (SGOT) 29 U/L (5-34); Albumin 3.6 g/dL (3.5-5.0); Alkaline Phosphatase 90 U/L (40-110); Anion Gap 8 mmol/L (10-20); BUN (Urea Nitrogen) 5 mg/dL (7.0-18.7); Bilirubin, Total 0.2 mg/dL (0.2-1.2); Calc. Creatinine Clearance 0 mL/min (70-130); Calcium 8.2 mg/dL (7.8-10.44); Carbon Dioxide 24 mmol/L (22-29); Chloride 111 mmol/L (98-107); Estimated GFR 98; Globulin 2.5 g/dL (2.4-3.5); Glucose 98 mg/dL (70-105); Lipase 15 U/L (8-78); Protein, Total 6.1 g/dL (6.0-8.3); Sodium 140 mmol/L (136-145)
[2022-06-29 19:43] LABS: Potassium 2.8 mmol/L (3.5-5.1)
[2022-06-29] MEDS ORDERED: Potassium Chloride 20 MEQ TAB ONE (20:06)
[2022-06-29 21:02] LABS: Bilirubin Negative (Negative); Blood, Urine Negative (Negative); Clarity Clear (Clear); Glucose, Urine (Dipstick) Normal (Negative); Ketone, Urine Negative (Negative); Leukocyte Negative Leu/uL (Negative); Nitrite Negative (Negative); Protein, Urine (Dipstick) Negative (Neg-Trace); Specific Gravity, Urine 1.012 (1.002-1.036); Urobilinogen Normal mg/dL (Less than 2); pH, Urine 6.5 (5.0-9.0)
[2022-06-29 21:29] LABS: Amphetamine Not Detected (NotDetected); Barbiturates Screen Not Detected (NotDetected); Benzodiazepine Screen Not Detected (NotDetected); Cocaine Metabolite Screen Not Detected (NotDetected); Methadone Not Detected (NotDetected); Methamphetamine Not Detected (NotDetected); Opiate Screen Not Detected (NotDetected); Oxycodone Screen Not Detected (NotDetected); Phencyclidine (PCP) Not Detected (NotDetected); THC/Cannabinoid Screen Detected (NotDetected); Tricyclic Screen Not Detected (NotDetected)
[2022-06-29] MEDS ORDERED: Acetaminophen 650 MG Suppository PR PRN (21:54)
[2022-06-29] MEDS ORDERED: hydrALAZINE 20 MG/ML VIAL SLOW IVP PRN (21:56)
[2022-06-29] MEDS ORDERED: 1/2 NS w/KCL 20 mEq 1,000 ML IV SCH (22:00)
[2022-06-29] MEDS ORDERED: Electrolyte Replacement Protocol 1 EACH FS SCH (22:00)
[2022-06-29] MEDS ORDERED: Albuterol Sulfate 2.5 mg/3 ml Neb NEB PRN (22:25)
[2022-06-29] MEDS ORDERED: Albuterol 200 PUFF (6.7GM INHALER) INH PRN (22:31)
[2022-06-29] MEDS ORDERED: Magnesium 2 GM/50 ML(in water) 2 GM in Premix Bag 1 BAG IVPB SCH (23:45)
[2022-06-29] MEDS: Acetaminophen 325 MG TAB PO PRN (23:49)
[2022-06-30 01:00] LABS: Potassium 3.1 mmol/L (3.5-5.1)
[2022-06-30] MEDS ORDERED: Potassium Chloride 20 MEQ TAB PO SCH (01:30)
[2022-06-30 02:50] VITALS: BMI 19.5
[2022-06-30 04:28] LABS: #Eosinphils 0.1 thou/uL (0.0-0.7); #Lymphocytes 1.4 thou/uL (1.20-3.40); #Monocytes 0.3 thou/uL (0.11-0.59); %Eosinophils 1.3 % (0.0-10.0); %Lymphocytes 36.8 % (21.0-51.0); %Monocytes 8.3 % (0.0-10.0); %Neutrophils 53.6 % (42.0-75.0); Hemoglobin 12.3 g/dL (12.0-16.0); Mean Corpuscular HGB CONC 33.3 g/dL (32.0-36.0); Mean Corpuscular Hemoglobin 34.8 pg (27.0-31.0); Mean Platelet Volume 8.4 fL (7.4-10.4); Platelet Count 168 thou/uL (130-400); RBC Distribution Width 13.1 % (11.5-14.5); Red Blood Cell (RBC) Count 3.53 mill/uL (4.20-5.40); White Blood Cell (WBC) Count 3.8 thou/uL (4.8-10.8)
[2022-06-30 04:29] LABS: Anion Gap 9 mmol/L (10-20); BUN (Urea Nitrogen) Less than 4 mg/dL (7.0-18.7); Calc. Creatinine Clearance 84 mL/min (70-130); Calcium 7.9 mg/dL (7.8-10.44); Carbon Dioxide 19 mmol/L (22-29); Chloride 113 mmol/L (98-107); Estimated GFR 101; Glucose 99 mg/dL (70-105); Potassium 3.1 mmol/L (3.5-5.1); Sodium 138 mmol/L (136-145)
[2022-06-30 04:30] LABS: Magnesium 2.6 mg/dL (1.6-2.6)
[2022-06-30 04:40] LABS: CRP (Inflammatory) Less than 0.50 mg/dL (= or < 0.5)
[2022-06-30 05:23] LABS: Potassium 3.5 mmol/L (3.5-5.1)
[2022-06-30] MEDS: Enoxaparin Sodium 40 MG/0.4 ML SYRINGE SC SCH (09:18)
[2022-06-30] MEDS: Zinc Sulfate 220 MG CAP PO SCH ×2 (09:19→10:52)
[2022-06-30] MEDS: Citalopram 20 MG TAB PO SCH ×2 (09:19→10:52)
[2022-06-30] MEDS: carBAMazepine 200 MG TAB PO SCH ×3 (09:19→20:27)
[2022-06-30] MEDS: Ascorbic Acid 500 mg Chewable Tablet PO SCH ×2 (09:19→10:52)
[2022-06-30] MEDS: Topiramate 100 MG TAB PO SCH ×3 (09:19→20:27)
[2022-06-30] MEDS: levETIRAcetam 500 MG/5 ML VIAL SLOW IVP SCH ×2 (09:19→20:28)
[2022-06-30] MEDS: Famotidine/PF 20 mg/2ml Vial SLOW IVP SCH ×3 (09:19→20:28)
[2022-06-30] MEDS: Lorazepam 2 MG/ML VIAL SLOW IVP PRN (09:30)
[2022-06-30 10:06] LABS: Bacteria/HPF None Seen HPF (None Seen); Bilirubin Negative (Negative); Blood, Urine Negative (Negative); Clarity Clear (Clear); Glucose, Urine (Dipstick) Normal (Negative); Ketone, Urine Negative (Negative); Leukocyte Negative Leu/uL (Negative); Nitrite Negative (Negative); Protein, Urine (Dipstick) Negative (Neg-Trace); RBC/HPF 0-3 HPF (0-3); Specific Gravity, Urine 1.012 (1.002-1.036); Squamous Epithelial 0-3 HPF (0-3); Urobilinogen Normal mg/dL (Less than 2); WBC/HPF None Seen HPF (0-3); pH, Urine 6.5 (5.0-9.0)
[2022-06-30 10:10] LABS: Urine Culture Reflex No No
[2022-06-30] MEDS: Ondansetron PF 4 MG/2 ML Vial IVP PRN (17:11)
[2022-06-30] MEDS: Benzonatate 100 MG CAP PO PRN (17:11)
[2022-06-30] MEDS: Ondansetron ODT 4 MG TAB PO PRN (20:27)
[2022-06-30] MEDS: ALPRAZolam 1 MG TAB PO SCH (20:27)
[2022-06-30] MEDS: Cholecalciferol 1,000 UNITS (25 MCG) TAB PO SCH (20:28)
[2022-07-01 05:17] LABS: #Eosinphils 0.1 thou/uL (0.0-0.7); #Lymphocytes 1.5 thou/uL (1.20-3.40); #Monocytes 0.4 thou/uL (0.11-0.59); #Neutrophils 1.5 thou/uL (1.40-6.50); %Basophils 0.2 % (0.0-1.0); %Eosinophils 1.5 % (0.0-10.0); %Lymphocytes 43.1 % (21.0-51.0); %Neutrophils 43.2 % (42.0-75.0); Hemoglobin 12.7 g/dL (12.0-16.0); Mean Corpuscular HGB CONC 33.5 g/dL (32.0-36.0); Mean Platelet Volume 8.3 fL (7.4-10.4); Platelet Count 181 thou/uL (130-400); RBC Distribution Width 12.9 % (11.5-14.5); Red Blood Cell (RBC) Count 3.63 mill/uL (4.20-5.40); White Blood Cell (WBC) Count 3.4 thou/uL (4.8-10.8)
[2022-07-01 05:50] LABS: Anion Gap 12 mmol/L (10-20); BUN (Urea Nitrogen) 4 mg/dL (7.0-18.7); Calc. Creatinine Clearance 85 mL/min (70-130); Calcium 8.1 mg/dL (7.8-10.44); Carbon Dioxide 17 mmol/L (22-29); Chloride 112 mmol/L (98-107); Estimated GFR 102; Glucose 86 mg/dL (70-105); Potassium 3.4 mmol/L (3.5-5.1); Sodium 138 mmol/L (136-145)
[2022-07-01] MEDS ORDERED: Potassium Chloride 20 MEQ TAB PO SCH (08:30)
[2022-07-01] MEDS: Enoxaparin Sodium 40 MG/0.4 ML SYRINGE SC SCH (09:17)
[2022-07-01] MEDS: Topiramate 100 MG TAB PO SCH ×2 (09:18→21:12)
[2022-07-01] MEDS: carBAMazepine 200 MG TAB PO SCH ×2 (09:18→21:12)
[2022-07-01] MEDS: levETIRAcetam 500 MG/5 ML VIAL SLOW IVP SCH ×2 (09:18→21:12)
[2022-07-01] MEDS: Zinc Sulfate 220 MG CAP PO SCH (09:18)
[2022-07-01] MEDS: Ascorbic Acid 500 mg Chewable Tablet PO SCH (09:18)
[2022-07-01] MEDS: ALPRAZolam 1 MG TAB PO SCH ×2 (09:19→21:12)
[2022-07-01] MEDS: Famotidine/PF 20 mg/2ml Vial SLOW IVP SCH ×2 (09:19→21:12)
[2022-07-01] MEDS: Citalopram 20 MG TAB PO SCH (09:20)
[2022-07-01] MEDS: Ondansetron PF 4 MG/2 ML Vial IVP PRN ×2 (09:34→15:14)
[2022-07-01] MEDS: Acetaminophen 325 MG TAB PO PRN ×2 (09:48→14:07)
[2022-07-01] MEDS ORDERED: Promethazine 25 MG TAB PO PRN (10:37)
[2022-07-01] MEDS: Lorazepam 2 MG/ML VIAL SLOW IVP PRN (15:35)
[2022-07-01] MEDS: Cholecalciferol 1,000 UNITS (25 MCG) TAB PO SCH (21:11)
[2022-07-02] MEDS: Ondansetron PF 4 MG/2 ML Vial IVP PRN ×2 (05:47→13:35)
[2022-07-02] MEDS: Zinc Sulfate 220 MG CAP PO SCH (08:42)
[2022-07-02] MEDS: Topiramate 100 MG TAB PO SCH ×2 (08:42→20:38)
[2022-07-02] MEDS: Enoxaparin Sodium 40 MG/0.4 ML SYRINGE SC SCH (08:42)
[2022-07-02] MEDS: Ascorbic Acid 500 mg Chewable Tablet PO SCH (08:43)
[2022-07-02] MEDS: Citalopram 20 MG TAB PO SCH (08:43)
[2022-07-02] MEDS: carBAMazepine 200 MG TAB PO SCH ×2 (08:43→20:36)
[2022-07-02] MEDS: Famotidine/PF 20 mg/2ml Vial SLOW IVP SCH ×2 (08:43→20:36)
[2022-07-02] MEDS: ALPRAZolam 1 MG TAB PO SCH ×2 (08:43→20:36)
[2022-07-02] MEDS: levETIRAcetam 500 MG/5 ML VIAL SLOW IVP SCH ×2 (08:43→20:36)
[2022-07-02] MEDS ORDERED: Iopamidol-370 76% 500 ML 1 ML ONE (14:31)
[2022-07-02 15:10] LABS: Anion Gap 20 mmol/L (10-20); BUN (Urea Nitrogen) 7 mg/dL (7.0-18.7); Calc. Creatinine Clearance 78 mL/min (70-130); Carbon Dioxide 9 mmol/L (22-29); Chloride 113 mmol/L (98-107); Estimated GFR 93; Glucose 82 mg/dL (70-105); Potassium 4.7 mmol/L (3.5-5.1); Sodium 137 mmol/L (136-145)
[2022-07-02] MEDS ORDERED: Lactated Ringer's 1,000 ML IV SCH (16:00)
[2022-07-02] MEDS ORDERED: Sodium Bicarbonate 150 MEQ in Dextrose 5% in Water 1,000 ML IV SCH (16:00)
[2022-07-02] MEDS ORDERED: SUMAtriptan Succinate 6 MG/0.5 ML VIAL SC SCH (16:15)
[2022-07-02] MEDS: Cholecalciferol 1,000 UNITS (25 MCG) TAB PO SCH (20:36)
[2022-07-02] MEDS: Acetaminophen 500 MG TAB PO SCH (20:37)
[2022-07-02 20:39] LABS: #Eosinphils 0.1 thou/uL (0.0-0.7); #Monocytes 0.4 thou/uL (0.11-0.59); #Neutrophils 3.1 thou/uL (1.40-6.50); %Basophils 0.7 % (0.0-1.0); %Eosinophils 1.2 % (0.0-10.0); %Lymphocytes 22.6 % (21.0-51.0); %Monocytes 8.7 % (0.0-10.0); %Neutrophils 66.9 % (42.0-75.0); Hemoglobin 13.7 g/dL (12.0-16.0); Mean Corpuscular Hemoglobin 35.4 pg (27.0-31.0); Mean Platelet Volume 8.3 fL (7.4-10.4); Platelet Count 229 thou/uL (130-400); RBC Distribution Width 12.7 % (11.5-14.5); Red Blood Cell (RBC) Count 3.87 mill/uL (4.20-5.40); White Blood Cell (WBC) Count 4.6 thou/uL (4.8-10.8)
[2022-07-02] MEDS: Promethazine 25 MG TAB PO PRN (20:44)
[2022-07-02] MEDS: Lactated Ringer's 1,000 ML IV SCH (22:34)
[2022-07-03 05:24] LABS: #Lymphocytes 1.4 thou/uL (1.20-3.40); #Monocytes 0.4 thou/uL (0.11-0.59); #Neutrophils 1.1 thou/uL (1.40-6.50); %Basophils 1.2 % (0.0-1.0); %Eosinophils 1.7 % (0.0-10.0); %Lymphocytes 47.8 % (21.0-51.0); %Monocytes 13.9 % (0.0-10.0); %Neutrophils 35.4 % (42.0-75.0); Hemoglobin 11.9 g/dL (12.0-16.0); Mean Corpuscular HGB CONC 33.5 g/dL (32.0-36.0); Mean Corpuscular Hemoglobin 33.6 pg (27.0-31.0); Platelet Count 230 thou/uL (130-400); RBC Distribution Width 12.7 % (11.5-14.5); Red Blood Cell (RBC) Count 3.55 mill/uL (4.20-5.40)
[2022-07-03 05:44] LABS: ALT (SGPT) 27 U/L (8-55); AST (SGOT) 26 U/L (5-34); Albumin 3.4 g/dL (3.5-5.0); Alkaline Phosphatase 86 U/L (40-110); Anion Gap 10 mmol/L (10-20); BUN (Urea Nitrogen) 5 mg/dL (7.0-18.7); Bilirubin, Total 0.3 mg/dL (0.2-1.2); Calc. Creatinine Clearance 85 mL/min (70-130); Calcium 8.1 mg/dL (7.8-10.44); Carbon Dioxide 24 mmol/L (22-29); Chloride 108 mmol/L (98-107); Estimated GFR 102; Globulin 2.2 g/dL (2.4-3.5); Glucose 101 mg/dL (70-105); Potassium 3.2 mmol/L (3.5-5.1); Protein, Total 5.6 g/dL (6.0-8.3); Sodium 139 mmol/L (136-145)
[2022-07-03] MEDS ORDERED: HYDROcodone/Acetaminophen 7.5/325 mg Tablet PO SCH (05:45)
[2022-07-03] MEDS: Lactated Ringer's 1,000 ML IV SCH ×2 (06:18→14:50)
[2022-07-03] MEDS: Enoxaparin Sodium 40 MG/0.4 ML SYRINGE SC SCH (08:48)
[2022-07-03] MEDS: Ascorbic Acid 500 mg Chewable Tablet PO SCH (08:50)
[2022-07-03] MEDS: Acetaminophen 500 MG TAB PO SCH ×3 (08:50→23:32)
[2022-07-03] MEDS: Citalopram 20 MG TAB PO SCH (08:51)
[2022-07-03] MEDS: Ondansetron ODT 4 MG TAB PO PRN (08:51)
[2022-07-03] MEDS: Zinc Sulfate 220 MG CAP PO SCH (08:51)
[2022-07-03] MEDS: Famotidine/PF 20 mg/2ml Vial SLOW IVP SCH ×2 (08:51→20:51)
[2022-07-03] MEDS: Topiramate 100 MG TAB PO SCH ×2 (08:51→23:33)
[2022-07-03] MEDS: levETIRAcetam 500 MG/5 ML VIAL SLOW IVP SCH ×2 (08:51→20:44)
[2022-07-03] MEDS: ALPRAZolam 1 MG TAB PO SCH ×2 (08:51→23:32)
[2022-07-03] MEDS: carBAMazepine 200 MG TAB PO SCH ×2 (08:58→23:32)
[2022-07-03] MEDS ORDERED: Potassium Chloride 20 MEQ TAB PO SCH (09:00)
[2022-07-03] MEDS: Lorazepam 2 MG/ML VIAL SLOW IVP PRN ×2 (09:32→21:22)
[2022-07-03] MEDS: Benzonatate 100 MG CAP PO PRN (13:50)
[2022-07-03] MEDS: Promethazine 25 MG TAB PO PRN ×2 (13:50→19:01)
[2022-07-03] MEDS ORDERED: SUMAtriptan Succinate 50 MG TAB PO PRN (17:02)
[2022-07-03 18:30] LABS: Potassium 3.8 mmol/L (3.5-5.1)
[2022-07-03] MEDS ORDERED: Lorazepam (BATCHED) 2 MG/ML SYR SLOW IVP PRN (21:28)
[2022-07-03] MEDS: Cholecalciferol 1,000 UNITS (25 MCG) TAB PO SCH (23:32)
[2022-07-04] MEDS: Lactated Ringer's 1,000 ML IV SCH ×3 (00:18→17:05)
[2022-07-04 05:22] LABS: ALT (SGPT) 23 U/L (8-55); AST (SGOT) 20 U/L (5-34); Albumin 3.4 g/dL (3.5-5.0); Alkaline Phosphatase 86 U/L (40-110); Anion Gap 12 mmol/L (10-20); BUN (Urea Nitrogen) Less than 4 mg/dL (7.0-18.7); Bilirubin, Total 0.3 mg/dL (0.2-1.2); Calc. Creatinine Clearance 90 mL/min (70-130); Calcium 8.4 mg/dL (7.8-10.44); Carbon Dioxide 19 mmol/L (22-29); Chloride 112 mmol/L (98-107); Estimated GFR 107; Globulin 2.3 g/dL (2.4-3.5); Glucose 93 mg/dL (70-105); Potassium 3.5 mmol/L (3.5-5.1); Protein, Total 5.7 g/dL (6.0-8.3); Sodium 139 mmol/L (136-145)
[2022-07-04 05:33] LABS: Hemoglobin 11.8 g/dL (12.0-16.0); Mean Corpuscular HGB CONC 34.1 g/dL (32.0-36.0); Mean Corpuscular Hemoglobin 34.7 pg (27.0-31.0); Mean Platelet Volume 7.9 fL (7.4-10.4); Platelet Count 229 thou/uL (130-400); RBC Distribution Width 12.8 % (11.5-14.5); White Blood Cell (WBC) Count 3.6 thou/uL (4.8-10.8)
[2022-07-04 05:34] LABS: Band 1 % (5-11); Eosinophils 2 % (0-10); Lymphocytes 39 % (21-51); MDiff Complete? YES; Monocytes 14 % (0-10); Neutrophil 44 % (42-75)
[2022-07-04] MEDS: Promethazine 25 MG TAB PO PRN ×2 (07:50→22:00)
[2022-07-04] MEDS ORDERED: Potassium Chloride 20 MEQ TAB PO SCH (08:00)
[2022-07-04] MEDS: Enoxaparin Sodium 40 MG/0.4 ML SYRINGE SC SCH (09:38)
[2022-07-04] MEDS: levETIRAcetam 500 MG/5 ML VIAL SLOW IVP SCH ×2 (09:39→21:57)
[2022-07-04] MEDS: Famotidine/PF 20 mg/2ml Vial SLOW IVP SCH ×2 (09:39→21:59)
[2022-07-04] MEDS: carBAMazepine 200 MG TAB PO SCH ×2 (09:40→22:00)
[2022-07-04] MEDS: Topiramate 100 MG TAB PO SCH ×2 (09:40→22:01)
[2022-07-04] MEDS: Ascorbic Acid 500 mg Chewable Tablet PO SCH (09:40)
[2022-07-04] MEDS: Zinc Sulfate 220 MG CAP PO SCH (09:40)
[2022-07-04] MEDS: ALPRAZolam 1 MG TAB PO SCH ×2 (09:40→22:00)
[2022-07-04] MEDS: Citalopram 20 MG TAB PO SCH (09:42)
[2022-07-04] MEDS: Acetaminophen 500 MG TAB PO SCH ×3 (11:57→22:00)
[2022-07-04 18:38] LABS: Campy jejuni + coli by PCR Negative (Negative); STEC Shiga Toxin 1+2 Negative (Negative); Salmonella spp. by PCR Negative (Negative); Shigella spp + EIEC by PCR Negative (Negative)
[2022-07-04] MEDS: Midazolam HCl 2 mg/2 ml Vial SLOW IVP PRN (19:22)
[2022-07-04 20:21] LABS: Potassium 3.6 mmol/L (3.5-5.1)
[2022-07-04] MEDS: Cholecalciferol 1,000 UNITS (25 MCG) TAB PO SCH (22:01)
[2022-07-05] MEDS: Lactated Ringer's 1,000 ML IV SCH ×3 (01:44→15:52)
[2022-07-05] MEDS: levETIRAcetam 500 MG/5 ML VIAL SLOW IVP SCH ×2 (08:28→20:49)
[2022-07-05] MEDS: Famotidine/PF 20 mg/2ml Vial SLOW IVP SCH ×2 (08:29→20:50)
[2022-07-05] MEDS: Enoxaparin Sodium 40 MG/0.4 ML SYRINGE SC SCH (08:29)
[2022-07-05] MEDS: Ascorbic Acid 500 mg Chewable Tablet PO SCH (08:29)
[2022-07-05] MEDS: Acetaminophen 500 MG TAB PO SCH ×3 (08:30→20:49)
[2022-07-05] MEDS: Zinc Sulfate 220 MG CAP PO SCH (08:30)
[2022-07-05] MEDS: carBAMazepine 200 MG TAB PO SCH ×2 (08:31→20:50)
[2022-07-05] MEDS: Topiramate 100 MG TAB PO SCH ×2 (08:31→20:49)
[2022-07-05] MEDS: ALPRAZolam 1 MG TAB PO SCH ×2 (08:31→20:48)
[2022-07-05] MEDS: Citalopram 20 MG TAB PO SCH (08:31)
[2022-07-05 10:05] LABS: #Eosinphils 0.1 thou/uL (0.0-0.7); #Monocytes 0.5 thou/uL (0.11-0.59); #Neutrophils 2.2 thou/uL (1.40-6.50); %Basophils 0.8 % (0.0-1.0); %Eosinophils 2.8 % (0.0-10.0); %Lymphocytes 26.1 % (21.0-51.0); %Monocytes 12.4 % (0.0-10.0); %Neutrophils 57.9 % (42.0-75.0); Hemoglobin 12.8 g/dL (12.0-16.0); Mean Corpuscular HGB CONC 33.9 g/dL (32.0-36.0); Mean Corpuscular Hemoglobin 34.8 pg (27.0-31.0); Mean Platelet Volume 7.8 fL (7.4-10.4); Platelet Count 259 thou/uL (130-400); RBC Distribution Width 12.6 % (11.5-14.5); Red Blood Cell (RBC) Count 3.67 mill/uL (4.20-5.40); White Blood Cell (WBC) Count 3.7 thou/uL (4.8-10.8)
[2022-07-05 10:17] LABS: ALT (SGPT) 23 U/L (8-55); AST (SGOT) 23 U/L (5-34); Albumin 3.6 g/dL (3.5-5.0); Alkaline Phosphatase 102 U/L (40-110); Anion Gap 15 mmol/L (10-20); BUN (Urea Nitrogen) Less than 4 mg/dL (7.0-18.7); Bilirubin, Total 0.4 mg/dL (0.2-1.2); Calc. Creatinine Clearance 87 mL/min (70-130); Calcium 8.3 mg/dL (7.8-10.44); Carbon Dioxide 17 mmol/L (22-29); Chloride 111 mmol/L (98-107); Estimated GFR 106; Globulin 2.5 g/dL (2.4-3.5); Glucose 98 mg/dL (70-105); Potassium 3.5 mmol/L (3.5-5.1); Protein, Total 6.1 g/dL (6.0-8.3); Sodium 139 mmol/L (136-145)
[2022-07-05] MEDS ORDERED: Potassium Chloride 20 MEQ TAB PO SCH (11:00)
[2022-07-05] MEDS: Cholecalciferol 1,000 UNITS (25 MCG) TAB PO SCH (20:48)
[2022-07-06 05:28] LABS: #Eosinphils 0.1 thou/uL (0.0-0.7); #Lymphocytes 1.1 thou/uL (1.20-3.40); #Monocytes 0.6 thou/uL (0.11-0.59); #Neutrophils 2.7 thou/uL (1.40-6.50); %Basophils 0.6 % (0.0-1.0); %Eosinophils 2.3 % (0.0-10.0); %Lymphocytes 23.5 % (21.0-51.0); %Monocytes 12.5 % (0.0-10.0); %Neutrophils 61.1 % (42.0-75.0); Hemoglobin 13.4 g/dL (12.0-16.0); Mean Corpuscular HGB CONC 33.4 g/dL (32.0-36.0); Mean Corpuscular Hemoglobin 34.4 pg (27.0-31.0); Mean Platelet Volume 7.9 fL (7.4-10.4); Platelet Count 298 thou/uL (130-400); RBC Distribution Width 12.6 % (11.5-14.5); Red Blood Cell (RBC) Count 3.91 mill/uL (4.20-5.40); White Blood Cell (WBC) Count 4.5 thou/uL (4.8-10.8)
[2022-07-06 05:51] LABS: ALT (SGPT) 29 U/L (8-55); AST (SGOT) 27 U/L (5-34); Albumin 3.8 g/dL (3.5-5.0); Alkaline Phosphatase 113 U/L (40-110); Anion Gap 16 mmol/L (10-20); BUN (Urea Nitrogen) 5 mg/dL (7.0-18.7); Bilirubin, Total 0.5 mg/dL (0.2-1.2); Calc. Creatinine Clearance 87 mL/min (70-130); Calcium 8.7 mg/dL (7.8-10.44); Carbon Dioxide 17 mmol/L (22-29); Chloride 107 mmol/L (98-107); Estimated GFR 106; Globulin 2.8 g/dL (2.4-3.5); Glucose 84 mg/dL (70-105); Potassium 3.8 mmol/L (3.5-5.1); Protein, Total 6.6 g/dL (6.0-8.3); Sodium 136 mmol/L (136-145)
[2022-07-06] MEDS: levETIRAcetam 500 MG/5 ML VIAL SLOW IVP SCH ×2 (08:54→20:12)
[2022-07-06] MEDS: Famotidine/PF 20 mg/2ml Vial SLOW IVP SCH ×2 (08:55→20:11)
[2022-07-06] MEDS: Ascorbic Acid 500 mg Chewable Tablet PO SCH (08:55)
[2022-07-06] MEDS: Enoxaparin Sodium 40 MG/0.4 ML SYRINGE SC SCH (08:55)
[2022-07-06] MEDS: carBAMazepine 200 MG TAB PO SCH ×2 (08:56→20:12)
[2022-07-06] MEDS: ALPRAZolam 1 MG TAB PO SCH ×2 (08:56→20:11)
[2022-07-06] MEDS: Citalopram 20 MG TAB PO SCH (08:56)
[2022-07-06] MEDS: Zinc Sulfate 220 MG CAP PO SCH ×2 (08:56→08:57)
[2022-07-06] MEDS: Acetaminophen 500 MG TAB PO SCH ×3 (08:57→20:12)
[2022-07-06] MEDS: Topiramate 100 MG TAB PO SCH ×2 (08:57→20:12)
[2022-07-06] MEDS ORDERED: Sodium Bicarbonate Tab 325 MG TAB PO SCH (09:30)
[2022-07-06] MEDS: Promethazine 25 MG TAB PO PRN (12:58)
[2022-07-06] MEDS: Sodium Bicarbonate Tab 325 MG TAB PO SCH ×2 (14:40→20:11)
[2022-07-06] MEDS: Cholecalciferol 1,000 UNITS (25 MCG) TAB PO SCH (20:12)
[2022-07-07 04:55] LABS: #Eosinphils 0.1 thou/uL (0.0-0.7); #Monocytes 0.5 thou/uL (0.11-0.59); #Neutrophils 2.2 thou/uL (1.40-6.50); %Basophils 1.2 % (0.0-1.0); %Eosinophils 2.4 % (0.0-10.0); %Lymphocytes 26.3 % (21.0-51.0); %Monocytes 12.6 % (0.0-10.0); %Neutrophils 57.6 % (42.0-75.0); Hemoglobin 13.3 g/dL (12.0-16.0); Mean Corpuscular HGB CONC 33.4 g/dL (32.0-36.0); Mean Corpuscular Hemoglobin 34.2 pg (27.0-31.0); Mean Platelet Volume 7.8 fL (7.4-10.4); Platelet Count 328 thou/uL (130-400); RBC Distribution Width 12.7 % (11.5-14.5); White Blood Cell (WBC) Count 3.7 thou/uL (4.8-10.8)
[2022-07-07 05:17] LABS: ALT (SGPT) 25 U/L (8-55); AST (SGOT) 21 U/L (5-34); Albumin 3.9 g/dL (3.5-5.0); Alkaline Phosphatase 117 U/L (40-110); Anion Gap 14 mmol/L (10-20); BUN (Urea Nitrogen) 7 mg/dL (7.0-18.7); Bilirubin, Total 0.6 mg/dL (0.2-1.2); Calc. Creatinine Clearance 77 mL/min (70-130); Calcium 8.7 mg/dL (7.8-10.44); Carbon Dioxide 19 mmol/L (22-29); Chloride 109 mmol/L (98-107); Estimated GFR 92; Globulin 2.6 g/dL (2.4-3.5); Glucose 86 mg/dL (70-105); Potassium 3.4 mmol/L (3.5-5.1); Protein, Total 6.5 g/dL (6.0-8.3); Sodium 139 mmol/L (136-145)
[2022-07-07] MEDS ORDERED: Potassium Chloride 20 MEQ TAB PO SCH (08:30)
[2022-07-07] MEDS: Famotidine/PF 20 mg/2ml Vial SLOW IVP SCH ×2 (08:46→20:19)
[2022-07-07] MEDS: levETIRAcetam 500 MG/5 ML VIAL SLOW IVP SCH ×2 (08:46→20:20)
[2022-07-07] MEDS: Enoxaparin Sodium 40 MG/0.4 ML SYRINGE SC SCH (08:46)
[2022-07-07] MEDS: Sodium Bicarbonate Tab 325 MG TAB PO SCH ×3 (08:47→20:19)
[2022-07-07] MEDS: Topiramate 100 MG TAB PO SCH ×2 (08:47→20:19)
[2022-07-07] MEDS: Acetaminophen 500 MG TAB PO SCH ×3 (08:47→20:19)
[2022-07-07] MEDS: carBAMazepine 200 MG TAB PO SCH ×2 (08:48→20:19)
[2022-07-07] MEDS: Zinc Sulfate 220 MG CAP PO SCH (08:49)
[2022-07-07] MEDS: Citalopram 20 MG TAB PO SCH (08:49)
[2022-07-07] MEDS: ALPRAZolam 1 MG TAB PO SCH ×2 (08:49→20:20)
[2022-07-07] MEDS: Ascorbic Acid 500 mg Chewable Tablet PO SCH (08:49)
[2022-07-07] MEDS: Midazolam HCl 2 mg/2 ml Vial SLOW IVP PRN ×2 (09:36→12:58)
[2022-07-07] MEDS: Promethazine 25 MG TAB PO PRN ×2 (12:32→20:29)
[2022-07-07] MEDS ORDERED: levETIRAcetam 500 MG/5 ML VIAL SLOW IVP SCH (13:30)
[2022-07-07 18:01] LABS: Potassium 5.6 mmol/L (3.5-5.1)
[2022-07-07] MEDS: Cholecalciferol 1,000 UNITS (25 MCG) TAB PO SCH (20:19)
[2022-07-08] MEDS: Midazolam HCl 2 mg/2 ml Vial SLOW IVP PRN (02:22)
[2022-07-08] MEDS ORDERED: Acetaminophen 325 MG TAB PO SCH (03:00)
[2022-07-08] MEDS ORDERED: HYDROcodone/Acetaminophen 5/325 mg Tablet PO SCH (03:00)
[2022-07-08] MEDS: Promethazine 25 MG TAB PO PRN ×3 (03:17→16:50)
[2022-07-08 05:32] LABS: #Lymphocytes 0.4 thou/uL (1.20-3.40); #Monocytes 0.5 thou/uL (0.11-0.59); #Neutrophils 5.7 thou/uL (1.40-6.50); %Basophils 0.2 % (0.0-1.0); %Eosinophils 0.3 % (0.0-10.0); %Lymphocytes 6.5 % (21.0-51.0); %Monocytes 7.8 % (0.0-10.0); %Neutrophils 85.2 % (42.0-75.0); Mean Corpuscular HGB CONC 33.5 g/dL (32.0-36.0); Mean Corpuscular Hemoglobin 35.1 pg (27.0-31.0); Mean Platelet Volume 7.7 fL (7.4-10.4); Platelet Count 286 thou/uL (130-400); RBC Distribution Width 12.7 % (11.5-14.5); Red Blood Cell (RBC) Count 3.98 mill/uL (4.20-5.40); White Blood Cell (WBC) Count 6.7 thou/uL (4.8-10.8)
[2022-07-08 06:04] LABS: ALT (SGPT) 35 U/L (8-55); AST (SGOT) 47 U/L (5-34); Albumin 3.8 g/dL (3.5-5.0); Alkaline Phosphatase 127 U/L (40-110); Anion Gap 16 mmol/L (10-20); BUN (Urea Nitrogen) 6 mg/dL (7.0-18.7); Bilirubin, Total 0.3 mg/dL (0.2-1.2); Calc. Creatinine Clearance 75 mL/min (70-130); Calcium 8.5 mg/dL (7.8-10.44); Carbon Dioxide 16 mmol/L (22-29); Chloride 107 mmol/L (98-107); Estimated GFR 89; Glucose 111 mg/dL (70-105); Protein, Total 6.8 g/dL (6.0-8.3); Sodium 135 mmol/L (136-145)
[2022-07-08] MEDS: Enoxaparin Sodium 40 MG/0.4 ML SYRINGE SC SCH (08:45)
[2022-07-08] MEDS: Sodium Bicarbonate Tab 325 MG TAB PO SCH ×2 (08:45→14:34)
[2022-07-08] MEDS: levETIRAcetam 500 MG/5 ML VIAL SLOW IVP SCH (08:46)
[2022-07-08] MEDS: Famotidine/PF 20 mg/2ml Vial SLOW IVP SCH (08:46)
[2022-07-08] MEDS: Acetaminophen 500 MG TAB PO SCH ×2 (08:47→14:34)
[2022-07-08] MEDS: carBAMazepine 200 MG TAB PO SCH (08:47)
[2022-07-08] MEDS: ALPRAZolam 1 MG TAB PO SCH (08:47)
[2022-07-08] MEDS: Citalopram 20 MG TAB PO SCH (08:47)
[2022-07-08] MEDS: Topiramate 100 MG TAB PO SCH (08:47)
[2022-07-08] MEDS: Ascorbic Acid 500 mg Chewable Tablet PO SCH (08:47)
[2022-07-08] MEDS: Zinc Sulfate 220 MG CAP PO SCH (08:47)
[2022-07-08 15:31] VITALS: BP 117/78; TEMP 98.5
== END 2022-07-08 17:10 | disposition home or self-care (01) | DRG 100 ==
LOC: ERS 17:49 → NEURO 20:54 → OBSVTOIN 06-30 15:54
PROVIDERS: ADMIT Internal Medicine; ATTEND Internal Medicine
PROC: 8E0ZXY6 Isolation (ICD-10-PCS; principal; 2022-06-30)
DX: G40.909 Epilepsy, unspecified, not intractable, without status epilepticus (principal); U07.1 COVID-19; E87.2 Acidosis; A08.39 Other viral enteritis; F44.5 Conversion disorder with seizures or convulsions; K21.9 Gastro-esophageal reflux disease without esophagitis; E03.9 Hypothyroidism, unspecified; F39 Unspecified mood [affective] disorder; F41.9 Anxiety disorder, unspecified; G43.909 Migraine, unspecified, not intractable, without status migrainosus; F32.A Depression, unspecified; M06.9 Rheumatoid arthritis, unspecified; T42.6X6A Underdosing of other antiepileptic and sedative-hypnotic drugs, initial encounter; E87.6 Hypokalemia; R00.1 Bradycardia, unspecified; I95.9 Hypotension, unspecified; D72.819 Decreased white blood cell count, unspecified; J30.9 Allergic rhinitis, unspecified; Z88.8 Allergy status to other drugs, medicaments and biological substances; Z79.899 Other long term (current) drug therapy; I25.2 Old myocardial infarction; Z90.710 Acquired absence of both cervix and uterus
CPT/HCPCS: 36415; 36416; 70450; 71045; 74177; 80048; 80053; 80306; 81003; 83605; 83630; 83690; 83735; 84132; 84146; 84443; 84484; 84703; 85025; 85379; 86140; 87328; 87329; 87505; 93005; 96372; 96374; 96375; 96376; G0378; J1650; J1953; J2060; J2250; J2405; J3030; J3475; J3480; J7070; J7120; Q0162; Q0169; Q9967; S0028; U0003; U0005

== ENCOUNTER 2022-07-15 01:14 | Emergency (ER) | payer MEDICARE ==
[2022-07-15] MEDS ORDERED: Haloperidol Lactate 5 MG/ML VIAL ONE (01:30)
[2022-07-15 02:47] LABS: Acetaminophen Less than 10.0 mcg/mL (10.0-30.0); Alcohol Less than 10 mg/dL (Less than 10); Salicylate Less than 8.0 mg/dL (15.0-30.0)
[2022-07-15 02:48] LABS: ALT (SGPT) 18 U/L (8-55); AST (SGOT) 16 U/L (5-34); Alkaline Phosphatase 89 U/L (40-110); Anion Gap 11 mmol/L (10-20); BUN (Urea Nitrogen) 8 mg/dL (7.0-18.7); Bilirubin, Total 0.3 mg/dL (0.2-1.2); Calc. Creatinine Clearance 0 mL/min (70-130); Calcium 7.2 mg/dL (7.8-10.44); Carbon Dioxide 19 mmol/L (22-29); Chloride 112 mmol/L (98-107); Estimated GFR 96; Globulin 2.1 g/dL (2.4-3.5); Glucose 96 mg/dL (70-105); Magnesium 1.7 mg/dL (1.6-2.6); Protein, Total 5.1 g/dL (6.0-8.3); Sodium 139 mmol/L (136-145)
[2022-07-15 02:51] LABS: Potassium 2.8 mmol/L (3.5-5.1)
[2022-07-15 03:04] LABS: #Eosinphils 0.1 thou/uL (0.0-0.7); #Lymphocytes 1.7 thou/uL (1.20-3.40); #Monocytes 0.6 thou/uL (0.11-0.59); #Neutrophils 4.9 thou/uL (1.40-6.50); %Basophils 0.7 % (0.0-1.0); %Eosinophils 1.3 % (0.0-10.0); %Lymphocytes 23.3 % (21.0-51.0); %Monocytes 7.9 % (0.0-10.0); %Neutrophils 66.8 % (42.0-75.0); Mean Corpuscular HGB CONC 34.5 g/dL (32.0-36.0); Mean Corpuscular Hemoglobin 35.4 pg (27.0-31.0); Mean Platelet Volume 7.5 fL (7.4-10.4); Platelet Count 319 thou/uL (130-400); RBC Distribution Width 12.5 % (11.5-14.5); Red Blood Cell (RBC) Count 3.41 mill/uL (4.20-5.40); White Blood Cell (WBC) Count 7.3 thou/uL (4.8-10.8)
[2022-07-15] MEDS ORDERED: Potassium Chloride 20 MEQ TAB ONE (03:36)
[2022-07-15] MEDS ORDERED: Pot Chloride/Pot Bicarb/Cit Ac 25 mEq Effervescent Tablet ONE ×2 (03:37)
[2022-07-15 03:53] LABS: Bilirubin Negative (Negative); Blood, Urine Negative (Negative); Clarity Clear (Clear); Glucose, Urine (Dipstick) Normal (Negative); Ketone, Urine Negative (Negative); Leukocyte Negative Leu/uL (Negative); Nitrite Negative (Negative); Protein, Urine (Dipstick) Negative (Neg-Trace); Specific Gravity, Urine 1.063 (1.002-1.036); Urobilinogen Normal mg/dL (Less than 2)
[2022-07-15 04:01] LABS: Amphetamine Not Detected (NotDetected); Barbiturates Screen Not Detected (NotDetected); Benzodiazepine Screen Not Detected (NotDetected); Cocaine Metabolite Screen Not Detected (NotDetected); Methadone Not Detected (NotDetected); Methamphetamine Not Detected (NotDetected); Opiate Screen Not Detected (NotDetected); Oxycodone Screen Not Detected (NotDetected); Phencyclidine (PCP) Not Detected (NotDetected); THC/Cannabinoid Screen Detected (NotDetected); Tricyclic Screen Not Detected (NotDetected)
[2022-07-15] MEDS ORDERED: Iopamidol-370 76% 500 ML 1 ML ONE (15:24)
== END 2022-07-15 04:33 | disposition home or self-care (01) ==
LOC: ERS 01:14
DX: E87.6 Hypokalemia (principal); G40.909 Epilepsy, unspecified, not intractable, without status epilepticus
CPT/HCPCS: 51701; 74177; 80053; 80306; 80307; 81003; 83735; 85025; 93005; 96372; J1630; Q9967

== ENCOUNTER 2022-07-26 18:09 | Emergency (ER) | payer MEDICARE ==
[2022-07-26 19:11] LABS: #Eosinphils 0.1 thou/uL (0.0-0.7); #Monocytes 0.6 thou/uL (0.11-0.59); #Neutrophils 4.8 thou/uL (1.40-6.50); %Basophils 0.6 % (0.0-1.0); %Eosinophils 1.4 % (0.0-10.0); %Lymphocytes 26.1 % (21.0-51.0); %Monocytes 8.3 % (0.0-10.0); %Neutrophils 63.5 % (42.0-75.0); Hemoglobin 11.9 g/dL (12.0-16.0); Mean Corpuscular HGB CONC 34.2 g/dL (32.0-36.0); Mean Corpuscular Hemoglobin 35.8 pg (27.0-31.0); Mean Platelet Volume 8.1 fL (7.4-10.4); Platelet Count 240 thou/uL (130-400); RBC Distribution Width 12.2 % (11.5-14.5); Red Blood Cell (RBC) Count 3.34 mill/uL (4.20-5.40); White Blood Cell (WBC) Count 7.5 thou/uL (4.8-10.8)
[2022-07-26] MEDS ORDERED: levETIRAcetam 500 MG/5 ML VIAL SLOW IVP SCH (19:15)
[2022-07-26] MEDS ORDERED: Sodium Chloride 0.9% 1,000 ML IV SCH (19:15)
[2022-07-26] MEDS ORDERED: Metoclopramide HCl 10 MG/2 ML VIAL ONE (19:20)
[2022-07-26] MEDS ORDERED: levETIRAcetam 500 MG/5 ML VIAL ONE (19:20)
[2022-07-26 19:23] LABS: BHCG - Serum Negative (NEGATIVE); Pregs Control Background? CLEAR/WHITE (CLR/WHITE); Pregs Control Bar Appear? YES (CONTROL BAR)
[2022-07-26 19:33] LABS: ALT (SGPT) 13 U/L (8-55); AST (SGOT) 18 U/L (5-34); Albumin 3.7 g/dL (3.5-5.0); Alkaline Phosphatase 102 U/L (40-110); Anion Gap 14 mmol/L (10-20); BUN (Urea Nitrogen) 12 mg/dL (7.0-18.7); Bilirubin, Total 0.3 mg/dL (0.2-1.2); Calc. Creatinine Clearance 0 mL/min (70-130); Calcium 8.5 mg/dL (7.8-10.44); Carbon Dioxide 23 mmol/L (22-29); Chloride 108 mmol/L (98-107); Estimated GFR 79; Globulin 2.4 g/dL (2.4-3.5); Glucose 110 mg/dL (70-105); Potassium 3.9 mmol/L (3.5-5.1); Protein, Total 6.1 g/dL (6.0-8.3); Sodium 141 mmol/L (136-145)
== END 2022-07-26 21:07 | disposition home or self-care (01) ==
LOC: ERS 18:09
DX: G40.909 Epilepsy, unspecified, not intractable, without status epilepticus (principal); G43.909 Migraine, unspecified, not intractable, without status migrainosus; Z79.899 Other long term (current) drug therapy
CPT/HCPCS: 70450; 72125; 80053; 83605; 84703; 85025; 86140; 94760; 96374; 96375; 99284; J1953; J2765

== ENCOUNTER 2022-08-10 15:44 | Emergency (ER) | payer MEDICARE ==
[2022-08-10] MEDS ORDERED: Midazolam HCl 5 mg/ml Vial ONE (17:07)
[2022-08-10 17:30] LABS: #Eosinphils 0.2 thou/uL (0.0-0.7); #Lymphocytes 1.6 thou/uL (1.20-3.40); #Monocytes 0.7 thou/uL (0.11-0.59); #Neutrophils 5.9 thou/uL (1.40-6.50); %Basophils 0.6 % (0.0-1.0); %Eosinophils 1.8 % (0.0-10.0); %Lymphocytes 19.6 % (21.0-51.0); %Monocytes 8.4 % (0.0-10.0); %Neutrophils 69.7 % (42.0-75.0); Hemoglobin 12.9 g/dL (12.0-16.0); Mean Corpuscular HGB CONC 34.3 g/dL (32.0-36.0); Mean Corpuscular Hemoglobin 35.2 pg (27.0-31.0); Mean Platelet Volume 6.9 fL (7.4-10.4); Platelet Count 419 thou/uL (130-400); RBC Distribution Width 11.8 % (11.5-14.5); Red Blood Cell (RBC) Count 3.65 mill/uL (4.20-5.40); White Blood Cell (WBC) Count 8.4 thou/uL (4.8-10.8)
[2022-08-10] MEDS ORDERED: Prochlorperazine 10 MG/2 ML VIAL IVP SCH (17:45)
[2022-08-10 17:50] LABS: ALT (SGPT) 14 U/L (8-55); AST (SGOT) 23 U/L (5-34); Alkaline Phosphatase 122 U/L (40-110); Anion Gap 14 mmol/L (10-20); BUN (Urea Nitrogen) 8 mg/dL (7.0-18.7); Bilirubin, Total 0.2 mg/dL (0.2-1.2); Calc. Creatinine Clearance 0 mL/min (70-130); Calcium 8.9 mg/dL (7.8-10.44); Carbon Dioxide 17 mmol/L (22-29); Chloride 111 mmol/L (98-107); Estimated GFR 84; Globulin 2.9 g/dL (2.4-3.5); Glucose 106 mg/dL (70-105); Lipase 33 U/L (8-78); Protein, Total 6.9 g/dL (6.0-8.3); Sodium 138 mmol/L (136-145)
[2022-08-10] MEDS ORDERED: diphenhydrAMINE 50 MG/ML VIAL ONE (18:10)
[2022-08-10] MEDS ORDERED: Acetaminophen 500 MG TAB ONE (18:10)
[2022-08-10] MEDS ORDERED: Ketorolac Tromethamine 30 MG/ML VIAL ONE (18:10)
== END 2022-08-10 21:16 | disposition home or self-care (01) ==
LOC: ERS 15:44
DX: G40.909 Epilepsy, unspecified, not intractable, without status epilepticus (principal)
CPT/HCPCS: 36415; 71045; 80053; 83690; 84484; 85025; 96374; 96375; J0780; J1200; J1885; J2250

== ENCOUNTER 2022-08-25 12:51 | Emergency (ER) | payer MEDICARE ==
[2022-08-25] MEDS ORDERED: levETIRAcetam 500 MG/5 ML VIAL ONE (12:56)
[2022-08-25] MEDS ORDERED: Boostrix 0.5 ML (Tdap) VIAL (>/=7 yrs of age) ONE (14:07)
[2022-08-25] MEDS ORDERED: Ketorolac Tromethamine 30 MG/ML VIAL ONE (15:33)
== END 2022-08-25 15:45 | disposition home or self-care (01) ==
LOC: ERS 12:51
DX: G40.909 Epilepsy, unspecified, not intractable, without status epilepticus (principal); Z79.899 Other long term (current) drug therapy
CPT/HCPCS: 70450; 72125; 90471; 90715; 96374; 96375; 99284; J1953; J1885

== ENCOUNTER 2022-09-21 14:16 | Emergency (ER) | payer MEDICARE ==
[2022-09-21 16:06] LABS: Mean Corpuscular Hemoglobin 33.5 pg (27.0-31.0); Mean Platelet Volume 8.6 fL (7.4-10.4); RBC Distribution Width 11.4 % (11.5-14.5); Red Blood Cell (RBC) Count 4.18 mill/uL (4.20-5.40); White Blood Cell (WBC) Count 5.8 thou/uL (4.8-10.8)
[2022-09-21 16:22] LABS: ALT (SGPT) 24 U/L (8-55); AST (SGOT) 24 U/L (5-34); Alkaline Phosphatase 133 U/L (40-110); Anion Gap 13 mmol/L (10-20); BUN (Urea Nitrogen) 9 mg/dL (7.0-18.7); Bilirubin, Total 0.2 mg/dL (0.2-1.2); CK (CPK) 156 U/L (29-168); Calc. Creatinine Clearance 0 mL/min (70-130); Calcium 8.9 mg/dL (7.8-10.44); Carbon Dioxide 20 mmol/L (22-29); Chloride 109 mmol/L (98-107); Estimated GFR 82; Globulin 2.9 g/dL (2.4-3.5); Glucose 90 mg/dL (70-105); Lipase 33 U/L (8-78); Magnesium 2.1 mg/dL (1.6-2.6); Potassium 4.1 mmol/L (3.5-5.1); Protein, Total 6.9 g/dL (6.0-8.3); Sodium 138 mmol/L (136-145)
[2022-09-21 16:23] LABS: Acetaminophen Less than 10.0 mcg/mL (10.0-30.0); Alcohol Less than 10 mg/dL (Less than 10); Salicylate Less than 8.0 mg/dL (15.0-30.0)
[2022-09-21 16:29] LABS: Eosinophils 3 % (0-10); Lymphocytes 21 % (21-51); MDiff Complete? YES; Monocytes 11 % (0-10); Neutrophil 63 % (42-75); Platelet Morphology Comment Appears Adequate; RBC Morphology Normal; Reactive Lymphocytes 1 % (0-10)
[2022-09-21 16:44] LABS: CKMB 2.2 ng/mL (0-6.6)
[2022-09-21 18:12] LABS: Platelet Count 215 thou/uL (130-400)
[2022-09-21 19:23] LABS: Bacteria/HPF None Seen HPF (None Seen); Bilirubin Negative (Negative); Blood, Urine Negative (Negative); Clarity Clear (Clear); Glucose, Urine (Dipstick) Normal (Negative); Ketone, Urine Negative (Negative); Leukocyte 250 Leu/uL (Negative); Nitrite Negative (Negative); Protein, Urine (Dipstick) Negative (Neg-Trace); RBC/HPF 0-3 HPF (0-3); Specific Gravity, Urine 1.013 (1.002-1.036); Squamous Epithelial 0-3 HPF (0-3); Urobilinogen Normal mg/dL (Less than 2); WBC/HPF 0-3 HPF (0-3); pH, Urine 5.5 (5.0-9.0)
[2022-09-21 19:27] LABS: Amphetamine Not Detected (NotDetected); Barbiturates Screen Not Detected (NotDetected); Benzodiazepine Screen Not Detected (NotDetected); Cocaine Metabolite Screen Not Detected (NotDetected); Methadone Not Detected (NotDetected); Methamphetamine Not Detected (NotDetected); Opiate Screen Not Detected (NotDetected); Oxycodone Screen Not Detected (NotDetected); Phencyclidine (PCP) Not Detected (NotDetected); THC/Cannabinoid Screen Not Detected (NotDetected); Tricyclic Screen Not Detected (NotDetected)
== END 2022-09-21 21:35 | disposition home or self-care (01) ==
LOC: ERS 14:16
DX: R56.9 Unspecified convulsions (principal); R07.89 Other chest pain; Z20.822 Contact with and (suspected) exposure to COVID-19
CPT/HCPCS: 71045; 76705; 80053; 80306; 80307; 82550; 82553; 83690; 83735; 84484 ×2; 85025; 87804 ×2; 93005; 99285; U0003; U0005; 36415; 81003; 81015

== ENCOUNTER 2022-10-08 11:48 | Emergency (ER) | payer MEDICARE ==
[2022-10-08] MEDS ORDERED: levETIRAcetam 500 MG/5 ML VIAL ONE (12:19)
== END 2022-10-08 14:32 | disposition home or self-care (01) ==
LOC: ERS 11:48
DX: R56.9 Unspecified convulsions (principal)
CPT/HCPCS: 96365; 96366; J1953

== ENCOUNTER 2022-11-09 12:40 | Emergency (ER) | payer MEDICARE ==
[2022-11-09 15:04] LABS: AST (SGOT) 19 U/L (5-34); Bilirubin, Total 0.2 mg/dL (0.2-1.2); Calc. Creatinine Clearance 0 mL/min (70-130); Calcium 8.7 mg/dL (7.8-10.44); Carbon Dioxide 15 mmol/L (22-29); Chloride 111 mmol/L (98-107); Estimated GFR 74; Potassium 3.9 mmol/L (3.5-5.1); Protein, Total 6.7 g/dL (6.0-8.3); Sodium 137 mmol/L (136-145)
[2022-11-09 15:11] LABS: CKMB 1.5 ng/mL (0-6.6)
[2022-11-09 15:18] LABS: Albumin 3.7 g/dL (3.5-5.0)
[2022-11-09 15:20] LABS: Glucose 83 mg/dL (70-105)
[2022-11-09 15:22] LABS: Anion Gap 15 mmol/L (10-20)
[2022-11-09 15:23] LABS: Alkaline Phosphatase 125 U/L (40-110)
[2022-11-09 15:24] LABS: BUN (Urea Nitrogen) 10 mg/dL (7.0-18.7)
[2022-11-09 15:26] LABS: ALT (SGPT) 14 U/L (8-55); Lipase 34 U/L (8-78)
[2022-11-09] MEDS ORDERED: Clopidogrel Bisulfate 75 MG TAB ONE (16:13)
[2022-11-09 17:11] LABS: #Eosinphils 0.2 thou/uL (0.0-0.7); #Lymphocytes 1.3 thou/uL (1.20-3.40); #Monocytes 0.5 thou/uL (0.11-0.59); #Neutrophils 5.2 thou/uL (1.40-6.50); %Basophils 0.3 % (0.0-1.0); %Eosinophils 2.5 % (0.0-10.0); %Lymphocytes 18.2 % (21.0-51.0); %Monocytes 7.5 % (0.0-10.0); %Neutrophils 71.5 % (42.0-75.0); Hemoglobin 13.5 g/dL (12.0-16.0); Mean Corpuscular HGB CONC 32.4 g/dL (32.0-36.0); Mean Corpuscular Hemoglobin 32.5 pg (27.0-31.0); Mean Platelet Volume 7.7 fL (7.4-10.4); Platelet Count 249 10x3/uL (130-400); RBC Distribution Width 11.4 % (11.5-14.5); Red Blood Cell (RBC) Count 4.16 mill/uL (4.20-5.40); White Blood Cell (WBC) Count 7.2 10x3/uL (4.8-10.8)
[2022-11-09 17:43] LABS: Troponin I 0.029 ng/mL (< 0.028)
== END 2022-11-09 19:54 | disposition home or self-care (01) ==
LOC: ERS 12:40
DX: R07.9 Chest pain, unspecified (principal)
CPT/HCPCS: 36415; 71045; 80053; 82553; 83690; 84484; 85025; 93005; J1642

== ENCOUNTER 2022-11-14 14:22 | Emergency (ER) | payer MEDICARE ==
[2022-11-14 15:03] LABS: #Eosinphils 0.2 thou/uL (0.0-0.7); #Lymphocytes 1.5 thou/uL (1.20-3.40); #Monocytes 0.6 thou/uL (0.11-0.59); #Neutrophils 4.2 thou/uL (1.40-6.50); %Basophils 0.7 % (0.0-1.0); %Eosinophils 2.4 % (0.0-10.0); %Lymphocytes 23.5 % (21.0-51.0); %Neutrophils 64.5 % (42.0-75.0); Hemoglobin 13.3 g/dL (12.0-16.0); Mean Corpuscular HGB CONC 33.2 g/dL (32.0-36.0); Mean Corpuscular Hemoglobin 33.5 pg (27.0-31.0); Mean Platelet Volume 7.7 fL (7.4-10.4); Platelet Count 268 10x3/uL (130-400); RBC Distribution Width 11.5 % (11.5-14.5); Red Blood Cell (RBC) Count 3.97 mill/uL (4.20-5.40); White Blood Cell (WBC) Count 6.6 10x3/uL (4.8-10.8)
[2022-11-14 15:20] LABS: ALT (SGPT) 13 U/L (8-55); AST (SGOT) 20 U/L (5-34); Albumin 3.8 g/dL (3.5-5.0); Alkaline Phosphatase 129 U/L (40-110); Anion Gap 14 mmol/L (10-20); BUN (Urea Nitrogen) 11 mg/dL (7.0-18.7); Bilirubin, Total 0.3 mg/dL (0.2-1.2); Calc. Creatinine Clearance 0 mL/min (70-130); Calcium 8.6 mg/dL (7.8-10.44); Carbon Dioxide 17 mmol/L (22-29); Chloride 110 mmol/L (98-107); Estimated GFR 82; Glucose 87 mg/dL (70-105); Potassium 3.8 mmol/L (3.5-5.1); Protein, Total 6.8 g/dL (6.0-8.3); Sodium 137 mmol/L (136-145)
[2022-11-14 16:42] LABS: Bacteria/HPF None Seen HPF (None Seen); Bilirubin Negative (Negative); Blood, Urine Negative (Negative); Clarity Clear (Clear); Glucose, Urine (Dipstick) Normal (Negative); Ketone, Urine Negative (Negative); Leukocyte 75 Leu/uL (Negative); Nitrite Negative (Negative); Protein, Urine (Dipstick) Negative (Neg-Trace); RBC/HPF 0-3 HPF (0-3); Specific Gravity, Urine 1.009 (1.002-1.036); Squamous Epithelial 0-3 HPF (0-3); Urobilinogen Normal mg/dL (Less than 2); WBC/HPF 0-3 HPF (0-3)
[2022-11-14 16:50] LABS: Amphetamine Not Detected (NotDetected); Barbiturates Screen Not Detected (NotDetected); Benzodiazepine Screen Not Detected (NotDetected); Cocaine Metabolite Screen Not Detected (NotDetected); Methadone Not Detected (NotDetected); Methamphetamine Not Detected (NotDetected); Opiate Screen Not Detected (NotDetected); Oxycodone Screen Not Detected (NotDetected); Phencyclidine (PCP) Not Detected (NotDetected); THC/Cannabinoid Screen Not Detected (NotDetected); Tricyclic Screen Not Detected (NotDetected)
== END 2022-11-14 17:12 | disposition home or self-care (01) ==
LOC: ERS 14:22
DX: R56.9 Unspecified convulsions (principal)
CPT/HCPCS: 36415; 80053; 80306; 81003; 81015; 85025; 93005

== ENCOUNTER 2022-11-25 16:13 | Emergency (ER) | payer MEDICARE ==
[2022-11-25 17:29] LABS: #Eosinphils 0.1 thou/uL (0.0-0.7); #Lymphocytes 1.1 thou/uL (1.20-3.40); #Monocytes 0.5 thou/uL (0.11-0.59); #Neutrophils 4.8 thou/uL (1.40-6.50); %Basophils 0.7 % (0.0-1.0); %Eosinophils 1.8 % (0.0-10.0); %Lymphocytes 17.2 % (21.0-51.0); %Monocytes 6.8 % (0.0-10.0); %Neutrophils 73.5 % (42.0-75.0); Hemoglobin 13.2 g/dL (12.0-16.0); Mean Corpuscular HGB CONC 33.9 g/dL (32.0-36.0); Mean Corpuscular Hemoglobin 33.3 pg (27.0-31.0); Mean Corpuscular Volume 98.1 fl (78.0-98.0); Mean Platelet Volume 8.1 fL (7.4-10.4); Platelet Count 300 10x3/uL (130-400); RBC Distribution Width 11.4 % (11.5-14.5); Red Blood Cell (RBC) Count 3.98 mill/uL (4.20-5.40); White Blood Cell (WBC) Count 6.6 10x3/uL (4.8-10.8)
[2022-11-25 17:49] LABS: ALT (SGPT) 7 U/L (8-55); AST (SGOT) 18 U/L (5-34); Albumin 3.8 g/dL (3.5-5.0); Alkaline Phosphatase 143 U/L (40-110); Anion Gap 8 mmol/L (10-20); BUN (Urea Nitrogen) 10 mg/dL (7.0-18.7); Bilirubin, Total 0.2 mg/dL (0.2-1.2); CK (CPK) 161 U/L (29-168); Calc. Creatinine Clearance 0 mL/min (70-130); Calcium 8.5 mg/dL (7.8-10.44); Carbon Dioxide 22 mmol/L (22-29); Chloride 110 mmol/L (98-107); Estimated GFR 90; Globulin 2.9 g/dL (2.4-3.5); Glucose 89 mg/dL (70-105); Potassium 3.4 mmol/L (3.5-5.1); Protein, Total 6.7 g/dL (6.0-8.3); Sodium 137 mmol/L (136-145)
== END 2022-11-25 19:40 | disposition home or self-care (01) ==
LOC: ERS 16:13
DX: G40.909 Epilepsy, unspecified, not intractable, without status epilepticus (principal); Z79.899 Other long term (current) drug therapy
CPT/HCPCS: 80053; 82550; 85025; 93005

== ENCOUNTER 2022-11-28 17:24 | Emergency (ER) | payer MEDICARE ==
[2022-11-28 17:53] LABS: #Eosinphils 0.1 thou/uL (0.0-0.7); #Lymphocytes 1.2 thou/uL (1.20-3.40); #Monocytes 0.5 thou/uL (0.11-0.59); %Basophils 0.4 % (0.0-1.0); %Eosinophils 2.6 % (0.0-10.0); %Lymphocytes 24.2 % (21.0-51.0); %Monocytes 10.7 % (0.0-10.0); %Neutrophils 62.2 % (42.0-75.0); Hemoglobin 13.5 g/dL (12.0-16.0); Mean Corpuscular HGB CONC 34.2 g/dL (32.0-36.0); Mean Corpuscular Hemoglobin 33.6 pg (27.0-31.0); Mean Corpuscular Volume 98.5 fl (78.0-98.0); Mean Platelet Volume 7.1 fL (7.4-10.4); Platelet Count 263 10x3/uL (130-400); RBC Distribution Width 11.6 % (11.5-14.5); Red Blood Cell (RBC) Count 4.02 mill/uL (4.20-5.40); White Blood Cell (WBC) Count 4.9 10x3/uL (4.8-10.8)
[2022-11-28 18:13] LABS: ALT (SGPT) 12 U/L (8-55); AST (SGOT) 27 U/L (5-34); Albumin 3.8 g/dL (3.5-5.0); Alkaline Phosphatase 147 U/L (40-110); Anion Gap 11 mmol/L (10-20); BUN (Urea Nitrogen) Less than 4 mg/dL (7.0-18.7); Bilirubin, Total 0.2 mg/dL (0.2-1.2); Calc. Creatinine Clearance 0 mL/min (70-130); Calcium 8.8 mg/dL (7.8-10.44); Carbon Dioxide 21 mmol/L (22-29); Chloride 110 mmol/L (98-107); Estimated GFR 88; Globulin 2.8 g/dL (2.4-3.5); Glucose 90 mg/dL (70-105); Potassium 3.6 mmol/L (3.5-5.1); Protein, Total 6.6 g/dL (6.0-8.3); Sodium 138 mmol/L (136-145)
[2022-11-28 19:24] LABS: Bilirubin Negative (Negative); Blood, Urine Negative (Negative); Clarity Clear (Clear); Glucose, Urine (Dipstick) Normal (Negative); Ketone, Urine Negative (Negative); Leukocyte Negative Leu/uL (Negative); Nitrite Negative (Negative); Protein, Urine (Dipstick) Negative (Neg-Trace); Specific Gravity, Urine 1.007 (1.002-1.036); Urobilinogen Normal mg/dL (Less than 2); pH, Urine 7.5 (5.0-9.0)
[2022-11-28 19:32] LABS: Amphetamine Not Detected (NotDetected); Barbiturates Screen Not Detected (NotDetected); Benzodiazepine Screen Detected (NotDetected); Cocaine Metabolite Screen Not Detected (NotDetected); Methadone Not Detected (NotDetected); Methamphetamine Not Detected (NotDetected); Opiate Screen Not Detected (NotDetected); Oxycodone Screen Not Detected (NotDetected); Phencyclidine (PCP) Not Detected (NotDetected); THC/Cannabinoid Screen Detected (NotDetected); Tricyclic Screen Not Detected (NotDetected)
== END 2022-11-28 21:42 | disposition home or self-care (01) ==
LOC: ERS 17:24
DX: G40.909 Epilepsy, unspecified, not intractable, without status epilepticus (principal); R07.9 Chest pain, unspecified; R20.2 Paresthesia of skin
CPT/HCPCS: 36415; 70450; 71045; 80053; 80306; 81003; 84484; 85025; 93005

== ENCOUNTER 2022-12-01 13:44 | Emergency (ER) | payer MEDICARE ==
[2022-12-01 15:36] LABS: #Basophils 0.1 thou/uL (0.0-0.2); #Eosinphils 0.1 thou/uL (0.0-0.7); #Lymphocytes 1.4 thou/uL (1.20-3.40); #Monocytes 0.5 thou/uL (0.11-0.59); #Neutrophils 5.1 thou/uL (1.40-6.50); %Basophils 0.8 % (0.0-1.0); %Eosinophils 1.7 % (0.0-10.0); %Lymphocytes 20.1 % (21.0-51.0); %Monocytes 6.7 % (0.0-10.0); %Neutrophils 70.7 % (42.0-75.0); Hemoglobin 13.7 g/dL (12.0-16.0); Mean Corpuscular HGB CONC 32.9 g/dL (32.0-36.0); Mean Corpuscular Hemoglobin 32.5 pg (27.0-31.0); Mean Corpuscular Volume 98.9 fl (78.0-98.0); Mean Platelet Volume 7.3 fL (7.4-10.4); Platelet Count 295 10x3/uL (130-400); RBC Distribution Width 11.4 % (11.5-14.5); Red Blood Cell (RBC) Count 4.21 mill/uL (4.20-5.40); White Blood Cell (WBC) Count 7.2 10x3/uL (4.8-10.8)
[2022-12-01 15:51] LABS: ALT (SGPT) 13 U/L (8-55); AST (SGOT) 21 U/L (5-34); Acetaminophen Less than 10.0 mcg/mL (10.0-30.0); Albumin 3.8 g/dL (3.5-5.0); Alcohol Less than 10 mg/dL (Less than 10); Alkaline Phosphatase 146 U/L (40-110); Anion Gap 12 mmol/L (10-20); BUN (Urea Nitrogen) 10 mg/dL (7.0-18.7); Bilirubin, Total Less than 0.2 mg/dL (0.2-1.2); Calc. Creatinine Clearance 0 mL/min (70-130); Calcium 8.6 mg/dL (7.8-10.44); Carbon Dioxide 18 mmol/L (22-29); Chloride 111 mmol/L (98-107); Estimated GFR 85; Globulin 2.9 g/dL (2.4-3.5); Glucose 97 mg/dL (70-105); Potassium 3.6 mmol/L (3.5-5.1); Protein, Total 6.7 g/dL (6.0-8.3); Salicylate Less than 8.0 mg/dL (15.0-30.0); Sodium 137 mmol/L (136-145)
[2022-12-01 16:02] LABS: Troponin I 0.035 ng/mL (< 0.028)
[2022-12-01 16:22] LABS: Bilirubin Negative (Negative); Blood, Urine Negative (Negative); Clarity Clear (Clear); Glucose, Urine (Dipstick) Normal (Negative); Ketone, Urine Negative (Negative); Leukocyte 25 Leu/uL (Negative); Nitrite Negative (Negative); Protein, Urine (Dipstick) Negative (Neg-Trace); RBC/HPF 0-3 HPF (0-3); Specific Gravity, Urine 1.014 (1.002-1.036); Squamous Epithelial 0-3 HPF (0-3); Urobilinogen Normal mg/dL (Less than 2); WBC/HPF 0-3 HPF (0-3); pH, Urine 5.5 (5.0-9.0)
[2022-12-01 16:30] LABS: Amphetamine Not Detected (NotDetected); Barbiturates Screen Not Detected (NotDetected); Benzodiazepine Screen Detected (NotDetected); Cocaine Metabolite Screen Not Detected (NotDetected); Methadone Not Detected (NotDetected); Methamphetamine Not Detected (NotDetected); Opiate Screen Not Detected (NotDetected); Oxycodone Screen Not Detected (NotDetected); Phencyclidine (PCP) Not Detected (NotDetected); THC/Cannabinoid Screen Not Detected (NotDetected); Tricyclic Screen Not Detected (NotDetected)
[2022-12-01 16:31] LABS: Bacteria/HPF 1+ HPF (None Seen)
[2022-12-01] MEDS ORDERED: Ketorolac Tromethamine 30 MG/ML VIAL ONE (19:05)
[2022-12-01 19:50] LABS: CKMB 2.4 ng/mL (0-6.6)
== END 2022-12-01 20:07 | disposition home or self-care (01) ==
LOC: ERS 13:44
DX: R56.9 Unspecified convulsions (principal)
CPT/HCPCS: 36415; 71045; 80306; 80307; 81003; 81015; 82553; 84484; 84702; 85025; 93005; 96374; J1885

== ENCOUNTER 2022-12-03 15:30 | Emergency (ER) | payer MEDICARE ==
[2022-12-03 16:32] LABS: Mean Corpuscular Hemoglobin 32.3 pg (27.0-31.0); Mean Corpuscular Volume 97.7 fl (78.0-98.0); Mean Platelet Volume 7.5 fL (7.4-10.4); Platelet Count 216 10x3/uL (130-400); RBC Distribution Width 11.4 % (11.5-14.5); Red Blood Cell (RBC) Count 4.34 mill/uL (4.20-5.40); White Blood Cell (WBC) Count 6.7 10x3/uL (4.8-10.8)
[2022-12-03 16:59] LABS: Eosinophils 1 % (0-10); Lymphocytes 18 % (21-51); MDiff Complete? YES; Monocytes 5 % (0-10); Neutrophil 73 % (42-75); Platelet Morphology Comment Appears Adequate; RBC Morphology Normal; Reactive Lymphocytes 3 % (0-10)
[2022-12-03 17:39] LABS: Albumin 3.8 g/dL (3.5-5.0)
[2022-12-03 17:40] LABS: Chloride 109 mmol/L (98-107); Potassium 3.9 mmol/L (3.5-5.1); Sodium 138 mmol/L (136-145)
[2022-12-03 17:41] LABS: Calcium 8.9 mg/dL (7.8-10.44)
[2022-12-03 17:42] LABS: Globulin 3.1 g/dL (2.4-3.5); Glucose 91 mg/dL (70-105); Protein, Total 6.9 g/dL (6.0-8.3)
[2022-12-03 17:43] LABS: Anion Gap 11 mmol/L (10-20); Bilirubin, Total 0.2 mg/dL (0.2-1.2); Carbon Dioxide 22 mmol/L (22-29)
[2022-12-03 17:44] LABS: Alkaline Phosphatase 143 U/L (40-110)
[2022-12-03 17:45] LABS: Calc. Creatinine Clearance 0 mL/min (70-130); Estimated GFR 89
[2022-12-03 17:46] LABS: BUN (Urea Nitrogen) 10 mg/dL (7.0-18.7)
[2022-12-03 17:47] LABS: ALT (SGPT) 13 U/L (8-55); AST (SGOT) 20 U/L (5-34)
[2022-12-03 18:08] LABS: BHCG - Serum Negative (NEGATIVE); Pregs Control Background? CLEAR/WHITE (CLR/WHITE); Pregs Control Bar Appear? YES (CONTROL BAR)
== END 2022-12-03 19:58 | disposition home or self-care (01) ==
LOC: ERS 15:30
DX: R56.9 Unspecified convulsions (principal); S09.90XA Unspecified injury of head, initial encounter
CPT/HCPCS: 36415; 70450; 80053; 84703; 85025; 93005

== ENCOUNTER 2022-12-07 15:50 | Emergency (ER) | payer MEDICARE ==
[2022-12-07 16:45] LABS: #Eosinphils 0.2 thou/uL (0.0-0.7); #Lymphocytes 1.4 thou/uL (1.20-3.40); #Monocytes 0.4 thou/uL (0.11-0.59); #Neutrophils 3.6 thou/uL (1.40-6.50); %Basophils 0.7 % (0.0-1.0); %Eosinophils 2.8 % (0.0-10.0); %Lymphocytes 24.5 % (21.0-51.0); %Monocytes 7.1 % (0.0-10.0); %Neutrophils 65.1 % (42.0-75.0); Hemoglobin 13.8 g/dL (12.0-16.0); Mean Corpuscular HGB CONC 32.7 g/dL (32.0-36.0); Mean Corpuscular Hemoglobin 32.7 pg (27.0-31.0); Mean Platelet Volume 7.8 fL (7.4-10.4); Platelet Count 143 10x3/uL (130-400); RBC Distribution Width 11.6 % (11.5-14.5); Red Blood Cell (RBC) Count 4.23 mill/uL (4.20-5.40); White Blood Cell (WBC) Count 5.5 10x3/uL (4.8-10.8)
[2022-12-07 17:07] LABS: ALT (SGPT) 8 U/L (8-55); AST (SGOT) 22 U/L (5-34); Alkaline Phosphatase 145 U/L (40-110); Anion Gap 13 mmol/L (10-20); BUN (Urea Nitrogen) 7 mg/dL (7.0-18.7); Bilirubin, Total 0.2 mg/dL (0.2-1.2); Calc. Creatinine Clearance 0 mL/min (70-130); Calcium 8.5 mg/dL (7.8-10.44); Carbon Dioxide 17 mmol/L (22-29); Chloride 110 mmol/L (98-107); Estimated GFR 86; Globulin 2.9 g/dL (2.4-3.5); Glucose 90 mg/dL (70-105); Potassium 3.9 mmol/L (3.5-5.1); Protein, Total 6.9 g/dL (6.0-8.3); Sodium 136 mmol/L (136-145)
== END 2022-12-07 18:20 | disposition home or self-care (01) ==
LOC: ERS 15:50
DX: R07.9 Chest pain, unspecified (principal); R56.9 Unspecified convulsions
CPT/HCPCS: 36415; 80053; 84484; 85025; 93005

== ENCOUNTER 2022-12-11 12:59 | Emergency (ER) | payer MEDICARE ==
[2022-12-11] MEDS ORDERED: levETIRAcetam 500 MG/5 ML VIAL ONE (13:53)
[2022-12-11 14:57] LABS: #Eosinphils 0.1 thou/uL (0.0-0.7); #Lymphocytes 1.4 thou/uL (1.20-3.40); #Monocytes 0.5 thou/uL (0.11-0.59); #Neutrophils 5.9 thou/uL (1.40-6.50); %Basophils 0.3 % (0.0-1.0); %Eosinophils 1.6 % (0.0-10.0); %Lymphocytes 17.9 % (21.0-51.0); %Monocytes 6.3 % (0.0-10.0); Hemoglobin 13.5 g/dL (12.0-16.0); Mean Corpuscular HGB CONC 33.9 g/dL (32.0-36.0); Mean Corpuscular Hemoglobin 33.3 pg (27.0-31.0); Mean Corpuscular Volume 98.3 fl (78.0-98.0); Mean Platelet Volume 7.7 fL (7.4-10.4); Platelet Count 279 10x3/uL (130-400); RBC Distribution Width 11.7 % (11.5-14.5); Red Blood Cell (RBC) Count 4.04 mill/uL (4.20-5.40); White Blood Cell (WBC) Count 7.9 10x3/uL (4.8-10.8)
[2022-12-11 15:01] LABS: BHCG - Serum Negative (NEGATIVE); Pregs Control Background? CLEAR/WHITE (CLR/WHITE); Pregs Control Bar Appear? YES (CONTROL BAR)
[2022-12-11 15:23] LABS: ALT (SGPT) 13 U/L (8-55); AST (SGOT) 18 U/L (5-34); Albumin 3.5 g/dL (3.5-5.0); Alkaline Phosphatase 135 U/L (40-110); Anion Gap 12 mmol/L (10-20); BUN (Urea Nitrogen) 8 mg/dL (7.0-18.7); Bilirubin, Total 0.3 mg/dL (0.2-1.2); CK (CPK) 94 U/L (29-168); Calc. Creatinine Clearance 0 mL/min (70-130); Calcium 8.5 mg/dL (7.8-10.44); Carbon Dioxide 18 mmol/L (22-29); Chloride 113 mmol/L (98-107); Estimated GFR 84; Globulin 2.9 g/dL (2.4-3.5); Glucose 85 mg/dL (70-105); Lipase 27 U/L (8-78); Potassium 3.8 mmol/L (3.5-5.1); Protein, Total 6.4 g/dL (6.0-8.3); Sodium 139 mmol/L (136-145)
== END 2022-12-11 17:26 | disposition home or self-care (01) ==
LOC: ERS 12:59
DX: G40.909 Epilepsy, unspecified, not intractable, without status epilepticus (principal); K52.9 Noninfective gastroenteritis and colitis, unspecified
CPT/HCPCS: 80053; 82550; 83690; 84703; 85025; 93005; 96374; 99284; J1953; 36415

== ENCOUNTER 2022-12-17 17:50 | Emergency (ER) | payer MEDICARE | END 2022-12-17 19:05 | disposition home or self-care (01) | LOC: ERS 17:50 | DX: R56.9 Unspecified convulsions (principal) | CPT/HCPCS: 99284 ==

== ENCOUNTER 2022-12-19 13:27 | Emergency (ER) | payer MEDICARE ==
[2022-12-19 14:12] LABS: #Eosinphils 0.1 thou/uL (0.0-0.7); #Monocytes 0.4 thou/uL (0.11-0.59); #Neutrophils 3.7 thou/uL (1.40-6.50); %Basophils 0.5 % (0.0-1.0); %Eosinophils 2.6 % (0.0-10.0); %Lymphocytes 19.1 % (21.0-51.0); %Monocytes 7.5 % (0.0-10.0); %Neutrophils 70.2 % (42.0-75.0); Hemoglobin 12.7 g/dL (12.0-16.0); Mean Corpuscular HGB CONC 34.2 g/dL (32.0-36.0); Mean Corpuscular Hemoglobin 33.3 pg (27.0-31.0); Mean Corpuscular Volume 97.4 fl (78.0-98.0); Mean Platelet Volume 7.5 fL (7.4-10.4); Platelet Count 245 10x3/uL (130-400); RBC Distribution Width 11.7 % (11.5-14.5); White Blood Cell (WBC) Count 5.3 10x3/uL (4.8-10.8)
[2022-12-19 14:42] LABS: ALT (SGPT) 12 U/L (8-55); AST (SGOT) 21 U/L (5-34); Albumin 3.7 g/dL (3.5-5.0); Alkaline Phosphatase 140 U/L (40-110); Anion Gap 14 mmol/L (10-20); BUN (Urea Nitrogen) 10 mg/dL (7.0-18.7); Bilirubin, Total 0.3 mg/dL (0.2-1.2); Calc. Creatinine Clearance 0 mL/min (70-130); Calcium 8.7 mg/dL (7.8-10.44); Carbon Dioxide 21 mmol/L (22-29); Chloride 109 mmol/L (98-107); Estimated GFR 85; Globulin 2.7 g/dL (2.4-3.5); Glucose 98 mg/dL (70-105); Potassium 3.7 mmol/L (3.5-5.1); Protein, Total 6.4 g/dL (6.0-8.3); Sodium 140 mmol/L (136-145)
[2022-12-19 14:55] LABS: CKMB 2.2 ng/mL (0-6.6)
[2022-12-19 16:01] LABS: Bilirubin Negative (Negative); Blood, Urine Negative (Negative); Clarity Clear (Clear); Glucose, Urine (Dipstick) Normal (Negative); Ketone, Urine Negative (Negative); Leukocyte Negative Leu/uL (Negative); Nitrite Negative (Negative); Protein, Urine (Dipstick) 10 mg/dL (Neg-Trace); Specific Gravity, Urine 1.021 (1.002-1.036); Urobilinogen Normal mg/dL (Less than 2); pH, Urine 6.5 (5.0-9.0)
[2022-12-19 16:02] LABS: Pregnancy Test - Urine (BHCG) Negative (Negative); Pregu Control Background? CLEAR/WHITE (CLR/WHITE); Pregu Control Bar Appear? YES (CONTROL BAR); Specific Gravity 1.021 (1.002-1.036)
[2022-12-19 16:22] LABS: Amphetamine Not Detected (NotDetected); Barbiturates Screen Not Detected (NotDetected); Benzodiazepine Screen Not Detected (NotDetected); Cocaine Metabolite Screen Not Detected (NotDetected); Methadone Not Detected (NotDetected); Methamphetamine Not Detected (NotDetected); Opiate Screen Not Detected (NotDetected); Oxycodone Screen Not Detected (NotDetected); Phencyclidine (PCP) Not Detected (NotDetected); THC/Cannabinoid Screen Not Detected (NotDetected); Tricyclic Screen Not Detected (NotDetected)
== END 2022-12-19 16:57 | disposition home or self-care (01) ==
LOC: ERS 13:27
DX: R56.9 Unspecified convulsions (principal)
CPT/HCPCS: 51701; 70450; 71045; 72125; 80053; 80306; 81003; 81025; 82553; 84484; 85025; 93005

== ENCOUNTER 2022-12-20 18:23 | Emergency (ER) | payer MEDICARE ==
[2022-12-20 19:47] LABS: #Basophils 0.1 thou/uL (0.0-0.2); #Eosinphils 0.1 thou/uL (0.0-0.7); #Lymphocytes 1.3 thou/uL (1.20-3.40); #Monocytes 0.8 thou/uL (0.11-0.59); #Neutrophils 7.4 thou/uL (1.40-6.50); %Basophils 0.8 % (0.0-1.0); %Eosinophils 1.4 % (0.0-10.0); %Lymphocytes 13.2 % (21.0-51.0); %Monocytes 7.9 % (0.0-10.0); %Neutrophils 76.6 % (42.0-75.0); Hemoglobin 13.8 g/dL (12.0-16.0); Mean Corpuscular HGB CONC 34.2 g/dL (32.0-36.0); Mean Corpuscular Hemoglobin 34.1 pg (27.0-31.0); Mean Corpuscular Volume 99.6 fl (78.0-98.0); Mean Platelet Volume 7.6 fL (7.4-10.4); Platelet Count 291 10x3/uL (130-400); RBC Distribution Width 11.7 % (11.5-14.5); Red Blood Cell (RBC) Count 4.03 mill/uL (4.20-5.40); White Blood Cell (WBC) Count 9.6 10x3/uL (4.8-10.8)
[2022-12-20] MEDS ORDERED: Acetaminophen 500 MG TAB ONE (19:50)
[2022-12-20 20:07] LABS: ALT (SGPT) 13 U/L (8-55); AST (SGOT) 24 U/L (5-34); Albumin 3.9 g/dL (3.5-5.0); Alkaline Phosphatase 146 U/L (40-110); Anion Gap 15 mmol/L (10-20); BUN (Urea Nitrogen) 10 mg/dL (7.0-18.7); Bilirubin, Total 0.2 mg/dL (0.2-1.2); Calc. Creatinine Clearance 0 mL/min (70-130); Calcium 8.8 mg/dL (7.8-10.44); Carbon Dioxide 16 mmol/L (22-29); Chloride 112 mmol/L (98-107); Estimated GFR 75; Globulin 3.4 g/dL (2.4-3.5); Glucose 103 mg/dL (70-105); Potassium 3.5 mmol/L (3.5-5.1); Protein, Total 7.3 g/dL (6.0-8.3); Sodium 139 mmol/L (136-145)
== END 2022-12-20 20:36 | disposition home or self-care (01) ==
LOC: ERS 18:23
DX: R56.9 Unspecified convulsions (principal)
CPT/HCPCS: 36415; 80053; 85025; 99284

== ENCOUNTER 2022-12-26 16:14 | Emergency (ER) | payer MEDICARE ==
[2022-12-26 17:05] LABS: #Eosinphils 0.2 thou/uL (0.0-0.7); #Lymphocytes 1.6 thou/uL (1.20-3.40); #Monocytes 0.5 thou/uL (0.11-0.59); #Neutrophils 3.5 thou/uL (1.40-6.50); %Basophils 0.6 % (0.0-1.0); %Eosinophils 3.5 % (0.0-10.0); %Lymphocytes 27.5 % (21.0-51.0); %Neutrophils 59.3 % (42.0-75.0); Hemoglobin 12.2 g/dL (12.0-16.0); Mean Corpuscular HGB CONC 33.9 g/dL (32.0-36.0); Mean Corpuscular Hemoglobin 33.6 pg (27.0-31.0); Mean Platelet Volume 7.8 fL (7.4-10.4); Platelet Count 192 10x3/uL (130-400); Red Blood Cell (RBC) Count 3.64 mill/uL (4.20-5.40); White Blood Cell (WBC) Count 5.9 10x3/uL (4.8-10.8)
[2022-12-26 17:29] LABS: ALT (SGPT) 12 U/L (8-55); AST (SGOT) 15 U/L (5-34); Albumin 3.6 g/dL (3.5-5.0); Alkaline Phosphatase 136 U/L (40-110); Anion Gap 10 mmol/L (10-20); BUN (Urea Nitrogen) 14 mg/dL (7.0-18.7); Bilirubin, Total Less than 0.2 mg/dL (0.2-1.2); Calc. Creatinine Clearance 0 mL/min (70-130); Calcium 8.4 mg/dL (7.8-10.44); Carbon Dioxide 22 mmol/L (22-29); Chloride 109 mmol/L (98-107); Estimated GFR 56; Globulin 2.9 g/dL (2.4-3.5); Glucose 99 mg/dL (70-105); Potassium 3.2 mmol/L (3.5-5.1); Protein, Total 6.5 g/dL (6.0-8.3); Sodium 138 mmol/L (136-145)
== END 2022-12-26 18:00 | disposition home or self-care (01) ==
LOC: ERS 16:14
DX: R56.9 Unspecified convulsions (principal); E87.6 Hypokalemia
CPT/HCPCS: 80053; 80177; 83605; 85025; 93005

== ENCOUNTER 2023-01-02 12:52 | Emergency (ER) | payer MEDICARE ==
[2023-01-02 14:01] LABS: #Basophils 0.1 thou/uL (0.0-0.2); #Eosinphils 0.2 thou/uL (0.0-0.7); #Lymphocytes 1.6 thou/uL (1.20-3.40); #Monocytes 0.7 thou/uL (0.11-0.59); #Neutrophils 5.7 thou/uL (1.40-6.50); %Basophils 0.9 % (0.0-1.0); %Eosinophils 2.7 % (0.0-10.0); %Lymphocytes 19.6 % (21.0-51.0); %Monocytes 7.9 % (0.0-10.0); %Neutrophils 68.9 % (42.0-75.0); Hemoglobin 13.7 g/dL (12.0-16.0); Mean Corpuscular HGB CONC 34.1 g/dL (32.0-36.0); Mean Corpuscular Hemoglobin 34.1 pg (27.0-31.0); Mean Platelet Volume 7.2 fL (7.4-10.4); Platelet Count 296 10x3/uL (130-400); RBC Distribution Width 11.8 % (11.5-14.5); White Blood Cell (WBC) Count 8.3 10x3/uL (4.8-10.8)
[2023-01-02 14:20] LABS: Anion Gap 13 mmol/L (10-20); BUN (Urea Nitrogen) 11 mg/dL (7.0-18.7); Calc. Creatinine Clearance 0 mL/min (70-130); Calcium 8.8 mg/dL (7.8-10.44); Carbon Dioxide 19 mmol/L (22-29); Chloride 108 mmol/L (98-107); Estimated GFR 69; Glucose 86 mg/dL (70-105); Potassium 3.3 mmol/L (3.5-5.1); Sodium 137 mmol/L (136-145)
[2023-01-02] MEDS ORDERED: Potassium Chloride 20 MEQ TAB ONE (15:06)
== END 2023-01-02 16:15 | disposition short-term general hospital (02) ==
LOC: ERS 12:52
DX: R56.9 Unspecified convulsions (principal)
CPT/HCPCS: 36415; 36416; 80048; 85025; 99284

== ENCOUNTER 2023-01-07 15:26 | Emergency (ER) | payer MEDICARE ==
[2023-01-07] MEDS ORDERED: Ondansetron PF 4 MG/2 ML Vial ONE (16:12)
[2023-01-07 16:23] LABS: #Eosinphils 0.2 thou/uL (0.0-0.7); #Lymphocytes 1.2 thou/uL (1.20-3.40); #Monocytes 0.8 thou/uL (0.11-0.59); #Neutrophils 7.1 thou/uL (1.40-6.50); %Basophils 0.3 % (0.0-1.0); %Eosinophils 1.9 % (0.0-10.0); %Lymphocytes 12.9 % (21.0-51.0); %Monocytes 8.4 % (0.0-10.0); %Neutrophils 76.5 % (42.0-75.0); Mean Corpuscular HGB CONC 34.3 g/dL (32.0-36.0); Mean Corpuscular Hemoglobin 33.3 pg (27.0-31.0); Mean Corpuscular Volume 97.1 fl (78.0-98.0); Mean Platelet Volume 7.6 fL (7.4-10.4); Platelet Count 301 10x3/uL (130-400); RBC Distribution Width 11.6 % (11.5-14.5); Red Blood Cell (RBC) Count 3.89 mill/uL (4.20-5.40); White Blood Cell (WBC) Count 9.2 10x3/uL (4.8-10.8)
[2023-01-07 16:51] LABS: ALT (SGPT) 9 U/L (8-55); AST (SGOT) 16 U/L (5-34); Albumin 3.8 g/dL (3.5-5.0); Alkaline Phosphatase 137 U/L (40-110); Anion Gap 13 mmol/L (10-20); BUN (Urea Nitrogen) 12 mg/dL (7.0-18.7); Bilirubin, Total 0.2 mg/dL (0.2-1.2); Calc. Creatinine Clearance 0 mL/min (70-130); Calcium 8.9 mg/dL (7.8-10.44); Carbon Dioxide 23 mmol/L (22-29); Chloride 104 mmol/L (98-107); Estimated GFR 69; Globulin 3.4 g/dL (2.4-3.5); Glucose 107 mg/dL (70-105); Lipase 54 U/L (8-78); Potassium 3.2 mmol/L (3.5-5.1); Protein, Total 7.2 g/dL (6.0-8.3); Sodium 137 mmol/L (136-145)
== END 2023-01-07 18:21 | disposition home or self-care (01) ==
LOC: ERS 15:26
DX: R56.9 Unspecified convulsions (principal); R19.7 Diarrhea, unspecified; R11.10 Vomiting, unspecified
CPT/HCPCS: 80053; 83690; 85025; 96374; J2405

== ENCOUNTER 2023-01-16 13:12 | Emergency (ER) | payer MEDICARE ==
[2023-01-16 15:25] LABS: #Eosinphils 0.1 thou/uL (0.0-0.7); #Lymphocytes 1.4 thou/uL (1.20-3.40); #Monocytes 0.6 thou/uL (0.11-0.59); #Neutrophils 7.3 thou/uL (1.40-6.50); %Basophils 0.4 % (0.0-1.0); %Eosinophils 1.2 % (0.0-10.0); %Monocytes 6.5 % (0.0-10.0); Hemoglobin 11.8 g/dL (12.0-16.0); Mean Corpuscular HGB CONC 34.1 g/dL (32.0-36.0); Mean Corpuscular Hemoglobin 33.3 pg (27.0-31.0); Mean Corpuscular Volume 97.7 fl (78.0-98.0); Mean Platelet Volume 6.8 fL (7.4-10.4); Platelet Count 359 10x3/uL (130-400); RBC Distribution Width 11.5 % (11.5-14.5); Red Blood Cell (RBC) Count 3.54 mill/uL (4.20-5.40); White Blood Cell (WBC) Count 9.4 10x3/uL (4.8-10.8)
[2023-01-16 15:44] LABS: ALT (SGPT) 10 U/L (8-55); AST (SGOT) 16 U/L (5-34); Albumin 3.3 g/dL (3.5-5.0); Alkaline Phosphatase 134 U/L (40-110); Anion Gap 14 mmol/L (10-20); BUN (Urea Nitrogen) 7 mg/dL (7.0-18.7); Bilirubin, Total 0.2 mg/dL (0.2-1.2); CK (CPK) 226 U/L (29-168); Calc. Creatinine Clearance 0 mL/min (70-130); Calcium 8.4 mg/dL (7.8-10.44); Carbon Dioxide 19 mmol/L (22-29); Chloride 109 mmol/L (98-107); Estimated GFR 89; Globulin 3.2 g/dL (2.4-3.5); Glucose 104 mg/dL (70-105); Potassium 3.2 mmol/L (3.5-5.1); Protein, Total 6.5 g/dL (6.0-8.3); Sodium 139 mmol/L (136-145)
[2023-01-16] MEDS ORDERED: Acetaminophen 500 MG TAB ONE ×2 (15:55→15:57)
[2023-01-16] MEDS ORDERED: Ketorolac Tromethamine 30 MG/ML VIAL ONE (15:55)
== END 2023-01-16 16:14 | disposition home or self-care (01) ==
LOC: ERS 13:12
DX: R56.9 Unspecified convulsions (principal)
CPT/HCPCS: 80053; 82550; 83605; 85025; 93005; 96374; 96375; J1642; J1885

== ENCOUNTER 2023-01-19 15:35 | Emergency (ER) | payer MEDICARE ==
[2023-01-19 16:18] LABS: #Basophils 0.1 thou/uL (0.0-0.2); #Eosinphils 0.2 thou/uL (0.0-0.7); #Lymphocytes 1.6 thou/uL (1.20-3.40); #Monocytes 0.5 thou/uL (0.11-0.59); #Neutrophils 4.1 thou/uL (1.40-6.50); %Basophils 0.9 % (0.0-1.0); %Eosinophils 2.4 % (0.0-10.0); %Lymphocytes 24.4 % (21.0-51.0); %Monocytes 7.8 % (0.0-10.0); %Neutrophils 64.4 % (42.0-75.0); Hemoglobin 12.7 g/dL (12.0-16.0); Mean Corpuscular HGB CONC 34.3 g/dL (32.0-36.0); Mean Corpuscular Hemoglobin 33.5 pg (27.0-31.0); Mean Corpuscular Volume 97.8 fl (78.0-98.0); Mean Platelet Volume 6.6 fL (7.4-10.4); Platelet Count 427 10x3/uL (130-400); RBC Distribution Width 11.4 % (11.5-14.5); Red Blood Cell (RBC) Count 3.78 mill/uL (4.20-5.40); White Blood Cell (WBC) Count 6.4 10x3/uL (4.8-10.8)
[2023-01-19] MEDS ORDERED: Acetaminophen 500 MG TAB ONE (16:33)
[2023-01-19] MEDS ORDERED: levETIRAcetam 500 MG/5 ML VIAL ONE (16:33)
[2023-01-19 16:41] LABS: ALT (SGPT) 9 U/L (8-55); AST (SGOT) 16 U/L (5-34); Albumin 3.7 g/dL (3.5-5.0); Alkaline Phosphatase 157 U/L (40-110); Anion Gap 13 mmol/L (10-20); BUN (Urea Nitrogen) 7 mg/dL (7.0-18.7); Bilirubin, Total 0.2 mg/dL (0.2-1.2); CK (CPK) 156 U/L (29-168); Calc. Creatinine Clearance 0 mL/min (70-130); Calcium 8.6 mg/dL (7.8-10.44); Carbon Dioxide 18 mmol/L (22-29); Chloride 109 mmol/L (98-107); Estimated GFR 86; Globulin 3.3 g/dL (2.4-3.5); Glucose 94 mg/dL (70-105); Lipase 19 U/L (8-78); Potassium 3.6 mmol/L (3.5-5.1); Sodium 136 mmol/L (136-145)
[2023-01-19 17:00] LABS: CKMB 0.5 ng/mL (0-6.6)
[2023-01-19 17:41] LABS: Bacteria/HPF None Seen HPF (None Seen); Bilirubin Negative (Negative); Blood, Urine Negative (Negative); Clarity Clear (Clear); Glucose, Urine (Dipstick) Normal (Negative); Ketone, Urine Negative (Negative); Leukocyte 25 Leu/uL (Negative); Nitrite Negative (Negative); Protein, Urine (Dipstick) Negative (Neg-Trace); RBC/HPF 0-3 HPF (0-3); Specific Gravity, Urine 1.009 (1.002-1.036); Squamous Epithelial 0-3 HPF (0-3); Urobilinogen Normal mg/dL (Less than 2); WBC/HPF 0-3 HPF (0-3); pH, Urine 6.5 (5.0-9.0)
[2023-01-19 17:48] LABS: Amphetamine Not Detected (NotDetected); Barbiturates Screen Not Detected (NotDetected); Benzodiazepine Screen Detected (NotDetected); Cocaine Metabolite Screen Not Detected (NotDetected); Methadone Not Detected (NotDetected); Methamphetamine Not Detected (NotDetected); Opiate Screen Not Detected (NotDetected); Oxycodone Screen Not Detected (NotDetected); Phencyclidine (PCP) Not Detected (NotDetected); THC/Cannabinoid Screen Not Detected (NotDetected); Tricyclic Screen Detected (NotDetected)
[2023-01-19] MEDS ORDERED: Ketorolac Tromethamine 30 MG/ML VIAL ONE (18:39)
== END 2023-01-19 20:36 | disposition home or self-care (01) ==
LOC: ERS 15:35
DX: R56.9 Unspecified convulsions (principal); M54.9 Dorsalgia, unspecified
CPT/HCPCS: 51701; 80177; 80306; 82550; 82553; 83690; 84484 ×2; 93005; 96374; 96375; 99285; J1953; 80053; 81003; 81015; 84443; 85025; J1642; J1885

== ENCOUNTER 2023-01-31 13:49 | Emergency (ER) | payer MEDICARE ==
[2023-01-31] MEDS ORDERED: Acetaminophen 500 MG TAB ONE (14:19)
[2023-01-31 14:32] LABS: #Eosinphils 0.2 thou/uL (0.0-0.7); #Lymphocytes 1.6 thou/uL (1.20-3.40); #Monocytes 0.4 thou/uL (0.11-0.59); #Neutrophils 2.8 thou/uL (1.40-6.50); %Basophils 0.9 % (0.0-1.0); %Eosinophils 3.4 % (0.0-10.0); %Lymphocytes 32.3 % (21.0-51.0); %Monocytes 7.9 % (0.0-10.0); %Neutrophils 55.6 % (42.0-75.0); Hemoglobin 14.9 g/dL (12.0-16.0); Mean Corpuscular HGB CONC 34.7 g/dL (32.0-36.0); Mean Corpuscular Hemoglobin 34.3 pg (27.0-31.0); Mean Corpuscular Volume 98.9 fl (78.0-98.0); Mean Platelet Volume 6.9 fL (7.4-10.4); Platelet Count 296 10x3/uL (130-400); RBC Distribution Width 11.6 % (11.5-14.5); Red Blood Cell (RBC) Count 4.34 mill/uL (4.20-5.40)
[2023-01-31 15:05] LABS: AST (SGOT) 22 U/L (5-34); Anion Gap 18 mmol/L (10-20); Bilirubin, Total 0.2 mg/dL (0.2-1.2); Calcium 8.9 mg/dL (7.8-10.44); Carbon Dioxide 12 mmol/L (22-29); Chloride 112 mmol/L (98-107); Protein, Total 4.2 g/dL (6.0-8.3); Sodium 138 mmol/L (136-145)
[2023-01-31 15:30] LABS: Albumin 3.7 g/dL (3.5-5.0); Globulin 0.5 g/dL (2.4-3.5)
[2023-01-31 15:32] LABS: Glucose 95 mg/dL (70-105)
[2023-01-31 15:35] LABS: Alkaline Phosphatase 148 U/L (40-110); Calc. Creatinine Clearance 0 mL/min (70-130); Estimated GFR 85
[2023-01-31 15:36] LABS: BUN (Urea Nitrogen) 11 mg/dL (7.0-18.7)
[2023-01-31 15:38] LABS: ALT (SGPT) 15 U/L (8-55)
[2023-01-31 18:00] LABS: Actual Bicarbonate (HCO3v) 21 mEq/L (22-28); Base Excess -4.4 mEq/L (-2.0 to +3.0); Calcium, Ionized (venous) 1.12 mmol/L (1.16-1.32); Chloride (VBG) 108 mmol/L (98-106); Hemoglobin (Hb) 14.7 g/dL (11.7-16.0); Potassium (VBG) 4.03 mmol/L (3.70-5.30); Sodium 139.6 mmol/L (133-146); pH (venous) 7.34 (7.32-7.43)
[2023-01-31] MEDS ORDERED: Ketorolac Tromethamine 30 MG/ML VIAL ONE (18:12)
== END 2023-01-31 18:30 | disposition home or self-care (01) ==
LOC: ERS 13:49
DX: R56.9 Unspecified convulsions (principal)
CPT/HCPCS: 36415; 80053; 82805; 83605; 85025; 94760; 96372; 99284; J1885

== ENCOUNTER 2023-02-06 16:43 | Emergency (ER) | payer MEDICARE ==
[2023-02-06] MEDS ORDERED: Ketorolac Tromethamine 30 MG/ML VIAL ONE (17:17)
== END 2023-02-06 18:20 | disposition home or self-care (01) ==
LOC: ERS 16:43
DX: R56.9 Unspecified convulsions (principal); Z79.899 Other long term (current) drug therapy
CPT/HCPCS: 96372; J1885

== ENCOUNTER 2023-02-16 12:30 | Outpatient (CLI) | payer MEDICARE ==
[~2023-02-16 12:30] MED LIST: Magnevist 469MG/ML 20 ML VIAL ONE
== END 2023-02-16 12:31 | disposition home or self-care (01) ==
LOC: EEG 12:30
PROVIDERS: ATTEND Psychiatry & Neurology Neurology
DX: G40.209 Localization-related (focal) (partial) symptomatic epilepsy and epileptic syndromes with complex partial seizures, not intractable, without status epilepticus (principal); G43.701 Chronic migraine without aura, not intractable, with status migrainosus
CPT/HCPCS: 70553; 95816; 95957; A9579

== ENCOUNTER 2023-03-03 14:42 | Emergency (ER) | payer MEDICARE ==
[2023-03-03 15:16] LABS: Hemoglobin 13.9 g/dL (12.0-16.0); Mean Corpuscular HGB CONC 34.4 g/dL (32.0-36.0); Mean Corpuscular Hemoglobin 33.1 pg (27.0-31.0); Mean Platelet Volume 7.7 fL (7.4-10.4); Platelet Count 189 10x3/uL (130-400); RBC Distribution Width 11.4 % (11.5-14.5)
[2023-03-03 15:37] LABS: ALT (SGPT) 11 U/L (8-55); AST (SGOT) 17 U/L (5-34); Albumin 3.8 g/dL (3.5-5.0); Alkaline Phosphatase 164 U/L (40-110); Anion Gap 16 mmol/L (10-20); BUN (Urea Nitrogen) 13 mg/dL (7.0-18.7); Bilirubin, Total 0.3 mg/dL (0.2-1.2); Calc. Creatinine Clearance 0 mL/min (70-130); Calcium 8.9 mg/dL (7.8-10.44); Carbon Dioxide 18 mmol/L (22-29); Chloride 109 mmol/L (98-107); Estimated GFR 70; Globulin 3.1 g/dL (2.4-3.5); Glucose 93 mg/dL (70-105); Potassium 4.3 mmol/L (3.5-5.1); Protein, Total 6.9 g/dL (6.0-8.3); Sodium 139 mmol/L (136-145)
[2023-03-03 15:40] LABS: Eosinophils 3 % (0-10); Lymphocytes 27 % (21-51); MDiff Complete? YES; Monocytes 8 % (0-10); Neutrophil 61 % (42-75); Platelet Morphology Comment Appears Adequate; Polychromasia SLIGHT = 2-3 cells (100X) (0-2/hpf)
[2023-03-03] MEDS ORDERED: Acetaminophen 500 MG TAB ONE (16:13)
[2023-03-03] MEDS ORDERED: Ketorolac Tromethamine 30 MG/ML VIAL ONE (16:13)
== END 2023-03-03 16:24 | disposition home or self-care (01) ==
LOC: ERS 14:42
DX: R56.9 Unspecified convulsions (principal); R11.10 Vomiting, unspecified
CPT/HCPCS: 36415; 70450; 72125; 80053; 83605; 85025; 93005; 96372; J1885

== ENCOUNTER 2023-03-10 13:58 | Emergency (ER) | payer MEDICARE | END 2023-03-10 15:33 | disposition home or self-care (01) | LOC: ERS 13:58 | DX: S61.512A Laceration without foreign body of left wrist, initial encounter (principal); R56.9 Unspecified convulsions; W26.9XXA Contact with unspecified sharp object(s), initial encounter; W45.8XXA Other foreign body or object entering through skin, initial encounter | CPT/HCPCS: 36416; 99284 ==

== ENCOUNTER 2023-03-16 17:32 | Emergency (ER) | payer MEDICARE ==
[2023-03-16] MEDS ORDERED: Ketorolac Tromethamine 30 MG/ML VIAL ONE (18:04)
== END 2023-03-16 19:41 | disposition home or self-care (01) ==
LOC: ERS 17:32
DX: S30.0XXA Contusion of lower back and pelvis, initial encounter (principal); R56.9 Unspecified convulsions; W01.0XXA Fall on same level from slipping, tripping and stumbling without subsequent striking against object, initial encounter
CPT/HCPCS: 72170; 93005; 96372; J1885

== ENCOUNTER 2023-04-05 11:20 | Emergency (ER) | payer MEDICARE ==
[2023-04-05] MEDS ORDERED: Ondansetron PF 4 MG/2 ML Vial ONE (12:49)
[2023-04-05 13:40] LABS: #Basophils 0.1 thou/uL (0.0-0.2); #Eosinphils 0.1 thou/uL (0.0-0.7); #Monocytes 0.6 thou/uL (0.11-0.59); #Neutrophils 7.4 thou/uL (1.40-6.50); %Basophils 0.5 % (0.0-1.0); %Eosinophils 0.5 % (0.0-10.0); %Lymphocytes 13.2 % (21.0-51.0); %Monocytes 6.4 % (0.0-10.0); %Neutrophils 79.1 % (42.0-75.0); Hemoglobin 11.6 g/dL (12.0-16.0); Mean Corpuscular Hemoglobin 30.1 pg (27.0-31.0); Mean Corpuscular Volume 91.2 fl (78.0-98.0); Mean Platelet Volume 9.2 fL (7.4-10.4); Platelet Count 344 10x3/uL (130-400); RBC Distribution Width 12.1 % (11.5-14.5); Red Blood Cell (RBC) Count 3.85 mill/uL (4.20-5.40); White Blood Cell (WBC) Count 9.3 10x3/uL (4.8-10.8)
[2023-04-05 14:04] LABS: ALT (SGPT) 7 U/L (8-55); AST (SGOT) 10 U/L (5-34); Albumin 3.6 g/dL (3.5-5.0); Alkaline Phosphatase 145 U/L (40-110); Anion Gap 13 mmol/L (10-20); BUN (Urea Nitrogen) 7 mg/dL (7.0-18.7); Bilirubin, Total 0.2 mg/dL (0.2-1.2); Calc. Creatinine Clearance 0 mL/min (70-130); Calcium 8.8 mg/dL (7.8-10.44); Carbon Dioxide 20 mmol/L (22-29); Chloride 107 mmol/L (98-107); Estimated GFR 82; Globulin 3.6 g/dL (2.4-3.5); Glucose 106 mg/dL (70-105); Potassium 3.5 mmol/L (3.5-5.1); Protein, Total 7.2 g/dL (6.0-8.3); Sodium 136 mmol/L (136-145)
[2023-04-05] MEDS ORDERED: levETIRAcetam 500 MG/5 ML VIAL ONE (14:59)
[2023-04-05] MEDS ORDERED: Ketorolac Tromethamine 30 MG/ML VIAL ONE (16:49)
[2023-04-05 16:51] LABS: Bacteria/HPF None Seen HPF (None Seen); Bilirubin Negative (Negative); Blood, Urine Negative (Negative); Clarity Clear (Clear); Glucose, Urine (Dipstick) Normal (Negative); Ketone, Urine Negative (Negative); Leukocyte 75 Leu/uL (Negative); Nitrite Negative (Negative); Protein, Urine (Dipstick) Negative (Neg-Trace); RBC/HPF 0-3 HPF (0-3); Specific Gravity, Urine 1.018 (1.002-1.036); Urobilinogen Normal mg/dL (Less than 2); WBC/HPF 0-3 HPF (0-3)
[2023-04-05 16:53] LABS: Pregnancy Test - Urine (BHCG) Negative (Negative); Pregu Control Background? CLEAR/WHITE (CLR/WHITE); Pregu Control Bar Appear? YES (CONTROL BAR); Specific Gravity 1.018 (1.002-1.036)
[2023-04-07 17:14] LABS: Topiramate (Topamax) Test 3.3 ug/mL (2.0-25.0)
== END 2023-04-05 17:07 | disposition home or self-care (01) ==
LOC: ERS 11:20
DX: R56.9 Unspecified convulsions (principal); A08.4 Viral intestinal infection, unspecified
CPT/HCPCS: 71045; 80053; 80177; 80201; 81025; 85025; J1953; 81003; 81015; 96361; 96365; 96375; J1885; J2405

== ENCOUNTER 2023-06-21 18:12 | Emergency (ER) | payer MEDICARE ==
[2023-06-21] MEDS ORDERED: cefTRIAXone (ROCEPHIN) 2 GM VIAL ONE (19:12)
[2023-06-21] MEDS ORDERED: Ondansetron PF 4 MG/2 ML Vial ONE (19:13)
[2023-06-21 19:41] LABS: #Eosinphils 0.1 thou/uL (0.0-0.7); #Monocytes 0.5 thou/uL (0.11-0.59); #Neutrophils 8.4 thou/uL (1.40-6.50); %Basophils 0.4 % (0.0-1.0); %Eosinophils 0.6 % (0.0-10.0); %Lymphocytes 11.9 % (21.0-51.0); %Monocytes 4.7 % (0.0-10.0); Hemoglobin 11.9 g/dL (12.0-16.0); Mean Corpuscular HGB CONC 33.3 g/dL (32.0-36.0); Mean Corpuscular Hemoglobin 31.4 pg (27.0-31.0); Mean Corpuscular Volume 94.2 fl (78.0-98.0); Mean Platelet Volume 9.8 fL (7.4-10.4); Platelet Count 291 10x3/uL (130-400); RBC Distribution Width 14.2 % (11.5-14.5); Red Blood Cell (RBC) Count 3.79 mill/uL (4.20-5.40); White Blood Cell (WBC) Count 10.2 10x3/uL (4.8-10.8)
[2023-06-21 20:04] LABS: ALT (SGPT) 9 U/L (8-55); AST (SGOT) 12 U/L (5-34); Albumin 3.6 g/dL (3.5-5.0); Alkaline Phosphatase 144 U/L (40-110); Anion Gap 18 mmol/L (10-20); BUN (Urea Nitrogen) 4 mg/dL (7.0-18.7); Bilirubin, Total 0.3 mg/dL (0.2-1.2); Calc. Creatinine Clearance 0 mL/min (70-130); Calcium 8.7 mg/dL (7.8-10.44); Carbon Dioxide 19 mmol/L (22-29); Chloride 102 mmol/L (98-107); Estimated GFR 80; Globulin 3.4 g/dL (2.4-3.5); Glucose 113 mg/dL (70-105); Lipase 7 U/L (8-78); Potassium 2.8 mmol/L (3.5-5.1); Sodium 136 mmol/L (136-145)
[2023-06-21 20:11] LABS: SARS-CoV-2 NAA Rapid Test Not Detected (NotDetected)
[2023-06-21] MEDS ORDERED: Potassium Chloride 20 MEQ TAB ONE (21:16)
[2023-06-21 22:45] LABS: Bacteria/HPF None Seen HPF (None Seen); Bilirubin Negative (Negative); Blood, Urine Negative (Negative); CAUTI Indications for Culture Fever or rigors; Clarity Clear (Clear); Glucose, Urine (Dipstick) Normal (Negative); Ketone, Urine Negative (Negative); Leukocyte 250 Leu/uL (Negative); Nitrite Negative (Negative); Protein, Urine (Dipstick) Negative (Neg-Trace); RBC/HPF 0-3 HPF (0-3); Specific Gravity, Urine 1.005 (1.002-1.036); Squamous Epithelial 0-3 HPF (0-3); Urobilinogen Normal mg/dL (Less than 2); pH, Urine 6.5 (5.0-9.0)
[2023-06-21 22:47] LABS: Urine Culture Reflex No No
== END 2023-06-21 23:33 | disposition home or self-care (01) ==
LOC: ERS 18:12
DX: G40.909 Epilepsy, unspecified, not intractable, without status epilepticus (principal); B34.9 Viral infection, unspecified; E86.0 Dehydration; Z20.822 Contact with and (suspected) exposure to COVID-19
CPT/HCPCS: 71045; 80053; 81001; 83605; 83690; 83880; 84484; 85025; 87040; 87086; 87149 ×2; 93005; U0002; 87077; 87186; 96361; 96365; 96375; J0696; J1642; J2405

== ENCOUNTER 2023-06-25 10:16 | Inpatient (IN) | payer MEDICARE ==
[~2023-06-25 10:16] MED LIST changes: +Iopamidol-370 76% 500 ML MDV (1 ML CHARGE) ONE; -Magnevist 469MG/ML 20 ML VIAL ONE
[2023-06-25] MEDS ORDERED: Cyclobenzaprine 10 MG TAB ONE (10:42)
[2023-06-25] MEDS ORDERED: Ibuprofen 800 MG TAB ONE (10:42)
[2023-06-25 10:57] LABS: #Basophils 0.1 thou/uL (0.0-0.2); #Eosinphils 0.1 thou/uL (0.0-0.7); #Monocytes 1.6 thou/uL (0.11-0.59); #Neutrophils 13.8 thou/uL (1.40-6.50); %Basophils 0.4 % (0.0-1.0); %Eosinophils 0.5 % (0.0-10.0); %Lymphocytes 8.6 % (21.0-51.0); %Monocytes 9.3 % (0.0-10.0); %Neutrophils 80.7 % (42.0-75.0); Hematocrit 36.7 % (36.0-47.0); Hemoglobin 12.3 g/dL (12.0-16.0); Mean Corpuscular HGB CONC 33.5 g/dL (32.0-36.0); Mean Corpuscular Hemoglobin 31.4 pg (27.0-31.0); Mean Corpuscular Volume 93.6 fl (78.0-98.0); Mean Platelet Volume 9.4 fL (7.4-10.4); Platelet Count 430 10x3/uL (130-400); RBC Distribution Width 13.9 % (11.5-14.5); Red Blood Cell (RBC) Count 3.92 mill/uL (4.20-5.40); White Blood Cell (WBC) Count 17.1 10x3/uL (4.8-10.8)
[2023-06-25 11:15] LABS: ALT (SGPT) 8 U/L (8-55); AST (SGOT) 11 U/L (5-34); Albumin 3.7 g/dL (3.5-5.0); Alkaline Phosphatase 153 U/L (40-110); Anion Gap 16 mmol/L (10-20); BUN (Urea Nitrogen) Less than 4 mg/dL (7.0-18.7); Bilirubin, Total 0.3 mg/dL (0.2-1.2); Calc. Creatinine Clearance 0 mL/min (70-130); Calcium 9.1 mg/dL (7.8-10.44); Carbon Dioxide 18 mmol/L (22-29); Chloride 102 mmol/L (98-107); Estimated GFR 92; Globulin 4.2 g/dL (2.4-3.5); Glucose 121 mg/dL (70-105); Protein, Total 7.9 g/dL (6.0-8.3); Sodium 133 mmol/L (136-145)
[2023-06-25] MEDS ORDERED: cefTRIAXone (ROCEPHIN) 2 GM VIAL ONE (11:40)
[2023-06-25] MEDS ORDERED: Azithromycin 500 MG VIAL ONE (12:56)
[2023-06-25] MEDS ORDERED: Potassium Chloride 20 MEQ TAB ONE (12:56)
[2023-06-25 14:16] VITALS: BMI 23.4
[2023-06-25] MEDS ORDERED: hydrOXYzine 25 MG TAB PO PRN (14:30)
[2023-06-25] MEDS ORDERED: Acetaminophen 325 MG TAB PO PRN (14:40)
[2023-06-25] MEDS: carBAMazepine 200 MG TAB PO SCH (17:55)
[2023-06-25] MEDS: Morphine 2 MG/ML VIAL SLOW IVP PRN (17:55)
[2023-06-25] MEDS: HYDROcodone/Acetaminophen 5/325 mg Tablet PO PRN (20:24)
[2023-06-25] MEDS: ALPRAZolam 0.5 MG TAB PO SCH (20:28)
[2023-06-25] MEDS: levETIRAcetam 500 MG TAB PO SCH (20:28)
[2023-06-25] MEDS: Zolpidem Tartrate 5 MG TAB PO SCH (20:28)
[2023-06-25] MEDS: Topiramate 100 MG TAB PO SCH (20:28)
[2023-06-25] MEDS ORDERED: Phenytoin Extended Release 100 MG CAP PO SCH (21:00)
[2023-06-26] MEDS: Morphine 2 MG/ML VIAL SLOW IVP PRN ×2 (00:19→08:25)
[2023-06-26] MEDS: HYDROcodone/Acetaminophen 5/325 mg Tablet PO PRN ×4 (03:10→18:47)
[2023-06-26 06:34] LABS: #Eosinphils 0.1 thou/uL (0.0-0.7); #Neutrophils 11.6 thou/uL (1.40-6.50); %Basophils 0.3 % (0.0-1.0); %Eosinophils 0.4 % (0.0-10.0); %Lymphocytes 6.3 % (21.0-51.0); %Monocytes 7.6 % (0.0-10.0); %Neutrophils 84.9 % (42.0-75.0); Hematocrit 32.5 % (36.0-47.0); Hemoglobin 10.6 g/dL (12.0-16.0); Mean Corpuscular HGB CONC 32.6 g/dL (32.0-36.0); Mean Platelet Volume 9.4 fL (7.4-10.4); Platelet Count 406 10x3/uL (130-400); RBC Distribution Width 14.1 % (11.5-14.5); Red Blood Cell (RBC) Count 3.42 mill/uL (4.20-5.40); White Blood Cell (WBC) Count 13.7 10x3/uL (4.8-10.8)
[2023-06-26 06:58] LABS: Anion Gap 11 mmol/L (10-20); BUN (Urea Nitrogen) Less than 4 mg/dL (7.0-18.7); Calc. Creatinine Clearance 105 mL/min (70-130); Calcium 8.4 mg/dL (7.8-10.44); Carbon Dioxide 21 mmol/L (22-29); Chloride 105 mmol/L (98-107); Estimated GFR 106; Glucose 131 mg/dL (70-105); Potassium 3.4 mmol/L (3.5-5.1); Sodium 134 mmol/L (136-145)
[2023-06-26] MEDS: Topiramate 100 MG TAB PO SCH ×2 (08:25→22:21)
[2023-06-26] MEDS: Escitalopram Oxalate 20 mg Tablet PO SCH ×2 (08:25→08:26)
[2023-06-26] MEDS: carBAMazepine 200 MG TAB PO SCH ×2 (08:27→17:25)
[2023-06-26] MEDS: Multivitamin W/ Minerals 1 TAB PO SCH (08:27)
[2023-06-26] MEDS: levETIRAcetam 500 MG TAB PO SCH ×2 (08:27→22:20)
[2023-06-26 09:00] LABS: #Eosinphils 0.1 thou/uL (0.0-0.7); #Neutrophils 11.6 thou/uL (1.40-6.50); %Basophils 0.3 % (0.0-1.0); %Eosinophils 0.4 % (0.0-10.0); %Lymphocytes 9.7 % (21.0-51.0); %Monocytes 7.1 % (0.0-10.0); Hematocrit 33.9 % (36.0-47.0); Mean Corpuscular HGB CONC 32.4 g/dL (32.0-36.0); Mean Corpuscular Hemoglobin 31.2 pg (27.0-31.0); Mean Platelet Volume 9.5 fL (7.4-10.4); Platelet Count 422 10x3/uL (130-400); RBC Distribution Width 14.2 % (11.5-14.5); Red Blood Cell (RBC) Count 3.53 mill/uL (4.20-5.40); White Blood Cell (WBC) Count 14.1 10x3/uL (4.8-10.8)
[2023-06-26 09:25] LABS: Anion Gap 14 mmol/L (10-20); BUN (Urea Nitrogen) Less than 4 mg/dL (7.0-18.7); Calc. Creatinine Clearance 103 mL/min (70-130); Calcium 8.6 mg/dL (7.8-10.44); Carbon Dioxide 19 mmol/L (22-29); Chloride 106 mmol/L (98-107); Estimated GFR 105; Glucose 123 mg/dL (70-105); Potassium 3.6 mmol/L (3.5-5.1); Sodium 135 mmol/L (136-145)
[2023-06-26] MEDS ORDERED: VANCOMYCIN 1.75 GM/500 ML BAG 1.75 GM in Premix Bag 1 BAG IVPB SCH (11:00)
[2023-06-26] MEDS ORDERED: Lidocaine 1% (PF) 30 ML VIAL IJ SCH (13:00)
[2023-06-26] MEDS ORDERED: EPINEPHrine 1 MG/ML AMP IVP SCH (13:00)
[2023-06-26] MEDS ORDERED: Bupivacaine 0.25% HCL 30 ML VIAL FS SCH (13:00)
[2023-06-26] MEDS ORDERED: Azithromycin 500 MG in Sodium Chloride 0.9% 250 ML 250 ML IVPB SCH (13:00)
[2023-06-26] MEDS ORDERED: cefTRIAXone\\ROCEPHIN 1 GM in Sodium Chloride 0.9% 100 ML IVPB SCH (13:00)
[2023-06-26] MEDS: Morphine 4 MG/ML VIAL SLOW IVP PRN ×2 (14:17→22:26)
[2023-06-26] MEDS: Cyclobenzaprine 10 MG TAB PO PRN (18:17)
[2023-06-26] MEDS ORDERED: Vancomycin HCl 1 GM in Sodium Chloride 0.9% 250 ML 300 ML IVPB SCH (21:00)
[2023-06-26] MEDS: ALPRAZolam 0.5 MG TAB PO SCH (22:20)
[2023-06-26] MEDS: Zolpidem Tartrate 5 MG TAB PO SCH (22:21)
[2023-06-26] MEDS: Vancomycin 1 GM in Premix Bag 1 BAG IVPB SCH (22:25)
[2023-06-27] MEDS: Cyclobenzaprine 10 MG TAB PO PRN ×3 (00:58→22:12)
[2023-06-27] MEDS: HYDROcodone/Acetaminophen 5/325 mg Tablet PO PRN ×3 (01:00→17:57)
[2023-06-27] MEDS: Morphine 4 MG/ML VIAL SLOW IVP PRN ×2 (04:36→19:36)
[2023-06-27 07:05] LABS: #Eosinphils 0.2 thou/uL (0.0-0.7); #Monocytes 0.7 thou/uL (0.11-0.59); Hemoglobin 10.4 g/dL (12.0-16.0)
[2023-06-27 07:30] LABS: Anion Gap 13 mmol/L (10-20); BUN (Urea Nitrogen) Less than 4 mg/dL (7.0-18.7); Calc. Creatinine Clearance 102 mL/min (70-130); Calcium 8.5 mg/dL (7.8-10.44); Carbon Dioxide 22 mmol/L (22-29); Chloride 103 mmol/L (98-107); Estimated GFR 104; Glucose 108 mg/dL (70-105); Potassium 3.6 mmol/L (3.5-5.1); Sodium 134 mmol/L (136-145)
[2023-06-27 07:48] LABS: #Basophils 0.1 thou/uL (0.0-0.2); %Basophils 0.6 % (0.0-1.0); %Lymphocytes 11.3 % (21.0-51.0); %Monocytes 6.7 % (0.0-10.0); %Neutrophils 79.1 % (42.0-75.0); Mean Corpuscular HGB CONC 32.5 g/dL (32.0-36.0); Mean Corpuscular Hemoglobin 31.1 pg (27.0-31.0); Mean Corpuscular Volume 95.8 fl (78.0-98.0); Mean Platelet Volume 9.8 fL (7.4-10.4); Platelet Count 472 10x3/uL (130-400); RBC Distribution Width 14.2 % (11.5-14.5); Red Blood Cell (RBC) Count 3.34 mill/uL (4.20-5.40); White Blood Cell (WBC) Count 10.2 10x3/uL (4.8-10.8)
[2023-06-27] MEDS: carBAMazepine 200 MG TAB PO SCH ×2 (09:59→17:57)
[2023-06-27] MEDS: Topiramate 100 MG TAB PO SCH ×2 (09:59→22:13)
[2023-06-27] MEDS: Multivitamin W/ Minerals 1 TAB PO SCH (09:59)
[2023-06-27] MEDS: levETIRAcetam 500 MG TAB PO SCH ×2 (09:59→22:12)
[2023-06-27] MEDS: Escitalopram Oxalate 20 mg Tablet PO SCH (09:59)
[2023-06-27] MEDS: Vancomycin 1 GM in Premix Bag 1 BAG IVPB SCH ×2 (12:13→22:56)
[2023-06-27] MEDS: Zolpidem Tartrate 5 MG TAB PO SCH (22:12)
[2023-06-27] MEDS: ALPRAZolam 0.5 MG TAB PO SCH (22:13)
[2023-06-27 22:29] LABS: Vancomycin, Trough 14.6 ug/mL
[2023-06-28] MEDS: Morphine 4 MG/ML VIAL SLOW IVP PRN ×2 (03:09→12:23)
[2023-06-28 06:05] LABS: #Eosinphils 0.2 thou/uL (0.0-0.7); #Monocytes 0.9 thou/uL (0.11-0.59); #Neutrophils 7.6 thou/uL (1.40-6.50); %Basophils 0.4 % (0.0-1.0); %Eosinophils 2.1 % (0.0-10.0); %Lymphocytes 11.8 % (21.0-51.0); %Monocytes 9.1 % (0.0-10.0); %Neutrophils 76.2 % (42.0-75.0); Hematocrit 30.2 % (36.0-47.0); Hemoglobin 9.8 g/dL (12.0-16.0); Mean Corpuscular HGB CONC 32.5 g/dL (32.0-36.0); Mean Corpuscular Hemoglobin 30.8 pg (27.0-31.0); Mean Platelet Volume 8.9 fL (7.4-10.4); Platelet Count 461 10x3/uL (130-400); RBC Distribution Width 14.1 % (11.5-14.5); Red Blood Cell (RBC) Count 3.18 mill/uL (4.20-5.40); White Blood Cell (WBC) Count 9.9 10x3/uL (4.8-10.8)
[2023-06-28] MEDS: HYDROcodone/Acetaminophen 5/325 mg Tablet PO PRN ×2 (06:18→22:08)
[2023-06-28 06:29] LABS: Anion Gap 12 mmol/L (10-20); BUN (Urea Nitrogen) 4 mg/dL (7.0-18.7); Calc. Creatinine Clearance 103 mL/min (70-130); Calcium 8.5 mg/dL (7.8-10.44); Carbon Dioxide 22 mmol/L (22-29); Chloride 102 mmol/L (98-107); Estimated GFR 105; Glucose 110 mg/dL (70-105); Potassium 3.5 mmol/L (3.5-5.1); Sodium 132 mmol/L (136-145)
[2023-06-28] MEDS: Multivitamin W/ Minerals 1 TAB PO SCH (08:28)
[2023-06-28] MEDS: Topiramate 100 MG TAB PO SCH ×2 (08:28→22:10)
[2023-06-28] MEDS: carBAMazepine 200 MG TAB PO SCH ×2 (08:29→18:06)
[2023-06-28] MEDS: levETIRAcetam 500 MG TAB PO SCH ×2 (08:29→22:09)
[2023-06-28] MEDS: Escitalopram Oxalate 20 mg Tablet PO SCH (08:29)
[2023-06-28] MEDS: Vancomycin 1 GM in Premix Bag 1 BAG IVPB SCH (10:19)
[2023-06-28] MEDS: Cyclobenzaprine 10 MG TAB PO PRN (12:23)
[2023-06-28] MEDS: Oxacillin 2 GM in Sodium Chloride 0.9% 100 ML IVPB SCH ×3 (13:43→22:10)
[2023-06-28] MEDS: Zolpidem Tartrate 5 MG TAB PO SCH (22:09)
[2023-06-28] MEDS: ALPRAZolam 0.5 MG TAB PO SCH (22:10)
[2023-06-29] MEDS: Morphine 4 MG/ML VIAL SLOW IVP PRN ×3 (01:09→16:41)
[2023-06-29] MEDS: Oxacillin 2 GM in Sodium Chloride 0.9% 100 ML IVPB SCH ×6 (01:10→20:05)
[2023-06-29] MEDS: HYDROcodone/Acetaminophen 5/325 mg Tablet PO PRN ×3 (06:03→20:03)
[2023-06-29 06:32] LABS: #Eosinphils 0.2 thou/uL (0.0-0.7); #Monocytes 0.8 thou/uL (0.11-0.59); #Neutrophils 6.2 thou/uL (1.40-6.50); %Basophils 0.4 % (0.0-1.0); %Eosinophils 2.1 % (0.0-10.0); %Lymphocytes 14.7 % (21.0-51.0); %Monocytes 9.8 % (0.0-10.0); %Neutrophils 72.6 % (42.0-75.0); Hematocrit 29.6 % (36.0-47.0); Hemoglobin 9.6 g/dL (12.0-16.0); Mean Corpuscular HGB CONC 32.4 g/dL (32.0-36.0); Mean Corpuscular Hemoglobin 31.1 pg (27.0-31.0); Mean Corpuscular Volume 95.8 fl (78.0-98.0); Platelet Count 482 10x3/uL (130-400); RBC Distribution Width 14.3 % (11.5-14.5); Red Blood Cell (RBC) Count 3.09 mill/uL (4.20-5.40); White Blood Cell (WBC) Count 8.5 10x3/uL (4.8-10.8)
[2023-06-29 06:54] LABS: Anion Gap 11 mmol/L (10-20); BUN (Urea Nitrogen) 4 mg/dL (7.0-18.7); Calc. Creatinine Clearance 106 mL/min (70-130); Calcium 8.6 mg/dL (7.8-10.44); Carbon Dioxide 23 mmol/L (22-29); Chloride 104 mmol/L (98-107); Estimated GFR 106; Glucose 102 mg/dL (70-105); Potassium 3.7 mmol/L (3.5-5.1); Sodium 134 mmol/L (136-145)
[2023-06-29] MEDS: Cyclobenzaprine 10 MG TAB PO PRN ×2 (09:04→16:42)
[2023-06-29] MEDS: levETIRAcetam 500 MG TAB PO SCH ×2 (09:04→20:03)
[2023-06-29] MEDS: Escitalopram Oxalate 20 mg Tablet PO SCH (09:04)
[2023-06-29] MEDS: carBAMazepine 200 MG TAB PO SCH ×2 (09:05→16:42)
[2023-06-29] MEDS: Multivitamin W/ Minerals 1 TAB PO SCH (09:05)
[2023-06-29] MEDS: Topiramate 100 MG TAB PO SCH ×2 (09:05→20:03)
[2023-06-29] MEDS ORDERED: Warfarin Sodium 5 MG TAB PO SCH (17:00)
[2023-06-29 17:29] LABS: INR-International Normal Ratio 1.5; Prothrombin Time 18.3 sec (12.0-14.7)
[2023-06-29] MEDS: Zolpidem Tartrate 5 MG TAB PO SCH (20:03)
[2023-06-29] MEDS: ALPRAZolam 0.5 MG TAB PO SCH (20:03)
[2023-06-29] MEDS: Transdermal Patch Removal TOP SCH (20:05)
[2023-06-30] MEDS: Oxacillin 2 GM in Sodium Chloride 0.9% 100 ML IVPB SCH ×6 (01:24→22:03)
[2023-06-30] MEDS: Morphine 4 MG/ML VIAL SLOW IVP PRN ×4 (01:28→20:22)
[2023-06-30] MEDS: HYDROcodone/Acetaminophen 5/325 mg Tablet PO PRN ×3 (05:40→18:14)
[2023-06-30] MEDS: Lidocaine 4% Patch TD SCH (07:53)
[2023-06-30] MEDS: Topiramate 100 MG TAB PO SCH ×2 (07:54→22:02)
[2023-06-30] MEDS: Cyclobenzaprine 10 MG TAB PO PRN ×2 (07:54→15:40)
[2023-06-30] MEDS: levETIRAcetam 500 MG TAB PO SCH ×2 (07:54→22:01)
[2023-06-30] MEDS: Multivitamin W/ Minerals 1 TAB PO SCH (07:54)
[2023-06-30] MEDS: carBAMazepine 200 MG TAB PO SCH ×2 (07:54→18:14)
[2023-06-30] MEDS: Escitalopram Oxalate 20 mg Tablet PO SCH (07:54)
[2023-06-30] MEDS: Zolpidem Tartrate 5 MG TAB PO SCH (22:02)
[2023-06-30] MEDS: ALPRAZolam 0.5 MG TAB PO SCH (22:02)
[2023-06-30] MEDS: Transdermal Patch Removal TOP SCH (22:06)
[2023-07-01] MEDS: Oxacillin 2 GM in Sodium Chloride 0.9% 100 ML IVPB SCH ×6 (01:26→20:11)
[2023-07-01] MEDS: Lidocaine 4% Patch TD SCH ×2 (09:07→09:18)
[2023-07-01] MEDS: Topiramate 100 MG TAB PO SCH ×2 (09:08→20:09)
[2023-07-01] MEDS: levETIRAcetam 500 MG TAB PO SCH ×2 (09:08→20:09)
[2023-07-01] MEDS: Multivitamin W/ Minerals 1 TAB PO SCH (09:08)
[2023-07-01] MEDS: Escitalopram Oxalate 20 mg Tablet PO SCH (09:08)
[2023-07-01] MEDS: carBAMazepine 200 MG TAB PO SCH ×2 (09:11→17:05)
[2023-07-01] MEDS ORDERED: [UNRECOGNIZED DRUG - OTHER] IVPB PRN (12:14)
[2023-07-01] MEDS ORDERED: WARFARIN IVPB PRN (12:14)
[2023-07-01] MEDS: Morphine 4 MG/ML VIAL SLOW IVP PRN (12:33)
[2023-07-01] MEDS: HYDROcodone/Acetaminophen 5/325 mg Tablet PO PRN ×2 (14:39→20:10)
[2023-07-01] MEDS: Cyclobenzaprine 10 MG TAB PO PRN ×2 (15:26→20:15)
[2023-07-01] MEDS ORDERED: Warfarin Sodium 5 MG TAB PO SCH (17:00)
[2023-07-01] MEDS: Warfarin Sodium 7.5 MG TAB PO SCH (17:05)
[2023-07-01] MEDS: ALPRAZolam 0.5 MG TAB PO SCH (20:09)
[2023-07-01] MEDS: Zolpidem Tartrate 5 MG TAB PO SCH (20:09)
[2023-07-01] MEDS: Transdermal Patch Removal TOP SCH (20:10)
[2023-07-02] MEDS: Oxacillin 2 GM in Sodium Chloride 0.9% 100 ML IVPB SCH ×6 (00:50→20:40)
[2023-07-02 05:45] LABS: #Basophils 0.1 thou/uL (0.0-0.2); #Eosinphils 0.3 thou/uL (0.0-0.7); #Monocytes 0.6 thou/uL (0.11-0.59); #Neutrophils 7.1 thou/uL (1.40-6.50); %Basophils 0.6 % (0.0-1.0); %Eosinophils 3.3 % (0.0-10.0); %Lymphocytes 12.7 % (21.0-51.0); %Monocytes 6.1 % (0.0-10.0); %Neutrophils 76.3 % (42.0-75.0); Hematocrit 30.9 % (36.0-47.0); Hemoglobin 9.9 g/dL (12.0-16.0); Mean Corpuscular Volume 96.9 fl (78.0-98.0); Mean Platelet Volume 8.8 fL (7.4-10.4); Platelet Count 610 10x3/uL (130-400); RBC Distribution Width 14.6 % (11.5-14.5); Red Blood Cell (RBC) Count 3.19 mill/uL (4.20-5.40); White Blood Cell (WBC) Count 9.3 10x3/uL (4.8-10.8)
[2023-07-02 05:59] LABS: INR-International Normal Ratio 1.6
[2023-07-02] MEDS: carBAMazepine 200 MG TAB PO SCH ×2 (08:40→17:33)
[2023-07-02] MEDS: Multivitamin W/ Minerals 1 TAB PO SCH (08:40)
[2023-07-02] MEDS: Topiramate 100 MG TAB PO SCH ×2 (08:40→21:35)
[2023-07-02] MEDS: Escitalopram Oxalate 20 mg Tablet PO SCH (08:40)
[2023-07-02] MEDS: levETIRAcetam 500 MG TAB PO SCH ×2 (08:40→21:35)
[2023-07-02] MEDS: Lidocaine 4% Patch TD SCH (08:41)
[2023-07-02] MEDS: Morphine 4 MG/ML VIAL SLOW IVP PRN (15:12)
[2023-07-02] MEDS: HYDROcodone/Acetaminophen 5/325 mg Tablet PO PRN ×2 (17:32→21:36)
[2023-07-02] MEDS: Warfarin Sodium 7.5 MG TAB PO SCH (17:33)
[2023-07-02] MEDS: Zolpidem Tartrate 5 MG TAB PO SCH (21:35)
[2023-07-02] MEDS: ALPRAZolam 0.5 MG TAB PO SCH (21:35)
[2023-07-02] MEDS: Cyclobenzaprine 10 MG TAB PO PRN (21:36)
[2023-07-02] MEDS: Transdermal Patch Removal TOP SCH (21:37)
[2023-07-03] MEDS: Oxacillin 2 GM in Sodium Chloride 0.9% 100 ML IVPB SCH ×6 (01:46→20:40)
[2023-07-03] MEDS: Morphine 4 MG/ML VIAL SLOW IVP PRN ×2 (06:20→15:59)
[2023-07-03] MEDS: Multivitamin W/ Minerals 1 TAB PO SCH (08:22)
[2023-07-03] MEDS: levETIRAcetam 500 MG TAB PO SCH ×2 (08:22→21:58)
[2023-07-03] MEDS: carBAMazepine 200 MG TAB PO SCH ×2 (08:22→17:01)
[2023-07-03] MEDS: Escitalopram Oxalate 20 mg Tablet PO SCH (08:22)
[2023-07-03] MEDS: Lidocaine 4% Patch TD SCH (08:23)
[2023-07-03] MEDS: Topiramate 100 MG TAB PO SCH ×2 (08:23→21:58)
[2023-07-03] MEDS: HYDROcodone/Acetaminophen 5/325 mg Tablet PO PRN ×2 (08:27→21:58)
[2023-07-03] MEDS: Cyclobenzaprine 10 MG TAB PO PRN ×2 (08:28→21:58)
[2023-07-03 12:18] LABS: #Basophils 0.1 thou/uL (0.0-0.2); #Eosinphils 0.3 thou/uL (0.0-0.7); #Monocytes 0.6 thou/uL (0.11-0.59); #Neutrophils 6.6 thou/uL (1.40-6.50); %Basophils 0.8 % (0.0-1.0); %Eosinophils 3.2 % (0.0-10.0); %Lymphocytes 16.9 % (21.0-51.0); %Neutrophils 71.6 % (42.0-75.0); Hematocrit 31.1 % (36.0-47.0); Hemoglobin 9.8 g/dL (12.0-16.0); Mean Corpuscular HGB CONC 31.5 g/dL (32.0-36.0); Mean Corpuscular Hemoglobin 30.8 pg (27.0-31.0); Mean Corpuscular Volume 97.8 fl (78.0-98.0); Mean Platelet Volume 8.8 fL (7.4-10.4); Platelet Count 550 10x3/uL (130-400); Red Blood Cell (RBC) Count 3.18 mill/uL (4.20-5.40); White Blood Cell (WBC) Count 9.2 10x3/uL (4.8-10.8)
[2023-07-03 12:29] LABS: INR-International Normal Ratio 3.5; Prothrombin Time 36.9 sec (12.0-14.7)
[2023-07-03 12:31] LABS: Anion Gap 8 mmol/L (10-20); BUN (Urea Nitrogen) 4 mg/dL (7.0-18.7); Calc. Creatinine Clearance 99 mL/min (70-130); Calcium 8.1 mg/dL (7.8-10.44); Carbon Dioxide 22 mmol/L (22-29); Chloride 108 mmol/L (98-107); Estimated GFR 100; Glucose 115 mg/dL (70-105); Potassium 3.4 mmol/L (3.5-5.1); Sodium 135 mmol/L (136-145)
[2023-07-03] MEDS ORDERED: Warfarin Sodium 3 MG TAB PO SCH (17:00)
[2023-07-03] MEDS ORDERED: Warfarin Sodium 5 MG TAB PO SCH (17:00)
[2023-07-03] MEDS ORDERED: Warfarin Sodium 7.5 MG TAB PO SCH (17:00)
[2023-07-03] MEDS: Zolpidem Tartrate 5 MG TAB PO SCH (21:58)
[2023-07-03] MEDS: ALPRAZolam 0.5 MG TAB PO SCH (21:58)
[2023-07-03] MEDS: Transdermal Patch Removal TOP SCH (22:13)
[2023-07-04] MEDS: Morphine 4 MG/ML VIAL SLOW IVP PRN ×3 (00:49→17:15)
[2023-07-04] MEDS: Oxacillin 2 GM in Sodium Chloride 0.9% 100 ML IVPB SCH ×6 (00:50→21:06)
[2023-07-04] MEDS: HYDROcodone/Acetaminophen 5/325 mg Tablet PO PRN ×3 (03:50→21:53)
[2023-07-04 06:31] LABS: #Basophils 0.1 thou/uL (0.0-0.2); #Eosinphils 0.3 thou/uL (0.0-0.7); #Monocytes 0.7 thou/uL (0.11-0.59); #Neutrophils 5.8 thou/uL (1.40-6.50); %Eosinophils 3.3 % (0.0-10.0); %Lymphocytes 18.1 % (21.0-51.0); %Monocytes 7.8 % (0.0-10.0); %Neutrophils 67.9 % (42.0-75.0); Hemoglobin 9.9 g/dL (12.0-16.0); Mean Corpuscular HGB CONC 30.9 g/dL (32.0-36.0); Mean Corpuscular Hemoglobin 30.5 pg (27.0-31.0); Mean Corpuscular Volume 98.5 fl (78.0-98.0); Platelet Count 633 10x3/uL (130-400); Red Blood Cell (RBC) Count 3.25 mill/uL (4.20-5.40); White Blood Cell (WBC) Count 8.6 10x3/uL (4.8-10.8)
[2023-07-04 06:45] LABS: INR-International Normal Ratio 3.6; Prothrombin Time 37.3 sec (12.0-14.7)
[2023-07-04] MEDS ORDERED: Electrolyte Replacement Protocol 1 EACH FS SCH (08:15)
[2023-07-04] MEDS ORDERED: Potassium Chloride 20 MEQ TAB PO SCH (08:30)
[2023-07-04] MEDS ORDERED: Electrolyte Replacement Protocol FS PRN (08:30)
[2023-07-04] MEDS: carBAMazepine 200 MG TAB PO SCH ×2 (09:37→17:11)
[2023-07-04] MEDS: Escitalopram Oxalate 20 mg Tablet PO SCH (09:37)
[2023-07-04] MEDS: levETIRAcetam 500 MG TAB PO SCH ×2 (09:37→21:53)
[2023-07-04] MEDS: Multivitamin W/ Minerals 1 TAB PO SCH (09:37)
[2023-07-04] MEDS: Lidocaine 4% Patch TD SCH (09:38)
[2023-07-04] MEDS: Topiramate 100 MG TAB PO SCH ×2 (09:38→21:53)
[2023-07-04] MEDS: Cyclobenzaprine 10 MG TAB PO PRN (12:48)
[2023-07-04 14:05] LABS: Potassium 3.8 mmol/L (3.5-5.1)
[2023-07-04] MEDS: Zolpidem Tartrate 5 MG TAB PO SCH (21:53)
[2023-07-04] MEDS: ALPRAZolam 0.5 MG TAB PO SCH (21:53)
[2023-07-04] MEDS: Transdermal Patch Removal TOP SCH (21:54)
[2023-07-05] MEDS: Oxacillin 2 GM in Sodium Chloride 0.9% 100 ML IVPB SCH ×6 (01:20→21:24)
[2023-07-05] MEDS: Morphine 4 MG/ML VIAL SLOW IVP PRN ×2 (02:03→13:19)
[2023-07-05 05:23] LABS: #Basophils 0.1 thou/uL (0.0-0.2); #Eosinphils 0.3 thou/uL (0.0-0.7); #Monocytes 0.6 thou/uL (0.11-0.59); #Neutrophils 6.5 thou/uL (1.40-6.50); %Eosinophils 3.4 % (0.0-10.0); %Monocytes 6.8 % (0.0-10.0); %Neutrophils 72.6 % (42.0-75.0); Hematocrit 33.5 % (36.0-47.0); Hemoglobin 10.5 g/dL (12.0-16.0); Mean Corpuscular HGB CONC 31.3 g/dL (32.0-36.0); Mean Corpuscular Hemoglobin 30.9 pg (27.0-31.0); Mean Corpuscular Volume 98.5 fl (78.0-98.0); Mean Platelet Volume 8.9 fL (7.4-10.4); Platelet Count 659 10x3/uL (130-400); RBC Distribution Width 15.3 % (11.5-14.5); White Blood Cell (WBC) Count 8.9 10x3/uL (4.8-10.8)
[2023-07-05 05:34] LABS: INR-International Normal Ratio 2.1; Prothrombin Time 24.4 sec (12.0-14.7)
[2023-07-05 05:50] LABS: Anion Gap 13 mmol/L (10-20); BUN (Urea Nitrogen) 5 mg/dL (7.0-18.7); Calc. Creatinine Clearance 94 mL/min (70-130); Calcium 8.5 mg/dL (7.8-10.44); Carbon Dioxide 20 mmol/L (22-29); Chloride 108 mmol/L (98-107); Estimated GFR 94; Glucose 99 mg/dL (70-105); Potassium 4.1 mmol/L (3.5-5.1); Sodium 137 mmol/L (136-145)
[2023-07-05] MEDS: Escitalopram Oxalate 20 mg Tablet PO SCH (09:19)
[2023-07-05] MEDS: carBAMazepine 200 MG TAB PO SCH ×2 (09:19→16:45)
[2023-07-05] MEDS: levETIRAcetam 500 MG TAB PO SCH ×2 (09:19→21:24)
[2023-07-05] MEDS: HYDROcodone/Acetaminophen 5/325 mg Tablet PO PRN ×3 (09:20→21:25)
[2023-07-05] MEDS: Topiramate 100 MG TAB PO SCH ×2 (09:20→21:25)
[2023-07-05] MEDS: Cyclobenzaprine 10 MG TAB PO PRN ×2 (09:20→16:45)
[2023-07-05] MEDS: Multivitamin W/ Minerals 1 TAB PO SCH (09:20)
[2023-07-05] MEDS: Lidocaine 4% Patch TD SCH ×2 (09:20→18:08)
[2023-07-05] MEDS ORDERED: Warfarin Sodium 3 MG TAB PO SCH (17:00)
[2023-07-05] MEDS: ALPRAZolam 0.5 MG TAB PO SCH (21:25)
[2023-07-05] MEDS: Transdermal Patch Removal TOP SCH (21:25)
[2023-07-05] MEDS: Zolpidem Tartrate 5 MG TAB PO SCH (21:25)
[2023-07-06] MEDS: Oxacillin 2 GM in Sodium Chloride 0.9% 100 ML IVPB SCH ×6 (00:06→20:06)
[2023-07-06] MEDS: Morphine 4 MG/ML VIAL SLOW IVP PRN ×3 (00:07→13:42)
[2023-07-06] MEDS: Escitalopram Oxalate 20 mg Tablet PO SCH (09:11)
[2023-07-06] MEDS: Topiramate 100 MG TAB PO SCH ×2 (09:11→21:12)
[2023-07-06] MEDS: Multivitamin W/ Minerals 1 TAB PO SCH (09:11)
[2023-07-06] MEDS: levETIRAcetam 500 MG TAB PO SCH ×2 (09:11→21:12)
[2023-07-06] MEDS: Lidocaine 4% Patch TD SCH (09:12)
[2023-07-06] MEDS: carBAMazepine 200 MG TAB PO SCH ×2 (09:12→17:02)
[2023-07-06] MEDS: HYDROcodone/Acetaminophen 5/325 mg Tablet PO PRN ×3 (09:12→21:17)
[2023-07-06 09:15] LABS: INR-International Normal Ratio 1.6; Prothrombin Time 19.5 sec (12.0-14.7)
[2023-07-06] MEDS ORDERED: Warfarin Sodium 5 MG TAB PO SCH (17:00)
[2023-07-06] MEDS: Cyclobenzaprine 10 MG TAB PO PRN (17:02)
[2023-07-06] MEDS: Transdermal Patch Removal TOP SCH (21:12)
[2023-07-06] MEDS: Zolpidem Tartrate 5 MG TAB PO SCH (21:12)
[2023-07-07] MEDS: Morphine 4 MG/ML VIAL SLOW IVP PRN ×2 (00:55→08:33)
[2023-07-07] MEDS: Oxacillin 2 GM in Sodium Chloride 0.9% 100 ML IVPB SCH ×4 (00:56→12:36)
[2023-07-07] MEDS: Cyclobenzaprine 10 MG TAB PO PRN ×2 (00:56→14:30)
[2023-07-07 07:43] LABS: INR-International Normal Ratio 1.5; Prothrombin Time 18.5 sec (12.0-14.7)
[2023-07-07] MEDS: Topiramate 100 MG TAB PO SCH (08:34)
[2023-07-07] MEDS: Multivitamin W/ Minerals 1 TAB PO SCH (08:34)
[2023-07-07] MEDS: carBAMazepine 200 MG TAB PO SCH (08:34)
[2023-07-07] MEDS: Lidocaine 4% Patch TD SCH (08:34)
[2023-07-07] MEDS: Escitalopram Oxalate 20 mg Tablet PO SCH (08:34)
[2023-07-07] MEDS: levETIRAcetam 500 MG TAB PO SCH (08:34)
[2023-07-07] MEDS: HYDROcodone/Acetaminophen 5/325 mg Tablet PO PRN (14:30)
[2023-07-07 14:38] VITALS: BP 117/69; TEMP 97.6
== END 2023-07-07 14:52 | disposition home or self-care (01) | DRG 314 ==
LOC: ERS 10:16 → ERHOLD 13:02 → T4-B 17:44
PROVIDERS: ADMIT Internal Medicine; ATTEND Family Medicine
PROC: 3E03329 Introduction of Other Anti-infective into Peripheral Vein, Percutaneous Approach (ICD-10-PCS; 2023-06-25)
PROC: 05PY33Z Removal of Infusion Device from Upper Vein, Percutaneous Approach (ICD-10-PCS; principal; 2023-06-26)
PROC: 0JPT0WZ Removal of Totally Implantable Vascular Access Device from Trunk Subcutaneous Tissue and Fascia, Open Approach (ICD-10-PCS; 2023-06-26)
PROC: 02H633Z Insertion of Infusion Device into Right Atrium, Percutaneous Approach (ICD-10-PCS; 2023-06-26)
PROC: B548ZZA Ultrasonography of Superior Vena Cava, Guidance (ICD-10-PCS; 2023-06-26)
PROC: 02HV33Z Insertion of Infusion Device into Superior Vena Cava, Percutaneous Approach (ICD-10-PCS; 2023-06-30)
PROC: B548ZZA Ultrasonography of Superior Vena Cava, Guidance (ICD-10-PCS; 2023-06-30)
PROC: B5181ZA Fluoroscopy of Superior Vena Cava using Low Osmolar Contrast, Guidance (ICD-10-PCS; 2023-06-30)
DX: T80.211A Bloodstream infection due to central venous catheter, initial encounter (principal); A41.01 Sepsis due to Methicillin susceptible Staphylococcus aureus; I26.94 Multiple subsegmental thrombotic pulmonary emboli without acute cor pulmonale; J18.9 Pneumonia, unspecified organism; G40.909 Epilepsy, unspecified, not intractable, without status epilepticus; F32.A Depression, unspecified; F41.0 Panic disorder [episodic paroxysmal anxiety]; B95.7 Other staphylococcus as the cause of diseases classified elsewhere; D64.9 Anemia, unspecified; Z88.6 Allergy status to analgesic agent; Z88.8 Allergy status to other drugs, medicaments and biological substances; Z79.899 Other long term (current) drug therapy; Z90.710 Acquired absence of both cervix and uterus; Z98.890 Other specified postprocedural states; Z79.01 Long term (current) use of anticoagulants; Z82.49 Family history of ischemic heart disease and other diseases of the circulatory system
CPT/HCPCS: 36415; 36569; 71045; 71275; 80048; 80053; 80202; 83605; 84132; 84484; 85025; 85610; 87040; 87077; 87149; 87186; 93005; 93010; 93970; 96365; 96366; 96367; 96372; C1751; J0171; J0456; J0696; J1650; J2001; J2270; J2272; J2700; J3370; J3370-JW; J3490; Q9967; S0020

== ENCOUNTER 2023-07-10 11:52 | Inpatient (IN) | payer MEDICARE ==
[2023-07-10] MEDS ORDERED: Iopamidol-370 76% 500 ML MDV (1 ML CHARGE) ONE (12:00)
[2023-07-10] MEDS ORDERED: fentaNYL 50 mcg/mL 1 mL Vial ONE ×2 (12:29→16:18)
[2023-07-10 12:56] LABS: #Basophils 0.1 thou/uL (0.0-0.2); #Eosinphils 0.2 thou/uL (0.0-0.7); #Monocytes 0.8 thou/uL (0.11-0.59); #Neutrophils 6.5 thou/uL (1.40-6.50); %Basophils 1.3 % (0.0-1.0); %Eosinophils 1.9 % (0.0-10.0); %Lymphocytes 17.3 % (21.0-51.0); %Monocytes 8.7 % (0.0-10.0); Hematocrit 33.3 % (36.0-47.0); Hemoglobin 10.7 g/dL (12.0-16.0); Mean Corpuscular HGB CONC 32.1 g/dL (32.0-36.0); Mean Corpuscular Hemoglobin 31.1 pg (27.0-31.0); Mean Corpuscular Volume 96.8 fl (78.0-98.0); Mean Platelet Volume 8.8 fL (7.4-10.4); Platelet Count 736 10x3/uL (130-400); RBC Distribution Width 15.9 % (11.5-14.5); Red Blood Cell (RBC) Count 3.44 mill/uL (4.20-5.40); White Blood Cell (WBC) Count 9.3 10x3/uL (4.8-10.8)
[2023-07-10 13:08] LABS: INR-International Normal Ratio 1.5; Prothrombin Time 18.3 sec (12.0-14.7)
[2023-07-10 13:09] LABS: PTT 38.5 sec (22.9-36.1)
[2023-07-10 13:19] LABS: ALT (SGPT) 9 U/L (8-55); AST (SGOT) 17 U/L (5-34); Albumin 3.1 g/dL (3.5-5.0); Alkaline Phosphatase 244 U/L (40-110); Anion Gap 14 mmol/L (10-20); BUN (Urea Nitrogen) Less than 4 mg/dL (7.0-18.7); Bilirubin, Total Less than 0.2 mg/dL (0.2-1.2); Calc. Creatinine Clearance 0 mL/min (70-130); Calcium 8.8 mg/dL (7.8-10.44); Carbon Dioxide 19 mmol/L (22-29); Chloride 108 mmol/L (98-107); Estimated GFR 95; Glucose 100 mg/dL (70-105); Potassium 3.7 mmol/L (3.5-5.1); Protein, Total 7.1 g/dL (6.0-8.3); Sodium 137 mmol/L (136-145)
[2023-07-10 13:23] LABS: Troponin I 0.018 ng/mL (< 0.028)
[2023-07-10 18:05] VITALS: BMI 23.6
[2023-07-10] MEDS ORDERED: Acetaminophen 325 MG TAB PO PRN (18:46)
[2023-07-10] MEDS ORDERED: Morphine 2 MG/ML VIAL SLOW IVP PRN (18:46)
[2023-07-10] MEDS ORDERED: Nafcillin 2 GM in Sodium Chloride 0.9% 100 ML IVPB SCH (19:00)
[2023-07-10] MEDS ORDERED: carBAMazepine 200 MG TAB PO SCH (19:15)
[2023-07-10] MEDS: HYDROcodone/Acetaminophen 5/325 mg Tablet PO PRN (20:23)
[2023-07-10] MEDS: Topiramate 100 MG TAB PO SCH (21:02)
[2023-07-10] MEDS: Oxacillin 2 GM in Sodium Chloride 0.9% 100 ML IVPB SCH (21:02)
[2023-07-10] MEDS: levETIRAcetam 500 MG TAB PO SCH (21:02)
[2023-07-10] MEDS: Zolpidem Tartrate 5 MG TAB PO PRN (21:07)
[2023-07-10] MEDS: ALPRAZolam 0.5 MG TAB PO SCH (21:07)
[2023-07-11] MEDS: Oxacillin 2 GM in Sodium Chloride 0.9% 100 ML IVPB SCH ×6 (00:46→20:49)
[2023-07-11] MEDS: HYDROcodone/Acetaminophen 5/325 mg Tablet PO PRN ×3 (00:50→13:24)
[2023-07-11] MEDS ORDERED: carBAMazepine 200 MG TAB PO SCH (08:00)
[2023-07-11] MEDS: Lidocaine 4% Patch TD SCH (08:39)
[2023-07-11] MEDS: levETIRAcetam 500 MG TAB PO SCH ×2 (08:39→20:47)
[2023-07-11] MEDS: Escitalopram Oxalate 20 mg Tablet PO SCH (08:39)
[2023-07-11] MEDS: Topiramate 100 MG TAB PO SCH ×2 (08:41→20:48)
[2023-07-11 09:19] LABS: #Basophils 0.1 thou/uL (0.0-0.2); #Eosinphils 0.5 thou/uL (0.0-0.7); #Monocytes 0.7 thou/uL (0.11-0.59); %Basophils 1.5 % (0.0-1.0); %Eosinophils 6.1 % (0.0-10.0); %Monocytes 9.4 % (0.0-10.0); %Neutrophils 63.4 % (42.0-75.0); Hematocrit 35.4 % (36.0-47.0); Hemoglobin 11.2 g/dL (12.0-16.0); Mean Corpuscular HGB CONC 31.6 g/dL (32.0-36.0); Mean Corpuscular Hemoglobin 30.9 pg (27.0-31.0); Mean Corpuscular Volume 97.8 fl (78.0-98.0); Mean Platelet Volume 8.8 fL (7.4-10.4); Platelet Count 764 10x3/uL (130-400); RBC Distribution Width 16.1 % (11.5-14.5); Red Blood Cell (RBC) Count 3.62 mill/uL (4.20-5.40); White Blood Cell (WBC) Count 7.9 10x3/uL (4.8-10.8)
[2023-07-11 09:33] LABS: Anion Gap 16 mmol/L (10-20); BUN (Urea Nitrogen) 4 mg/dL (7.0-18.7); Calc. Creatinine Clearance 95 mL/min (70-130); Calcium 8.8 mg/dL (7.8-10.44); Carbon Dioxide 22 mmol/L (22-29); Chloride 105 mmol/L (98-107); Estimated GFR 94; Glucose 92 mg/dL (70-105); Potassium 4.1 mmol/L (3.5-5.1); Sodium 139 mmol/L (136-145)
[2023-07-11 09:35] LABS: INR-International Normal Ratio 1.4; Prothrombin Time 17.3 sec (12.0-14.7)
[2023-07-11] MEDS: ALPRAZolam 0.5 MG TAB PO SCH (20:47)
[2023-07-11] MEDS: Zolpidem Tartrate 5 MG TAB PO PRN (20:52)
[2023-07-11] MEDS: Transdermal Patch Removal TOP SCH (21:37)
[2023-07-12] MEDS: Oxacillin 2 GM in Sodium Chloride 0.9% 100 ML IVPB SCH ×2 (00:45→05:05)
[2023-07-12] MEDS: HYDROcodone/Acetaminophen 5/325 mg Tablet PO PRN ×3 (00:45→15:57)
[2023-07-12] MEDS: Escitalopram Oxalate 20 mg Tablet PO SCH (08:08)
[2023-07-12] MEDS: levETIRAcetam 500 MG TAB PO SCH ×2 (08:08→20:29)
[2023-07-12] MEDS: Lidocaine 4% Patch TD SCH (08:08)
[2023-07-12] MEDS: Topiramate 100 MG TAB PO SCH ×2 (08:08→20:30)
[2023-07-12 08:30] LABS: INR-International Normal Ratio 1.3; Prothrombin Time 16.8 sec (12.0-14.7)
[2023-07-12] MEDS ORDERED: hydrOXYzine 25 MG TAB PO PRN (16:31)
[2023-07-12] MEDS: Apixaban 5 MG TAB PO SCH (20:30)
[2023-07-12] MEDS: ALPRAZolam 0.5 MG TAB PO SCH (20:30)
[2023-07-12] MEDS: Transdermal Patch Removal TOP SCH (20:32)
[2023-07-12] MEDS ORDERED: levETIRAcetam 500 MG TAB PO SCH (21:00)
[2023-07-12] MEDS ORDERED: Topiramate 100 MG TAB PO SCH (21:00)
[2023-07-12] MEDS ORDERED: Zolpidem Tartrate 5 MG TAB PO SCH (21:00)
[2023-07-13 06:38] LABS: INR-International Normal Ratio 1.2; Prothrombin Time 15.4 sec (12.0-14.7)
[2023-07-13 08:07] VITALS: TEMP 98.1
[2023-07-13] MEDS ORDERED: Escitalopram Oxalate 20 mg Tablet PO SCH (09:00)
[2023-07-13] MEDS: Escitalopram Oxalate 20 mg Tablet PO SCH (09:17)
[2023-07-13] MEDS: Apixaban 5 MG TAB PO SCH (09:17)
[2023-07-13] MEDS: Topiramate 100 MG TAB PO SCH (09:18)
[2023-07-13] MEDS: Lidocaine 4% Patch TD SCH (09:18)
[2023-07-13] MEDS: levETIRAcetam 500 MG TAB PO SCH (09:18)
[2023-07-13] MEDS: HYDROcodone/Acetaminophen 5/325 mg Tablet PO PRN (09:24)
[2023-07-13 12:01] VITALS: BP 97/70
== END 2023-07-13 11:54 | disposition home or self-care (01) | DRG 176 ==
LOC: ERS 11:52 → OBSVTOIN 17:03 → 2SW 17:03
PROVIDERS: ADMIT Family Medicine; ATTEND Internal Medicine
DX: I26.94 Multiple subsegmental thrombotic pulmonary emboli without acute cor pulmonale (principal); R78.81 Bacteremia; F32.A Depression, unspecified; F41.9 Anxiety disorder, unspecified; D64.9 Anemia, unspecified; D75.839 Thrombocytosis, unspecified; A49.01 Methicillin susceptible Staphylococcus aureus infection, unspecified site; G47.00 Insomnia, unspecified; F39 Unspecified mood [affective] disorder; Z66 Do not resuscitate; G40.909 Epilepsy, unspecified, not intractable, without status epilepticus; K64.9 Unspecified hemorrhoids; Z90.710 Acquired absence of both cervix and uterus; Z88.8 Allergy status to other drugs, medicaments and biological substances
CPT/HCPCS: 36415; 71275; 80048; 80053; 83605; 83880; 84484; 85025; 85610; 85730; 93005; 96372; 96374; 96375; 96376; G0378; J0878; J1642; J1650; J2700; J3010; J3490; Q9967

== ENCOUNTER 2023-07-19 18:21 | Emergency (ER) | payer MEDICARE ==
[2023-07-19 20:43] LABS: #Basophils 0.1 thou/uL (0.0-0.2); #Eosinphils 0.3 thou/uL (0.0-0.7); #Neutrophils 7.9 thou/uL (1.40-6.50); %Basophils 1.1 % (0.0-1.0); %Eosinophils 2.8 % (0.0-10.0); %Lymphocytes 14.5 % (21.0-51.0); %Monocytes 8.9 % (0.0-10.0); %Neutrophils 72.3 % (42.0-75.0); Hematocrit 34.9 % (36.0-47.0); Hemoglobin 11.5 g/dL (12.0-16.0); Mean Corpuscular Hemoglobin 31.4 pg (27.0-31.0); Mean Corpuscular Volume 95.4 fl (78.0-98.0); Mean Platelet Volume 8.9 fL (7.4-10.4); Platelet Count 592 10x3/uL (130-400); RBC Distribution Width 14.8 % (11.5-14.5); Red Blood Cell (RBC) Count 3.66 mill/uL (4.20-5.40); White Blood Cell (WBC) Count 10.9 10x3/uL (4.8-10.8)
[2023-07-19] MEDS ORDERED: Morphine 4 MG/ML VIAL ONE (20:50)
[2023-07-19 21:03] LABS: INR-International Normal Ratio 1.2; PTT 31.2 sec (22.9-36.1); Prothrombin Time 15.5 sec (12.0-14.7)
[2023-07-19 21:08] LABS: ALT (SGPT) 12 U/L (8-55); AST (SGOT) 20 U/L (5-34); Albumin 3.5 g/dL (3.5-5.0); Alkaline Phosphatase 188 U/L (40-110); Anion Gap 16 mmol/L (10-20); BUN (Urea Nitrogen) 6 mg/dL (7.0-18.7); Bilirubin, Total 0.2 mg/dL (0.2-1.2); Calc. Creatinine Clearance 0 mL/min (70-130); Calcium 9.2 mg/dL (7.8-10.44); Carbon Dioxide 19 mmol/L (22-29); Chloride 105 mmol/L (98-107); Estimated GFR 78; Globulin 4.2 g/dL (2.4-3.5); Glucose 93 mg/dL (70-105); Potassium 3.7 mmol/L (3.5-5.1); Protein, Total 7.7 g/dL (6.0-8.3); Sodium 136 mmol/L (136-145)
[2023-07-19 21:09] LABS: Troponin I 0.027 ng/mL (< 0.028)
== END 2023-07-19 22:41 | disposition home or self-care (01) ==
LOC: ERS 18:21
DX: R06.02 Shortness of breath (principal); R07.89 Other chest pain
CPT/HCPCS: 36415; 71275; 80053; 83880; 84484; 85025; 85610; 85730; 96374; J2270; Q9967

== ENCOUNTER 2023-10-05 14:09 | Emergency (ER) | payer MEDICARE ==
[2023-10-05 15:25] LABS: #Basophils 0.1 thou/uL (0.0-0.2); #Eosinphils 0.1 thou/uL (0.0-0.7); #Monocytes 0.7 thou/uL (0.11-0.59); #Neutrophils 5.6 thou/uL (1.40-6.50); %Basophils 0.7 % (0.0-1.0); %Eosinophils 0.6 % (0.0-10.0); %Lymphocytes 20.7 % (21.0-51.0); %Neutrophils 68.6 % (42.0-75.0); Hematocrit 41.3 % (36.0-47.0); Hemoglobin 13.5 g/dL (12.0-16.0); Mean Corpuscular HGB CONC 32.7 g/dL (32.0-36.0); Mean Corpuscular Hemoglobin 30.2 pg (27.0-31.0); Mean Corpuscular Volume 92.4 fl (78.0-98.0); Mean Platelet Volume 9.6 fL (7.4-10.4); Platelet Count 496 10x3/uL (130-400); RBC Distribution Width 14.2 % (11.5-14.5); Red Blood Cell (RBC) Count 4.47 mill/uL (4.20-5.40); White Blood Cell (WBC) Count 8.1 10x3/uL (4.8-10.8)
[2023-10-05 15:56] LABS: ALT (SGPT) 11 U/L (8-55); AST (SGOT) 17 U/L (5-34); Albumin 4.5 g/dL (3.5-5.0); Alkaline Phosphatase 162 U/L (40-110); Anion Gap 13 mmol/L (10-20); BUN (Urea Nitrogen) 7 mg/dL (7.0-18.7); Bilirubin, Total 0.4 mg/dL (0.2-1.2); Calc. Creatinine Clearance 0 mL/min (70-130); Calcium 9.5 mg/dL (7.8-10.44); Carbon Dioxide 20 mmol/L (22-29); Chloride 109 mmol/L (98-107); Estimated GFR 63; Globulin 3.2 g/dL (2.4-3.5); Glucose 90 mg/dL (70-105); Potassium 3.5 mmol/L (3.5-5.1); Protein, Total 7.7 g/dL (6.0-8.3); Sodium 138 mmol/L (136-145)
[2023-10-05] MEDS ORDERED: levETIRAcetam 500 MG/5 ML VIAL ONE (16:16)
[2023-10-05 17:12] LABS: SARS-CoV-2 NAA Rapid Test Not Detected (NotDetected)
== END 2023-10-05 17:51 | disposition home or self-care (01) ==
LOC: ERS 14:09
DX: J06.9 Acute upper respiratory infection, unspecified (principal); Z20.822 Contact with and (suspected) exposure to COVID-19; Z79.899 Other long term (current) drug therapy; Z79.01 Long term (current) use of anticoagulants
CPT/HCPCS: 0240U; 80053; 85025; J1953; 96361; 96365

== ENCOUNTER 2023-10-17 14:25 | Inpatient (IN) | payer MEDICARE ==
[2023-10-17] MEDS ORDERED: Ondansetron PF 4 MG/2 ML Vial ONE (14:36)
[2023-10-17] MEDS ORDERED: Morphine 4 MG/ML VIAL ONE (14:36)
[2023-10-17 15:57] LABS: #Basophils 0.1 thou/uL (0.0-0.2); #Eosinphils 0.1 thou/uL (0.0-0.7); #Monocytes 0.5 thou/uL (0.11-0.59); #Neutrophils 5.8 thou/uL (1.40-6.50); %Basophils 0.7 % (0.0-1.0); %Eosinophils 1.7 % (0.0-10.0); %Lymphocytes 21.2 % (21.0-51.0); %Monocytes 6.2 % (0.0-10.0); Hematocrit 42.6 % (36.0-47.0); Hemoglobin 13.7 g/dL (12.0-16.0); Mean Corpuscular HGB CONC 32.2 g/dL (32.0-36.0); Mean Corpuscular Hemoglobin 29.9 pg (27.0-31.0); Mean Platelet Volume 9.8 fL (7.4-10.4); Platelet Count 419 10x3/uL (130-400); Red Blood Cell (RBC) Count 4.58 mill/uL (4.20-5.40); White Blood Cell (WBC) Count 8.3 10x3/uL (4.8-10.8)
[2023-10-17 16:20] LABS: ALT (SGPT) 11 U/L (8-55); AST (SGOT) 17 U/L (5-34); Albumin 4.3 g/dL (3.5-5.0); Alkaline Phosphatase 152 U/L (40-110); Anion Gap 14 mmol/L (10-20); BUN (Urea Nitrogen) 7 mg/dL (7.0-18.7); Bilirubin, Total 0.3 mg/dL (0.2-1.2); Calc. Creatinine Clearance 0 mL/min (70-130); Calcium 9.2 mg/dL (7.8-10.44); Carbon Dioxide 21 mmol/L (22-29); Chloride 107 mmol/L (98-107); Estimated GFR 55; Globulin 3.1 g/dL (2.4-3.5); Glucose 95 mg/dL (70-105); Potassium 3.6 mmol/L (3.5-5.1); Protein, Total 7.4 g/dL (6.0-8.3); Sodium 138 mmol/L (136-145)
[2023-10-17 16:23] LABS: Troponin I 0.077 ng/mL (< 0.028)
[2023-10-17 16:46] LABS: INR-International Normal Ratio 1.2; PTT 35.3 sec (22.9-36.1); Prothrombin Time 15.7 sec (12.0-14.7)
[2023-10-17] MEDS ORDERED: Acetaminophen 325 MG TAB PO PRN (17:14)
[2023-10-17 17:47] LABS: Dilantin Less than 1.8 ug/mL (10.0-20.0)
[2023-10-17 18:42] VITALS: BMI 25.2
[2023-10-17] MEDS: levETIRAcetam 500 MG TAB PO SCH (21:24)
[2023-10-17] MEDS: carBAMazepine 200 MG TAB PO SCH (21:24)
[2023-10-17] MEDS: Topiramate 100 MG TAB PO SCH (21:24)
[2023-10-17] MEDS: Apixaban 5 MG TAB PO SCH (21:24)
[2023-10-18 12:22] LABS: Troponin I 0.059 ng/mL (< 0.028)
[2023-10-18] MEDS: Topiramate 100 MG TAB PO SCH ×2 (12:56→21:29)
[2023-10-18] MEDS: carBAMazepine 200 MG TAB PO SCH ×2 (12:57→21:29)
[2023-10-18] MEDS: Apixaban 5 MG TAB PO SCH ×2 (12:57→21:29)
[2023-10-18] MEDS: levETIRAcetam 500 MG TAB PO SCH ×2 (12:57→21:28)
[2023-10-18] MEDS: Escitalopram Oxalate 20 mg Tablet PO SCH (12:57)
[2023-10-18 13:34] LABS: Anion Gap 21 mmol/L (10-20); BUN (Urea Nitrogen) 6 mg/dL (7.0-18.7); Calc. Creatinine Clearance 76 mL/min (70-130); Calcium 9.4 mg/dL (7.8-10.44); Carbon Dioxide 12 mmol/L (22-29); Chloride 116 mmol/L (98-107); Estimated GFR 67; Glucose 92 mg/dL (70-105); Potassium 4.6 mmol/L (3.5-5.1); Sodium 144 mmol/L (136-145)
[2023-10-18] MEDS: Ondansetron ODT 4 MG TAB PO PRN (18:53)
[2023-10-18 20:12] LABS: Troponin I 0.078 ng/mL (< 0.028)
[2023-10-18] MEDS ORDERED: Ondansetron PF 4 MG/2 ML Vial IVP SCH (21:15)
[2023-10-18] MEDS: Zolpidem Tartrate 5 MG TAB PO SCH (21:28)
[2023-10-18 23:47] LABS: Troponin I 0.045 ng/mL (< 0.028)
[2023-10-19] MEDS: levETIRAcetam 500 MG TAB PO SCH ×2 (09:17→20:41)
[2023-10-19] MEDS: Multivitamin W/ Minerals 1 TAB PO SCH (09:17)
[2023-10-19] MEDS: carBAMazepine 200 MG TAB PO SCH ×2 (09:17→20:42)
[2023-10-19] MEDS: Escitalopram Oxalate 20 mg Tablet PO SCH (09:18)
[2023-10-19] MEDS: Apixaban 5 MG TAB PO SCH ×2 (09:18→20:42)
[2023-10-19] MEDS: Ondansetron ODT 4 MG TAB PO PRN ×2 (09:18→18:28)
[2023-10-19] MEDS: Topiramate 100 MG TAB PO SCH ×2 (09:18→20:42)
[2023-10-19] MEDS ORDERED: Promethazine 25 MG TAB PO PRN (11:29)
[2023-10-19] MEDS ORDERED: ALPRAZolam 0.5 MG TAB PO PRN (17:58)
[2023-10-19] MEDS ORDERED: hydrOXYzine 25 MG TAB PO PRN (17:58)
[2023-10-19] MEDS: Zolpidem Tartrate 5 MG TAB PO SCH (20:42)
[2023-10-20] MEDS: carBAMazepine 200 MG TAB PO SCH (09:39)
[2023-10-20] MEDS: Apixaban 5 MG TAB PO SCH (09:39)
[2023-10-20] MEDS: Escitalopram Oxalate 20 mg Tablet PO SCH (09:39)
[2023-10-20] MEDS: Multivitamin W/ Minerals 1 TAB PO SCH (09:39)
[2023-10-20] MEDS: Topiramate 100 MG TAB PO SCH (09:40)
[2023-10-20] MEDS: levETIRAcetam 500 MG TAB PO SCH (09:40)
[2023-10-20] MEDS: Ondansetron ODT 4 MG TAB PO PRN (10:26)
[2023-10-20 12:21] VITALS: BP 113/81; TEMP 98.7
== END 2023-10-20 12:36 | disposition home or self-care (01) | DRG 100 ==
LOC: ERS 14:25 → 2SE 16:52 → INTOOBSV 16:52 → OBSVTOIN 10-18 15:08
PROVIDERS: ADMIT Internal Medicine; ATTEND Internal Medicine
PROC: 4A00X4Z Measurement of Central Nervous Electrical Activity, External Approach (ICD-10-PCS; principal; 2023-10-18)
DX: G40.909 Epilepsy, unspecified, not intractable, without status epilepticus (principal); I21.4 Non-ST elevation (NSTEMI) myocardial infarction; F32.A Depression, unspecified; G43.909 Migraine, unspecified, not intractable, without status migrainosus; E03.9 Hypothyroidism, unspecified; F39 Unspecified mood [affective] disorder; Z79.82 Long term (current) use of aspirin; Z88.8 Allergy status to other drugs, medicaments and biological substances; Z79.899 Other long term (current) drug therapy; Z86.711 Personal history of pulmonary embolism; Z90.710 Acquired absence of both cervix and uterus; Z98.890 Other specified postprocedural states
CPT/HCPCS: 36415; 71045; 80048; 80053; 80177; 80185; 83690; 83880; 84484; 85025; 85379; 85610; 85730; 93005; 93306; 94760; 95711; 95819; 96374; 96375; G0378; J2270; J2405; Q0162

== ENCOUNTER 2023-11-04 13:03 | Inpatient (IN) | payer MEDICARE ==
[2023-11-04 13:52] LABS: #Basophils 0.1 thou/uL (0.0-0.2); #Eosinphils 0.1 thou/uL (0.0-0.7); #Monocytes 0.6 thou/uL (0.11-0.59); #Neutrophils 4.6 thou/uL (1.40-6.50); %Basophils 0.8 % (0.0-1.0); %Eosinophils 1.5 % (0.0-10.0); %Lymphocytes 25.5 % (21.0-51.0); %Monocytes 7.6 % (0.0-10.0); %Neutrophils 64.3 % (42.0-75.0); Hematocrit 40.2 % (36.0-47.0); Hemoglobin 12.6 g/dL (12.0-16.0); Mean Corpuscular HGB CONC 31.3 g/dL (32.0-36.0); Mean Corpuscular Hemoglobin 30.5 pg (27.0-31.0); Mean Corpuscular Volume 97.3 fl (78.0-98.0); Mean Platelet Volume 10.1 fL (7.4-10.4); Platelet Count 345 10x3/uL (130-400); RBC Distribution Width 14.6 % (11.5-14.5); Red Blood Cell (RBC) Count 4.13 mill/uL (4.20-5.40); White Blood Cell (WBC) Count 7.2 10x3/uL (4.8-10.8)
[2023-11-04 14:12] LABS: ALT (SGPT) 7 U/L (8-55); AST (SGOT) 16 U/L (5-34); Albumin 3.6 g/dL (3.5-5.0); Alkaline Phosphatase 120 U/L (40-110); Anion Gap 11 mmol/L (10-20); BUN (Urea Nitrogen) 5 mg/dL (7.0-18.7); Bilirubin, Total 0.2 mg/dL (0.2-1.2); Calc. Creatinine Clearance 0 mL/min (70-130); Calcium 8.6 mg/dL (7.8-10.44); Carbon Dioxide 17 mmol/L (22-29); Chloride 115 mmol/L (98-107); Estimated GFR 73; Globulin 2.8 g/dL (2.4-3.5); Glucose 95 mg/dL (70-105); Lipase 24 U/L (8-78); Potassium 3.7 mmol/L (3.5-5.1); Protein, Total 6.4 g/dL (6.0-8.3); Sodium 139 mmol/L (136-145)
[2023-11-04 14:28] LABS: Troponin I 0.101 ng/mL (< 0.028)
[2023-11-04] MEDS ORDERED: Acetaminophen 650 MG Suppository PR PRN (17:34)
[2023-11-04] MEDS ORDERED: Ipratropium/Albuterol 3 ML NEB NEB PRN (17:43)
[2023-11-04 18:55] LABS: Troponin I 0.102 ng/mL (< 0.028)
[2023-11-04] MEDS: Apixaban 5 MG TAB PO SCH (20:51)
[2023-11-04] MEDS: ALPRAZolam 0.5 MG TAB PO SCH (20:51)
[2023-11-04] MEDS: Lactated Ringer's 1,000 ML IV SCH (20:51)
[2023-11-04] MEDS: carBAMazepine 200 MG TAB PO SCH (20:51)
[2023-11-04] MEDS: Topiramate 100 MG TAB PO SCH (20:51)
[2023-11-04] MEDS: levETIRAcetam 500 MG TAB PO SCH (20:51)
[2023-11-04] MEDS: Famotidine 20 MG TAB PO SCH (20:51)
[2023-11-04 21:17] VITALS: BMI 25.4
[2023-11-04 22:06] LABS: SARS-CoV-2 NAA Rapid Test Not Detected (NotDetected)
[2023-11-04] MEDS ORDERED: Zolpidem Tartrate 5 MG TAB PO SCH (22:45)
[2023-11-04] MEDS ORDERED: Ketorolac Tromethamine 30 MG/ML VIAL IVP SCH (22:45)
[2023-11-04 23:20] LABS: Troponin I 0.112 ng/mL (< 0.028)
[2023-11-05] MEDS: Benzonatate 100 MG CAP PO PRN (09:55)
[2023-11-05] MEDS: Escitalopram Oxalate 20 mg Tablet PO SCH (09:55)
[2023-11-05] MEDS: Lactated Ringer's 1,000 ML IV SCH (09:55)
[2023-11-05] MEDS: levETIRAcetam 500 MG TAB PO SCH ×2 (09:56→20:45)
[2023-11-05] MEDS: Topiramate 100 MG TAB PO SCH ×2 (09:56→20:46)
[2023-11-05] MEDS: Famotidine 20 MG TAB PO SCH ×2 (09:56→20:46)
[2023-11-05] MEDS: Apixaban 5 MG TAB PO SCH ×2 (09:57→20:46)
[2023-11-05] MEDS: carBAMazepine 200 MG TAB PO SCH ×2 (09:57→20:45)
[2023-11-05] MEDS ORDERED: Iopamidol 370 76% 100 ML VIAL ONE (11:32)
[2023-11-05] MEDS: Acetaminophen 325 MG TAB PO PRN (13:27)
[2023-11-05] MEDS: Morphine 2 MG/ML VIAL SLOW IVP PRN ×2 (15:27→20:50)
[2023-11-05 15:32] LABS: #Basophils 0.1 thou/uL (0.0-0.2); #Eosinphils 0.1 thou/uL (0.0-0.7); #Monocytes 0.5 thou/uL (0.11-0.59); #Neutrophils 4.5 thou/uL (1.40-6.50); %Eosinophils 1.7 % (0.0-10.0); %Lymphocytes 25.9 % (21.0-51.0); %Monocytes 6.5 % (0.0-10.0); %Neutrophils 64.6 % (42.0-75.0); Hematocrit 37.7 % (36.0-47.0); Hemoglobin 12.9 g/dL (12.0-16.0); Mean Corpuscular HGB CONC 34.2 g/dL (32.0-36.0); Mean Corpuscular Hemoglobin 30.9 pg (27.0-31.0); Mean Corpuscular Volume 90.2 fl (78.0-98.0); Mean Platelet Volume 10.6 fL (7.4-10.4); Platelet Count 384 10x3/uL (130-400); RBC Distribution Width 14.4 % (11.5-14.5); Red Blood Cell (RBC) Count 4.18 mill/uL (4.20-5.40); White Blood Cell (WBC) Count 6.9 10x3/uL (4.8-10.8)
[2023-11-05 15:38] LABS: Anion Gap 12 mmol/L (10-20); BUN (Urea Nitrogen) 4 mg/dL (7.0-18.7); Calc. Creatinine Clearance 95 mL/min (70-130); Calcium 8.8 mg/dL (7.8-10.44); Carbon Dioxide 15 mmol/L (22-29); Chloride 114 mmol/L (98-107); Estimated GFR 87; Glucose 91 mg/dL (70-105); Potassium 3.7 mmol/L (3.5-5.1); Sodium 137 mmol/L (136-145)
[2023-11-05] MEDS: ALPRAZolam 0.5 MG TAB PO SCH (20:46)
[2023-11-05] MEDS: Zolpidem Tartrate 5 MG TAB PO SCH (21:14)
[2023-11-06] MEDS: Morphine 2 MG/ML VIAL SLOW IVP PRN ×3 (02:36→20:44)
[2023-11-06] MEDS: Benzonatate 100 MG CAP PO PRN (02:36)
[2023-11-06] MEDS: Lactated Ringer's 1,000 ML IV SCH ×3 (02:37→23:14)
[2023-11-06] MEDS: levETIRAcetam 500 MG TAB PO SCH ×2 (09:42→21:48)
[2023-11-06] MEDS: carBAMazepine 200 MG TAB PO SCH ×2 (09:42→21:48)
[2023-11-06] MEDS: Famotidine 20 MG TAB PO SCH ×2 (09:42→21:48)
[2023-11-06] MEDS: Topiramate 100 MG TAB PO SCH ×2 (09:43→21:48)
[2023-11-06] MEDS: Apixaban 5 MG TAB PO SCH ×2 (09:43→21:48)
[2023-11-06] MEDS: Escitalopram Oxalate 20 mg Tablet PO SCH (09:43)
[2023-11-06] MEDS: Acetaminophen 325 MG TAB PO PRN (14:22)
[2023-11-06] MEDS: ALPRAZolam 0.5 MG TAB PO SCH (21:47)
[2023-11-06] MEDS: Zolpidem Tartrate 5 MG TAB PO SCH (21:48)
[2023-11-07] MEDS: Acetaminophen 325 MG TAB PO PRN (02:39)
[2023-11-07] MEDS: Morphine 2 MG/ML VIAL SLOW IVP PRN ×2 (02:40→10:41)
[2023-11-07] MEDS: Famotidine 20 MG TAB PO SCH (09:31)
[2023-11-07] MEDS: levETIRAcetam 500 MG TAB PO SCH (09:31)
[2023-11-07] MEDS: Topiramate 100 MG TAB PO SCH (09:31)
[2023-11-07] MEDS: Escitalopram Oxalate 20 mg Tablet PO SCH (09:32)
[2023-11-07] MEDS: Apixaban 5 MG TAB PO SCH (09:32)
[2023-11-07] MEDS: carBAMazepine 200 MG TAB PO SCH (09:32)
[2023-11-07 11:43] VITALS: BP 109/64; TEMP 97.5
[2023-11-07] MEDS: Lactated Ringer's 1,000 ML IV SCH (12:09)
== END 2023-11-07 15:43 | disposition home or self-care (01) | DRG 176 ==
LOC: ERS 13:03 → 2SW 16:10 → OBSVTOIN 11-06 09:21
PROVIDERS: ADMIT Hospitalist; ATTEND Internal Medicine
DX: I26.93 Single subsegmental thrombotic pulmonary embolism without acute cor pulmonale (principal); Z88.8 Allergy status to other drugs, medicaments and biological substances; Z79.899 Other long term (current) drug therapy; Z79.01 Long term (current) use of anticoagulants; Z90.710 Acquired absence of both cervix and uterus; Z98.890 Other specified postprocedural states; R56.9 Unspecified convulsions; F41.9 Anxiety disorder, unspecified; F32.A Depression, unspecified; I10 Essential (primary) hypertension; R79.89 Other specified abnormal findings of blood chemistry; Z11.52 Encounter for screening for COVID-19
CPT/HCPCS: 0241U; 36415; 36416; 71045; 71275; 80048; 80053; 83690; 84484; 85025; 93005; 96374; 96375; 96376; G0378; J1885; J2272; J7120; Q9967

== ENCOUNTER 2023-11-18 14:45 | Inpatient (IN) | payer MEDICARE ==
[2023-11-18] MEDS ORDERED: Ondansetron PF 4 MG/2 ML Vial ONE (15:32)
[2023-11-18 15:44] LABS: #Basophils 0.1 thou/uL (0.0-0.2); #Eosinphils 0.1 thou/uL (0.0-0.7); #Monocytes 0.4 thou/uL (0.11-0.59); #Neutrophils 5.3 thou/uL (1.40-6.50); %Basophils 0.7 % (0.0-1.0); %Lymphocytes 16.6 % (21.0-51.0); %Monocytes 5.7 % (0.0-10.0); %Neutrophils 75.7 % (42.0-75.0); Hematocrit 45.7 % (36.0-47.0); Hemoglobin 15.1 g/dL (12.0-16.0); Mean Corpuscular Hemoglobin 30.6 pg (27.0-31.0); Mean Corpuscular Volume 92.7 fl (78.0-98.0); Mean Platelet Volume 9.5 fL (7.4-10.4); Platelet Count 443 10x3/uL (130-400); RBC Distribution Width 15.1 % (11.5-14.5); Red Blood Cell (RBC) Count 4.93 mill/uL (4.20-5.40)
[2023-11-18 16:05] LABS: ALT (SGPT) 19 U/L (8-55); AST (SGOT) 22 U/L (5-34); Albumin 4.7 g/dL (3.5-5.0); Alkaline Phosphatase 176 U/L (40-110); Anion Gap 16 mmol/L (10-20); BUN (Urea Nitrogen) 7 mg/dL (7.0-18.7); Bilirubin, Total 0.5 mg/dL (0.2-1.2); Calc. Creatinine Clearance 0 mL/min (70-130); Calcium 9.8 mg/dL (7.8-10.44); Carbon Dioxide 20 mmol/L (22-29); Chloride 106 mmol/L (98-107); Estimated GFR 58; Globulin 3.7 g/dL (2.4-3.5); Glucose 108 mg/dL (70-105); Lipase 26 U/L (8-78); Potassium 3.8 mmol/L (3.5-5.1); Protein, Total 8.4 g/dL (6.0-8.3); Sodium 138 mmol/L (136-145)
[2023-11-18 16:09] LABS: Critical Call Chem Troponin I NUR.DP6 @1609; Troponin I 0.231 ng/mL (< 0.028)
[2023-11-18 16:12] LABS: INR-International Normal Ratio 1.1; Prothrombin Time 14.9 sec (12.0-14.7)
[2023-11-18 16:26] LABS: SARS-CoV-2 NAA Rapid Test Not Detected (NotDetected)
[2023-11-18] MEDS ORDERED: Sodium Chloride 0.9% 100 ML ONE (17:19)
[2023-11-18] MEDS ORDERED: Azithromycin 500 MG VIAL ONE (17:19)
[2023-11-18] MEDS ORDERED: cefTRIAXone (ROCEPHIN) 2 GM VIAL ONE (17:19)
[2023-11-18] MEDS ORDERED: Acetaminophen 325 MG TAB PO PRN (17:40)
[2023-11-18 18:15] LABS: Bilirubin Negative (Negative); Blood, Urine Negative (Negative); CAUTI Indications for Culture Dysuria,urgency,freq; Clarity Clear (Clear); Glucose, Urine (Dipstick) Normal (Negative); Ketone, Urine Negative (Negative); Leukocyte 25 Leu/uL (Negative); Nitrite Negative (Negative); Protein, Urine (Dipstick) Negative (Neg-Trace); RBC/HPF 0-3 HPF (0-3); Specific Gravity, Urine 1.009 (1.002-1.036); Urobilinogen Normal mg/dL (Less than 2); pH, Urine 6.5 (5.0-9.0)
[2023-11-18 18:21] LABS: Bacteria/HPF 1+ HPF (None Seen)
[2023-11-18 18:22] LABS: Urine Culture Reflex No No
[2023-11-18 19:56] VITALS: BMI 25.0
[2023-11-18 21:03] LABS: Critical Call Chem Troponin I NUR.LC9 @2103; Troponin I 0.208 ng/mL (< 0.028)
[2023-11-18] MEDS ORDERED: Albuterol 200 PUFF (6.7GM INHALER) INH PRN (21:27)
[2023-11-18] MEDS ORDERED: levETIRAcetam 500 MG TAB PO SCH (21:45)
[2023-11-18] MEDS: HYDROcodone/Acetaminophen 5/325 mg Tablet PO PRN (21:51)
[2023-11-18] MEDS: Ondansetron PF 4 MG/2 ML Vial IVP PRN (21:55)
[2023-11-18] MEDS: ALPRAZolam 0.5 MG TAB PO PRN (22:41)
[2023-11-18] MEDS: Zolpidem Tartrate 5 MG TAB PO PRN (22:41)
[2023-11-19 00:29] LABS: Troponin I 0.192 ng/mL (< 0.028)
[2023-11-19 06:16] LABS: #Basophils 0.1 thou/uL (0.0-0.2); #Eosinphils 0.2 thou/uL (0.0-0.7); #Monocytes 0.6 thou/uL (0.11-0.59); #Neutrophils 3.7 thou/uL (1.40-6.50); %Basophils 0.7 % (0.0-1.0); %Eosinophils 2.2 % (0.0-10.0); %Lymphocytes 31.7 % (21.0-51.0); %Monocytes 9.2 % (0.0-10.0); %Neutrophils 55.9 % (42.0-75.0); Hematocrit 39.8 % (36.0-47.0); Hemoglobin 12.9 g/dL (12.0-16.0); Mean Corpuscular HGB CONC 32.4 g/dL (32.0-36.0); Mean Corpuscular Hemoglobin 30.7 pg (27.0-31.0); Mean Corpuscular Volume 94.8 fl (78.0-98.0); Mean Platelet Volume 9.6 fL (7.4-10.4); Platelet Count 393 10x3/uL (130-400); RBC Distribution Width 15.3 % (11.5-14.5); White Blood Cell (WBC) Count 6.7 10x3/uL (4.8-10.8)
[2023-11-19 06:45] LABS: Anion Gap 12 mmol/L (10-20); BUN (Urea Nitrogen) 5 mg/dL (7.0-18.7); Calc. Creatinine Clearance 94 mL/min (70-130); Calcium 8.4 mg/dL (7.8-10.44); Carbon Dioxide 17 mmol/L (22-29); Chloride 113 mmol/L (98-107); Estimated GFR 87; Glucose 96 mg/dL (70-105); Potassium 3.9 mmol/L (3.5-5.1); Sodium 138 mmol/L (136-145)
[2023-11-19] MEDS: HYDROcodone/Acetaminophen 5/325 mg Tablet PO PRN ×3 (09:55→21:26)
[2023-11-19] MEDS: Apixaban 5 MG TAB PO SCH ×2 (09:55→20:22)
[2023-11-19] MEDS: Escitalopram Oxalate 20 mg Tablet PO SCH (09:55)
[2023-11-19] MEDS: levETIRAcetam 500 MG TAB PO SCH ×2 (09:55→20:27)
[2023-11-19] MEDS: Topiramate 100 MG TAB PO SCH ×2 (09:55→20:22)
[2023-11-19] MEDS: Ondansetron PF 4 MG/2 ML Vial IVP PRN ×2 (13:42→19:46)
[2023-11-19] MEDS ORDERED: Ipratropium/Albuterol 3 ML NEB NEB PRN (15:11)
[2023-11-19] MEDS ORDERED: cefTRIAXone\\ROCEPHIN 1 GM in Sodium Chloride 0.9% 100 ML IVPB SCH (17:00)
[2023-11-19] MEDS ORDERED: Azithromycin 500 MG in Sodium Chloride 0.9% 250 ML 250 ML IVPB SCH (18:00)
[2023-11-19] MEDS: ALPRAZolam 0.5 MG TAB PO PRN (23:34)
[2023-11-19] MEDS: Zolpidem Tartrate 5 MG TAB PO PRN (23:34)
[2023-11-20] MEDS: Ondansetron PF 4 MG/2 ML Vial IVP PRN ×3 (03:29→15:43)
[2023-11-20] MEDS: Apixaban 5 MG TAB PO SCH ×2 (08:27→22:26)
[2023-11-20] MEDS: levETIRAcetam 500 MG TAB PO SCH ×2 (08:27→22:26)
[2023-11-20] MEDS: Saccharomyces boulardii 250 MG CAP PO SCH (08:27)
[2023-11-20] MEDS: Escitalopram Oxalate 20 mg Tablet PO SCH (08:28)
[2023-11-20] MEDS: Topiramate 100 MG TAB PO SCH ×2 (08:28→22:27)
[2023-11-20] MEDS: HYDROcodone/Acetaminophen 5/325 mg Tablet PO PRN ×3 (08:28→22:27)
[2023-11-20] MEDS ORDERED: Metoclopramide HCl 10 MG (2 mL) VIAL IVP SCH (22:30)
[2023-11-21] MEDS: ALPRAZolam 0.5 MG TAB PO PRN ×2 (00:09→22:20)
[2023-11-21] MEDS: Zolpidem Tartrate 5 MG TAB PO PRN ×2 (00:09→22:19)
[2023-11-21] MEDS ORDERED: Regadenoson 0.4 MG/5 ML SYRINGE ONE (08:51)
[2023-11-21] MEDS: levETIRAcetam 500 MG TAB PO SCH ×2 (10:15→22:20)
[2023-11-21] MEDS: Apixaban 5 MG TAB PO SCH ×2 (10:15→22:20)
[2023-11-21] MEDS: Topiramate 100 MG TAB PO SCH ×2 (10:15→22:20)
[2023-11-21] MEDS: Metoclopramide HCl 10 MG (2 mL) VIAL IVP PRN ×2 (10:15→20:56)
[2023-11-21] MEDS: Saccharomyces boulardii 250 MG CAP PO SCH (10:16)
[2023-11-21] MEDS: HYDROcodone/Acetaminophen 5/325 mg Tablet PO PRN ×2 (10:26→20:56)
[2023-11-21] MEDS: Escitalopram Oxalate 20 mg Tablet PO SCH (10:47)
[2023-11-21] MEDS ORDERED: Sodium Chloride 0.9% 500 ML IV SCH ×2 (12:15→13:00)
[2023-11-21] MEDS: Sodium Chloride 0.9% 1,000 ML IV SCH ×2 (13:23→23:55)
[2023-11-22] MEDS ORDERED: FLU VACC QS2023-24(6MOS UP)/PF 60 MCG/0.5 ML SYRINGE IM ONE (01:15)
[2023-11-22] MEDS: Apixaban 5 MG TAB PO SCH (09:37)
[2023-11-22] MEDS: Metoclopramide HCl 10 MG (2 mL) VIAL IVP PRN (09:37)
[2023-11-22] MEDS: Escitalopram Oxalate 20 mg Tablet PO SCH (09:38)
[2023-11-22] MEDS: Saccharomyces boulardii 250 MG CAP PO SCH (09:38)
[2023-11-22] MEDS: levETIRAcetam 500 MG TAB PO SCH (09:38)
[2023-11-22] MEDS: Topiramate 100 MG TAB PO SCH (09:39)
[2023-11-22] MEDS: Sodium Chloride 0.9% 1,000 ML IV SCH (10:20)
[2023-11-22 12:03] VITALS: BP 137/71; TEMP 97.4
== END 2023-11-22 15:59 | disposition home or self-care (01) | DRG 313 ==
LOC: ERS 14:45 → 2SW 16:57 → OBSVTOIN 11-20 13:55
PROVIDERS: ADMIT Internal Medicine; ATTEND Internal Medicine
DX: R07.89 Other chest pain (principal); G40.909 Epilepsy, unspecified, not intractable, without status epilepticus; R77.8 Other specified abnormalities of plasma proteins; I10 Essential (primary) hypertension; Z86.711 Personal history of pulmonary embolism; Z79.01 Long term (current) use of anticoagulants; Z88.8 Allergy status to other drugs, medicaments and biological substances; Z79.899 Other long term (current) drug therapy; Z90.710 Acquired absence of both cervix and uterus; Z11.52 Encounter for screening for COVID-19
CPT/HCPCS: 36415; 36416; 71045; 78451; 80048; 80053; 81001; 83605; 83690; 84484; 85025; 85610; 85730; 87324; 87449; 93005; 93017; 93306; 94760; 96361; 96365; 96375; 96376; A9502; A9503; G0378; J0456; J0696; J2405; J2765; J2785; J3490; J7030; J7050

== ENCOUNTER 2023-12-12 18:17 | Emergency (ER) | payer MEDICARE ==
[2023-12-12 20:08] LABS: #Basophils 0.1 thou/uL (0.0-0.2); #Eosinphils 0.1 thou/uL (0.0-0.7); #Monocytes 0.6 thou/uL (0.11-0.59); #Neutrophils 7.2 thou/uL (1.40-6.50); %Basophils 0.5 % (0.0-1.0); %Eosinophils 0.9 % (0.0-10.0); %Lymphocytes 14.9 % (21.0-51.0); %Monocytes 6.6 % (0.0-10.0); %Neutrophils 76.9 % (42.0-75.0); Hemoglobin 13.9 g/dL (12.0-16.0); Mean Corpuscular HGB CONC 33.1 g/dL (32.0-36.0); Mean Corpuscular Hemoglobin 30.7 pg (27.0-31.0); Mean Corpuscular Volume 92.7 fl (78.0-98.0); Mean Platelet Volume 9.8 fL (7.4-10.4); Platelet Count 305 10x3/uL (130-400); RBC Distribution Width 15.2 % (11.5-14.5); Red Blood Cell (RBC) Count 4.53 mill/uL (4.20-5.40); White Blood Cell (WBC) Count 9.3 10x3/uL (4.8-10.8)
[2023-12-12 20:24] LABS: ALT (SGPT) 14 U/L (8-55); AST (SGOT) 18 U/L (5-34); Albumin 3.9 g/dL (3.5-5.0); Alkaline Phosphatase 139 U/L (40-110); Anion Gap 12 mmol/L (10-20); BUN (Urea Nitrogen) 8 mg/dL (7.0-18.7); Bilirubin, Total 0.4 mg/dL (0.2-1.2); Calc. Creatinine Clearance 0 mL/min (70-130); Calcium 8.8 mg/dL (7.8-10.44); Carbon Dioxide 20 mmol/L (22-29); Chloride 109 mmol/L (98-107); Estimated GFR 67; Globulin 2.9 g/dL (2.4-3.5); Glucose 92 mg/dL (70-105); INR-International Normal Ratio 1.4; PTT 27.9 sec (22.9-36.1); Potassium 3.7 mmol/L (3.5-5.1); Protein, Total 6.8 g/dL (6.0-8.3); Prothrombin Time 16.7 sec (12.0-14.7); Sodium 137 mmol/L (136-145)
== END 2023-12-12 21:05 | disposition home or self-care (01) ==
LOC: ERS 18:17
DX: R56.9 Unspecified convulsions (principal); M54.50 Low back pain, unspecified; I10 Essential (primary) hypertension; Z86.711 Personal history of pulmonary embolism; Z79.01 Long term (current) use of anticoagulants; Z79.899 Other long term (current) drug therapy
CPT/HCPCS: 36415; 70450; 80053; 85025; 85610; 85730

== ENCOUNTER 2024-04-04 20:02 | Emergency (ER) | payer MEDICARE ==
[2024-04-04] MEDS ORDERED: Acetaminophen 325 MG TAB ONE (21:13)
[2024-04-04] MEDS ORDERED: levETIRAcetam 500 MG TAB ONE (21:13)
== END 2024-04-04 21:18 | disposition home or self-care (01) ==
LOC: ERS 20:02
DX: R56.9 Unspecified convulsions (principal); I10 Essential (primary) hypertension; Z79.01 Long term (current) use of anticoagulants; Z86.711 Personal history of pulmonary embolism; Z79.899 Other long term (current) drug therapy
CPT/HCPCS: 99284

== ENCOUNTER 2024-04-21 19:16 | Emergency (ER) | payer MEDICARE, OTHER ==
[2024-04-21] MEDS ORDERED: Boostrix 0.5 ML (Tdap) VIAL (>/=7 yrs of age) ONE (19:38)
[2024-04-21] MEDS ORDERED: Acetaminophen 650 MG/20.3 ML UDCUP ONE (19:46)
== END 2024-04-21 20:12 | disposition home or self-care (01) ==
LOC: ERS 19:16
DX: S61.451A Open bite of right hand, initial encounter (principal); S61.431A Puncture wound without foreign body of right hand, initial encounter; I10 Essential (primary) hypertension; W54.0XXA Bitten by dog, initial encounter; Z23 Encounter for immunization
CPT/HCPCS: 90471; 90715

== ENCOUNTER 2024-05-12 11:20 | Emergency (ER) | payer MEDICARE, OTHER ==
[2024-05-12 13:02] LABS: ALT (SGPT) 13 U/L (8-55); AST (SGOT) 25 U/L (5-34); Albumin 3.8 g/dL (3.5-5.0); Alkaline Phosphatase 167 U/L (40-110); Anion Gap 16 mmol/L (10-20); BUN (Urea Nitrogen) Less than 4 mg/dL (7.0-18.7); Bilirubin, Total 0.5 mg/dL (0.2-1.2); Calc. Creatinine Clearance 0 mL/min (70-130); Calcium 9.2 mg/dL (7.8-10.44); Carbon Dioxide 13 mmol/L (22-29); Chloride 112 mmol/L (98-107); Estimated GFR 67; Globulin 3.8 g/dL (2.4-3.5); Glucose 95 mg/dL (70-105); Potassium 3.5 mmol/L (3.5-5.1); Protein, Total 7.6 g/dL (6.0-8.3); Sodium 137 mmol/L (136-145)
[2024-05-12 14:15] LABS: #Basophils 0.09 10x3/uL (0.0-0.2); %Basophils 0.9 % (0.0-1.0); %Eosinophils 0.5 % (0.0-10.0); %Lymphocytes 15.5 % (21.0-51.0); %Monocytes 5.2 % (0.0-10.0); %Neutrophils 77.5 % (42.0-75.0); Hematocrit 47.5 % (36.0-47.0); Hemoglobin 15.6 g/dL (12.0-16.0); Mean Corpuscular HGB CONC 32.8 g/dL (32.0-36.0); Mean Corpuscular Hemoglobin 32.7 pg (27.0-31.0); Mean Corpuscular Volume 99.6 fL (78.0-98.0); Mean Platelet Volume 10.1 fL (7.4-10.4); Platelet Count 404 10x3/uL (130-400); RBC Distribution Width 13.7 % (11.5-14.5); Red Blood Cell (RBC) Count 4.77 mill/uL (4.20-5.40)
== END 2024-05-12 15:13 | disposition home or self-care (01) ==
LOC: ERS 11:20
DX: B37.49 Other urogenital candidiasis (principal); R56.9 Unspecified convulsions; I10 Essential (primary) hypertension
CPT/HCPCS: 36415; 80053; 85025; 93005

== ENCOUNTER 2024-05-13 12:35 | Emergency (ER) | payer MEDICARE ==
[2024-05-13] MEDS ORDERED: Ondansetron PF 4 MG/2 ML Vial ONE (13:07)
[2024-05-13 13:24] LABS: #Basophils 0.07 10x3/uL (0.0-0.2); %Basophils 0.6 % (0.0-1.0); %Eosinophils 1.5 % (0.0-10.0); %Lymphocytes 15.5 % (21.0-51.0); %Monocytes 6.5 % (0.0-10.0); %Neutrophils 75.4 % (42.0-75.0); Hematocrit 41.2 % (36.0-47.0); Hemoglobin 14.2 g/dL (12.0-16.0); Mean Corpuscular HGB CONC 34.5 g/dL (32.0-36.0); Mean Corpuscular Hemoglobin 32.4 pg (27.0-31.0); Mean Corpuscular Volume 94.1 fL (78.0-98.0); Mean Platelet Volume 10.4 fL (7.4-10.4); Platelet Count 437 10x3/uL (130-400); RBC Distribution Width 13.4 % (11.5-14.5); Red Blood Cell (RBC) Count 4.38 mill/uL (4.20-5.40)
[2024-05-13 13:41] LABS: INR-International Normal Ratio 1.3; PTT 33.5 sec (22.9-36.1); Prothrombin Time 16.3 sec (12.0-14.7)
[2024-05-13 13:42] LABS: D-Dimer Test 0.39 mcg/mL (0.27-0.43)
[2024-05-13 13:45] LABS: ALT (SGPT) 13 U/L (8-55); AST (SGOT) 18 U/L (5-34); Albumin 3.8 g/dL (3.5-5.0); Alkaline Phosphatase 145 U/L (40-110); Anion Gap 19 mmol/L (10-20); BUN (Urea Nitrogen) 5 mg/dL (7.0-18.7); Bilirubin, Total 0.6 mg/dL (0.2-1.2); CK (CPK) 242 U/L (29-168); Calc. Creatinine Clearance 0 mL/min (70-130); Calcium 9.3 mg/dL (7.8-10.44); Carbon Dioxide 16 mmol/L (22-29); Chloride 110 mmol/L (98-107); Estimated GFR 66; Globulin 3.4 g/dL (2.4-3.5); Glucose 103 mg/dL (70-105); Protein, Total 7.2 g/dL (6.0-8.3); Sodium 142 mmol/L (136-145)
[2024-05-13 15:14] LABS: Bacteria/HPF None Seen HPF (None Seen); Bilirubin Negative (Negative); Blood, Urine Negative (Negative); CAUTI Indications for Culture Dysuria,urgency,freq; Clarity Clear (Clear); Glucose, Urine (Dipstick) Normal (Negative); Ketone, Urine Negative (Negative); Leukocyte Negative Leu/uL (Negative); Nitrite Negative (Negative); Protein, Urine (Dipstick) Negative (Neg-Trace); RBC/HPF None Seen HPF (0-3); Specific Gravity, Urine 1.007 (1.002-1.036); Squamous Epithelial 0-3 HPF (0-3); Urobilinogen Normal mg/dL (Less than 2); WBC/HPF 0-3 HPF (0-3)
[2024-05-13 15:15] LABS: Urine Culture Reflex No No
[2024-05-13] MEDS ORDERED: Potassium Chloride 20 MEQ TAB ONE (15:43)
[2024-05-13 17:47] LABS: Lactic Acid 0.9 mmol/L (0.5-2.2)
== END 2024-05-13 18:10 | disposition home or self-care (01) ==
LOC: ERS 12:35
DX: R56.9 Unspecified convulsions (principal); E87.20 Acidosis, unspecified
CPT/HCPCS: 71045; 80053; 81001; 82550; 83605; 84146; 85025; 85379; 85610; 85730; 93005; 99284; J2405; 36415

== ENCOUNTER 2024-05-18 20:45 | Emergency (ER) | payer MEDICARE | END 2024-05-19 02:36 | disposition home or self-care (01) | LOC: ERS 20:45 | DX: R56.9 Unspecified convulsions (principal); R11.2 Nausea with vomiting, unspecified | CPT/HCPCS: 71045; 74177; 80053; 80306; 81001; 82962; 84146; 84484; 85025; 93005; J2405 ×2; Q9967; S0028; 36415; 36416; 96374; 96375; 96376 ==

== ENCOUNTER 2024-06-03 12:44 | Emergency (ER) | payer MEDICARE ==
[2024-06-03 13:21] LABS: #Basophils 0.06 10x3/uL (0.0-0.2); %Basophils 0.8 % (0.0-1.0); %Eosinophils 1.2 % (0.0-10.0); %Lymphocytes 14.7 % (21.0-51.0); %Monocytes 6.5 % (0.0-10.0); %Neutrophils 76.1 % (42.0-75.0); Hematocrit 43.8 % (36.0-47.0); Hemoglobin 14.9 g/dL (12.0-16.0); Mean Corpuscular Volume 94.2 fL (78.0-98.0); Mean Platelet Volume 10.9 fL (7.4-10.4); Platelet Count 220 10x3/uL (130-400); RBC Distribution Width 13.1 % (11.5-14.5); Red Blood Cell (RBC) Count 4.65 mill/uL (4.20-5.40)
[2024-06-03 13:29] LABS: ALT (SGPT) 12 U/L (8-55); AST (SGOT) 16 U/L (5-34); Albumin 3.9 g/dL (3.5-5.0); Alkaline Phosphatase 139 U/L (40-110); Anion Gap 15 mmol/L (10-20); BUN (Urea Nitrogen) 7 mg/dL (7.0-18.7); Bilirubin, Total 0.6 mg/dL (0.2-1.2); Calc. Creatinine Clearance 0 mL/min (70-130); Calcium 9.4 mg/dL (7.8-10.44); Carbon Dioxide 17 mmol/L (22-29); Chloride 113 mmol/L (98-107); Estimated GFR 59; Globulin 3.1 g/dL (2.4-3.5); Glucose 100 mg/dL (70-105); Potassium 3.6 mmol/L (3.5-5.1); Sodium 141 mmol/L (136-145)
[2024-06-03] MEDS ORDERED: levETIRAcetam 500 MG (5 mL) VIAL ONE (14:22)
== END 2024-06-03 15:03 | disposition home or self-care (01) ==
LOC: ERS 12:44
DX: G40.409 Other generalized epilepsy and epileptic syndromes, not intractable, without status epilepticus (principal); R29.700 NIHSS score 0; I95.9 Hypotension, unspecified
CPT/HCPCS: 70450; 80053; 80177; 83605; 85025; J1953; 36415; 96374

== ENCOUNTER 2025-10-17 09:44 | Emergency (ER) | payer MEDICARE | END 2025-10-17 11:52 | disposition home or self-care (01) | LOC: ERS 09:44 | DX: B34.9 Viral infection, unspecified (principal); R56.9 Unspecified convulsions; Z79.01 Long term (current) use of anticoagulants; Z75.3 Unavailability and inaccessibility of health-care facilities | CPT/HCPCS: 87428; 99283 ==